=== PATIENT | female | born 1970 ===

== ENCOUNTER 2017-01-25 20:19 | Inpatient (IN) | payer MEDICAID ==
[2017-01-25] MEDS ORDERED: DiphenhydrAMINE 50 mg/ml Inj IVP STA (21:12)
--- NOTE | 2017-01-25 22:02 | ED PDOC ---
HPI: Chest Pain Time Seen by Provider: 01/25/17 20:43 Chief Complaint (Nursing): Chest Pain Chief Complaint (Provider): Chest Pain History Per: Patient History/Exam Limitations: no limitations Onset/Duration Of Symptoms: Hrs (x2) Current Symptoms Are (Timing): Still Present Severity: Severe Associated Symptoms: Dyspnea, Other (vomiting (nonbilious/nonbloody), lightheadedness) Additional Complaint(s): Bree Avina is a 46 year old female, with a past medical history inclusive of multiple previous pulmonary emboli (diagnosed 7x in past, 1st in 2013 at [facility], several at [place], most recent at [facility] in July 2016), who presents to the ED on 01/25/17 for the evaluation of severe chest pain that she has experienced x2 hours. Pain was reportedly sudden onset and has since been accompanied by feelings of lightheadedness, shortness of breath and initially 2 episodes of non-bilious/non-bloody vomiting; similar to the symptom presentation experienced with previous PE's. Though she reports being compliant with her self-injected Lovenox, she admits to not having followed up regularly with a doctor secondary to issues with her insurance. Denies fever, cough, leg swelling or use of hormone therapies. Of note patient has brought a copy of the July 2016 CT report by which she had been diagnosed with her most recent PE, though she states as she is allergic to iodine she had been given 1 day's worth of steroid preparation treatments prior to undergoing the study. She also reports that she usually receives dilaudid for the treatment of her chest pain. (+) IVC filter in place. Pertinent familial history includes DVT though not PE. Past Medical History Reviewed: Historical Data, Nursing Documentation, Vital Signs Vital Signs: Last Vital Signs Temp 97.5 F L 01/26/17 12:00 Pulse 71 01/26/17 12:00 Resp 20 01/26/17 12:00 BP 146/93 H 01/26/17 12:00 Pulse Ox 93 L 01/26/17 12:00 - Medical History PMH: Asthma, Gall Bladder Disease (CHOLECYSTECTOMY), Kidney Stones, Pulmonary Embolism (x7, most recent July 2016 at [facility]) Denies: Alzheimer's Disease, Anemia, Anxiety, Arthritis, Atrial Fibrillation , Bipolar Disorder, Bronchitis, CAD, Cardia Arrhythmia, CHF, COPD, Crohn's Disease, Dementia, Depression, Diverticulitis, Emphysema, Fractures, Gastritis, HIV, HTN, Hypercholesterolemia, Hyperthyroidism, Hypothyroidism, Migraine, Mitral Valve Prolapse, Multiple Sclerosis, Osteoporosis, Pancreatitis, Paranoia , Parkinson's Disease, Peripheral Edema, Pneumonia, Post Traumatic Stress Disorder, Chronic Kidney Disease, Rheumatoid Arthritis, Schizophrenia, Seizures , Sickle Cell Disease, Sexually Transmitted Disease, Sleep Apnea, TIA - Surgical History Surgical History: Appendectomy, Cholecystectomy Denies: CABG, Carotid Endarterectomy, Coronary Stent, Pacemaker, Tonsillectomy Other surgeries: IVC filter placement, splenectomy, tubal ligation - Family History Family History: States: Hypertension, Other (DVT; not PE) - Immunization History Hx Tetanus Toxoid Vaccination: Yes Hx Influenza Vaccination: No Hx Pneumococcal Vaccination: Yes - Home Medications Home Medications: Ambulatory Orders Medication Instructions Recorded Enoxaparin [Lovenox] 140 mg SUBCUT BID 01/26/17 - Allergies Allergies/Adverse Reactions: Allergies Allergy/AdvReac Type Severity Reaction Status Date / Time iodixanol Allergy Severe SHORTNESS Verified 01/25/17 20:58 OF BREATH Iodine and Iodide Containing Allergy SHORTNESS Verified 01/25/17 20:58 Produc OF BREATH ketorolac Allergy ITCHING Verified 01/25/17 20:58 ondansetron Allergy ITCHING Verified 01/25/17 20:58 Wells Criteria for PE - Wells Criteria for Pulmonary Embolism Clinical Signs and Symptoms of DVT: Yes P.E is #1 Diagnosis, or Equally Likely: Yes Heart Rate >100: Yes Immobilization at least 3 days;Surgery previous 4 weeks: No Previous, objectively diagnosed PE or DVT: Yes Hemoptysis: No Malignancy w/treatment within 6 months, or palliative: No Total Score: 7.0 Review of Systems ROS Statement: Except As Marked, All Systems Reviewed And Found Negative Constitutional: Negative for: Fever Cardiovascular: Positive for: Chest Pain, Light Headedness. Negative for: Edema (no leg swelling) Respiratory: Positive for: Shortness of Breath. Negative for: Cough Gastrointestinal: Positive for: Vomiting (nonbilious/nonbloody, x2) Physical Exam - Reviewed Nursing Documentation Reviewed: Yes Vital Signs Reviewed: Yes - Physical Exam Appears: Positive for: Non-toxic, In Acute Distress (mild respiratory distress) Head Exam: Positive for: ATRAUMATIC, NORMOCEPHALIC Skin: Positive for: Normal Color, Warm, Dry Eye Exam: Positive for: Normal appearance, EOMI, PERRL ENT: Positive for: Normal ENT Inspection Neck: Positive for: Normal, Painless ROM, Supple Cardiovascular/Chest: Positive for: Edema (trace b/l LE), Tachycardia (regular rhythm). Negative for: Murmur Respiratory: Positive for: Normal Breath Sounds. Negative for: Respiratory Distress Gastrointestinal/Abdominal: Positive for: Normal Exam (obese), Soft. Negative for: Tenderness Back: Positive for: Normal Inspection Extremity: Positive for: Normal ROM. Negative for: Calf Tenderness Neurologic/Psych: Positive for: Alert, Oriented - Laboratory Results Result Diagrams: 01/25/17 23:18 01/25/17 23:18 - ECG O2 Sat by Pulse Oximetry: 96 (RA) Pulse Ox Interpretation: Normal Medical Decision Making Medical Decision Makin:43 Initial Impression: shortness of breath and chest pain in setting of known previous history of PE Differential diagnoses include but are not limited to recurrent PE (most likely) , pneumothorax, ACS, CHF, pneumonia. Previous documentation reviewed, there appears to be a history of pain medication dependence/seeking behavior as well as factitious disorder as per previous psychiatric evaluations. Most recent hospitalization for PE at [facility] was July 2015. ----[facility] CT Report (08/15/16) IMPRESSION: 1. Distal segmental and subsegmental pulmonary emboli in the medial basilar right lower lobe. No evidence for elevated right heart pressures. 2. Enlarged heterogenous thyroid gland with multiple subcentimeter nodules, likely multinodular goiter. 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 Multiple attempts by different RNs unable to place peripheral line. Attempted RIGHT EJ with straight angio cath without success. LEFT TLC IJ placed. See procedure note Pt's labs demonstrate elevated WBC count, elevated PTT. Unable to have CT at this time due to contrast allergy. Bilater venous duplex ordered. For admission for further evaluation and management and inpatient consultations for ideal treatment for PE in setting of , pending callback Dr Brower. Pt reporting that Morphine not sufficient for pain and that she should be given dilaudid. Reviewed opiate dependence concerns with patient and that at this time she will be given milder medications until evaluation by pain management. Endorsed to Dr Negron pending US and hospitalization. Scribe Attestation: Documented by Gissell Parks, acting as a scribe for Karli Huynh MD. Provider Scribe Attestation: All medical record entries made by the Scribe were at my direction and personally dictated by me. I have reviewed the chart and agree that the record accurately reflects my personal performance of the history, physical exam, medical decision making, and the department course for this patient. I have also personally directed, reviewed, and agree with the discharge instructions and disposition. Procedures - Central Line Central Line Lumen: Ultrasound guidance Central Line Procedure: betadine prep (chloraprep), sterile drapes applied, sterile dressing applied Central Line Postion: internal jugular (L) Anesthesia: Lidocaine cc's of anesthesia: 5 Complications: 3 attempts Central Line Post Position: sutured, good blood return, position confirmed w/ CXR Disposition - Clinical Impression Clinical Impression: Dyspnea, Chest pain, Tachycardia - Disposition Disposition Time: 00:00 Condition: STABLE - Pt Status Changed To: Hospital Disposition Of: Inpatient - Admit Certification Admit to Inpatient:: After my assessment, the patient will require hospitalization for at least two midnights. This is because of the severity of symptoms shown, intensity of services needed, and/or the medical risk in this patient being treated as an outpatient. - POA Present On Arrival: Deep Vein Thrombosis / PE
[2017-01-25] MEDS ORDERED: DiphenhydrAMINE 50 mg/ml Inj ONE (23:18)
[2017-01-25 23:25] LABS: BASO # 0.1 K/uL (0.0-0.2); BASO % 0.8 % (0.0-2.0); HEMATOCRIT 36.6 % (34.0-47.0); LYMPH % 7.6 % (20.0-40.0); MEAN CELL VOLUME 81.8 fl (81.0-99.0); MEAN CORPUSCULAR HEMOGLOBIN 25.9 pg (27.0-31.0); MEAN CORPUSCULAR HGB CONC 31.6 g/dL (33.0-37.0); MEAN PLATELET VOLUME 8.4 fl (7.2-11.7); MONO # 0.9 K/uL (0.0-0.8); MONO % 6.3 % (0.0-10.0); NEUT # 11.5 K/uL (1.8-7.0); NEUT % 85.3 % (50.0-75.0); NRBC % 0.1 % (0.0-0.0); PLATELET COUNT 327 K/uL (130-400); RED CELL DISTRIBUTION WIDTH 17.6 % (11.5-14.5); WHITE BLOOD COUNT 13.5 K/uL (4.8-10.8)
[2017-01-25 23:37] LABS: ALB/GLOB RATIO 1.2 (1.0-2.1); ALKALINE PHOSPHATASE 60 U/L (38-126); ALT/SGPT 20 U/L (9-52); AST/SGOT 23 U/L (14-36); BILIRUBIN,TOTAL 0.4 mg/dl (0.2-1.3); BLOOD UREA NITROGEN 13 mg/dl (7-17); CALCIUM 9.8 mg/dL (8.4-10.2); CARBON DIOXIDE 25 mmol/L (22-30); CHLORIDE 109 mmol/L (98-107); GFR AFRICAN-AMERICAN > 60; GLUCOSE,RANDOM 168 mg/dL (65-105); MAGNESIUM 1.9 MG/DL (1.6-2.3); PHOSPHOROUS 1.3 mg/dl (2.5-4.5); POTASSIUM 4.2 MMOL/L (3.6-5.0); SODIUM 144 mmol/l (132-148); TOTAL PROTEIN 6.5 G/DL (6.3-8.2)
[2017-01-26 00:53] LABS: THYROID STIMULATING HORMONE 0.08 mIU/ML (0.46-4.68)
[2017-01-26 01:02] LABS: GIANT PLATELETS PRESENT; NEUTROPHIL 84 % (42-75); REACTIVE LYMPHOCYTES 1 % (0-0); TOTAL CELLS COUNTED 100
[2017-01-26 01:19] LABS: URINE COLOR YELLOW (YELLOW)
[2017-01-26 01:20] LABS: URINE BILIRUBIN NEGATIVE (NEGATIVE); URINE GLUCOSE (UA) NEGATIVE (Normal); URINE KETONE NEGATIVE (NEGATIVE)
[2017-01-26 01:21] LABS: RBC URINE 59 /hpf (0-3); URINE BLOOD SMALL (NEGATIVE); URINE LEUKOCYTE ESTERASE LARGE Leu/uL (Negative); URINE PROTEIN 30 mg/dL (NEGATIVE); URINE UROBILINOGEN 0.2 mg/dL (0.2-1.0); WBC URINE 65 /hpf (0-5)
--- NOTE | 2017-01-26 01:23 | US ---
EXAM: US Duplex Bilateral Lower Extremity Veins CLINICAL HISTORY: 46 years old, female; Condition or disease; Other: SOB, h/o multiple pe's; Additional info: H/o pe SOB iodine allergy TECHNIQUE: Real-time ultrasound scan of the veins of the bilateral lower extremities with color Doppler flow, spectral waveform analysis and compression. COMPARISON: No relevant prior studies available. FINDINGS: Right deep veins: Unremarkable. No DVT in the right common femoral, femoral or popliteal veins. The veins are compressible with normal color flow and augmentation. Right superficial veins: Unremarkable. No thrombus in the visualized right greater saphenous vein. Left deep veins: Unremarkable. No DVT in the left common femoral, femoral or popliteal veins. The veins are compressible with normal color flow and augmentation. Left superficial veins: Unremarkable. No thrombus in the visualized left greater saphenous vein. Soft tissues: No acute findings. No popliteal cyst. IMPRESSION: Normal bilateral lower extremity duplex venous ultrasound.
[2017-01-26 01:25] LABS: URINE BACTERIA RARE (<OCC)
[2017-01-26 01:43] LABS: PARTIAL THROMBOPLASTIN TIME 40.6 SECONDS (23.3-32.5)
--- NOTE | 2017-01-26 02:09 | ED PDOC ---
- Laboratory Results Result Diagrams: 01/25/17 23:18 01/25/17 23:18 - ECG O2 Sat by Pulse Oximetry: 99 Medical Decision Making Medical Decision Making: Transfer of care from Dr Huynh. Pending final disposition. Disposition Discussed With DrBautista: Kelly Brower Doctor Will See Patient In The: Hospital Counseled Patient/Family Regarding: Studies Performed, Diagnosis - Clinical Impression Clinical Impression: Dyspnea, Chest pain, Tachycardia - POA Present On Arrival: None - Disposition Disposition: Hospitalized as Observation Patient Disposition Time: 00:55 Condition: STABLE
[2017-01-26] MEDS ORDERED: Sodium Chloride 0.9% 1,000 ML IV SCH (03:45)
[2017-01-26 04:09] VITALS: BMI 54.2
[2017-01-26] MEDS: Enoxaparin 150 mg Syringe SC SCH ×2 (08:57→21:49)
--- NOTE | 2017-01-26 10:01 | RAD ---
HISTORY: SOB CP COMPARISON: 01/25/2017 FINDINGS: LUNGS: No active pulmonary disease. PLEURA: No significant pleural effusion identified, no pneumothorax apparent. CARDIOVASCULAR: New left IJ central venous catheter. OSSEOUS STRUCTURES: No significant abnormalities. VISUALIZED UPPER ABDOMEN: Normal. OTHER FINDINGS: None. IMPRESSION: New left IJ central venous catheter. No pneumothorax. No infiltrate/ effusion.
--- NOTE | 2017-01-26 10:38 | CP.PCM.CON ---
History of Present Illness - History of Present Illness History of Present Illness: Full Note Dictated Chest Pain H/O Multiple Pulm Emboli (Last one in Jul 2016) Pt hemodynamically stable Pulse Ox 97-98% on RA Rec Echo to evaluate RV size and function Past Patient History - Infectious Disease Hx of Infectious Diseases: None - Tetanus Immunizations Tetanus Immunization: Up to Date - Past Medical History & Family History Past Medical History?: Yes - Past Social History Smoking Status: Never Smoked - CARDIAC Hx Atrial Fibrillation: No Hx Cardia Arrhythmia: No Hx Congestive Heart Failure: No Hx Hypercholesterolemia: No Hx Hypertension: No Hx Mitral Valve Prolapse: No Hx Pacemaker: No Hx Peripheral Edema: No - PULMONARY Hx Asthma: Yes Hx Bronchitis: No Hx Chronic Obstructive Pulmonary Disease (COPD): No Hx Emphysema: No Hx Pneumonia: No Hx Pulmonary Embolism: Yes (x7, most recent July 2016 at [facility]) Hx Sleep Apnea: No - NEUROLOGICAL Hx Alzheimer's Disease: No Hx Dementia: No Hx Migraine: No Hx Multiple Sclerosis: No Hx Parkinson's Disease: No Hx Seizures: No Hx Transient Ischemic Attacks (TIA): No - HEENT Hx HEENT Problems: No Hx Blind: No Hx Cataracts: No Hx Deafness: No Hx Difficulty Chewing: No Hx Epistaxis: No Hx Glaucoma: No Hx Macular Degeneration: No - RENAL Hx Kidney Stones: Yes - ENDOCRINE/METABOLIC Hx Hyperthyroidism: No Hx Hypothyroidism: No - HEMATOLOGICAL/ONCOLOGICAL Hx Anemia: No Hx Human Immunodeficiency Virus (HIV): No Hx Sickle Cell Disease: No - INTEGUMENTARY Hx Dermatological Problems: No Hx Basil Cell: No Hx Bennett: No Hx Cellulitis: No Hx Eczema: No Hx Melanoma: No Hx Psoriasis: No Hx Squamous Cell: No - MUSCULOSKELETAL/RHEUMATOLOGICAL Hx Falls: No - GASTROINTESTINAL Hx Gall Bladder Disease: Yes (CHOLECYSTECTOMY) - GENITOURINARY/GYNECOLOGICAL Hx Sexually Transmitted Disorders: No - PSYCHIATRIC Hx Substance Use: No - SURGICAL HISTORY Hx Appendectomy: Yes Hx Carotid Endarterectomy: No Hx Cholecystectomy: Yes Hx Splenectomy: Yes Hx Tubal Ligation: Yes - ANESTHESIA Hx Anesthesia: Yes Hx Anesthesia Reactions: No Hx Malignant Hyperthermia: No Meds Allergies/Adverse Reactions: Allergies Allergy/AdvReac Type Severity Reaction Status Date / Time iodixanol Allergy Severe SHORTNESS Verified 01/25/17 20:58 OF BREATH Iodine and Iodide Containing Allergy SHORTNESS Verified 01/25/17 20:58 Produc OF BREATH ketorolac Allergy ITCHING Verified 01/25/17 20:58 ondansetron Allergy ITCHING Verified 01/25/17 20:58 - Medications Medications: Current Medications Acetaminophen (Tylenol 325mg Tab) 650 mg PO Q4 PRN PRN Reason: Pain, severe (8-10) Enoxaparin Sodium (Lovenox) 130 mg SC Q12 RAYSHAWN PRN Reason: Protocol Last Admin: 01/26/17 08:57 Dose: 130 mg Results - Vital Signs Recent Vital Signs: Last Vital Signs Temp 97.5 F L 01/26/17 09:00 Pulse 68 01/26/17 09:00 Resp 18 01/26/17 09:00 BP 132/85 01/26/17 09:00 Pulse Ox 96 01/26/17 09:00 - Labs Result Diagrams: 01/25/17 23:18 01/25/17 23:18 Labs: Laboratory Results - last 24 hr 01/26/17 01/26/17 00:58 07:45 PT 15.6 H INR 1.50 H APTT 40.6 H Troponin I < 0.0120
--- NOTE | 2017-01-26 11:25 | CON ---
DATE: 01/26/2017 She is hospitalized under Dr. Samson care, in room 406, bed 2. HISTORY OF PRESENT ILLNESS: This 46-year-old female came into the hospital reporting chest discomfort which started yesterday evening. It has persisted virtually unabated since yesterday evening. It is not excruciating, obviously because the patient tends to fall asleep in the middle of sentences and does not seem to be in any distress. Easily arousable and then relates her story. The last hospitalization for pulmonary embolism was in 07/2016, when she was hospitalized at [facility]. She has been started on Lovenox ever since and has gone back for a refill in October. She had a Lovenox prescription which was renewed and, by her account, continues to take Lovenox regularly. She is not a smoker. Denies any history of hypertension or diabetes. Has been chronically overweight and gives a history of having had an IVC filter put in some time back. Denies orthopnea. Denies palpitations. Denies any perspiration, nausea. PHYSICAL EXAMINATION: GENERAL: Shows a middle-aged, overweight female who is slightly drowsy, has received Benadryl in the Emergency Room. VITAL SIGNS: Otherwise, has a heart rate of 74 beats per minute, regular and blood pressure of 130/80 mmHg. NECK: Her jugular venous pressure was difficult to evaluate because of a short thick neck, but jugular veins did not appear to be distended. EXTREMITIES: There was no pedal edema. Pedal pulses were well felt. Extremities are warm, nailbeds are pink. There was no central or peripheral cyanosis. SKIN: Dry. HEART: The apex was not palpable. The first and second heart sounds were normal and distant, but no gallop rhythm. LUNGS: No rales were audible. DATA: Her electrocardiogram showed sinus tachycardia, at the time of admission , with a heart rate of 122 beats per minute There were Q-waves in lead V1 and V2, suggestive of a possible old septal infarct. The R-wave was slightly slurred in leads V3 and V4, bringing up the possibility of whether there was a concealed conduction pathway between atrium and ventricle. The PA interval was normal and the QRS duration was 78 milliseconds. LABORATORY DATA: Showed a hemoglobin and hematocrit of 11.6 g and 36.6% respectively. The WBC count was 13,500, of which 85% were neutrophils. Platelet count was 327,000. Her BUN and creatinine were 13 and 0.6 mg%. Her troponins were negative x 2 and her proBNP was 385 pg/mL. Her TSH was mildly reduced. IMPRESSION: At this time, was chest pain with a prior history of pulmonary emboli. At this point, the patient does not show any hemodynamic instability, or oxygen desaturation, or evidence of right ventricular failure, or EKG evidence of right ventricular strain. She is being anticoagulated adequately. She has obviously undergone workup at [facility] and, at the beginning of the week, her physician there, who has been writing prescriptions for Lovenox, would need to be contacted to get additional information regarding the workup that has been carried out. In the meantime, at this juncture, she is hemodynamically stable and adequately anticoagulated with Lovenox. Review of echo images does not show RV enlargement or elevated PA pressures. Abdias Griffin MD cc: 23 TT: 01/26/2017 11:24:45 Confirmation # [id number] Dictation # [id number] ln MTDD
--- NOTE | 2017-01-26 12:04 | CARD ---
APPROVED REPORT EXAM: Two-dimensional and M-mode echocardiogram with Doppler and color Doppler. Other Information Quality : FairRhythm : NSR Technically limited study due to body habitus. INDICATION Pulmonary Embolism 2D DIMENSIONS IVSd1.49 (0.7-1.1cm)LVDd4.63 (3.9-5.9cm) LVOT Diameter2.06 (1.8-2.4cm)PWd1.22 (0.7-1.1cm) IVSs1.31 (0.8-1.2cm)LVDs2.92 (2.5-4.0cm) FS (%) 37.0 %PWs1.42 (0.8-1.2cm) M-Mode DIMENSIONS Left Atrium (MM)3.79 (2.5-4.0cm)IVSd1.09 (0.7-1.1cm) Aortic Root2.97 (2.2-3.7cm)LVDd4.91 (4.0-5.6cm) Aortic Cusp Exc.1.59 (1.5-2.0cm)PWd1.24 (0.7-1.1cm) IVSs1.47 cmFS (%) 28 % LVDs3.53 (2.0-3.8cm)PWs1.65 cm Mitral Valve MV E Elgakpuu50.2cm/sMV DECEL [id number] A Wwgkuhyt25.7cm/s MV [id number]/A ratio1.2MVA (PHT)3.55cm2 TDI E/Lateral E'0.0E/Medial E'0.0 Pulmonary Valve PV Peak Nuljfxao23.0cm/s Tricuspid Valve TR Peak [id number]/sRAP [id number] Peak Gr.21mmHg [id number] LEFT VENTRICLE The left ventricle is normal size. There is normal left ventricular wall thickness. The left ventricular function is normal. The left ventricular ejection fraction is - 70%. There is normal LV segmental wall motion. The left ventricular diastolic function is normal. No left ventricle thrombus noted on this study. There is no ventricular septal defect visualized. There is no left ventricular aneurysm. There is no mass noted in the left ventricle. RIGHT VENTRICLE The right ventricle is normal size. There is normal right ventricular wall thickness. The right ventricular systolic function is normal. ATRIA The left atrium size is normal. There is no thrombus suspected in the left atrium. The right atrium size is normal. The interatrial septum is intact with no evidence for an atrial septal defect. AORTIC VALVE The aortic valve is normal in structure and function. No aortic regurgitation is present. There is no aortic valvular stenosis. MITRAL VALVE The mitral valve is normal in structure and function. There is no evidence of mitral valve prolapse. There is no mitral valve stenosis. Mitral regurgitation is trace. TRICUSPID VALVE The tricuspid valve is normal in structure and function. There is mild tricuspid regurgitation. Right ventricular systolic pressure is estimated at 32 mmHg. There is no tricuspid valve prolapse or vegetation. There is no tricuspid valve stenosis. PULMONIC VALVE The pulmonic valve is not well visualized. There is no pulmonic valvular regurgitation. GREAT VESSELS The aortic root is normal in size. The IVC is normal in size and collapses >50% with inspiration. PERICARDIAL EFFUSION The pericardium appears normal. There is no pleural effusion. <Conclusion> The left ventricle is normal in size and wall thickness. The left ventricular function is normal with a LVEf of - 70%. The left atrium, right ventricle and right atrium are normal in size. The mitral, aortic and tricuspid valves are normal. There is trace mitral regurgitation and mild tricuspid regurgitation.
[2017-01-26] MEDS ORDERED: methylPREDNISolone 60 MG in Sodium Chloride 0.9% 50 ML IVPB ONE (12:58)
--- NOTE | 2017-01-26 13:08 | RAD ---
HISTORY: sob cp COMPARISON: 08/16/2014 FINDINGS: LUNGS: No active pulmonary disease. PLEURA: No significant pleural effusion identified, no pneumothorax apparent. CARDIOVASCULAR: Normal. OSSEOUS STRUCTURES: No significant abnormalities. VISUALIZED UPPER ABDOMEN: Normal. OTHER FINDINGS: None. IMPRESSION: No active disease.
[2017-01-26] MEDS ORDERED: methylPREDNISolone 60 MG in Sodium Chloride 0.9% 50 ML IV ONE ×5 (13:45→23:00)
[2017-01-26] MEDS ORDERED: DiphenhydrAMINE 50 mg/ml Inj IVP ONE (13:50)
--- NOTE | 2017-01-26 14:38 | CP.PCM.CON ---
History of Present Illness - History of Present Illness History of Present Illness: CC: Hx PE. Pulmonary consult for a 46 y/o F, with Hx of PE x 7, treated previously with Pradaxa, Xarelto, Coumadin with failure of Tx and is admitted now with CP. Pt is in compliance with Lovenox injection. Last admission for PE July 2016. Denied: Cough, Orthopnea. Patient previously treated with Pradaxa, Xarelto DC 2nd to bleeding , and Coumadin DC 2nd to doses up to 20 mg unable to achieve therapeutic INR, thereafter Patient was started in Lovenox,Patient is allergic to Iodine and had previous respiratory arrest wit intubation with CT abdomen/ Pelvis, She had CT CTA with contrast positive por PE on 08-15-16 , with previous preparation with steroid with no reaction to Iodine, Patient was on Lovenox BID while having this PE. Pt came to [facility] for sudden onset of CP Midsternal, 2hrs [employer], taking Tylenol with no relief, pain was continue, stabbing, severe intensity 9:10 associated to Dyspnea, vomiting, non-bilious, non bloody. Worsening symptoms: lightheadedness. Aggravated factor: Increased pain with deep breathing. She mention, having same symptoms with her last PE. She denied: fever, chills, cough, legs swelling, n/d, abdominal pain, sick contact, recent travel. PMHx: PE x 7, Asthma, Gall Bladder disease, Kidney Stone. Denied: HTN, DMII. CXR shows: No active pulmonary disease. Ext.U-S= No DVT. Review of Systems - Constitutional Constitutional: Other (Morbid Obesity BMI 54.2) - EENT Eyes: Other (negative) Ears: Other (negative) Nose/Mouth/Throat: Other (negative) - Cardiovascular Cardiovascular: Chest Pain, Lightheadedness. absent: Leg Edema - Respiratory Respiratory: Dyspnea. absent: Cough - Gastrointestinal Gastrointestinal: Vomiting - Genitourinary Genitourinary: Other (negative) - Musculoskeletal Musculoskeletal: Other (negative) - Integumentary Integumentary: Other (negative) - Neurological Neurological: Other (negative) - Psychiatric Psychiatric: Other (negative) - Endocrine Endocrine: Other (Morbid obesity) - Hematologic/Lymphatic Hematologic: Other (negative) Past Patient History - Infectious Disease Hx of Infectious Diseases: None - Tetanus Immunizations Tetanus Immunization: Up to Date - Past Medical History & Family History Past Medical History?: Yes Pertinent Family History: Unknown - Past Social History Smoking Status: Never Smoked Alcohol: None Drugs: Denies - CARDIAC Hx Cardiac Disorders: No Hx Atrial Fibrillation: No Hx Cardia Arrhythmia: No Hx Congestive Heart Failure: No Hx Hypercholesterolemia: No Hx Hypertension: No Hx Mitral Valve Prolapse: No Hx Pacemaker: No Hx Peripheral Edema: No - PULMONARY Hx Respiratory Disorders: Yes Hx Asthma: Yes Hx Bronchitis: No Hx Chronic Obstructive Pulmonary Disease (COPD): No Hx Emphysema: No Hx Pneumonia: No Hx Pulmonary Embolism: Yes (x7, most recent July 2016 at [facility]) Hx Sleep Apnea: No - NEUROLOGICAL Hx Alzheimer's Disease: No Hx Dementia: No Hx Migraine: No Hx Multiple Sclerosis: No Hx Parkinson's Disease: No Hx Seizures: No Hx Transient Ischemic Attacks (TIA): No - HEENT Hx HEENT Problems: No Hx Blind: No Hx Cataracts: No Hx Deafness: No Hx Difficulty Chewing: No Hx Epistaxis: No Hx Glaucoma: No Hx Macular Degeneration: No - RENAL Hx Chronic Kidney Disease: Yes Hx Kidney Stones: Yes - ENDOCRINE/METABOLIC Hx Endocrine Disorders: No Hx Hyperthyroidism: No Hx Hypothyroidism: No - HEMATOLOGICAL/ONCOLOGICAL Hx Blood Disorders: No Hx Anemia: No Hx Human Immunodeficiency Virus (HIV): No Hx Sickle Cell Disease: No - INTEGUMENTARY Hx Dermatological Problems: No Hx Basil Cell: No Hx Bennett: No Hx Cellulitis: No Hx Eczema: No Hx Melanoma: No Hx Psoriasis: No Hx Squamous Cell: No - MUSCULOSKELETAL/RHEUMATOLOGICAL Hx Musculoskeletal Disorders: No Hx Falls: No - GASTROINTESTINAL Hx Gastrointestinal Disorders: Yes Hx Gall Bladder Disease: Yes (CHOLECYSTECTOMY) - GENITOURINARY/GYNECOLOGICAL Hx Genitourinary Disorders: No Hx Sexually Transmitted Disorders: No - PSYCHIATRIC Hx Psychophysiologic Disorder: No Hx Substance Use: No - SURGICAL HISTORY Hx Surgeries: Yes Hx Appendectomy: Yes Hx Carotid Endarterectomy: No Hx Cholecystectomy: Yes Hx Splenectomy: Yes Hx Tubal Ligation: Yes - ANESTHESIA Hx Anesthesia: Yes Hx Anesthesia Reactions: No Hx Malignant Hyperthermia: No Meds Allergies/Adverse Reactions: Allergies Allergy/AdvReac Type Severity Reaction Status Date / Time iodixanol Allergy Severe SHORTNESS Verified 03/21/17 15:22 OF BREATH Iodine and Iodide Containing Allergy SHORTNESS Verified 03/21/17 15:22 Produc OF BREATH ketorolac Allergy ITCHING Verified 03/21/17 15:22 ondansetron Allergy ITCHING Verified 03/21/17 15:22 - Medications Medications: Current Medications Acetaminophen (Tylenol 325mg Tab) 650 mg PO Q4 PRN PRN Reason: Pain, severe (8-10) Enoxaparin Sodium (Lovenox) 130 mg SC Q12 RAYSHAWN PRN Reason: Protocol Last Admin: 01/26/17 08:57 Dose: 130 mg Morphine Sulfate (Morphine) 2 mg IVP Q6 PRN PRN Reason: Pain, moderate (4-7) Last Admin: 01/26/17 14:17 Dose: 2 mg Physical Exam - Constitutional Appears: No Acute Distress - Head Exam Head Exam: NORMAL INSPECTION - Eye Exam Pupil Exam: PERRL - ENT Exam ENT Exam: Mucous Membranes Moist - Neck Exam Neck exam: Positive for: Normal Inspection - Respiratory Exam Respiratory Exam: NORMAL BREATHING PATTERN - Cardiovascular Exam Cardiovascular Exam: REGULAR RHYTHM - GI/Abdominal Exam GI & Abdominal Exam: Normal Bowel Sounds, Soft - Extremities Exam Extremities exam: Positive for: normal inspection - Back Exam Back exam: NORMAL INSPECTION - Neurological Exam Neurological exam: Alert, Oriented x3 Additional comments: no motor/sensory deficit - Psychiatric Exam Psychiatric exam: Normal Mood - Skin Skin Exam: Warm Results - Vital Signs Recent Vital Signs: Last Vital Signs Temp 97.5 F L 01/26/17 12:00 Pulse 71 01/26/17 12:00 Resp 20 01/26/17 12:00 BP 146/93 H 01/26/17 12:00 Pulse Ox 93 L 01/26/17 12:00 - Labs Result Diagrams: 01/28/17 06:25 01/28/17 06:25 Labs: Laboratory Results - last 24 hr 01/26/17 01/26/17 00:58 07:45 PT 15.6 H INR 1.50 H APTT 40.6 H Troponin I < 0.0120 Assessment & Plan - Assessment and Plan (Free Text) Assessment: Hx of recurrent PE Chronic high Chest Pain Acute high Hx bronchial Asthma Chronic Obesity Chronic Plan: Pt cleared by Cardiology. Initially c/o of CP but is feeling better now, no SOB, O2 Sat 97% on room air. Patient appears quiet in no distress , but is requesting Morphine, will ordered CT Chest w/o contrast and VQ Lung Scan on Saturday. Continue Lovenox 130 q 12. F/U Blood C-S. - Date & Time Date: 01/26/17 Time: 14:00
[2017-01-26] MEDS: DiphenhydrAMINE 50 mg/ml Inj IVP PRN ×2 (16:22→22:33)
--- NOTE | 2017-01-26 16:53 | CT ---
PROCEDURE: CT Chest without contrast HISTORY: chest pain, PE COMPARISON: 08/13/2012 TECHNIQUE: Contiguous axial images were obtained through the chest without intravenous contrast enhancement. Sagittal and coronal reconstructions were performed. Radiation dose (DLP): 664.17 mGy-cm. This CT exam was performed using one or more of the following dose reduction techniques: Automated exposure control, adjustment of the mA and/or kV according to patient size, and/or use of iterative reconstruction technique. FINDINGS: LUNGS: Minimal linear scar/ atelectasis in posterior right lower lobe. No infiltrate. No pulmonary mass. MEDIASTINUM: Unremarkable thoracic aorta. No aneurysm. Normal sized heart. Mild dilatation of the main pulmonary artery to a diameter of 3.4 cm. This may correlate with pulmonary arterial hypertension. No lymphadenopathy. Left central venous infusion port. Mild thyromegaly with multiple punctate calcifications and heterogeneous attenuation. Likely multinodular goiter as was evident on CT examination of 08/13/2012. . PLEURA: No pleural fluid. No pneumothorax. BONES: No fracture. No destructive lesion. UPPER ABDOMEN: Status post splenectomy. Splenic vascular stent, likely splenic arterial. OTHER FINDINGS: None. IMPRESSION: No consolidation/pleural effusion. No mediastinal mass or lymphadenopathy. Probable multinodular goiter. Status post splenectomy. Splenic vascular stent.
[2017-01-27] MEDS: DiphenhydrAMINE 50 mg/ml Inj IVP PRN ×4 (03:44→21:31)
[2017-01-27] MEDS: Enoxaparin 150 mg Syringe SC SCH ×2 (09:38→21:39)
--- NOTE | 2017-01-27 19:53 | CP.PCM.PN ---
Subjective - Date & Time of Evaluation Date of Evaluation: 01/27/17 Time of Evaluation: 12:30 - Subjective Subjective: F/U Hx of recurrent PE. Awake, c/o of chest pain now, requesting Morphine, as per nurse sleeping most all the day, Objective - Vital Signs/Intake and Output Vital Signs (last 24 hours): Temp Pulse Resp BP Pulse Ox 98.2 F 108 H 20 124/87 98 01/27/17 15:42 01/27/17 15:42 01/27/17 15:42 01/27/17 15:42 01/27/17 15:42 - Medications Medications: Current Medications Acetaminophen (Tylenol 325mg Tab) 650 mg PO Q4 PRN PRN Reason: Pain, severe (8-10) Diphenhydramine HCl (Benadryl) 25 mg IVP Q6 PRN PRN Reason: Itching / Pruritus Last Admin: 01/27/17 15:18 Dose: 25 mg Enoxaparin Sodium (Lovenox) 130 mg SC Q12 RAYSHAWN PRN Reason: Protocol Last Admin: 01/27/17 09:38 Dose: 130 mg Morphine Sulfate (Morphine) 1 mg IVP Q6 PRN PRN Reason: Pain, moderate (4-7) Last Admin: 01/27/17 15:16 Dose: 1 mg - Labs Labs: PT 15.6 SECONDS (9.6-11.2) H 01/26/17 00:58 INR 1.50 (0.92-1.08) H 01/26/17 00:58 APTT 40.6 SECONDS (23.3-32.5) H 01/26/17 00:58 - Constitutional Appears: No Acute Distress - Head Exam Head Exam: NORMAL INSPECTION - Eye Exam Eye Exam: PERRL - ENT Exam ENT Exam: Mucous Membranes Moist - Neck Exam Neck Exam: Normal Inspection - Respiratory Exam Respiratory Exam: NORMAL BREATHING PATTERN - Cardiovascular Exam Cardiovascular Exam: REGULAR RHYTHM - GI/Abdominal Exam GI & Abdominal Exam: Soft, Normal Bowel Sounds - Extremities Exam Extremities Exam: Normal Inspection - Back Exam Back Exam: NORMAL INSPECTION - Neurological Exam Neurological Exam: Alert, Oriented x3. absent: Motor Sensory Deficit - Psychiatric Exam Psychiatric exam: Normal Mood - Skin Skin Exam: Warm Assessment and Plan - Assessment and Plan (Free Text) Assessment: Hx of current PE Chronic high CP Acute Hx of Bronchial Asthma Chronic Morbid obesity Chronic Plan: Continue Lovenox, Cardiology CP non cardiac, O2 Sat above 95 roon air, feels Pt has drug seeking behavior, f/u VQ Lung Scan report.
[2017-01-28] MEDS: DiphenhydrAMINE 50 mg/ml Inj IVP PRN ×4 (05:36→23:23)
--- NOTE | 2017-01-28 06:26 | CARD ---
APPROVED REPORT EKG Measurement Heart [id number] <Conclusion> Sinus tachycardia Left ventricular hypertrophy with repolarization abnormality Cannot rule out Septal infarct, age undetermined Abnormal ECG
[2017-01-28 06:41] LABS: BASO # 0.1 K/uL (0.0-0.2); BASO % 0.8 % (0.0-2.0); EOS # 0.3 K/uL (0.0-0.7); HEMATOCRIT 36.2 % (34.0-47.0); LYMPH # 2.9 K/uL (1.0-4.3); LYMPH % 41.2 % (20.0-40.0); MEAN CELL VOLUME 81.9 fl (81.0-99.0); MEAN CORPUSCULAR HEMOGLOBIN 25.8 pg (27.0-31.0); MEAN CORPUSCULAR HGB CONC 31.6 g/dL (33.0-37.0); MEAN PLATELET VOLUME 8.6 fl (7.2-11.7); MONO # 0.7 K/uL (0.0-0.8); MONO % 9.7 % (0.0-10.0); NEUT # 3.2 K/uL (1.8-7.0); NEUT % 44.3 % (50.0-75.0); NRBC % 0.3 % (0.0-0.0); RED CELL DISTRIBUTION WIDTH 17.5 % (11.5-14.5); WHITE BLOOD COUNT 7.1 K/uL (4.8-10.8)
[2017-01-28 06:57] LABS: ALB/GLOB RATIO 1.1 (1.0-2.1); ALKALINE PHOSPHATASE 51 U/L (38-126); ALT/SGPT 15 U/L (9-52); AST/SGOT 14 U/L (14-36); BILIRUBIN,TOTAL 0.4 mg/dl (0.2-1.3); BLOOD UREA NITROGEN 9 mg/dl (7-17); CALCIUM 8.7 mg/dL (8.4-10.2); CARBON DIOXIDE 30 mmol/L (22-30); CHLORIDE 105 mmol/L (98-107); GFR AFRICAN-AMERICAN > 60; GLUCOSE,RANDOM 94 mg/dL (65-105); POTASSIUM 3.9 MMOL/L (3.6-5.0); SODIUM 144 mmol/l (132-148); TOTAL PROTEIN 5.5 G/DL (6.3-8.2)
[2017-01-28 07:01] LABS: PARTIAL THROMBOPLASTIN TIME 27.2 SECONDS (23.3-32.5)
--- NOTE | 2017-01-28 07:59 | HP ---
HISTORY OF PRESENT ILLNESS: This is a 46-year-old morbidly obese female with a history of repeated pulmonary embolism and is currently on Lovenox 140 mg subcutaneously every 12 hours since 07/2016. The patient last was in [facility] where she was diagnosed with a repeated pulmonary embolism and due to the difficulty in fluctuation of her INR level when she was on warfarin, the patient was placed on Lovenox since then to which the patient is compliant. The patient presented to the Emergency Room with symptoms of retrosternal chest pain, which was related to her breathing and shortness of breath or any other symptoms triggering factors for that pain. The patient also had an IVC filter placed in 2014. REVIEW OF SYSTEMS: negative. ALLERGIES: IODINE, TORADOL AND ZOFRAN. SOCIAL HISTORY: Denies smoking, ETOH, or substance abuse. FAMILY HISTORY: Noncontributory. MEDICATIONS: Lovenox 140 mg subQ q.12 hours. . PHYSICAL EXAMINATION: GENERAL: The patient is in bed, not in any cardiopulmonary distress at the time of this admission. VITAL SIGNS: Blood pressure 130/70, temperature 97.5, respiratory rate 20, and pulse is 71. HEENT: Pupils equal, reactive to light. Normal-appearing mucosa of the conjunctivae, oropharyngeal and nasal membrane mucosa. NECK: Supple, no JVD, no carotid bruit, no lymph node, no thyromegaly. CHEST AND LUNGS: Bilateral symmetrical expansion, good air exchange, no rales, no rhonchi. CARDIOVASCULAR: PMI not localized. S1, S2. No additional sounds. ABDOMEN: Normoactive bowel sounds, no tenderness, no organomegaly. EXTREMITIES: No cyanosis, no clubbing, no edema. CENTRAL NERVOUS SYSTEM: Alert, awake, oriented x 3. No neurological deficits could be appreciated. ASSESSMENT: Chest pain in a patient with repeated pulmonary embolism and she is compliant to Lovenox 140 mg and her PTT on admission was 132. PLAN: Pulmonary consult and cardiology consult and follow recommendations. We will continue the Lovenox 1 mg/kg q.12 hours. We will do a VQ scan as the patient ALLERGIC TO IODINE and team management and analgesics for the pain. Kelly Brower MD cc: 167 TT: 01/26/2017 19:15:31 dn 01/28/2017 06:57:47 MTDD
[2017-01-28] MEDS: Enoxaparin 150 mg Syringe SC SCH ×2 (11:08→20:47)
--- NOTE | 2017-01-28 14:36 | CP.PCM.PN ---
Subjective - Date & Time of Evaluation Date of Evaluation: 01/28/17 Time of Evaluation: 09:20 - Subjective Subjective: F/u Hx of recurrent PE. Pt with no A/D, no SOB, c/o of chest pain, requesting Morphine. Objective - Vital Signs/Intake and Output Vital Signs (last 24 hours): Temp Pulse Resp BP Pulse Ox 98.3 F 88 20 137/95 H 98 01/28/17 12:00 01/28/17 12:00 01/28/17 12:00 01/28/17 12:00 01/28/17 12:00 - Medications Medications: Current Medications Acetaminophen (Tylenol 325mg Tab) 650 mg PO Q4 PRN PRN Reason: Pain, severe (8-10) Diphenhydramine HCl (Benadryl) 25 mg IVP Q6 PRN PRN Reason: Itching / Pruritus Last Admin: 01/28/17 11:08 Dose: 25 mg Enoxaparin Sodium (Lovenox) 130 mg SC Q12 RAYSHAWN PRN Reason: Protocol Last Admin: 01/28/17 11:08 Dose: 130 mg Morphine Sulfate (Morphine) 1 mg IVP Q6 PRN PRN Reason: Pain, moderate (4-7) Last Admin: 01/28/17 11:07 Dose: 1 mg - Labs Labs: 01/28/17 06:25 01/28/17 06:25 PT 11.1 SECONDS (9.6-11.2) 01/28/17 06:25 INR 1.07 (0.92-1.08) 01/28/17 06:25 APTT 27.2 SECONDS (23.3-32.5) D 01/28/17 06:25 - Constitutional Appears: No Acute Distress - Head Exam Head Exam: NORMAL INSPECTION - Eye Exam Eye Exam: PERRL - ENT Exam ENT Exam: Mucous Membranes Moist - Neck Exam Neck Exam: Normal Inspection - Respiratory Exam Respiratory Exam: NORMAL BREATHING PATTERN - Cardiovascular Exam Cardiovascular Exam: REGULAR RHYTHM - GI/Abdominal Exam GI & Abdominal Exam: Soft, Normal Bowel Sounds - Extremities Exam Extremities Exam: Normal Inspection - Back Exam Back Exam: NORMAL INSPECTION - Neurological Exam Neurological Exam: Alert, Oriented x3. absent: Motor Sensory Deficit - Psychiatric Exam Psychiatric exam: Normal Mood - Skin Skin Exam: Warm Assessment and Plan - Assessment and Plan (Free Text) Assessment: Hx current PE Chronic CP Acute Hx of Bronchial Asthma Chronic Morbid Obesity Chronic Plan: VQ Lung Scan=Negative, cleared by Cardiology, I feel Pt has drug seeking behavior.
--- NOTE | 2017-01-28 16:34 | NM ---
COMPARISON: January 26, 2017. CT thorax TECHNIQUE: 35.9 mCi technetium 99-m DTPA aerosol. 5.8 mCI technetium 99-m MAA administered intravenously. FINDINGS: VENTILATION COMPONENT: Mildly heterogeneous ventilation. Retention of radionuclide centrally within the tracheobronchial tree consistent with lower airway disease. Artifact related to ingestion of DTPA aerosol. PERFUSION COMPONENT: Heterogeneous distribution of radionuclide. No geographic, segmental, lobar abnormalities apparent on the present examination. IMPRESSION: Low probability ventilation perfusion scan for pulmonary embolism.
--- NOTE | 2017-01-28 21:10 | PN ---
DATE: 01/28/2017 The patient was seen today 01/28/2017. She was admitted for VQ scan. PHYSICAL EXAMINATION: VITAL SIGNS: Blood pressure 130/87, temperature 97.3, respiratory rate 18 and pulse 64. HEENT: Pupils equal and reactive to light. Normal-appearing mucosa of the conjunctivae, oropharyngeal and nasal membrane mucosa. NECK: Supple, no JVD, no carotid bruit, no lymph node and no thyromegaly. CHEST AND LUNGS: Bilateral symmetrical expansion, good air exchange, no rales and no rhonchi. CARDIOVASCULAR: PMI not localized. S1, S2. No additional sounds. ABDOMEN: Normoactive bowel sounds, no tenderness, no organomegaly and no masses. EXTREMITIES: No cyanosis, no clubbing and no edema. CENTRAL NERVOUS SYSTEM: Alert, awake and oriented x 3. No neurological deficits could be appreciated. ASSESSMENT: History of current pulmonary embolism on Lovenox . The patient was scheduled for VQ scan. We will follow the recommendations of pulmonology and cardiology. Kelly Brower MD cc: 167 TT: 01/28/2017 21:09:58 Confirmation # [id number] Dictation # [id number] [place]
[2017-01-29] MEDS: DiphenhydrAMINE 50 mg/ml Inj IVP PRN (08:45)
[2017-01-29] MEDS: Enoxaparin 150 mg Syringe SC SCH (08:53)
[2017-01-29] MEDS ORDERED: Enoxaparin 150 mg Syringe SC SCH ×2 (09:00→21:00)
[2017-01-29 12:29] VITALS: RESP 18
--- NOTE | 2017-01-29 13:25 | CP.PCM.PCO ---
Assessment/Plan - Assessment/Plan Plan (Free Text): Patient seen and examined in NAD Vital sign stable VQ scan results discussed with Pulmonary, low probability for PE, patient to continue lovenox Cleared by Dr Griffin for discharge, no cardiac etiology for her chest pain . Echo with no normal EF, no abnormalities. Discussed with Dr Brower, will dc home with follow up with her PCP TLC removed prior to dc. - Problems Patient Problems: Problem List (Active/Current) Problem Status Priority Diagnosed Code Asthma Acute J45.909 Chest pain Acute 05/11/14 R07.9 Chest pain Acute R07.9 Dyspnea Acute R06.00 GI bleed Acute K92.2 Subtherapeutic international normalized ratio (INR) Acute R79.1 Tachycardia Acute R00.0 Pleuritic pain Chronic Medium R07.81
[2017-01-29] MEDS ORDERED: DiphenhydrAMINE 50 mg/ml Inj IVP ONE (13:38)
--- NOTE | 2017-01-29 14:59 | CP.PCM.PN ---
Subjective - Date & Time of Evaluation Date of Evaluation: 01/29/17 Time of Evaluation: 12:00 - Subjective Subjective: F/U Hx Current PE. Pt c/o of chest pain, very vague about description of CP, requesting Morphine for relief of chest pain Objective - Vital Signs/Intake and Output Vital Signs (last 24 hours): Temp Pulse Resp BP Pulse Ox 98.1 F 84 18 117/78 99 01/29/17 12:29 01/29/17 12:29 01/29/17 12:29 01/29/17 12:29 01/29/17 12:29 - Medications Medications: Current Medications Acetaminophen (Tylenol 325mg Tab) 650 mg PO Q4 PRN PRN Reason: Pain, severe (8-10) Diphenhydramine HCl (Benadryl) 25 mg IVP Q6 PRN PRN Reason: Itching / Pruritus Last Admin: 01/29/17 08:45 Dose: 25 mg Enoxaparin Sodium (Lovenox) 130 mg SC Q12 RAYSHAWN PRN Reason: Protocol Morphine Sulfate (Morphine) 1 mg IVP Q6 PRN PRN Reason: Pain, moderate (4-7) Last Admin: 01/29/17 08:47 Dose: 1 mg - Labs Labs: 01/28/17 06:25 01/28/17 06:25 PT 11.1 SECONDS (9.6-11.2) 01/28/17 06:25 INR 1.07 (0.92-1.08) 01/28/17 06:25 APTT 27.2 SECONDS (23.3-32.5) D 01/28/17 06:25 - Constitutional Appears: No Acute Distress - Head Exam Head Exam: NORMAL INSPECTION - Eye Exam Eye Exam: PERRL - ENT Exam ENT Exam: Normal Exam - Neck Exam Neck Exam: Normal Inspection - Respiratory Exam Respiratory Exam: NORMAL BREATHING PATTERN - Cardiovascular Exam Cardiovascular Exam: REGULAR RHYTHM - GI/Abdominal Exam GI & Abdominal Exam: Soft, Normal Bowel Sounds - Extremities Exam Extremities Exam: Normal Inspection - Back Exam Back Exam: NORMAL INSPECTION - Neurological Exam Neurological Exam: Alert, Oriented x3. absent: Motor Sensory Deficit - Psychiatric Exam Psychiatric exam: Normal Mood - Skin Skin Exam: Warm Assessment and Plan - Assessment and Plan (Free Text) Assessment: Hx of current PE Chronic CP Acute Hx of Bronchial Asthma Chronic Morbid Obesity Chronic Plan: Continue Lovenox, discussed with attendant Pulmonary clear for discharge.
[2017-01-29 16:06] VITALS: BP 105/74; PULSE 94; TEMP 97.9; O2SAT 96
--- NOTE | 2017-01-29 22:35 | DS ---
REASON FOR ADMISSION: This is a 46-year-old female who was admitted with chest pain and a history of recurrent pulmonary embolism. This patient was on Lovenox 1 mg/kg every 12 hours. COURSE OF HOSPITALIZATION: The patient was continued on the same dose of Lovenox 1 mg/kg as per her story and history. The patient was complaining of chest pain, which was not relieved except by morphine and Benadryl. The patient had pulmonary consultation done by Dr. Bruno Paiz. The patient was discharged to continue the same dose of Lovenox 1 mg/kg every 12 hours. FINAL DIAGNOSES: 1. Chest pain. 2. History of pulmonary embolism, on Lovenox 1 mg/kg every 12 hours as patient developed pulmonary embolism while she was on warfarin. Kelly Brower MD cc: 167 TT: 01/29/2017 22:34:46 socrates [place]
[2017-01-30 14:18] LABS: B2 GLYCOPROTEIN I AB(IGA) <9 SAU (<=20); B2 GLYCOPROTEIN I AB(IGG) <9 SGU (<=20); B2 GLYCOPROTEIN I AB(IGM) <9 SMU (<=20)
[2017-01-30 19:45] LABS: CARDIOLIPIN AB (IGA) <11 APL (<=11)
[2017-01-31 14:13] LABS: PHOSPHATIDYLSERINE AB IGA <20 U/mL (<20); PHOSPHATIDYLSERINE AB IGM <25 U/mL (<25)
== END 2017-01-29 19:27 | disposition home or self-care (01) | DRG 78 ==
LOC: H.ER 20:19 → H.EROB 01-26 00:55 → H.ERHOLD 01-26 01:24 → H.TEL 01-26 02:01 → OBSVTOIN 01-26 23:22
PROVIDERS: ADMIT Internal Medicine; ATTEND Internal Medicine
DX: I27.82 Chronic pulmonary embolism (principal); Z68.43 Body mass index [BMI] 50.0-59.9, adult; N18.9 Chronic kidney disease, unspecified; E66.01 Morbid (severe) obesity due to excess calories; J45.909 Unspecified asthma, uncomplicated; Z87.442 Personal history of urinary calculi; Z90.49 Acquired absence of other specified parts of digestive tract; Z76.5 Malingerer [conscious simulation]; Z79.01 Long term (current) use of anticoagulants

== ENCOUNTER 2017-02-11 20:11 | Inpatient (IN) | payer MEDICAID ==
--- NOTE | 2017-02-11 21:42 | ED PDOC ---
HPI: General Adult Time Seen by Provider: 02/11/17 21:37 Chief Complaint (Nursing): Chest Pain History Per: Patient History/Exam Limitations: no limitations Additional Complaint(s): 46yo female taking Lovenox 140mg BID for 7x clots, asthma, is now complaining of chest pain & shortness of breath for 5 hours ago. 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 Denies use of oxygen at home. No fever, chills, recent illness, increased stress. Reports compliance with lovenox but is non-complaint with following up with her healthcare providers. Patient tells me she is allergic to CT dye and needs to be pre-medicated for 24 hours prior to administration of dye. No PMD Past Medical History Reviewed: Historical Data, Nursing Documentation, Vital Signs Vital Signs: Last Vital Signs Temp 98.1 F 02/11/17 20:16 Pulse 81 02/11/17 20:16 Resp 20 02/11/17 20:16 BP 135/88 02/11/17 20:16 Pulse Ox 95 02/12/17 01:12 - Medical History PMH: Asthma, Gall Bladder Disease (CHOLECYSTECTOMY), Kidney Stones, Pulmonary Embolism (x7, most recent July 2016 at [facility]), Chronic Kidney Disease Denies: Alzheimer's Disease, Anemia, Anxiety, Arthritis, Atrial Fibrillation , Bipolar Disorder, Bronchitis, CAD, Cardia Arrhythmia, CHF, COPD, Crohn's Disease, Dementia, Depression, Diverticulitis, Emphysema, Fractures, Gastritis, HIV, HTN, Hypercholesterolemia, Hyperthyroidism, Hypothyroidism, Migraine, Mitral Valve Prolapse, Multiple Sclerosis, Osteoporosis, Pancreatitis, Paranoia , Parkinson's Disease, Peripheral Edema, Pneumonia, Post Traumatic Stress Disorder, Rheumatoid Arthritis, Schizophrenia, Seizures, Sickle Cell Disease, Sexually Transmitted Disease, Sleep Apnea, TIA - Surgical History Surgical History: Appendectomy, Cholecystectomy Denies: CABG, Carotid Endarterectomy, Coronary Stent, Pacemaker, Tonsillectomy - Family History Family History: States: Hypertension - Immunization History Hx Tetanus Toxoid Vaccination: Yes Hx Influenza Vaccination: No Hx Pneumococcal Vaccination: Yes - Home Medications Home Medications: Ambulatory Orders Medication Instructions Recorded Enoxaparin [Lovenox] 140 mg SUBCUT BID 01/26/17 - Allergies Allergies/Adverse Reactions: Allergies Allergy/AdvReac Type Severity Reaction Status Date / Time iodixanol Allergy Severe SHORTNESS Verified 01/25/17 20:58 OF BREATH Iodine and Iodide Containing Allergy SHORTNESS Verified 01/25/17 20:58 Produc OF BREATH ketorolac Allergy ITCHING Verified 01/25/17 20:58 ondansetron Allergy ITCHING Verified 01/25/17 20:58 Review of Systems ROS Statement: Except As Marked, All Systems Reviewed And Found Negative Constitutional: Negative for: Fever, Chills Cardiovascular: Positive for: Chest Pain Respiratory: Positive for: Shortness of Breath Physical Exam - Reviewed Nursing Documentation Reviewed: Yes Vital Signs Reviewed: Yes - Physical Exam Appears: Positive for: Well, Non-toxic, No Acute Distress Head Exam: Positive for: ATRAUMATIC, NORMAL INSPECTION, NORMOCEPHALIC Skin: Positive for: Warm, Dry Eye Exam: Positive for: EOMI, PERRL Cardiovascular/Chest: Positive for: Regular Rate, Rhythm Respiratory: Positive for: Normal Breath Sounds. Negative for: Rales, Rhonchi, Wheezing Gastrointestinal/Abdominal: Positive for: Soft, Other (morbidly obese). Negative for: Tenderness Extremity: Positive for: Normal ROM - Laboratory Results Result Diagrams: 02/11/17 22:30 02/11/17 22:30 - ECG O2 Sat by Pulse Oximetry: 95 (RA) Pulse Ox Interpretation: Normal Medical Decision Making Medical Decision Makin ABG shock panel, Labs, Morphine 4mg, reassess. 01:07 PROCEDURE: CENTRAL LINE PLACEMENT Performed by the emergency provider, Consent: Discussion of the risks, benefits, and alternatives to the procedure, along with informed consent was precluded by the urgency of the procedure and the patient condition. Skin Preparation: Hand hygiene performed prior to central venous catheter insertion. Sterile field, sterile drape, sterile technique, and cap and gown were used. The area was cleansed with 2% Betadine. Location: Left internal jugular vein- reasons was for poor IV access and needed IV hydration Ultrasound guidance: Yes Technique: The landmarks for the line placement were identified. The vessel was cannulated and a non-tunneled 7.0 Fr triple lumen was placed using the Seldinger technique. Successful placement: YES- successful after first event. Line sutured with silk and appropriate dressing applied. Assessment: Good patency and blood return through all three lumens. The ports were appropriately flushed. See post procedure X-Ray interpretation. Post-procedure: Patient tolerated the procedure well with no immediate complications. 01:11 Code sepsis was not called because likely source of lactic acid does not show sign of sepsis, given pt had no complaints of fever along with normal vitals. Source may be likely from dehydration Case was consulted with Dr. Simmons, who is aware of the plan and will accept the pt for admission. Disposition - Clinical Impression Clinical Impression: Chest pain, Lactic acidosis, Leukocytosis, Shortness of breath - Patient ED Disposition Is Patient to be Admitted: No - Disposition Disposition Time: 01:14 Condition: STABLE Additional Comments - Additional Comments Additional Comments: Scribe Attestation: Documented by Nikolay Zurita acting as a scribe for Sherri Post MD. Scribe Attestation: All medical record entries made by the Scribe were at my direction and personally dictated by me. I have reviewed the chart and agree that the record accurately reflects my personal performance of the history, physical exam, medical decision making, and the department course for this patient. I have also personally directed, reviewed, and agree with the discharge instructions and disposition.
[2017-02-11 22:19] LABS: ABG ALLEN TEST YES; ARTERIAL BLOOD GAS HCO3 31.6 mmol/L (21-28); ARTERIAL BLOOD GAS PH 7.49 (7.35-7.45); ARTERIAL BLOOD GAS PO2 87 mm/Hg (80-100)
[2017-02-11 22:44] LABS: BASO # 0.1 K/uL (0.0-0.2); BASO % 0.5 % (0.0-2.0); EOS # 0.1 K/uL (0.0-0.7); EOS % 0.7 % (0.0-4.0); HEMATOCRIT 35.2 % (34.0-47.0); LYMPH # 0.9 K/uL (1.0-4.3); LYMPH % 5.2 % (20.0-40.0); MEAN CELL VOLUME 81.7 fl (81.0-99.0); MEAN CORPUSCULAR HEMOGLOBIN 26.1 pg (27.0-31.0); MEAN PLATELET VOLUME 8.6 fl (7.2-11.7); MONO # 1.7 K/uL (0.0-0.8); MONO % 9.6 % (0.0-10.0); NEUT # 15.2 K/uL (1.8-7.0); NRBC % 1.7 % (0.0-0.0); PLATELET COUNT 309 K/uL (130-400); WHITE BLOOD COUNT 18.1 K/uL (4.8-10.8)
[2017-02-11 22:51] LABS: BLOOD UREA NITROGEN 19 mg/dl (7-17); CARBON DIOXIDE 27 mmol/L (22-30); CHLORIDE 98 mmol/L (98-107); GFR AFRICAN-AMERICAN > 60; GLUCOSE,RANDOM 297 mg/dL (65-105); POTASSIUM 4.4 MMOL/L (3.6-5.0); SODIUM 135 mmol/l (132-148)
[2017-02-11] MEDS ORDERED: Sodium Chloride 0.9% 1,000 ML IV SCH (23:15)
[2017-02-12] MEDS ORDERED: Lidocaine 2% w Epi 1:100,000 Inj IJ ONE (00:27)
[2017-02-12 01:35] LABS: NEUTROPHIL 83 % (42-75); NUCLEATED RED BLOOD CELL 2 % (0-0); TOTAL CELLS COUNTED 100
[2017-02-12] MEDS: Sodium Chloride 0.9% 1,000 ML IV SCH ×2 (01:35→02:38)
[2017-02-12 01:36] LABS: PARTIAL THROMBOPLASTIN TIME 17.2 SECONDS (23.3-32.5)
[2017-02-12 01:36] LABS: LARGE PLATELETS PRESENT
[2017-02-12 01:37] LABS: ACANTHOCYTES SLIGHT
[2017-02-12 03:54] VITALS: BMI 50.8
[2017-02-12 07:25] LABS: HEMATOCRIT 33.1 % (34.0-47.0); MEAN CORPUSCULAR HEMOGLOBIN 26.2 pg (27.0-31.0); MEAN CORPUSCULAR HGB CONC 32.4 g/dL (33.0-37.0); RED CELL DISTRIBUTION WIDTH 18.5 % (11.5-14.5); WHITE BLOOD COUNT 18.8 K/uL (4.8-10.8)
[2017-02-12 07:49] LABS: BLOOD UREA NITROGEN 18 mg/dl (7-17); CALCIUM 8.4 mg/dL (8.4-10.2); CARBON DIOXIDE 31 mmol/L (22-30); CHLORIDE 99 mmol/L (98-107); GFR AFRICAN-AMERICAN > 60; GLUCOSE,RANDOM 265 mg/dL (65-105); POTASSIUM 4.4 MMOL/L (3.6-5.0); SODIUM 137 mmol/l (132-148)
[2017-02-12] MEDS ORDERED: Enoxaparin 150 mg Syringe SC SCH (09:00)
--- NOTE | 2017-02-12 09:10 | RAD ---
PROCEDURE: CHEST RADIOGRAPH, 1 VIEW HISTORY: sob, cp COMPARISON: Comparison is made to 01/26/2017 FINDINGS: LUNGS: No significant interval change in the lungs noted since the previous exam. Slightly prominent lung markings in the mid and lower lungs. PLEURA: No pneumothorax or pleural fluid seen. CARDIOVASCULAR: Normal. OSSEOUS STRUCTURES: No significant abnormalities. VISUALIZED UPPER ABDOMEN: Normal. OTHER FINDINGS: None. IMPRESSION: Prominent lung markings. Otherwise no significant interval change in the lungs.
[2017-02-12] MEDS ORDERED: Albuterol-Ipratrop 3 mg / 0.5 (3 ml) UD INH PRN (09:53)
--- NOTE | 2017-02-12 09:57 | CARD ---
APPROVED REPORT EKG Measurement Heart [id number] <Conclusion> Normal sinus rhythm Voltage criteria for left ventricular hypertrophy Cannot rule out Septal infarct, age undetermined Abnormal ECG
[2017-02-12] MEDS: Enoxaparin 150 mg Syringe SC SCH ×2 (10:02→21:13)
--- NOTE | 2017-02-12 10:51 | HP ---
HISTORY OF PRESENT ILLNESS: The patient is a 46-year-old female who is morbidly obese, who was admit brandon via the Emergency Room because of chest pain and shortness of breath 5 hours prior to presentatio n. She was recently discharged from [facility] after therapy for the same exa ct symptoms and she was found to have pulmonary emboli, for which she was prescribed Lovenox subQ. S he indicates that she has been using her Lovenox, but has been having shortness of breath and chest p ains over the past 24 hours. She has been on Lovenox 140 twice a day and indicates that she uses it religiously, but has never followed up with her primary care physician. PAST MEDICAL HISTORY: Remarkable for asthma; gallbladder disease, status post cholecystectomy; kidne y stones; pulmonary emboli recently; morbid obesity. FAMILY HISTORY: Nonrevealing. SOCIAL HISTORY: She lives alone. Does not smoke or drink. REVIEW OF SYSTEMS: Remarkable for chest pain and shortness of breath. PHYSICAL EXAMINATION: GENERAL: The patient is morbidly obese. VITAL SIGNS: Remarkable for blood pressure of 152/91, pulse of 75, respiratory rate 18-20 per minute . She is afebrile. O2 sat 98% on room air. SKIN: Shows fair turgor. HEENT: Pupils equal, react to light and accommodation. NECK: JVP flat. Mouth shows fair hygiene. LUNGS: Fair aeration. Some basal dullness. HEART: S1, S2. There is mild anterior chest wall tenderness that is reproducible. BREASTS: Normal. ABDOMEN: Soft, nontender. No organomegaly. EXTREMITIES: Shows no edema or cyanosis. CENTRAL NERVOUS SYSTEM: Grossly intact. LABORATORY DATA: Chest x-ray shows no change compared to prior x-rays of 01/26/2017. There is sligh t prominence of lung markings lower lobe areas. WBC 18.8; hemoglobin 10.7; platelet count 297,000. Sodium 137, potassium 4.4, BUN of 18, creatinine 0.5. ProBNP 2320. Serum glucose 265. Lactate 3.7. EKG is pending. IMPRESSION: Chest pains with leukocytosis, probably secondary to pulmonary infection in a patient wi th asthma and pulmonary emboli. One strongly doubts coronary artery disease. PLAN: To obtain EKG, cardiac enzymes. We will place patient on IV antibiotic to resolve leukocytosi s. Analgesics will be given for pain. Aerosolized bronchodilators will be given. Further therapy w ill depend on findings. Rory Simmons MD cc: 62 TT: 02/12/2017 10:50:27 dn
[2017-02-12] MEDS: Insulin Lispro (humaLOG) 100 Units/ml Inj SC SCH ×2 (16:59→21:55)
[2017-02-12] MEDS: Dextrose 5%/0.45% NS 1,000 ML IV SCH (21:11)
[2017-02-13] MEDS: Dextrose 5%/0.45% NS 1,000 ML IV SCH (05:33)
[2017-02-13 07:19] LABS: BASO % 0.3 % (0.0-2.0); EOS # 0.1 K/uL (0.0-0.7); EOS % 0.6 % (0.0-4.0); HEMATOCRIT 37.4 % (34.0-47.0); LYMPH # 3.8 K/uL (1.0-4.3); LYMPH % 21.9 % (20.0-40.0); MEAN CELL VOLUME 81.8 fl (81.0-99.0); MEAN CORPUSCULAR HGB CONC 31.7 g/dL (33.0-37.0); MONO # 1.4 K/uL (0.0-0.8); MONO % 8.4 % (0.0-10.0); NEUT # 11.9 K/uL (1.8-7.0); NEUT % 68.8 % (50.0-75.0); NRBC % 1.4 % (0.0-0.0); RED CELL DISTRIBUTION WIDTH 18.7 % (11.5-14.5); WHITE BLOOD COUNT 17.2 K/uL (4.8-10.8)
[2017-02-13] MEDS: Enoxaparin 150 mg Syringe SC SCH ×2 (09:36→21:22)
--- NOTE | 2017-02-13 10:44 | CP.PCM.PN ---
Subjective - Date & Time of Evaluation Date of Evaluation: 02/13/17 Time of Evaluation: 10:45 - Subjective Subjective: CHEST PAIN LESS SOB IMPROVING REQUESTS FOLLOWUP AT [facility] ON D/C HOME Objective - Vital Signs/Intake and Output Vital Signs (last 24 hours): Temp Pulse Resp BP Pulse Ox 98.1 F 93 H 20 122/87 96 02/13/17 08:16 02/13/17 08:16 02/13/17 08:16 02/13/17 08:16 02/13/17 08:16 Intake and Output: 02/13/17 02/13/17 06:59 18:59 Intake Total 1000 Balance 1000 - Medications Medications: Current Medications Acetaminophen (Tylenol 325mg Tab) 650 mg PO Q4 PRN PRN Reason: TEMPERATURE >100 Albuterol/Ipratropium (Duoneb 3 Mg/0.5 Mg (3 Ml) Ud) 3 ml INH RQ6 PRN PRN Reason: Shortness of Breath Enoxaparin Sodium (Lovenox) 140 mg SC Q12 RAYSHAWN PRN Reason: Protocol Last Admin: 02/13/17 09:36 Dose: 140 mg Hydromorphone HCl (Dilaudid) 1 mg IVP Q4 PRN PRN Reason: Pain, moderate (4-7) Last Admin: 02/13/17 09:35 Dose: 1 mg Sodium Chloride (Sodium Chloride 0.9%) 1,000 mls @ 1,000 mls/hr IV .Q1H [facility] Last Admin: 02/12/17 01:35 Dose: 1,000 mls/hr Vancomycin HCl 1 gm/ Sodium (Chloride) 250 mls @ 166.667 mls/hr IVPB DAILY@ 0100 [facility] Last Admin: 02/13/17 01:18 Dose: 166.667 mls/hr Insulin Human Lispro (Humalog) 0 units SC ACHS RAYSHAWN PRN Reason: Protocol Last Admin: 02/12/17 21:55 Dose: Not Given - Labs Labs: 02/13/17 05:00 PT 10.7 SECONDS (9.6-11.2) 02/12/17 01:19 INR 1.03 (0.92-1.08) 02/12/17 01:19 APTT 17.2 SECONDS (23.3-32.5) L 02/12/17 01:19 - Constitutional Appears: Chronically Ill - Head Exam Head Exam: ATRAUMATIC, NORMAL INSPECTION, NORMOCEPHALIC - Eye Exam Eye Exam: EOMI, Normal appearance, PERRL Pupil Exam: NORMAL ACCOMODATION, PERRL - ENT Exam ENT Exam: Mucous Membranes Moist, Normal Exam - Neck Exam Neck Exam: Full ROM, Normal Inspection. absent: Lymphadenopathy - Respiratory Exam Respiratory Exam: Decreased Breath Sounds, NORMAL BREATHING PATTERN - Cardiovascular Exam Cardiovascular Exam: REGULAR RHYTHM, +S1, +S2. absent: Murmur - GI/Abdominal Exam GI & Abdominal Exam: Soft, Normal Bowel Sounds. absent: Tenderness - Rectal Exam Rectal Exam: NORMAL INSPECTION - Extremities Exam Extremities Exam: Full ROM, Normal Capillary Refill, Normal Inspection. absent : Joint Swelling, Pedal Edema - Back Exam Back Exam: NORMAL INSPECTION - Neurological Exam Neurological Exam: Alert, Awake, CN II-XII Intact, Normal Gait, Oriented x3 - Psychiatric Exam Psychiatric exam: Normal Affect, Normal Mood - Skin Skin Exam: Dry, Intact, Normal Color, Warm - Additional Findings Additional findings: BLOOD CULTURES --GM+COCCI Assessment and Plan - Assessment and Plan (Free Text) Assessment: SEPSIS PE OBESITY CHEST PAIN Plan: CONTINUE SAME RX
[2017-02-13] MEDS: Insulin Lispro (humaLOG) 100 Units/ml Inj SC SCH ×4 (12:12→21:39)
--- NOTE | 2017-02-13 13:43 | PQF GENQUE ---
Dr. Simmons, 1. Please clarify type of asthma: if known Childhood Cough variant Exercise induced Late onset Mild intermittent Mild persistent Moderate persistent Severe persistent With bronchitis(please clarify acuity of bronchitis) With chronic lung disease (please document specific chronic lung disease) Other (please specify) Unable to determine Unknown 2. Please clarify acuity of asthma: Uncomplicated With exacerbation(acute) With status asthmaticus Other (please specify) Unable to determine Unknown Duoneb q6 hrs. PRN This form is a permanent part of the medical record Clarification of your documentation is requested to better reflect the severity of illness and intensity of treatment of your patient. Indicators present [] Specify: [x UNKNOWN] [] Specify: [] [] Specify: [] [] Specify: [] Location in the medical record that reflects the above clinical findings: [] Treatment Provided: [] PHYSICIAN'S RESPONSE Based on your medical judgment of the clinical indicators outlined above please clarify the following: [] Practitioner response [] If unable to determine, please check the box, sign and date. Present On Admission (POA) Indicator: [] Present at the time of admission [] Not present at the time of admission [] Clinically Undetermined In responding to this query, please exercise your independent professional judgment. The fact that a question is asked does not imply that any particular answer is desired or expected. Thank you for your clarification on this documentation. If you have any questions please call. * Thank you, Azra Diane RN BSN ext. #[phone] MTDD
--- NOTE | 2017-02-13 13:45 | PQF GENQUE ---
Dr. Simmons, In agreement with BMI:50.9 ;listed in the EMR? if yes please document in your progress note OR: Disagree OR: Other explanation of clinical finding EMR: BMI: 50.9 5 ft 5in 305lb; Heart Healthy Diet ordered This form is a permanent part of the medical record Clarification of your documentation is requested to better reflect the severity of illness and intensity of treatment of your patient. Indicators present [] Specify: [] [] Specify: [] [] Specify: [] [] Specify: [] Location in the medical record that reflects the above clinical findings: [] Treatment Provided: [] PHYSICIAN'S RESPONSE Based on your medical judgment of the clinical indicators outlined above please clarify the following: [] Practitioner response [] If unable to determine, please check the box, sign and date. Present On Admission (POA) Indicator: [] Present at the time of admission [] Not present at the time of admission [] Clinically Undetermined In responding to this query, please exercise your independent professional judgment. The fact that a question is asked does not imply that any particular answer is desired or expected. Thank you for your clarification on this documentation. If you have any questions please call. * Thank you, Azra Diane RN BSN ext. #[phone] MTDD
[2017-02-14] MEDS: Insulin Lispro (humaLOG) 100 Units/ml Inj SC SCH ×4 (06:31→21:43)
[2017-02-14 07:20] LABS: BASO # 0.1 K/uL (0.0-0.2); BASO % 0.9 % (0.0-2.0); EOS # 0.2 K/uL (0.0-0.7); EOS % 1.1 % (0.0-4.0); HEMATOCRIT 39.4 % (34.0-47.0); LYMPH # 4.1 K/uL (1.0-4.3); LYMPH % 24.7 % (20.0-40.0); MEAN CELL VOLUME 81.2 fl (81.0-99.0); MEAN CORPUSCULAR HEMOGLOBIN 26.2 pg (27.0-31.0); MEAN CORPUSCULAR HGB CONC 32.2 g/dL (33.0-37.0); MEAN PLATELET VOLUME 8.9 fl (7.2-11.7); MONO # 1.3 K/uL (0.0-0.8); NEUT # 10.8 K/uL (1.8-7.0); NEUT % 65.3 % (50.0-75.0); RED CELL DISTRIBUTION WIDTH 18.9 % (11.5-14.5); WHITE BLOOD COUNT 16.5 K/uL (4.8-10.8)
--- NOTE | 2017-02-14 07:29 | PQF GENQUE ---
Dr. Simmons, (1)Etiology of Sepsis ?if known after work up completed; i.e:.Gm+Cocci:Sepsis probably secondary to pulmonary infection etc. (2) Or please document Etiology of Sepsis unknown OR: Other explanation of clinical finding ER MD: Clinical Impression:Chest pain, Lactic acidosis, Leukocytosis, Shortness of breath H and P:Morbidly obese---- Impression:Chest pains with leukocytosis, probably secondary to pulmonary infection in a patient with asthma and pulmonary emboli. One strongly doubts coronary artery disease. 02/13 attending progress note:Blood cultures: Gm+Cocci Assessment: Sepsis: PE: Chest Pain CXR:Impresion:Prominent lung markings. Otherwise no significant interval change in the lungs. urine culture: negative This form is a permanent part of the medical record Clarification of your documentation is requested to better reflect the severity of illness and intensity of treatment of your patient. Indicators present [] Specify: X UNKNOWN [] Specify: [] [] Specify: [] [] Specify: [] Location in the medical record that reflects the above clinical findings: [] Treatment Provided: [] PHYSICIAN'S RESPONSE Based on your medical judgment of the clinical indicators outlined above please clarify the following: [] Practitioner response [] If unable to determine, please check the box, sign and date. Present On Admission (POA) Indicator: [] Present at the time of admission [] Not present at the time of admission [] Clinically Undetermined In responding to this query, please exercise your independent professional judgment. The fact that a question is asked does not imply that any particular answer is desired or expected. Thank you for your clarification on this documentation. If you have any questions please call. * Thank you, Azra Diane RN BSN ext. #[phone] MTDD
[2017-02-14] MEDS: Enoxaparin 150 mg Syringe SC SCH ×2 (09:25→21:34)
--- NOTE | 2017-02-14 10:01 | CP.PCM.PN ---
Subjective - Date & Time of Evaluation Date of Evaluation: 02/14/17 Time of Evaluation: 10:01 - Subjective Subjective: CLINICALLY UNCHANGED CHEST PAIN IMPROVED Objective - Vital Signs/Intake and Output Vital Signs (last 24 hours): Temp Pulse Resp BP Pulse Ox 97.8 F 102 H 20 138/88 97 02/14/17 08:33 02/14/17 08:33 02/14/17 08:33 02/14/17 08:33 02/14/17 08:33 - Medications Medications: Current Medications Acetaminophen (Tylenol 325mg Tab) 650 mg PO Q4 PRN PRN Reason: TEMPERATURE >100 Albuterol/Ipratropium (Duoneb 3 Mg/0.5 Mg (3 Ml) Ud) 3 ml INH RQ6 PRN PRN Reason: Shortness of Breath Enoxaparin Sodium (Lovenox) 140 mg SC Q12 RAYSHAWN PRN Reason: Protocol Last Admin: 02/14/17 09:25 Dose: 140 mg Hydromorphone HCl (Dilaudid) 1 mg IVP Q4 PRN PRN Reason: Pain, moderate (4-7) Last Admin: 02/14/17 01:25 Dose: 1 mg Sodium Chloride (Sodium Chloride 0.9%) 1,000 mls @ 1,000 mls/hr IV .Q1H [facility] Last Admin: 02/12/17 01:35 Dose: 1,000 mls/hr Vancomycin HCl 1 gm/ Sodium (Chloride) 250 mls @ 166.667 mls/hr IVPB DAILY@ 0100 [facility] Last Admin: 02/14/17 00:22 Dose: 166.667 mls/hr Insulin Human Lispro (Humalog) 0 units SC ACHS RAYSHAWN PRN Reason: Protocol Last Admin: 02/14/17 06:31 Dose: 2 units - Labs Labs: 02/14/17 06:30 PT 10.7 SECONDS (9.6-11.2) 02/12/17 01:19 INR 1.03 (0.92-1.08) 02/12/17 01:19 APTT 17.2 SECONDS (23.3-32.5) L 02/12/17 01:19 - Constitutional Appears: No Acute Distress - Head Exam Head Exam: ATRAUMATIC, NORMAL INSPECTION, NORMOCEPHALIC - Eye Exam Eye Exam: EOMI, Normal appearance, PERRL Pupil Exam: NORMAL ACCOMODATION, PERRL - ENT Exam ENT Exam: Mucous Membranes Moist, Normal Exam - Neck Exam Neck Exam: Full ROM, Normal Inspection. absent: Lymphadenopathy - Respiratory Exam Respiratory Exam: Prolonged Expiratory Phase, Wheezes, NORMAL BREATHING PATTERN - Cardiovascular Exam Cardiovascular Exam: REGULAR RHYTHM, +S1, +S2. absent: Murmur - GI/Abdominal Exam GI & Abdominal Exam: Soft, Normal Bowel Sounds. absent: Tenderness - Rectal Exam Rectal Exam: NORMAL INSPECTION - Extremities Exam Extremities Exam: Full ROM, Normal Capillary Refill, Normal Inspection. absent : Joint Swelling, Pedal Edema - Back Exam Back Exam: NORMAL INSPECTION - Neurological Exam Neurological Exam: Alert, Awake, CN II-XII Intact, Normal Gait, Oriented x3 - Psychiatric Exam Psychiatric exam: Normal Affect, Normal Mood - Skin Skin Exam: Dry, Intact, Normal Color, Warm Assessment and Plan - Assessment and Plan (Free Text) Assessment: CHEST PAIN-IMPROVED SEPSIS ASTHMA Plan: CONTINUE ANTIBIOTIC RX
[2017-02-15 07:23] LABS: BASO # 0.1 K/uL (0.0-0.2); BASO % 0.9 % (0.0-2.0); EOS # 0.3 K/uL (0.0-0.7); EOS % 1.8 % (0.0-4.0); LYMPH # 2.2 K/uL (1.0-4.3); LYMPH % 13.4 % (20.0-40.0); MEAN CELL VOLUME 82.4 fl (81.0-99.0); MEAN CORPUSCULAR HEMOGLOBIN 26.1 pg (27.0-31.0); MEAN CORPUSCULAR HGB CONC 31.7 g/dL (33.0-37.0); MEAN PLATELET VOLUME 8.9 fl (7.2-11.7); MONO # 1.5 K/uL (0.0-0.8); MONO % 9.2 % (0.0-10.0); NEUT # 12.4 K/uL (1.8-7.0); NEUT % 74.7 % (50.0-75.0); NRBC % 0.8 % (0.0-0.0); PLATELET COUNT 238 K/uL (130-400); RED CELL DISTRIBUTION WIDTH 18.6 % (11.5-14.5); WHITE BLOOD COUNT 16.7 K/uL (4.8-10.8)
[2017-02-15 07:34] LABS: BLOOD UREA NITROGEN 15 mg/dl (7-17); CALCIUM 9.2 mg/dL (8.4-10.2); CARBON DIOXIDE 32 mmol/L (22-30); CHLORIDE 95 mmol/L (98-107); GFR AFRICAN-AMERICAN > 60; GLUCOSE,RANDOM 157 mg/dL (65-105); POTASSIUM 4.8 MMOL/L (3.6-5.0); SODIUM 132 mmol/l (132-148)
[2017-02-15] MEDS: HYDROmorphone 0.5 mg/0.5 ml ISec IVP PRN ×4 (09:30→21:21)
[2017-02-15] MEDS: Insulin Lispro (humaLOG) 100 Units/ml Inj SC SCH ×4 (09:31→22:30)
[2017-02-15] MEDS: Enoxaparin 150 mg Syringe SC SCH ×2 (09:32→21:25)
[2017-02-15] MEDS: Sodium Chloride 0.9% 1,000 ML IV SCH ×2 (09:34→09:35)
[2017-02-15 12:37] LABS: EOSINOPHIL 1 % (0-7); METAMYELOCYTE 1 % (0-0); MYELOCYTE 3 % (0-0); NEUTROPHIL 82 % (42-75); TOTAL CELLS COUNTED 100
[2017-02-15 12:41] LABS: GIANT PLATELETS PRESENT; LARGE PLATELETS PRESENT
--- NOTE | 2017-02-15 12:59 | CP.PCM.PN ---
Subjective - Date & Time of Evaluation Date of Evaluation: 02/15/17 Time of Evaluation: 13:01 - Subjective Subjective: SOB AND CHEST PAIN IMPROVING STILL HAS PERSISTENT LEUKOCYTOSIS Objective - Vital Signs/Intake and Output Vital Signs (last 24 hours): Temp Pulse Resp BP Pulse Ox 98.4 F 109 H 18 110/83 95 02/15/17 12:19 02/15/17 12:19 02/15/17 12:19 02/15/17 12:19 02/15/17 12:19 - Medications Medications: Current Medications Acetaminophen (Tylenol 325mg Tab) 650 mg PO Q4 PRN PRN Reason: TEMPERATURE >100 Albuterol/Ipratropium (Duoneb 3 Mg/0.5 Mg (3 Ml) Ud) 3 ml INH RQ6 PRN PRN Reason: Shortness of Breath Enoxaparin Sodium (Lovenox) 140 mg SC Q12 RAYSHAWN PRN Reason: Protocol Last Admin: 02/15/17 09:32 Dose: 140 mg Hydromorphone HCl (Dilaudid) 1 mg IVP Q4 PRN PRN Reason: Pain, severe (8-10) Last Admin: 02/15/17 09:30 Dose: 1 mg Sodium Chloride (Sodium Chloride 0.9%) 1,000 mls @ 1,000 mls/hr IV .Q1H [facility] Last Admin: 02/15/17 09:35 Dose: 100 mls/hr Vancomycin HCl 1 gm/ Sodium (Chloride) 250 mls @ 166.667 mls/hr IVPB DAILY@ 0100 [facility] Last Admin: 02/15/17 00:38 Dose: 166.667 mls/hr Insulin Human Lispro (Humalog) 0 units SC ACHS RAYSHAWN PRN Reason: Protocol Last Admin: 02/15/17 12:40 Dose: 3 units - Labs Labs: 02/15/17 05:05 02/15/17 05:05 PT 10.7 SECONDS (9.6-11.2) 02/12/17 01:19 INR 1.03 (0.92-1.08) 02/12/17 01:19 APTT 17.2 SECONDS (23.3-32.5) L 02/12/17 01:19 - Constitutional Appears: Well - Head Exam Head Exam: ATRAUMATIC, NORMAL INSPECTION, NORMOCEPHALIC - Eye Exam Eye Exam: EOMI, Normal appearance, PERRL Pupil Exam: NORMAL ACCOMODATION, PERRL - ENT Exam ENT Exam: Mucous Membranes Moist, Normal Exam - Neck Exam Neck Exam: Full ROM, Normal Inspection. absent: Lymphadenopathy - Respiratory Exam Respiratory Exam: Clear to Ausculation Bilateral, NORMAL BREATHING PATTERN - Cardiovascular Exam Cardiovascular Exam: REGULAR RHYTHM, +S1, +S2. absent: Murmur - GI/Abdominal Exam GI & Abdominal Exam: Soft, Normal Bowel Sounds. absent: Tenderness - Rectal Exam Rectal Exam: NORMAL INSPECTION - Extremities Exam Extremities Exam: Full ROM, Normal Capillary Refill, Normal Inspection. absent : Joint Swelling, Pedal Edema - Back Exam Back Exam: NORMAL INSPECTION - Neurological Exam Neurological Exam: Alert, Awake, CN II-XII Intact, Normal Gait, Oriented x3 - Psychiatric Exam Psychiatric exam: Normal Affect, Normal Mood - Skin Skin Exam: Dry, Intact, Normal Color, Warm Assessment and Plan - Assessment and Plan (Free Text) Assessment: CHEST PAINS RESOLVED SEPSIS LEUKOCYTOSIS Plan: CONTINUE PRESENT RX REPEAT CBC IN AM
[2017-02-15] MEDS ORDERED: Dextrose 5%/0.45% NS 1,000 ML IV SCH (18:15)
[2017-02-16] MEDS: Insulin Lispro (humaLOG) 100 Units/ml Inj SC SCH ×4 (06:49→21:39)
[2017-02-16 07:11] LABS: BASO # 0.1 K/uL (0.0-0.2); BASO % 0.6 % (0.0-2.0); EOS # 0.4 K/uL (0.0-0.7); EOS % 2.2 % (0.0-4.0); LYMPH # 1.9 K/uL (1.0-4.3); LYMPH % 11.5 % (20.0-40.0); MEAN CELL VOLUME 81.7 fl (81.0-99.0); MEAN CORPUSCULAR HEMOGLOBIN 26.5 pg (27.0-31.0); MEAN CORPUSCULAR HGB CONC 32.4 g/dL (33.0-37.0); NEUT # 12.3 K/uL (1.8-7.0); NEUT % 73.7 % (50.0-75.0); NRBC % 0.2 % (0.0-0.0); RED CELL DISTRIBUTION WIDTH 19.2 % (11.5-14.5); WHITE BLOOD COUNT 16.7 K/uL (4.8-10.8)
[2017-02-16] MEDS: Enoxaparin 150 mg Syringe SC SCH ×2 (10:27→21:31)
--- NOTE | 2017-02-16 11:56 | CP.PCM.PN ---
Subjective - Date & Time of Evaluation Date of Evaluation: 02/16/17 Time of Evaluation: 11:56 - Subjective Subjective: CHEST PAIN RESOLVED NO SOB STILL FEELS WEAK Objective - Vital Signs/Intake and Output Vital Signs (last 24 hours): Temp Pulse Resp BP Pulse Ox 98.0 F 92 H 18 126/88 98 02/16/17 07:59 02/16/17 07:59 02/16/17 07:59 02/16/17 07:59 02/16/17 07:59 - Medications Medications: Current Medications Acetaminophen (Tylenol 325mg Tab) 650 mg PO Q4 PRN PRN Reason: TEMPERATURE >100 Albuterol/Ipratropium (Duoneb 3 Mg/0.5 Mg (3 Ml) Ud) 3 ml INH RQ6 PRN PRN Reason: Shortness of Breath Enoxaparin Sodium (Lovenox) 140 mg SC Q12 R[facility] PRN Reason: Protocol Last Admin: 02/16/17 10:27 Dose: 140 mg Hydromorphone HCl (Dilaudid) 1 mg IVP Q4 PRN PRN Reason: Pain, severe (8-10) Last Admin: 02/16/17 10:25 Dose: 1 mg Vancomycin HCl 1 gm/ Sodium (Chloride) 250 mls @ 166.667 mls/hr IVPB DAILY@ 0100 [facility] Last Admin: 02/16/17 01:30 Dose: 166.667 mls/hr Dextrose/Sodium Chloride (Dextrose 5%/0.45% Ns 1000 Ml) 1,000 mls @ 40 mls/hr IV .Q24H [facility] Stop: 02/16/17 18:09 Last Admin: 02/15/17 18:28 Dose: 40 mls/hr Insulin Human Lispro (Humalog) 0 units SC ACHS R[facility]SHAWN PRN Reason: Protocol Last Admin: 02/16/17 06:49 Dose: Not Given - Labs Labs: 02/16/17 05:00 02/15/17 05:05 PT 10.7 SECONDS (9.6-11.2) 02/12/17 01:19 INR 1.03 (0.92-1.08) 02/12/17 01:19 APTT 17.2 SECONDS (23.3-32.5) L 02/12/17 01:19 - Constitutional Appears: No Acute Distress - Head Exam Head Exam: ATRAUMATIC, NORMAL INSPECTION, NORMOCEPHALIC - Eye Exam Eye Exam: EOMI, Normal appearance, PERRL Pupil Exam: NORMAL ACCOMODATION, PERRL - ENT Exam ENT Exam: Mucous Membranes Moist, Normal Exam - Neck Exam Neck Exam: Full ROM, Normal Inspection. absent: Lymphadenopathy - Respiratory Exam Respiratory Exam: Clear to Ausculation Bilateral, NORMAL BREATHING PATTERN - Cardiovascular Exam Cardiovascular Exam: REGULAR RHYTHM, +S1, +S2. absent: Murmur - GI/Abdominal Exam GI & Abdominal Exam: Soft, Normal Bowel Sounds. absent: Tenderness - Rectal Exam Rectal Exam: NORMAL INSPECTION - Extremities Exam Extremities Exam: Full ROM, Normal Capillary Refill, Normal Inspection. absent : Joint Swelling, Pedal Edema - Back Exam Back Exam: NORMAL INSPECTION - Neurological Exam Neurological Exam: Alert, Awake, CN II-XII Intact, Normal Gait, Oriented x3 - Psychiatric Exam Psychiatric exam: Normal Affect, Normal Mood - Skin Skin Exam: Dry, Intact, Normal Color, Warm Assessment and Plan - Assessment and Plan (Free Text) Assessment: CHEST PAIN RESOLVED ASTHMA STABLE SEPSIS Plan: CONTINUE IV ANTIBIOTICS MONITOR WBC
[2017-02-17 05:49] LABS: BASO # 0.1 K/uL (0.0-0.2); BASO % 0.8 % (0.0-2.0); EOS # 0.4 K/uL (0.0-0.7); EOS % 2.4 % (0.0-4.0); HEMATOCRIT 36.8 % (34.0-47.0); LYMPH # 2.5 K/uL (1.0-4.3); LYMPH % 15.3 % (20.0-40.0); MEAN CORPUSCULAR HEMOGLOBIN 26.2 pg (27.0-31.0); MEAN CORPUSCULAR HGB CONC 31.9 g/dL (33.0-37.0); MEAN PLATELET VOLUME 9.2 fl (7.2-11.7); MONO # 1.9 K/uL (0.0-0.8); MONO % 11.8 % (0.0-10.0); NEUT # 11.2 K/uL (1.8-7.0); NEUT % 69.7 % (50.0-75.0); NRBC % 0.1 % (0.0-0.0); RED CELL DISTRIBUTION WIDTH 19.1 % (11.5-14.5); WHITE BLOOD COUNT 16.1 K/uL (4.8-10.8)
[2017-02-17 05:55] LABS: CHLORIDE 99 mmol/L (98-107)
[2017-02-17 05:56] LABS: POTASSIUM 3.8 MMOL/L (3.6-5.0); SODIUM 132 mmol/l (132-148)
[2017-02-17 05:58] LABS: GFR AFRICAN-AMERICAN > 60
[2017-02-17 05:59] LABS: BLOOD UREA NITROGEN 13 mg/dl (7-17); CALCIUM 8.7 mg/dL (8.4-10.2); CARBON DIOXIDE 28 mmol/L (22-30); GLUCOSE,RANDOM 134 mg/dL (65-105)
[2017-02-17] MEDS: Insulin Lispro (humaLOG) 100 Units/ml Inj SC SCH ×4 (09:21→21:28)
[2017-02-17] MEDS: Enoxaparin 150 mg Syringe SC SCH ×2 (09:22→21:29)
--- NOTE | 2017-02-17 11:50 | CP.PCM.PN ---
Subjective - Date & Time of Evaluation Date of Evaluation: 02/17/17 Time of Evaluation: 11:50 - Subjective Subjective: no chest pains/sob facial rash present since admission Objective - Vital Signs/Intake and Output Vital Signs (last 24 hours): Temp Pulse Resp BP Pulse Ox 98.4 F 100 H 18 124/88 98 02/17/17 07:58 02/17/17 07:58 02/17/17 07:58 02/17/17 07:58 02/17/17 07:58 - Medications Medications: Current Medications Acetaminophen (Tylenol 325mg Tab) 650 mg PO Q4 PRN PRN Reason: TEMPERATURE >100 Albuterol/Ipratropium (Duoneb 3 Mg/0.5 Mg (3 Ml) Ud) 3 ml INH RQ6 PRN PRN Reason: Shortness of Breath Enoxaparin Sodium (Lovenox) 140 mg SC Q12 RAYSHAWN PRN Reason: Protocol Last Admin: 02/17/17 09:22 Dose: 140 mg Hydromorphone HCl (Dilaudid) 1 mg IVP Q4 PRN PRN Reason: Pain, severe (8-10) Last Admin: 02/17/17 02:21 Dose: 1 mg Vancomycin HCl 1 gm/ Sodium (Chloride) 250 mls @ 166.667 mls/hr IVPB DAILY@ 0100 [facility] Last Admin: 02/17/17 00:37 Dose: 166.667 mls/hr Insulin Human Lispro (Humalog) 0 units SC ACHS RAYSHAWN PRN Reason: Protocol Last Admin: 02/17/17 09:21 Dose: Not Given - Labs Labs: 02/17/17 05:15 02/17/17 05:15 PT 10.7 SECONDS (9.6-11.2) 02/12/17 01:19 INR 1.03 (0.92-1.08) 02/12/17 01:19 APTT 17.2 SECONDS (23.3-32.5) L 02/12/17 01:19 - Constitutional Appears: No Acute Distress - Head Exam Head Exam: ATRAUMATIC, NORMAL INSPECTION, NORMOCEPHALIC - Eye Exam Eye Exam: EOMI, Normal appearance, PERRL Pupil Exam: NORMAL ACCOMODATION, PERRL - ENT Exam ENT Exam: Mucous Membranes Moist, Normal Exam - Neck Exam Neck Exam: Full ROM, Normal Inspection. absent: Lymphadenopathy - Respiratory Exam Respiratory Exam: Clear to Ausculation Bilateral, NORMAL BREATHING PATTERN - Cardiovascular Exam Cardiovascular Exam: REGULAR RHYTHM, +S1, +S2. absent: Murmur - GI/Abdominal Exam GI & Abdominal Exam: Soft, Normal Bowel Sounds. absent: Tenderness - Rectal Exam Rectal Exam: NORMAL INSPECTION - Extremities Exam Extremities Exam: Full ROM, Normal Capillary Refill, Normal Inspection. absent : Joint Swelling, Pedal Edema - Back Exam Back Exam: NORMAL INSPECTION - Neurological Exam Neurological Exam: Alert, Awake, CN II-XII Intact, Normal Gait, Oriented x3 - Psychiatric Exam Psychiatric exam: Normal Affect, Normal Mood - Skin Skin Exam: Dry, Intact, Normal Color, Warm Assessment and Plan - Assessment and Plan (Free Text) Assessment: chest pain resolved staph sepsis leukocytosis persists pulmonary emboli Plan: continue present rx probable discharge in am monitor wbc as outpt
[2017-02-18 00:11] VITALS: RESP 18
[2017-02-18 06:20] LABS: BASO # 0.1 K/uL (0.0-0.2); BASO % 0.6 % (0.0-2.0); EOS # 0.3 K/uL (0.0-0.7); EOS % 2.2 % (0.0-4.0); HEMATOCRIT 35.7 % (34.0-47.0); LYMPH # 2.1 K/uL (1.0-4.3); MEAN CELL VOLUME 82.7 fl (81.0-99.0); MEAN CORPUSCULAR HEMOGLOBIN 25.8 pg (27.0-31.0); MEAN CORPUSCULAR HGB CONC 31.2 g/dL (33.0-37.0); MEAN PLATELET VOLUME 8.9 fl (7.2-11.7); MONO # 1.8 K/uL (0.0-0.8); MONO % 13.4 % (0.0-10.0); NEUT # 9.1 K/uL (1.8-7.0); NEUT % 67.8 % (50.0-75.0); NRBC % 0.1 % (0.0-0.0); WHITE BLOOD COUNT 13.4 K/uL (4.8-10.8)
[2017-02-18] MEDS: Insulin Lispro (humaLOG) 100 Units/ml Inj SC SCH ×3 (06:59→16:30)
--- NOTE | 2017-02-18 08:43 | CP.PCM.DIS ---
Provider - Provider Date of Admission: 02/12/17 11:28 Attending physician: Rory Simmons MD Time Spent in preparation of Discharge (in minutes): 30 Diagnosis - Discharge Diagnosis (1) Bleeding hemorrhoid Status: Acute (2) Chest pain Status: Acute Onset Date: 05/11/14 (3) Leukocytosis Status: Acute (4) Asthma Status: Acute (5) Pulmonary embolism Status: Acute (6) Sepsis Status: Acute Hospital Course - Lab Results Lab Results: Micro Results 02/16/17 15:00 Blood-Venous Blood Culture - Preliminary NO GROWTH AFTER 24 HOURS 02/16/17 15:00 Blood-Venous Blood Culture - Preliminary NO GROWTH AFTER 24 HOURS Most Recent Lab Values WBC 13.4 K/uL (4.8-10.8) H 02/18/17 05:45 RBC 4.31 Mil/uL (3.80-5.20) 02/18/17 05:45 Hgb 11.1 g/dL (12.0-16.0) L 02/18/17 05:45 Hct 35.7 % (34.0-47.0) 02/18/17 05:45 MCV 82.7 fl (81.0-99.0) 02/18/17 05:45 MCH 25.8 pg (27.0-31.0) L 02/18/17 05:45 MCHC 31.2 g/dL (33.0-37.0) L 02/18/17 05:45 RDW 19.0 % (11.5-14.5) H 02/18/17 05:45 Plt Count 178 K/uL (130-400) 02/18/17 05:45 MPV 8.9 fl (7.2-11.7) 02/18/17 05:45 Neut % (Auto) 67.8 % (50.0-75.0) 02/18/17 05:45 Lymph % (Auto) 16.0 % (20.0-40.0) L 02/18/17 05:45 [place] % (Auto) 13.4 % (0.0-10.0) H 02/18/17 05:45 Eos % (Auto) 2.2 % (0.0-4.0) 02/18/17 05:45 Baso % (Auto) 0.6 % (0.0-2.0) 02/18/17 05:45 Neut # 9.1 K/uL (1.8-7.0) H 02/18/17 05:45 Lymph # 2.1 K/uL (1.0-4.3) 02/18/17 05:45 [place] # 1.8 K/uL (0.0-0.8) H 02/18/17 05:45 Eos # 0.3 K/uL (0.0-0.7) 02/18/17 05:45 Baso # 0.1 K/uL (0.0-0.2) 02/18/17 05:45 Neutrophils % (Manual) 82 % (42-75) H 02/15/17 05:05 Band Neutrophils % 1 % (0-2) 02/15/17 05:05 Lymphocytes % (Manual) 7 % (20-50) L 02/15/17 05:05 Monocytes % (Manual) 5 % (0-10) 02/15/17 05:05 Eosinophils % (Manual) 1 % (0-7) 02/15/17 05:05 Metamyelocytes % 1 % (0-0) H 02/15/17 05:05 Myelocytes % 3 % (0-0) H 02/15/17 05:05 Nucleated RBC % 2 % (0-0) H 02/11/17 22:30 Platelet Estimate Normal (NORMAL) 02/15/17 05:05 Large Platelets Present 02/15/17 05:05 Giant Platelets Present 02/15/17 05:05 Poikilocytosis (manual Slight 02/15/17 05:05 Anisocytosis (manual) Slight 02/15/17 05:05 Target Cells Slight 02/15/17 05:05 Tear Drop Cells Slight 02/15/17 05:05 Ovalocytes Slight 02/15/17 05:05 Brandt Cells Slight 02/15/17 05:05 Acanthocytes (Spur) Slight 02/11/17 22:30 Schistocytes Slight 02/15/17 05:05 PT 10.7 SECONDS (9.6-11.2) 02/12/17 01:19 INR 1.03 (0.92-1.08) 02/12/17 01:19 APTT 17.2 SECONDS (23.3-32.5) L 02/12/17 01:19 pCO2 43 mm/Hg (35-45) 02/11/17 22:04 pO2 87 mm/Hg (80-100) 02/11/17 22:04 HCO3 31.6 mmol/L (21-28) H 02/11/17 22:04 ABG pH 7.49 (7.35-7.45) H 02/11/17 22:04 ABG Total CO2 34.1 mmol/L (22-28) H 02/11/17 22:04 ABG O2 Saturation 99.5 % (95-98) H 02/11/17 22:04 ABG Base Excess 8.5 mmol/L (-2.0-3.0) H 02/11/17 22:04 Tong Test Yes 02/11/17 22:04 ABG Potassium 4.1 mmol/L (3.6-5.2) 02/11/17 22:04 A-a O2 Difference 9.0 mm/Hg 02/11/17 22:04 Sodium 136.0 mmol/L (132-148) 02/11/17 22:04 Chloride 101.0 mmol/L (98-107) 02/11/17 22:04 Glucose 313 mg/dL (65-105) H 02/11/17 22:04 Lactate 3.7 mmol/L (0.7-2.1) H 02/11/17 22:04 FiO2 21.0 % 02/11/17 22:04 Sodium 132 mmol/l (132-148) 02/17/17 05:15 Potassium 3.8 MMOL/L (3.6-5.0) 02/17/17 05:15 Chloride 99 mmol/L (98-107) 02/17/17 05:15 Carbon Dioxide 28 mmol/L (22-30) 02/17/17 05:15 Anion Gap 9 (10-20) L 02/17/17 05:15 BUN 13 mg/dl (7-17) 02/17/17 05:15 Creatinine 0.5 mg/dL (0.7-1.2) L 02/17/17 05:15 Est GFR ( Amer) > 60 02/17/17 05:15 Est GFR (Non-Af Amer) > 60 02/17/17 05:15 POC Glucose (mg/dL) 129 mg/dL (65-110) H 02/18/17 05:16 Random Glucose 134 mg/dL (65-105) H 02/17/17 05:15 Calcium 8.7 mg/dL (8.4-10.2) 02/17/17 05:15 Troponin I < 0.0120 ng/mL (0.00-0.120) 02/12/17 18:19 NT-Pro-B Natriuret Pep 2320 pg/ml (0-450) H 02/12/17 01:19 Arterial Blood Potassium 4.1 mmol/L (3.6-5.2) 02/11/17 22:04 Random Vancomycin 9.5 ug/mL 02/17/17 05:15 - Hospital Course Hospital Course: NO CHEST PAINS/SOB C/O BLOOD TINGED STOOLS--DUE TO HEMORRHOIDS Discharge Exam - Head Exam Head Exam: ATRAUMATIC, NORMAL INSPECTION, NORMOCEPHALIC - Eye Exam Eye Exam: EOMI, Normal appearance, PERRL Pupil Exam: NORMAL ACCOMODATION, PERRL - GI/Abdominal Exam GI & Abdominal Exam: Normal Bowel Sounds - Rectal Exam Rectal Exam: Hemorrhoids, NORMAL INSPECTION - Neurological Exam Neurological exam: Alert, CN II-XII Intact, Normal Gait, Oriented x3, Reflexes Normal - Psychiatric Exam Psychiatric exam: Normal Affect, Normal Mood - Skin Skin Exam: Dry, Intact, Normal Color, Warm Discharge Plan - Follow Up Plan Condition: STABLE Disposition: HOME/ ROUTINE Patient education suggested?: Yes Additional Instructions: DISCHARGE TODAY FOLLOWUP WITH PMD BEGIN AUGMENTIN 875 MG BID--14
[2017-02-18] MEDS: Enoxaparin 150 mg Syringe SC SCH (08:48)
--- NOTE | 2017-02-18 11:45 | CP.PCM.PCO ---
Physician Communication Note - Physician Communication Note Physician Communication Note: left jugular central line removed with no complications. Pt tolerated well.
[2017-02-18 12:46] VITALS: BP 142/84; PULSE 105; TEMP 98.4; O2SAT 97
== END 2017-02-18 16:30 | disposition home or self-care (01) | DRG 584 ==
LOC: H.ER 20:11 → H.ERHOLD 02-12 01:11 → H.TEL 02-12 02:45 → OBSVTOIN 02-12 11:28
PROVIDERS: ADMIT Internal Medicine Pulmonary Disease; ATTEND Internal Medicine Pulmonary Disease
PROC: 05HN33Z Insertion of Infusion Device into Left Internal Jugular Vein, Percutaneous Approach (ICD-10-PCS; principal; 2017-02-11)
DX: A41.01 Sepsis due to Methicillin susceptible Staphylococcus aureus (principal); I26.99 Other pulmonary embolism without acute cor pulmonale; E87.2 Acidosis; N18.9 Chronic kidney disease, unspecified; E66.01 Morbid (severe) obesity due to excess calories; Z68.43 Body mass index [BMI] 50.0-59.9, adult; J45.909 Unspecified asthma, uncomplicated; Z91.19 Patient's noncompliance with other medical treatment and regimen; Z86.711 Personal history of pulmonary embolism; Z91.041 Radiographic dye allergy status; R21 Rash and other nonspecific skin eruption; K64.9 Unspecified hemorrhoids

== ENCOUNTER 2017-03-21 15:12 | Inpatient (IN) | payer MEDICAID ==
--- NOTE | 2017-03-21 15:58 | ED PDOC ---
HPI: SOB/CHF/COPD Time Seen by Provider: 03/21/17 15:27 Chief Complaint (Nursing): Shortness Of Breath Chief Complaint (Provider): Shortness Of Breath History Per: Patient History/Exam Limitations: no limitations Onset/Duration Of Symptoms: Days (x2 days) Current Symptoms Are (Timing): Still Present Additional Complaint(s): Bree Avina is a 46 year old female, with a past medical history inclusive of multiple previous pulmonary emboli (diagnosed 7x in past, 1st in 2013 at [facility]), several at [facility] in July, and most recently at [facility] a little less than 2 weeks ago), who presents to the ED today for the evaluation of severe chest pain that she has experienced x2 days. Pain was reportedly sudden onset and has since been accompanied by feelings of lightheadedness, shortness of breath. Went to work today but symptoms worsened and associated with episodes of non-bilious/non-bloody vomiting; similar to the symptom presentation experienced with previous PE's. Though she reports being compliant with her self-injected Lovenox high dose of 140mg BID, she admits to not having followed up regularly with a doctor secondary to issues with her insurance. Denies fever, cough, leg swelling or use of hormone therapies. In [facility], she reports that she had bilateral PEs seen on both VQ and CT scan. Though she states as she is allergic to iodine she reports that if given 1 day' s worth of steroid preparation treatments prior to undergoing the study, she can have a CT scan. She also reports that she usually receives dilaudid for the treatment of her chest pain. (+) IVC filter in place. Pertinent familial history includes DVT though not PE. Pt presented similarly 2x in January to this hospital, and workup was negative for PE Past Medical History Reviewed: Historical Data, Nursing Documentation, Vital Signs Vital Signs: Last Vital Signs Temp 98.6 F 03/21/17 15:25 Pulse 111 H 03/21/17 15:25 Resp 15 03/21/17 17:00 BP 112/79 03/21/17 15:25 Pulse Ox 98 03/21/17 17:03 - Medical History PMH: Asthma, Gall Bladder Disease, Kidney Stones, Pulmonary Embolism (x7, most recent July 2016 at [facility]), Chronic Kidney Disease Denies: Alzheimer's Disease, Anemia, Anxiety, Arthritis, Atrial Fibrillation , Bipolar Disorder, Bronchitis, CAD, Cardia Arrhythmia, CHF, COPD, Crohn's Disease, Dementia, Depression, Diverticulitis, Emphysema, Fractures, Gastritis, HIV, HTN, Hypercholesterolemia, Hyperthyroidism, Hypothyroidism, Migraine, Mitral Valve Prolapse, Multiple Sclerosis, Osteoporosis, Pancreatitis, Paranoia , Parkinson's Disease, Peripheral Edema, Pneumonia, Post Traumatic Stress Disorder, Rheumatoid Arthritis, Schizophrenia, Seizures, Sickle Cell Disease, Sexually Transmitted Disease, Sleep Apnea, TIA Other PMH: ABOVE NEGATIVE HISTORY WAS PULLED FROM PREVIOUS CHARTS - Surgical History Surgical History: Appendectomy, Cholecystectomy Denies: CABG, Carotid Endarterectomy, Coronary Stent, Pacemaker, Tonsillectomy Other surgeries: IVC filter placement, splenectomy, tubal ligation - Family History Family History: States: Hypertension - Social History Current smoker - smoking cessation education provided: No - Immunization History Hx Tetanus Toxoid Vaccination: Yes Hx Influenza Vaccination: No Hx Pneumococcal Vaccination: Yes - Home Medications Home Medications: Ambulatory Orders Medication Instructions Recorded Enoxaparin [Lovenox] 140 mg SUBCUT BID 01/26/17 - Allergies Allergies/Adverse Reactions: Allergies Allergy/AdvReac Type Severity Reaction Status Date / Time iodixanol Allergy Severe SHORTNESS Verified 03/21/17 15:22 OF BREATH Iodine and Iodide Containing Allergy SHORTNESS Verified 03/21/17 15:22 Produc OF BREATH ketorolac Allergy ITCHING Verified 03/21/17 15:22 ondansetron Allergy ITCHING Verified 03/21/17 15:22 Review of Systems ROS Statement: Except As Marked, All Systems Reviewed And Found Negative Cardiovascular: Positive for: Chest Pain, Light Headedness Respiratory: Positive for: Shortness of Breath, SOB with Exertion. Negative for : Cough Physical Exam - Reviewed Nursing Documentation Reviewed: Yes Vital Signs Reviewed: Yes - Physical Exam Appears: Positive for: Non-toxic, In Acute Distress (mild respiratory distress) Head Exam: Positive for: ATRAUMATIC, NORMOCEPHALIC Skin: Positive for: Normal Color, Warm, Dry Eye Exam: Positive for: Normal appearance, EOMI, PERRL ENT: Positive for: Normal ENT Inspection. Negative for: Pharyngeal Erythema Neck: Positive for: Normal, Painless ROM, Supple Cardiovascular/Chest: Positive for: Tachycardia (With regular rate and rhythm), Other (Edema (trace b/l LE)). Negative for: Murmur Respiratory: Positive for: Normal Breath Sounds. Negative for: Accessory Muscle Use, Respiratory Distress Gastrointestinal/Abdominal: Positive for: Normal Exam (obese), Soft. Negative for: Tenderness Back: Positive for: Normal Inspection. Negative for: L CVA Tenderness, R CVA Tenderness Extremity: Positive for: Normal ROM. Negative for: Pedal Edema, Calf Tenderness Lymphatic: Negative for: Adenopathy Neurologic/Psych: Positive for: Alert, Oriented. Negative for: Motor/Sensory Deficits - Laboratory Results Result Diagrams: 03/21/17 18:07 03/21/17 18:07 - ECG ECG Rhythm: Positive for: Normal ST Segment, Sinus Rhythm, Sinus Tachycardia O2 Sat by Pulse Oximetry: 98 (RA) Pulse Ox Interpretation: Normal - Radiology X-Ray: Read By Radiologist Medical Decision Making Medical Decision Making: Time: 15:27 Initial impression: Shortness of breath Pt will need hospitalization for possible PE, for unable to get sufficient testing to rule this out at this time. Initial plan: --ABD Shock Panel --Electrocardiogram Stat --COMP Metabolic Panel --Magnesium Stat --Phosphorous Stat --Troponin I Stat --ED urine Dipstick (POC) Stat --ED Urine (POC) --EKG-ED (EDNURTX) Stat --CBC w/ differential --Partial Thromboplastin Time (COAG) --Prothrombin time (COAG) --Chest Two Views (PA/LAT) (RAD) --Blood Culture Stat --3D Animator CONT --IV Insertion --Revaluation From known previous history, pt has poor peripheral access, even EJ. DW residential monitor who performed LEFT IJ TLC placement. Repeat CXR confirms placement. Accession No. : [id number] Patient Name / ID : GABRIELA HOLLAND / [id number] Exam Date : 03/21/2017 16:10:37 ( Approved ) Study Comment : Sex / Age : F / 46Y Creator : Hussain Coronel MD Dictator : Hussain Coronel MD Farm Consultant : Charging Crane Operator : Hussain Coronel MD Approver2 : Report Date : 03/21/2017 16:34:19 My Comment : HISTORY: chest pain COMPARISON: Comparison made with chest radiograph 02/11/2017. Comparison also made with CT scan chest 01/26/2017 TECHNIQUE: Chest PA and lateral FINDINGS: LUNGS: Mild linear atelectasis and or scarring left mid to lower lung field -lingular region. Remaining lung madera are clear. PLEURA: No significant pleural effusion identified. No pneumothorax apparent. CARDIOVASCULAR: Normal. OSSEOUS STRUCTURES: Mild multilevel degenerative spondylosis of the thoracic spine. Mild degenerative changes both acromioclavicular joints. VISUALIZED UPPER ABDOMEN: Normal. OTHER FINDINGS: None. IMPRESSION: No active disease. Pt given morphine x 2 with improvement of tachycardia. Solumedrol 125mg IV given for anticipated CT chest tomorrow if possible DW [facility] service for hospitalization. Scribe Attestation: Documented by Coby Lindquist, acting as a scribe for Karli Huynh MD. Provider Scribe Attestation: All medical record entries made by the Scribe were at my direction and personally dictated by me. I have reviewed the chart and agree that the record accurately reflects my personal performance of the history, physical exam, medical decision making, and the department course for this patient. I have also personally directed, reviewed, and agree with the discharge instructions and disposition. Disposition - Clinical Impression Clinical Impression: Dyspnea, Tachycardia - Disposition Disposition Time: 16:00 Condition: GUARDED - Pt Status Changed To: Hospital Disposition Of: Observation - POA Present On Arrival: Deep Vein Thrombosis / PE (possible)
--- NOTE | 2017-03-21 16:36 | RAD ---
HISTORY: chest pain COMPARISON: Comparison made with chest radiograph 02/11/2017. Comparison also made with CT scan chest 01/26/2017 TECHNIQUE: Chest PA and lateral FINDINGS: LUNGS: Mild linear atelectasis and or scarring left mid to lower lung field -lingular region. Remaining lung madera are clear. PLEURA: No significant pleural effusion identified. No pneumothorax apparent. CARDIOVASCULAR: Normal. OSSEOUS STRUCTURES: Mild multilevel degenerative spondylosis of the thoracic spine. Mild degenerative changes both acromioclavicular joints. VISUALIZED UPPER ABDOMEN: Normal. OTHER FINDINGS: None. IMPRESSION: No active disease.
[2017-03-21] MEDS ORDERED: Sodium Chloride 0.9% 1,000 ML IV STA (17:37)
--- NOTE | 2017-03-21 17:55 | RAD ---
HISTORY: TLC placement COMPARISON: Chest x-ray performed 03/21/17 TECHNIQUE: Chest, one view. FINDINGS: Left-sided central venous catheter extends to the distal SVC. Examination limited by habitus. LUNGS: No focal consolidation. Please note that chest x-ray has limited sensitivity for the detection of pulmonary masses. PLEURA: No significant pleural effusion identified. No definite pneumothorax . CARDIOVASCULAR: The cardiomediastinal silhouette appears within normal limits of size. OSSEOUS STRUCTURES: No acute osseous abnormality identified. VISUALIZED UPPER ABDOMEN: Unremarkable. OTHER FINDINGS: None. IMPRESSION: Left-sided central venous catheter extends to the distal SVC.
[2017-03-21 18:13] LABS: ABG ALLEN TEST YES; ARTERIAL BLOOD GAS HCO3 26.9 mmol/L (21-28); ARTERIAL BLOOD GAS PH 7.41 (7.35-7.45); ARTERIAL BLOOD GAS PO2 32 mm/Hg (80-100)
[2017-03-21 18:16] LABS: BASO # 0.2 K/uL (0.0-0.2); BASO % 1.4 % (0.0-2.0); EOS # 0.3 K/uL (0.0-0.7); EOS % 2.2 % (0.0-4.0); HEMATOCRIT 34.4 % (34.0-47.0); LYMPH # 2.3 K/uL (1.0-4.3); LYMPH % 17.7 % (20.0-40.0); MEAN CELL VOLUME 80.3 fl (81.0-99.0); MEAN CORPUSCULAR HEMOGLOBIN 25.2 pg (27.0-31.0); MEAN CORPUSCULAR HGB CONC 31.3 g/dL (33.0-37.0); MONO # 1.2 K/uL (0.0-0.8); MONO % 9.2 % (0.0-10.0); NEUT # 8.9 K/uL (1.8-7.0); NEUT % 69.5 % (50.0-75.0); NRBC % 0.1 % (0.0-0.0); WHITE BLOOD COUNT 12.9 K/uL (4.8-10.8)
[2017-03-21 18:27] LABS: ALB/GLOB RATIO 1.4 (1.0-2.1); ALKALINE PHOSPHATASE 47 U/L (38-126); ALT/SGPT 27 U/L (9-52); AST/SGOT 18 U/L (14-36); BILIRUBIN,TOTAL 0.2 mg/dl (0.2-1.3); BLOOD UREA NITROGEN 13 mg/dl (7-17); CALCIUM 9.1 mg/dL (8.4-10.2); CARBON DIOXIDE 24 mmol/L (22-30); CHLORIDE 109 mmol/L (98-107); GFR AFRICAN-AMERICAN > 60; GLUCOSE,RANDOM 87 mg/dL (65-105); MAGNESIUM 1.9 MG/DL (1.6-2.3); PHOSPHOROUS 2.8 mg/dl (2.5-4.5); SODIUM 141 mmol/l (132-148); TOTAL PROTEIN 6.4 G/DL (6.3-8.2)
[2017-03-21 20:09] LABS: PARTIAL THROMBOPLASTIN TIME 32.8 Seconds (25.6-37.1)
[2017-03-21] MEDS ORDERED: Enoxaparin 150 mg Syringe SC STA (20:12)
[2017-03-22] MEDS: Enoxaparin 150 mg Syringe SC SCH ×2 (08:35→16:56)
--- NOTE | 2017-03-22 08:58 | CARD ---
APPROVED REPORT EKG Measurement Heart [id number] IN [id number] [id number] <Conclusion> Sinus tachycardia Voltage criteria for left ventricular hypertrophy Abnormal ECG
--- NOTE | 2017-03-22 10:26 | CP.PCM.CON ---
History of Present Illness - History of Present Illness History of Present Illness: This is a 46 yrs old female with a h/o frequent pulmonary embolism. Since the past 2.5 yrs she has been in different hospitals with shortness of breath and tachycardia,along with severe chest pain. According to her she has been worked uo for cancer, lupus and other coagulation factors but was told that she was normal. She is not sedentary, does not take control pills, does not have any other major illness ex diabetes mellitus, HTN, and no h/o surgery or trauma. . This time she was also found to have a pneumonia . She has been through all anticoagulants ex coumadin, xarelto, eliqiis , and was finally on lovenox bid which she was taking at home, She also had an IVC filter placed even though she never had a DVT. She claims that every time she had the PE in different places.She is allergic to the ct iv contrast, and needs solumedrol started 24 hrs ahead Past Patient History - Infectious Disease Hx of Infectious Diseases: None - Tetanus Immunizations Tetanus Immunization: Up to Date - Past Medical History & Family History Past Medical History?: Yes - Past Social History Smoking Status: Never Smoked - CARDIAC Hx Cardiac Disorders: Yes - PULMONARY Hx Respiratory Disorders: Yes - NEUROLOGICAL Hx Neurological Disorder: No - HEENT Hx HEENT Problems: No - RENAL Hx Chronic Kidney Disease: Yes - ENDOCRINE/METABOLIC Hx Endocrine Disorders: No - HEMATOLOGICAL/ONCOLOGICAL Hx Blood Disorders: No - INTEGUMENTARY Hx Dermatological Problems: No - MUSCULOSKELETAL/RHEUMATOLOGICAL Hx Musculoskeletal Disorders: No - GASTROINTESTINAL Hx Gastrointestinal Disorders: No Hx Diverticulitis: No Hx Gastritis: No Hx Pancreatitis: No - GENITOURINARY/GYNECOLOGICAL Hx Genitourinary Disorders: No - PSYCHIATRIC Hx Psychophysiologic Disorder: No - SURGICAL HISTORY Hx Surgeries: Yes Hx Appendectomy: Yes Hx Carotid Endarterectomy: No Hx Cholecystectomy: Yes Hx Coronary Artery Bypass Graft: No Hx Coronary Stent: No Hx Splenectomy: Yes Hx Tonsillectomy: No Hx Tubal Ligation: Yes - ANESTHESIA Hx Anesthesia: Yes Hx Anesthesia Reactions: No Hx Malignant Hyperthermia: No Meds Allergies/Adverse Reactions: Allergies Allergy/AdvReac Type Severity Reaction Status Date / Time iodixanol Allergy Severe SHORTNESS Verified 03/21/17 15:22 OF BREATH Iodine and Iodide Containing Allergy SHORTNESS Verified 03/21/17 15:22 Produc OF BREATH ketorolac Allergy ITCHING Verified 03/21/17 15:22 ondansetron Allergy ITCHING Verified 03/21/17 15:22 - Medications Medications: Current Medications Enoxaparin Sodium (Lovenox) 140 mg SC BID RAYSHAWN PRN Reason: Protocol Last Admin: 03/22/17 08:35 Dose: 140 mg Hydromorphone HCl (Dilaudid) 1 mg IVP Q4 PRN PRN Reason: Pain, severe (8-10) Last Admin: 03/22/17 08:31 Dose: 1 mg Physical Exam - Additional Findings Additional findings: Physical exam; Pt is obese, seems to know her disease well. neck; supple, no adenopathy. She has a central line for better venous access. Chest; Clear, general agent rales or rhonchi Heart;tachycardia, no murmur abd; soft, obese ,no mass no h/s megaly Extremities; No evidence of DVT Results - Vital Signs Recent Vital Signs: Last Vital Signs Temp 97.8 F 03/22/17 08:20 Pulse 81 03/22/17 08:20 Resp 18 03/22/17 08:20 BP 129/84 03/22/17 08:20 Pulse Ox 98 03/22/17 08:20 - Labs Result Diagrams: 03/21/17 18:07 03/21/17 18:07 Assessment & Plan - Assessment and Plan (Free Text) Assessment: Impression; Recurrent pulmonary emboli, etiology to be determined Plan: Plan; Have ordered tests to look for hypercoagulable state. Will do a echocardiogram to r/o Right ventrical thrombus.
--- NOTE | 2017-03-22 14:26 | NM ---
COMPARISON: March 21, 2017. Single-view chest TECHNIQUE: Thirty-six mCi technetium 99-m DTPA aerosol. 5.8 mCI technetium 99-m MAA administered intravenously. FINDINGS: VENTILATION COMPONENT: Normal. PERFUSION COMPONENT: Heterogeneous distribution of radionuclide. No geographic, segmental, lobar abnormalities apparent on the present examination. IMPRESSION: Low probability ventilation perfusion scan for pulmonary embolism.
--- NOTE | 2017-03-22 17:34 | CP.PCM.HP ---
<DexInocenciaVirgil - Last Filed: 03/22/17 17:29> History of Present Illness - History of Present Illness History of Present Illness: 46 yrs old female with a medical history of frequent pulmonary embolisms ( diagnosed 7x in past, 1st in 2013 at [facility], several at [facility] in July, and most recently at [facility] a little less than 2 weeks ago) admitted for possible PE with associate symptoms of severe chest pain and tachycardia. Patient was unable to get CT chest in ED due to poor IV access. Due to patient previous histories, patient has been on Lovenox BID, no PO meds due to side effects. Patient states she also has a IVC filter place. Patient denies fever, chills, abdominal pain, headache, back pain, nausea, vomiting, diarrhea, headache. Patient states pain is not well controlled with current pain management of Dilaudid. PMD: None Present on Admission - Present on Admission Any Indicators Present on Admission: Yes History of DVT/PE: Yes Review of Systems - Review of Systems All systems: reviewed and no additional remarkable complaints except (mentioned in HPI) Past Patient History - Infectious Disease Hx of Infectious Diseases: None - Tetanus Immunizations Tetanus Immunization: Up to Date - Past Medical History & Family History Past Medical History?: Yes - Past Social History Smoking Status: Never Smoked - CARDIAC Hx Cardiac Disorders: Yes - PULMONARY Hx Respiratory Disorders: Yes - NEUROLOGICAL Hx Neurological Disorder: No - HEENT Hx HEENT Problems: No - RENAL Hx Chronic Kidney Disease: Yes - ENDOCRINE/METABOLIC Hx Endocrine Disorders: No - HEMATOLOGICAL/ONCOLOGICAL Hx Blood Disorders: No - INTEGUMENTARY Hx Dermatological Problems: No - MUSCULOSKELETAL/RHEUMATOLOGICAL Hx Musculoskeletal Disorders: No - GASTROINTESTINAL Hx Gastrointestinal Disorders: No Hx Diverticulitis: No Hx Gastritis: No Hx Pancreatitis: No - GENITOURINARY/GYNECOLOGICAL Hx Genitourinary Disorders: No - PSYCHIATRIC Hx Psychophysiologic Disorder: No - SURGICAL HISTORY Hx Surgeries: Yes Hx Appendectomy: Yes Hx Carotid Endarterectomy: No Hx Cholecystectomy: Yes Hx Coronary Artery Bypass Graft: No Hx Coronary Stent: No Hx Splenectomy: Yes Hx Tonsillectomy: No Hx Tubal Ligation: Yes - ANESTHESIA Hx Anesthesia: Yes Hx Anesthesia Reactions: No Hx Malignant Hyperthermia: No Meds Allergies/Adverse Reactions: Allergies Allergy/AdvReac Type Severity Reaction Status Date / Time iodixanol Allergy Severe SHORTNESS Verified 03/21/17 15:22 OF BREATH Iodine and Iodide Containing Allergy SHORTNESS Verified 03/21/17 15:22 Produc OF BREATH ketorolac Allergy ITCHING Verified 03/21/17 15:22 ondansetron Allergy ITCHING Verified 03/21/17 15:22 Physical Exam - Constitutional Appears: Well, Non-toxic, In Acute Distress (due to pain) - Head Exam Head Exam: ATRAUMATIC, NORMAL INSPECTION, NORMOCEPHALIC - Eye Exam Eye Exam: EOMI, Normal appearance - Neck Exam Neck exam: Positive for: Normal Inspection - Respiratory Exam Respiratory Exam: Clear to Auscultation Bilateral, NORMAL BREATHING PATTERN - Cardiovascular Exam Cardiovascular Exam: REGULAR RHYTHM, RRR, +S1, +S2 - GI/Abdominal Exam GI & Abdominal Exam: Normal Bowel Sounds, Soft. absent: Tenderness Additional comments: obese - Extremities Exam Extremities exam: Positive for: normal inspection Additional comments: trace edema bilaterally - Back Exam Back exam: NORMAL INSPECTION - Neurological Exam Neurological exam: Alert, Oriented x3 - Psychiatric Exam Psychiatric exam: Normal Affect, Normal Mood - Skin Skin Exam: Dry, Intact, Normal Color, Warm Results - Vital Signs Recent Vital Signs: Last Vital Signs Temp 97.8 F 03/22/17 16:00 Pulse 106 H 03/22/17 16:00 Resp 18 03/22/17 16:00 BP 137/88 03/22/17 16:00 Pulse Ox 98 03/22/17 16:00 - Labs Result Diagrams: 03/21/17 18:07 03/21/17 18:07 Labs: Laboratory Results - last 24 hr 03/22/17 11:50 Hemoglobin A1c 6.6 H D Assessment & Plan (1) Pulmonary embolism Assessment and Plan: asymptomatic at this time except for chest pain VQ Scan ordered, pending C/w Lovenox 140mg BID Increased Dilaudid to 1mg Heme/Onc consulted, appreciate recommendations Monitor on telemetry Suspicions that patient may be drug seeking due to multiple hospital visits at different hospitals without a PMD Status: Acute <Maurice Lanza - Last Filed: 03/24/17 21:14> Results - Vital Signs Recent Vital Signs: Last Vital Signs Temp 98.7 F 03/24/17 19:57 Pulse 106 H 03/24/17 19:57 Resp 18 03/24/17 19:57 BP 127/84 03/24/17 19:57 Pulse Ox 97 03/24/17 19:57 - Labs Result Diagrams: 03/21/17 18:07 03/21/17 18:07 Assessment & Plan (1) Pulmonary embolism Status: Acute (2) Shortness of breath Status: Acute (3) Pleuritic pain Status: Chronic Priority: Medium - Assessment and Plan (Free Text) Plan: I was present during evaluation and discussed with Dr Matthew garcia plans of care and tx.
[2017-03-23] MEDS: Enoxaparin 150 mg Syringe SC SCH ×2 (09:36→16:25)
--- NOTE | 2017-03-23 12:53 | CARD ---
APPROVED REPORT EKG Measurement Heart [id number] <Conclusion> Normal sinus rhythm Voltage criteria for left ventricular hypertrophy Abnormal ECG
[2017-03-24] MEDS: Enoxaparin 150 mg Syringe SC SCH ×3 (08:12→21:08)
--- NOTE | 2017-03-24 11:12 | CP.PCM.PN ---
Subjective - Date & Time of Evaluation Date of Evaluation: 03/23/17 Time of Evaluation: 09:30 - Subjective Subjective: Continues to have some pain Has no fever. VQ scan is negative Objective - Vital Signs/Intake and Output Vital Signs (last 24 hours): Temp Pulse Resp BP Pulse Ox 98.7 F 106 H 18 144/89 95 03/24/17 07:58 03/24/17 09:00 03/24/17 07:58 03/24/17 07:58 03/24/17 07:58 - Medications Medications: Current Medications Enoxaparin Sodium (Lovenox) 140 mg SC Q12 RAYSHAWN PRN Reason: Protocol Last Admin: 03/24/17 08:36 Dose: Not Given Hydromorphone HCl (Dilaudid) 2 mg IVP Q4 PRN PRN Reason: Pain, severe (8-10) Last Admin: 03/24/17 10:05 Dose: 2 mg - Labs Labs: PT 13.2 Seconds (9.8-13.1) H 03/21/17 18:07 INR 1.2 (0.9-1.2) 03/21/17 18:07 APTT 32.8 Seconds (25.6-37.1) 03/21/17 18:07 - Head Exam Head Exam: NORMAL INSPECTION - Eye Exam Eye Exam: Normal appearance - Respiratory Exam Respiratory Exam: Clear to Ausculation Bilateral - Cardiovascular Exam Cardiovascular Exam: REGULAR RHYTHM - GI/Abdominal Exam GI & Abdominal Exam: Normal Bowel Sounds - Neurological Exam Neurological Exam: Awake, Oriented x3 - Psychiatric Exam Psychiatric exam: Anxious Assessment and Plan (1) Pulmonary embolism Status: Acute (2) Shortness of breath Status: Acute (3) Hypertension Status: Chronic (4) Pleuritic pain Status: Chronic - Assessment and Plan (Free Text) Plan: cont meds cont pain meds cont Lovenox
--- NOTE | 2017-03-24 11:15 | CP.PCM.PN ---
Subjective - Date & Time of Evaluation Date of Evaluation: 03/24/17 Time of Evaluation: 11:12 - Subjective Subjective: Discussed with patient re results. She initially wanted to have CT scan done to confirm PE but I told her that regardless of the results she will still be going home on the same meds. Doing a CT scan would just put her on a higher risk of having side effects( she was previously premedicated with solumedrol when she had her last CT) Otherwise she is stable and has mild chest pain. Objective - Vital Signs/Intake and Output Vital Signs (last 24 hours): Temp Pulse Resp BP Pulse Ox 98.7 F 106 H 18 144/89 95 03/24/17 07:58 03/24/17 09:00 03/24/17 07:58 03/24/17 07:58 03/24/17 07:58 - Medications Medications: Current Medications Enoxaparin Sodium (Lovenox) 140 mg SC Q12 RAYSHAWN PRN Reason: Protocol Last Admin: 03/24/17 08:36 Dose: Not Given Hydromorphone HCl (Dilaudid) 2 mg IVP Q4 PRN PRN Reason: Pain, severe (8-10) Last Admin: 03/24/17 10:05 Dose: 2 mg - Labs Labs: PT 13.2 Seconds (9.8-13.1) H 03/21/17 18:07 INR 1.2 (0.9-1.2) 03/21/17 18:07 APTT 32.8 Seconds (25.6-37.1) 03/21/17 18:07 - Head Exam Head Exam: NORMAL INSPECTION - Eye Exam Eye Exam: Normal appearance - ENT Exam ENT Exam: Mucous Membranes Moist - Respiratory Exam Respiratory Exam: Clear to Ausculation Bilateral - Cardiovascular Exam Cardiovascular Exam: REGULAR RHYTHM - GI/Abdominal Exam GI & Abdominal Exam: Normal Bowel Sounds - Neurological Exam Neurological Exam: Awake, Oriented x3 Assessment and Plan (1) Pulmonary embolism Status: Acute (2) Shortness of breath Status: Acute (3) Pleuritic pain Status: Chronic - Assessment and Plan (Free Text) Plan: patient made aware of risk s of doing unnecessary tests. will do dc plan for am.
--- NOTE | 2017-03-24 14:00 | CP.PCM.CON ---
History of Present Illness - History of Present Illness History of Present Illness: referred for ID eval of + MRSA blood c/s r/o endocarditis 46 year old female, with a past medical history inclusive of multiple previous pulmonary emboli (diagnosed 7x in past, 1st in [address] [facility], several at [facility] in July, and most recently at [facility] a little less than 2 weeks ago), who presents to the ED today for the evaluation of severe chest pain that she has experienced x2 days. Pain was reportedly sudden onset and has since been accompanied by feelings of lightheadedness, shortness of breath. Went to work today but symptoms worsened and associated with episodes of non- bilious/non-bloody vomiting; similar to the symptom presentation experienced with previous PE's. Though she reports being compliant with her self-injected Lovenox high dose of 140mg BID, she admits to not having followed up regularly with a doctor secondary to issues with her insurance. Denies fever, cough, leg swelling or use of hormone therapies. In [facility], she reports that she had bilateral PEs seen on both VQ and CT scan. Though she states as she is allergic to iodine she reports that if given 1 day' s worth of steroid preparation treatments prior to undergoing the study, she can have a CT scan. She also reports that she usually receives dilaudid for the treatment of her chest pain. (+) IVC filter in place. Pertinent familial history includes DVT though not PE. Pt presented similarly 2x in January to this hospital, and workup was negative for PE Review of Systems - Constitutional Constitutional: As Per HPI - EENT Ears: absent: As Per HPI, Decreased Hearing, Ear Discharge, Ear Pain, Tinnitus, Abnormal Hearing, Disequilibrium, Dizziness, Other Nose/Mouth/Throat: absent: As Per HPI, Epistaxis, Nasal Congestion, Nasal Discharge, Nasal Obstruction, Nasal Trauma, Nose Pain, Post Nasal Drip, Sinus Pain, Sinus Pressure, Bleeding Gums, Change in Voice, Dental Pain, Dry Mouth, Dysphagia, Halitosis, Hoarsness, Lip Swelling, Mouth Lesions, Mouth Pain, Odynophagia, Sore Throat, Throat Swelling, Tongue Swelling, Facial Pain, Neck Pain, Neck Mass, Other - Breasts Breasts: absent: As Per HPI, Change in Shape, Mass, Pain, Nipple Discharge, Nipple Inversion, Skin Changes, Swelling, Other - Cardiovascular Cardiovascular: As Per HPI - Respiratory Respiratory: As Per HPI, Cough, Dyspnea - Gastrointestinal Gastrointestinal: absent: As Per HPI, Abdominal Pain, Belching, Bloating, Change in Bowel Habits, Change in Stool Character, Coffee Ground Emesis, Constipation, Cramping, Diarrhea, Dyspepsia, Dysphagia, Early Satiety, Excessive Flatus, Fecal Incontinence, Heartburn, Hematemesis, Hematochezia, Loose Stools, Melena, Nausea, Odynophagia, Temesmus, Vomiting, Other - Genitourinary Genitourinary: absent: As Per HPI, Change in Urinary Stream, Difficulty Urinating, Dysuria, Flank Pain, Hematuria, Pyuria, Nocturia, Urinary Incontinence, Urinary Frequency, Urinary Hesitance, Urinary Urgency, Voiding Freq/Small Amts, Freq UTI, Hx Renal/Bladder Calculi, Hx /Renal Surgery, Bladder Distension, Other - Reproductive: Female Reproductive:Female: absent: As Per HPI, Amenorrhea, Amenorrhea/ Control, Currently Menstual, Cycle <21 Days, Cycle >35 Days, Cycle Variable, Menses 1-7 Days, Menses >/= 8 Days, Menses Variable, Cycle > 4 Weeks Between, No Menses for 6 Months, Heavy Menses, Light Menses, Normal Menses, Spotting Between Cycles , S/P Hysterectomy, Menopausal, Post Menopausal, Premenarche, Abnormal Vaginal Bleeding, Dysmenorrhea, Dyspareunia, Genital Lesions, Genital Pruritis, Pelvic Pain, Prolapse Symptoms, Sexual Dysfunction, Vaginal Discharge, Vaginal Dryness , Vaginal Odor, Vaginal Pruritis, Other - Menstruation Menstruation: absent: As Per HPI, Amenorrhea, Amenorrhea/ Control, Currently Menstual, Cycle <21 Days, Cycle >35 Days, Cycle Variable, Menses 1-7 Days, Menses >/= 8 Days, Menses Variable, Cycle > 4 Weeks Between, No Menses for 6 Months, Heavy Menses, Light Menses, Normal Menses, Spotting Between Cycles , S/P Hysterectomy, Menopausal, Post Menopausal, Premenarche, Abnormal Vaginal Bleeding, Dysmenorrhea, Other - Musculoskeletal Musculoskeletal: absent: As Per HPI, Abnormal Gait, Arthralgias, Atrophy, Back Pain, Deformity, Joint Swelling, Limited Range of Motion, Loss of Height, Muscle Cramps, Muscle Weakness, Myalgias, Neck Pain, Numbness, Radiating Pain into Limb, Stiffness, Tingling, Other - Integumentary Integumentary: absent: As Per HPI, Acne, Alopecia, Bleeding Lesions, Change in Hair, Change in Nails, Change in Pigmentation, Changing Lesions, Dry Skin, Erythema, Furuncle, Hirsutism, Lesions, New Lesions, Non-Healing Lesions, Photosensitivity, Pruritus, Rash, Skin Pain, Skin Ulcer, Sores, Striae, Swelling , Unusual Bruising, Wounds, Jaundice, Other - Neurological Neurological: absent: As Per HPI, Abnormal Gait, Abnormal Hearing, Abnormal Movements, Abnormal Speech, Behavioral Changes, Burning Sensations, Confusion, Convulsions, Disequilibrium, Dizziness, Numbness, Focal Weakness, Frequent Falls , Headaches, Lack of Coordination, Loss of Vision, Memory Loss, Paresthesias, Radicular Pain, Restless Legs, Sensory Deficit, Syncope, Tingling, Tremor, Vertigo, Weakness, Other Visual Disturbances, Other - Psychiatric Psychiatric: absent: As Per HPI, Abnormal Sleep Pattern, Anhedonia, Anxiety, Auditory Hallucinations, Behavioral Changes, Change in Appetite, Change in Libido, Confusion, Depression, Difficulty Concentrating, Hallucinations, Homicidal Ideation, Hopelessness, Irritability, Memory Loss, Mood Swings, Panic Attacks, Paranoia, Suicidal Ideation, Visual Hallucinations, Tactile Hallucinations, Other - Endocrine Endocrine: absent: As Per HPI, Change in Body Appearance, Change in Libido, Cold Intolorance, Deepening of Voice, Excessive Sweating, Fatigue, Flushing, Heat Intolorance, Increase in Ring/Shoe/Hat Size, Palpitations, Polydipsia, Polyphagia, Polyuria, Other - Hematologic/Lymphatic Hematologic: absent: As Per HPI, Easy Bleeding, Easy Bruising, Lymphadenopathy, Other Past Patient History - Infectious Disease Hx of Infectious Diseases: None - Tetanus Immunizations Tetanus Immunization: Up to Date - Past Medical History & Family History Past Medical History?: Yes - Past Social History Smoking Status: Never Smoked - CARDIAC Hx Cardiac Disorders: Yes - PULMONARY Hx Respiratory Disorders: Yes - NEUROLOGICAL Hx Neurological Disorder: No - HEENT Hx HEENT Problems: No - RENAL Hx Chronic Kidney Disease: Yes - ENDOCRINE/METABOLIC Hx Endocrine Disorders: No - HEMATOLOGICAL/ONCOLOGICAL Hx Blood Disorders: No - INTEGUMENTARY Hx Dermatological Problems: No - MUSCULOSKELETAL/RHEUMATOLOGICAL Hx Musculoskeletal Disorders: No - GASTROINTESTINAL Hx Gastrointestinal Disorders: No Hx Diverticulitis: No Hx Gastritis: No Hx Pancreatitis: No - GENITOURINARY/GYNECOLOGICAL Hx Genitourinary Disorders: No - PSYCHIATRIC Hx Psychophysiologic Disorder: No - SURGICAL HISTORY Hx Surgeries: Yes Hx Appendectomy: Yes Hx Carotid Endarterectomy: No Hx Cholecystectomy: Yes Hx Coronary Artery Bypass Graft: No Hx Coronary Stent: No Hx Splenectomy: Yes Hx Tonsillectomy: No Hx Tubal Ligation: Yes - ANESTHESIA Hx Anesthesia: Yes Hx Anesthesia Reactions: No Hx Malignant Hyperthermia: No Meds Allergies/Adverse Reactions: Allergies Allergy/AdvReac Type Severity Reaction Status Date / Time iodixanol Allergy Severe SHORTNESS Verified 03/21/17 15:22 OF BREATH Iodine and Iodide Containing Allergy SHORTNESS Verified 03/21/17 15:22 Produc OF BREATH ketorolac Allergy ITCHING Verified 03/21/17 15:22 ondansetron Allergy ITCHING Verified 03/21/17 15:22 - Medications Medications: Current Medications Enoxaparin Sodium (Lovenox) 140 mg SC Q12 RAYSHAWN PRN Reason: Protocol Last Admin: 03/24/17 08:36 Dose: Not Given Hydromorphone HCl (Dilaudid) 2 mg IVP Q4 PRN PRN Reason: Pain, severe (8-10) Last Admin: 03/24/17 10:05 Dose: 2 mg Physical Exam - Constitutional Appears: Non-toxic, Chronically Ill - Head Exam Head Exam: NORMOCEPHALIC - Eye Exam Eye Exam: PERRL. absent: Scleral icterus - ENT Exam ENT Exam: Mucous Membranes Dry, Normal External Ear Exam, Normal Oropharynx - Neck Exam Neck exam: Negative for: Lymphadenopathy, Thyromegaly - Respiratory Exam Respiratory Exam: Decreased Breath Sounds, Clear to Auscultation Bilateral - Cardiovascular Exam Cardiovascular Exam: REGULAR RHYTHM, +S1, +S2 - GI/Abdominal Exam GI & Abdominal Exam: Diminished Bowel Sounds, Distended, Soft. absent: Rebound , Rigid, Tenderness - Rectal Exam Rectal Exam: Deferred - Exam Exam: NORMAL INSPECTION - Extremities Exam Extremities exam: Negative for: calf tenderness, pedal edema - Back Exam Back exam: absent: CVA tenderness (L), CVA tenderness (R) - Neurological Exam Neurological exam: Alert, CN II-XII Intact, Oriented x3, Reflexes Normal - Psychiatric Exam Psychiatric exam: Normal Mood - Skin Skin Exam: Dry, Intact Results - Vital Signs Recent Vital Signs: Last Vital Signs Temp 98.1 F 03/24/17 12:20 Pulse 107 H 03/24/17 12:20 Resp 18 03/24/17 12:20 BP 151/86 H 03/24/17 12:20 Pulse Ox 97 03/24/17 12:20 - Labs Result Diagrams: 03/21/17 18:07 03/21/17 18:07 Assessment & Plan (1) Dyspnea Status: Acute (2) Tachycardia Status: Acute (3) Abdominal pain Status: Acute (4) Asthma Status: Acute - Assessment and Plan (Free Text) Assessment: mrsa IN BLOOD CENTRAL LINE TO BE CHANGED CONSIDE RECHO NATALIA
--- NOTE | 2017-03-24 15:05 | CP.PCM.PN ---
Subjective - Date & Time of Evaluation Date of Evaluation: 03/24/17 Time of Evaluation: 15:02 - Subjective Subjective: Pt still c/o pain in the chest and of being short of breath even if she walks to the bathroom. Her VQ scan idoes not show an PE. Her o2 sat is 95-99%. She is on lovenox q 12hrs, However the blood c/s showed MRSA, and she is now being treated for the same. Objective - Vital Signs/Intake and Output Vital Signs (last 24 hours): Temp Pulse Resp BP Pulse Ox 98.1 F 107 H 18 151/86 H 97 03/24/17 12:20 03/24/17 12:20 03/24/17 12:20 03/24/17 12:20 03/24/17 12:20 - Medications Medications: Current Medications Enoxaparin Sodium (Lovenox) 140 mg SC Q12 RAYSHAWN PRN Reason: Protocol Last Admin: 03/24/17 08:36 Dose: Not Given Hydromorphone HCl (Dilaudid) 2 mg IVP Q4 PRN PRN Reason: Pain, severe (8-10) Last Admin: 03/24/17 14:05 Dose: 2 mg - Labs Labs: PT 13.2 Seconds (9.8-13.1) H 03/21/17 18:07 INR 1.2 (0.9-1.2) 03/21/17 18:07 APTT 32.8 Seconds (25.6-37.1) 03/21/17 18:07
[2017-03-25 06:45] LABS: MEAN CELL VOLUME 80.5 fl (81.0-99.0); MEAN CORPUSCULAR HEMOGLOBIN 25.2 pg (27.0-31.0); MEAN CORPUSCULAR HGB CONC 31.3 g/dL (33.0-37.0); RED CELL DISTRIBUTION WIDTH 18.3 % (11.5-14.5); WHITE BLOOD COUNT 11.2 K/uL (4.8-10.8)
[2017-03-25 06:55] LABS: ALB/GLOB RATIO 1.4 (1.0-2.1); ALKALINE PHOSPHATASE 59 U/L (38-126); ALT/SGPT 31 U/L (9-52); AST/SGOT 25 U/L (14-36); BILIRUBIN,TOTAL 0.4 mg/dl (0.2-1.3); BLOOD UREA NITROGEN 8 mg/dl (7-17); CALCIUM 8.9 mg/dL (8.4-10.2); CARBON DIOXIDE 29 mmol/L (22-30); CHLORIDE 102 mmol/L (98-107); GFR AFRICAN-AMERICAN > 60; GLUCOSE,RANDOM 88 mg/dL (65-105); POTASSIUM 3.9 MMOL/L (3.6-5.0); SODIUM 135 mmol/l (132-148); TOTAL PROTEIN 5.8 G/DL (6.3-8.2)
[2017-03-25] MEDS: Enoxaparin 150 mg Syringe SC SCH ×2 (09:20→21:05)
--- NOTE | 2017-03-25 11:17 | CP.PCM.PN ---
Subjective - Date & Time of Evaluation Date of Evaluation: 03/25/17 Time of Evaluation: 09:00 - Subjective Subjective: mrsa in blood needs arnulfo cont iv vanco Objective - Vital Signs/Intake and Output Vital Signs (last 24 hours): Temp Pulse Resp BP Pulse Ox 98.1 F 103 H 18 114/71 96 03/25/17 09:00 03/25/17 09:00 03/25/17 09:00 03/25/17 09:00 03/25/17 09:00 Intake and Output: 03/25/17 03/25/17 06:59 18:59 Intake Total 1010 Balance 1010 - Medications Medications: Current Medications Enoxaparin Sodium (Lovenox) 140 mg SC Q12 RAYSHAWN PRN Reason: Protocol Last Admin: 03/25/17 09:20 Dose: 140 mg Hydromorphone HCl (Dilaudid) 2 mg IVP Q4 PRN PRN Reason: Pain, severe (8-10) Last Admin: 03/25/17 10:20 Dose: 2 mg Vancomycin HCl 1 gm/ Sodium (Chloride) 250 mls @ 166.667 mls/hr IVPB Q12 RAYSHAWN - Labs Labs: 03/25/17 06:15 03/25/17 06:15 PT 13.2 Seconds (9.8-13.1) H 03/21/17 18:07 INR 1.2 (0.9-1.2) 03/21/17 18:07 APTT 32.8 Seconds (25.6-37.1) 03/21/17 18:07 - Constitutional Appears: Non-toxic, Chronically Ill - Head Exam Head Exam: NORMOCEPHALIC - Eye Exam Eye Exam: PERRL. absent: Scleral icterus - ENT Exam ENT Exam: Mucous Membranes Dry - Neck Exam Neck Exam: absent: Lymphadenopathy - Respiratory Exam Respiratory Exam: Decreased Breath Sounds, Rhonchi - Cardiovascular Exam Cardiovascular Exam: REGULAR RHYTHM, +S1, +S2 - GI/Abdominal Exam GI & Abdominal Exam: Distended, Soft - Rectal Exam Rectal Exam: Deferred - Exam Exam: NORMAL INSPECTION Assessment and Plan (1) Dyspnea Status: Acute (2) Tachycardia Status: Acute (3) Abdominal pain Status: Acute (4) Asthma Status: Acute
--- NOTE | 2017-03-25 12:36 | CP.PCM.PN ---
Subjective - Date & Time of Evaluation Date of Evaluation: 03/25/17 Time of Evaluation: 12:34 - Subjective Subjective: Noted to have positive MRSA in the blood but patient has no fever or cough or urinary sx still with pleuritic pain Had a discussion with her yesterday re lack of need for CT scan of the chest Objective - Vital Signs/Intake and Output Vital Signs (last 24 hours): Temp Pulse Resp BP Pulse Ox 97.7 F 106 H 18 136/88 95 03/25/17 12:20 03/25/17 12:20 03/25/17 12:20 03/25/17 12:20 03/25/17 12:20 Intake and Output: 03/25/17 03/25/17 06:59 18:59 Intake Total 1010 Balance 1010 - Medications Medications: Current Medications Enoxaparin Sodium (Lovenox) 140 mg SC Q12 RAYSHAWN PRN Reason: Protocol Last Admin: 03/25/17 09:20 Dose: 140 mg Hydromorphone HCl (Dilaudid) 2 mg IVP Q4 PRN PRN Reason: Pain, severe (8-10) Last Admin: 03/25/17 10:20 Dose: 2 mg Vancomycin HCl 1 gm/ Sodium (Chloride) 250 mls @ 166.667 mls/hr IVPB Q12 RAYSHAWN - Labs Labs: 03/25/17 06:15 03/25/17 06:15 PT 13.2 Seconds (9.8-13.1) H 03/21/17 18:07 INR 1.2 (0.9-1.2) 03/21/17 18:07 APTT 32.8 Seconds (25.6-37.1) 03/21/17 18:07 - Head Exam Head Exam: NORMAL INSPECTION - Eye Exam Eye Exam: Normal appearance - Respiratory Exam Respiratory Exam: Clear to Ausculation Bilateral - Cardiovascular Exam Cardiovascular Exam: REGULAR RHYTHM - GI/Abdominal Exam GI & Abdominal Exam: Normal Bowel Sounds - Neurological Exam Neurological Exam: Awake, Oriented x3 Assessment and Plan (1) Pulmonary embolism Status: Acute (2) Shortness of breath Status: Acute (3) Hypertension Status: Chronic (4) Pleuritic pain Status: Chronic (5) Bacteremia Status: Acute - Assessment and Plan (Free Text) Plan: Iv antibiotics consult with Dr hannah FISHER repeat cbc blood C and S.
--- NOTE | 2017-03-25 19:36 | CP.PCM.CON ---
History of Present Illness - History of Present Illness History of Present Illness: I was asked to see patient by Dr Lanza. Patient is a 46 year old female with PMH HTN, hypercholesterolemia, PE s/p IVC filter who presents with chest pain. The patient has been to multiple hospitals over the years for mgmt of PE. She apparently had bilateral PE at [facility] last month. She was discharged on lovenox therapy. The patient was admitted for further evalaution. Blood culture was positive for MRSA. cardiology request for NATALIA. The patient denies chest pain at this time. Review of Systems - Constitutional Constitutional: absent: As Per HPI, Anorexia, Chills, Daytime Sleepiness, Excessive Sweating, Fatigue, Fever, Frequent Falls, Headache, Increased Appetite , Lethargy, Malaise, Night Sweats, Snoring, Sleep Apnea, Weight Gain, Weight Loss, Weakness, Other - EENT Eyes: absent: As Per HPI, Blind Spots, Blurred Vision, Change in Vision, Decreased Night Vision, Diplopia, Discharge, Dry Eye, Exophthalmos, Floaters, Irritation, Itchy Eyes, Loss of Peripheral Vision, Pain, Photophobia, Requires Corrective Lenses, Sees Flashes, Spots in Vision, Tunnel Vision, Other Visual Disturbances, Loss of Vision, Other Ears: absent: As Per HPI, Decreased Hearing, Ear Discharge, Ear Pain, Tinnitus, Abnormal Hearing, Disequilibrium, Dizziness, Other Nose/Mouth/Throat: absent: As Per HPI, Epistaxis, Nasal Congestion, Nasal Discharge, Nasal Obstruction, Nasal Trauma, Nose Pain, Post Nasal Drip, Sinus Pain, Sinus Pressure, Bleeding Gums, Change in Voice, Dental Pain, Dry Mouth, Dysphagia, Halitosis, Hoarsness, Lip Swelling, Mouth Lesions, Mouth Pain, Odynophagia, Sore Throat, Throat Swelling, Tongue Swelling, Facial Pain, Neck Pain, Neck Mass, Other - Cardiovascular Cardiovascular: absent: As Per HPI, Acrocyanosis, Chest Pain, Chest Pain at Rest , Chest Pain with Activity, Claudication, Diaphoresis, Dyspnea, Dyspnea on Exertion, Edema, Irregular Heart Rhythm, Pain Radiating to Arm/Neck/Jaw, Leg Edema, Leg Ulcers, Lightheadedness, Orthopnea, Palpitations, Paroxysmal Nocturnal Dyspnea, Pedal Edema, Radiating Pain, Rapid Heart Rate, Slow Heart Rate, Syncope, Other - Respiratory Respiratory: absent: As Per HPI, Cough, Dyspnea, Hemoptysis, Dyspnea on Exertion , Wheezing, Snoring, Stridor, Pain on Inspiration, Chest Congestion, Excessive Mucous Production, Change in Mucous Color, Pain with Coughing, Other - Gastrointestinal Gastrointestinal: absent: As Per HPI, Abdominal Pain, Belching, Bloating, Change in Bowel Habits, Change in Stool Character, Coffee Ground Emesis, Constipation, Cramping, Diarrhea, Dyspepsia, Dysphagia, Early Satiety, Excessive Flatus, Fecal Incontinence, Heartburn, Hematemesis, Hematochezia, Loose Stools, Melena, Nausea, Odynophagia, Temesmus, Vomiting, Other - Genitourinary Genitourinary: absent: As Per HPI, Change in Urinary Stream, Difficulty Urinating, Dysuria, Flank Pain, Hematuria, Pyuria, Nocturia, Urinary Incontinence, Urinary Frequency, Urinary Hesitance, Urinary Urgency, Voiding Freq/Small Amts, Freq UTI, Hx Renal/Bladder Calculi, Hx /Renal Surgery, Bladder Distension, Other - Musculoskeletal Musculoskeletal: absent: As Per HPI, Abnormal Gait, Arthralgias, Atrophy, Back Pain, Deformity, Joint Swelling, Limited Range of Motion, Loss of Height, Muscle Cramps, Muscle Weakness, Myalgias, Neck Pain, Numbness, Radiating Pain into Limb, Stiffness, Tingling, Other - Integumentary Integumentary: absent: As Per HPI, Acne, Alopecia, Bleeding Lesions, Change in Hair, Change in Nails, Change in Pigmentation, Changing Lesions, Dry Skin, Erythema, Furuncle, Hirsutism, Lesions, New Lesions, Non-Healing Lesions, Photosensitivity, Pruritus, Rash, Skin Pain, Skin Ulcer, Sores, Striae, Swelling , Unusual Bruising, Wounds, Jaundice, Other - Neurological Neurological: absent: As Per HPI, Abnormal Gait, Abnormal Hearing, Abnormal Movements, Abnormal Speech, Behavioral Changes, Burning Sensations, Confusion, Convulsions, Disequilibrium, Dizziness, Numbness, Focal Weakness, Frequent Falls , Headaches, Lack of Coordination, Loss of Vision, Memory Loss, Paresthesias, Radicular Pain, Restless Legs, Sensory Deficit, Syncope, Tingling, Tremor, Vertigo, Weakness, Other Visual Disturbances, Other - Psychiatric Psychiatric: absent: As Per HPI, Abnormal Sleep Pattern, Anhedonia, Anxiety, Auditory Hallucinations, Behavioral Changes, Change in Appetite, Change in Libido, Confusion, Depression, Difficulty Concentrating, Hallucinations, Homicidal Ideation, Hopelessness, Irritability, Memory Loss, Mood Swings, Panic Attacks, Paranoia, Suicidal Ideation, Visual Hallucinations, Tactile Hallucinations, Other - Endocrine Endocrine: absent: As Per HPI, Change in Body Appearance, Change in Libido, Cold Intolorance, Deepening of Voice, Excessive Sweating, Fatigue, Flushing, Heat Intolorance, Increase in Ring/Shoe/Hat Size, Palpitations, Polydipsia, Polyphagia, Polyuria, Other Past Patient History - Infectious Disease Hx of Infectious Diseases: None - Tetanus Immunizations Tetanus Immunization: Up to Date - Past Medical History & Family History Past Medical History?: Yes - Past Social History Smoking Status: Never Smoked - CARDIAC Hx Cardiac Disorders: Yes - PULMONARY Hx Respiratory Disorders: Yes - NEUROLOGICAL Hx Neurological Disorder: No - HEENT Hx HEENT Problems: No - RENAL Hx Chronic Kidney Disease: Yes - ENDOCRINE/METABOLIC Hx Endocrine Disorders: No - HEMATOLOGICAL/ONCOLOGICAL Hx Blood Disorders: No - INTEGUMENTARY Hx Dermatological Problems: No - MUSCULOSKELETAL/RHEUMATOLOGICAL Hx Musculoskeletal Disorders: No - GASTROINTESTINAL Hx Gastrointestinal Disorders: No Hx Diverticulitis: No Hx Gastritis: No Hx Pancreatitis: No - GENITOURINARY/GYNECOLOGICAL Hx Genitourinary Disorders: No - PSYCHIATRIC Hx Psychophysiologic Disorder: No - SURGICAL HISTORY Hx Surgeries: Yes Hx Appendectomy: Yes Hx Carotid Endarterectomy: No Hx Cholecystectomy: Yes Hx Coronary Artery Bypass Graft: No Hx Coronary Stent: No Hx Splenectomy: Yes Hx Tonsillectomy: No Hx Tubal Ligation: Yes - ANESTHESIA Hx Anesthesia: Yes Hx Anesthesia Reactions: No Hx Malignant Hyperthermia: No Meds Allergies/Adverse Reactions: Allergies Allergy/AdvReac Type Severity Reaction Status Date / Time iodixanol Allergy Severe SHORTNESS Verified 03/21/17 15:22 OF BREATH Iodine and Iodide Containing Allergy SHORTNESS Verified 03/21/17 15:22 Produc OF BREATH ketorolac Allergy ITCHING Verified 03/21/17 15:22 ondansetron Allergy ITCHING Verified 03/21/17 15:22 - Medications Medications: Current Medications Enoxaparin Sodium (Lovenox) 140 mg SC Q12 RAYSHAWN PRN Reason: Protocol Last Admin: 03/25/17 09:20 Dose: 140 mg Hydromorphone HCl (Dilaudid) 2 mg IVP Q4 PRN PRN Reason: Pain, severe (8-10) Last Admin: 03/25/17 18:47 Dose: 2 mg Vancomycin HCl 1 gm/ Sodium (Chloride) 250 mls @ 166.667 mls/hr IVPB Q12 RAYSHAWN Last Admin: 03/25/17 13:28 Dose: 166.667 mls/hr Physical Exam - Constitutional Appears: Non-toxic - Head Exam Head Exam: NORMAL INSPECTION - Eye Exam Eye Exam: Normal appearance - ENT Exam ENT Exam: Mucous Membranes Moist - Neck Exam Neck exam: Positive for: Full Rom - Respiratory Exam Respiratory Exam: Decreased Breath Sounds - Cardiovascular Exam Cardiovascular Exam: REGULAR RHYTHM - GI/Abdominal Exam GI & Abdominal Exam: Normal Bowel Sounds - Rectal Exam Rectal Exam: Deferred - Extremities Exam Extremities exam: Positive for: pedal edema - Back Exam Back exam: NORMAL INSPECTION - Neurological Exam Neurological exam: Alert, Oriented x3 - Psychiatric Exam Psychiatric exam: Normal Affect - Skin Skin Exam: Normal Color Results - Vital Signs Recent Vital Signs: Last Vital Signs Temp 97.7 F 03/25/17 17:00 Pulse 106 H 03/25/17 17:00 Resp 18 03/25/17 17:00 BP 136/88 03/25/17 17:00 Pulse Ox 95 03/25/17 17:00 - Labs Result Diagrams: 03/25/17 06:15 03/25/17 06:15 Labs: Laboratory Results - last 24 hr 03/25/17 03/25/17 06:15 06:15 WBC 11.2 H RBC 3.73 L Hgb 9.4 L Hct 30.0 L MCV 80.5 L MCH 25.2 L MCHC 31.3 L RDW 18.3 H Plt Count 263 Sodium 135 Potassium 3.9 Chloride 102 Carbon Dioxide 29 Anion Gap 8 L BUN 8 Creatinine 0.4 L Est GFR ( Amer) > 60 Est GFR (Non-Af Amer) > 60 Random Glucose 88 Calcium 8.9 Total Bilirubin 0.4 AST 25 ALT 31 Alkaline Phosphatase 59 Total Protein 5.8 L Albumin 3.4 L Globulin 2.4 Albumin/Globulin Ratio 1.4 - EKG Data EKG Interpreted by: Myself EKG shows normal: Sinus rhythm Assessment & Plan (1) Tachycardia Assessment and Plan: may be due to underlying bacteremia. will follow up echocardiogram Status: Acute (2) Hypertension Assessment and Plan: blood pressure will be managed Status: Chronic (3) Bacteremia Assessment and Plan: MRSA in blood. I discussed the possibility of endocarditis with the patient. Currently no physical exam finidings of endocarditis. I will review echocardiogram. I discussed the possibility of need for NATALIA. Status: Acute
[2017-03-26 06:54] LABS: CARDIOLIPIN AB (IGA) <11 APL (<=11)
[2017-03-26] MEDS: Enoxaparin 150 mg Syringe SC SCH ×2 (09:59→22:37)
--- NOTE | 2017-03-26 12:24 | US ---
PROCEDURE: Limited ultrasound abdomen HISTORY: r/o IVC filter vegetations COMPARISON: Not available TECHNIQUE: Ultrasound examination of the abdomen was performed in a limited fashion specifically for evaluation of the inferior vena cava. FINDINGS: There is flow demonstrated in the inferior vena cava. The inferior vena caval filter is identified. There is no occlusive thrombus identified. Small vegetations of the vena caval filter are not likely amenable to evaluation by means of color Doppler ultrasound. There is no additional abnormality identified. IMPRESSION: No occlusive thrombus.
--- NOTE | 2017-03-26 14:48 | CP.PCM.PN ---
<Virgil Kowalski - Last Filed: 03/26/17 14:45> Subjective - Date & Time of Evaluation Date of Evaluation: 03/26/17 Time of Evaluation: 11:45 - Subjective Subjective: Patient seen and examined at bedside with attending. Afebrile. No acute events overnight. MRSA noted in blood x 2. ID/Cardiology/Heme on Board. No other complaints at this time. Denies chest pain/sob. Patient to go for NATALIA today or tomorrow. Objective - Vital Signs/Intake and Output Vital Signs (last 24 hours): Temp Pulse Resp BP Pulse Ox 98.3 F 95 H 18 129/84 98 03/26/17 12:53 03/26/17 12:53 03/26/17 12:53 03/26/17 12:53 03/26/17 12:53 Intake and Output: 03/26/17 03/26/17 06:59 18:59 Intake Total 650 Balance 650 - Medications Medications: Current Medications Enoxaparin Sodium (Lovenox) 140 mg SC Q12 RAYSHAWN PRN Reason: Protocol Last Admin: 03/26/17 09:59 Dose: 140 mg Hydromorphone HCl (Dilaudid) 2 mg IVP Q4 PRN PRN Reason: Pain, severe (8-10) Last Admin: 03/26/17 11:10 Dose: 2 mg Vancomycin HCl 1 gm/ Sodium (Chloride) 250 mls @ 166.667 mls/hr IVPB Q12 RAYSHWAN Last Admin: 03/26/17 10:00 Dose: 166.667 mls/hr - Labs Labs: 03/25/17 06:15 03/25/17 06:15 PT 13.2 Seconds (9.8-13.1) H 03/21/17 18:07 INR 1.2 (0.9-1.2) 03/21/17 18:07 APTT 32.8 Seconds (25.6-37.1) 03/21/17 18:07 - Constitutional Appears: Well, Non-toxic, No Acute Distress - Head Exam Head Exam: ATRAUMATIC, NORMAL INSPECTION, NORMOCEPHALIC - Eye Exam Eye Exam: Normal appearance - Neck Exam Neck Exam: Normal Inspection Additional comments: left IJ TLC in place - Respiratory Exam Respiratory Exam: Clear to Ausculation Bilateral, NORMAL BREATHING PATTERN - Cardiovascular Exam Cardiovascular Exam: REGULAR RHYTHM, +S1, +S2. absent: Murmur - GI/Abdominal Exam GI & Abdominal Exam: Soft, Normal Bowel Sounds. absent: Tenderness - Extremities Exam Extremities Exam: Normal Inspection - Neurological Exam Neurological Exam: Alert, Awake, Oriented x3 - Psychiatric Exam Psychiatric exam: Normal Affect, Normal Mood - Skin Skin Exam: Dry, Intact, Normal Color, Warm Assessment and Plan (1) Pulmonary embolism Assessment & Plan: occasional chest pain/tachycardia though not present at this time Heme/Onc on board, appreciate input Cardiology on board, appreciate input c/w Lovenox treatment dose at this time, as patient cannot tolerate other oral anticoagulants Patient has IVC filter as well. Status: Acute (2) MRSA bacteremia Assessment & Plan: Unknown source at this time. 2 blood culture positive for MRSA ID on board, appreciate input Afebrile NATALIA Will obtain u/s of IVC for possible vegetations continue to monitor Status: Acute <Maurice Lanza - Last Filed: 03/27/17 07:31> Objective - Vital Signs/Intake and Output Vital Signs (last 24 hours): Temp Pulse Resp BP Pulse Ox 98.5 F 103 H 20 135/82 95 03/27/17 05:18 03/27/17 05:18 03/27/17 05:18 03/27/17 05:18 03/27/17 05:18 - Medications Medications: Current Medications Docusate Sodium (Colace) 100 mg PO BID [facility] Enoxaparin Sodium (Lovenox) 140 mg SC Q12 RAYSHAWN PRN Reason: Protocol Last Admin: 03/26/17 22:37 Dose: 140 mg Hydromorphone HCl (Dilaudid) 2 mg IVP Q4 PRN PRN Reason: Pain, severe (8-10) Last Admin: 03/27/17 03:48 Dose: 2 mg Vancomycin HCl 1 gm/ Sodium (Chloride) 250 mls @ 166.667 mls/hr IVPB Q12 RAYSHAWN Last Admin: 03/26/17 21:36 Dose: 166.667 mls/hr - Labs Labs: 03/27/17 04:10 03/27/17 04:10 PT 13.2 Seconds (9.8-13.1) H 03/21/17 18:07 INR 1.2 (0.9-1.2) 03/21/17 18:07 APTT 32.8 Seconds (25.6-37.1) 03/21/17 18:07 Assessment and Plan (1) Pulmonary embolism Status: Acute (2) Shortness of breath Status: Acute (3) Hypertension Status: Chronic (4) Pleuritic pain Status: Chronic (5) Bacteremia Status: Acute - Assessment and Plan (Free Text) Plan: I was present during evalaution and discussed with Dr John Schroeder re plans of care and mgt repeat blood C and S done cont iv antibiotics.
--- NOTE | 2017-03-26 16:35 | CARD ---
APPROVED REPORT EXAM: Two-dimensional and M-mode echocardiogram with Doppler and color Doppler. Other Information Quality : FairRhythm : INDICATION Chest Pain 2D DIMENSIONS IVSd1.23 (0.7-1.1cm)LVDd4.19 (3.9-5.9cm) LVOT Diameter2.48 (1.8-2.4cm)PWd0.97 (0.7-1.1cm) IVSs1.61 (0.8-1.2cm)LVDs3.21 (2.5-4.0cm) FS (%) 23.3 %PWs1.48 (0.8-1.2cm) M-Mode DIMENSIONS Left Atrium (MM)3.84 (2.5-4.0cm)Aortic Root2.95 (2.2-3.7cm) Aortic Cusp Exc.1.85 (1.5-2.0cm) Aortic Valve AoV Peak [place]370.6cm/sAoV VTI29.8cmAO Peak GR.12mmHg LVOT Peak Uxjgxetv241.7cm/sLVOT VTI20.13cmAO Mean GR.8mmHg [place] (VMAX)1.35us6CNY (VTI)1.58cm2 Mitral Valve MV E Xtrkeyiy43.7cm/sMV DECEL [id number] A Nshytllt82.6cm/s MV EUK74hiJ/A ratio1.0MVA (PHT)3.81cm2 TDI Lateral E' Peak V10.35cm/sMedial E' Peak V9.61cm/sE/Lateral E'7.9 E/Medial E'8.5 Pulmonary Valve PV Peak Cgwdtziz898.2cm/s Tricuspid Valve TR Peak Udriqpqg620us/sRAP XWUJQPPX51kcCfEE Peak Gr.5mmHg [id number] LEFT VENTRICLE The left ventricle is normal size. There is normal left ventricular wall thickness. The left ventricular function is normal. The left ventricular ejection fraction is within the normal range. The Ejection Fraction is 60-65%. There is normal LV segmental wall motion. The left ventricular diastolic function is normal. No left ventricle thrombus noted on this study. There is no mass noted in the left ventricle. RIGHT VENTRICLE The right ventricle is normal size. There is normal right ventricular wall thickness. The right ventricular systolic function is normal. ATRIA The left atrium size is normal. The right atrium size is normal. The interatrial septum is intact with no evidence for an atrial septal defect. AORTIC VALVE The aortic valve is normal in structure and function. No aortic regurgitation is present. There is no aortic valvular stenosis. There is no aortic valvular vegetation. MITRAL VALVE The mitral valve is normal in structure and function. There is no evidence of mitral valve prolapse. There is no mitral valve stenosis. There is no mitral valve regurgitation noted. TRICUSPID VALVE The tricuspid valve is normal in structure and function. There is no tricuspid valve regurgitation noted. There is no tricuspid valve prolapse or vegetation. There is no tricuspid valve stenosis. PULMONIC VALVE The pulmonary valve is normal in structure and function. There is no pulmonic valvular regurgitation. There is no pulmonic valvular stenosis. GREAT VESSELS The aortic root is normal in size. The IVC is normal in size and collapses >50% with inspiration. PERICARDIAL EFFUSION The pericardium appears normal. There is no pleural effusion. <Conclusion> The left ventricle is normal size. The left ventricular function is normal. The left ventricular ejection fraction is within the normal range. The Ejection Fraction is 60-65%.
[2017-03-27 05:19] LABS: HEMATOCRIT 33.1 % (34.0-47.0); MEAN CELL VOLUME 80.2 fl (81.0-99.0); MEAN CORPUSCULAR HEMOGLOBIN 25.4 pg (27.0-31.0); MEAN CORPUSCULAR HGB CONC 31.6 g/dL (33.0-37.0); RED CELL DISTRIBUTION WIDTH 18.8 % (11.5-14.5)
[2017-03-27 05:30] LABS: BLOOD UREA NITROGEN 8 mg/dl (7-17); CALCIUM 9.3 mg/dL (8.4-10.2); CARBON DIOXIDE 27 mmol/L (22-30); CHLORIDE 103 mmol/L (98-107); GFR AFRICAN-AMERICAN > 60; GLUCOSE,RANDOM 98 mg/dL (65-105); POTASSIUM 4.4 MMOL/L (3.6-5.0); SODIUM 139 mmol/l (132-148)
[2017-03-27] MEDS: Enoxaparin 150 mg Syringe SC SCH ×2 (08:55→20:17)
--- NOTE | 2017-03-27 10:48 | CP.PCM.PN ---
<Virgil Kowalski - Last Filed: 03/27/17 10:45> Subjective - Date & Time of Evaluation Date of Evaluation: 03/27/17 Time of Evaluation: 08:46 - Subjective Subjective: Patient seen and evaluated at bedside with attending. Afebrile. No acute events overnight. ID/Cardiology/Heme on Board. No other complaints at this time. Denies chest pain/sob, fever or chills. No GI/urinary symptoms. Patient to go for NATALIA today. Maintained NPO. Objective - Vital Signs/Intake and Output Vital Signs (last 24 hours): Temp Pulse Resp BP Pulse Ox 98.2 F 85 20 113/79 97 03/27/17 08:00 03/27/17 09:00 03/27/17 08:00 03/27/17 08:00 03/27/17 08:00 - Medications Medications: Current Medications Docusate Sodium (Colace) 100 mg PO BID [facility] Last Admin: 03/27/17 08:58 Dose: Not Given Enoxaparin Sodium (Lovenox) 140 mg SC Q12 RAYSHAWN PRN Reason: Protocol Last Admin: 03/27/17 08:55 Dose: 140 mg Hydromorphone HCl (Dilaudid) 2 mg IVP Q4 PRN PRN Reason: Pain, severe (8-10) Last Admin: 03/27/17 07:46 Dose: 2 mg Vancomycin HCl 1 gm/ Sodium (Chloride) 250 mls @ 166.667 mls/hr IVPB Q12 [facility] Last Admin: 03/27/17 08:49 Dose: 166.667 mls/hr Dextrose/Sodium Chloride (Dextrose 5%-0.9% Ns 500 Ml) 1,000 mls @ 50 mls/hr IV .Q20H [facility] Stop: 03/28/17 08:28 Last Admin: 03/27/17 08:49 Dose: 50 mls/hr - Labs Labs: 03/27/17 04:10 03/27/17 04:10 PT 13.2 Seconds (9.8-13.1) H 03/21/17 18:07 INR 1.2 (0.9-1.2) 03/21/17 18:07 APTT 32.8 Seconds (25.6-37.1) 03/21/17 18:07 - Constitutional Appears: Well, Non-toxic, No Acute Distress, Other (obese) - Head Exam Head Exam: ATRAUMATIC, NORMAL INSPECTION, NORMOCEPHALIC - Eye Exam Eye Exam: Normal appearance - Neck Exam Neck Exam: Normal Inspection (IJ line present) - Respiratory Exam Respiratory Exam: Clear to Ausculation Bilateral, NORMAL BREATHING PATTERN. absent: Decreased Breath Sounds, Rhonchi - Cardiovascular Exam Cardiovascular Exam: REGULAR RHYTHM, RRR, +S1, +S2. absent: Murmur - GI/Abdominal Exam GI & Abdominal Exam: Soft, Normal Bowel Sounds. absent: Tenderness - Extremities Exam Extremities Exam: Normal Inspection - Neurological Exam Neurological Exam: Alert, Awake, Oriented x3 - Psychiatric Exam Psychiatric exam: Normal Affect, Normal Mood - Skin Skin Exam: Dry, Intact, Normal Color, Warm Assessment and Plan (1) MRSA bacteremia Assessment & Plan: Unknown source at this time. 2 blood culture positive for MRSA Repeat blood culture NGTD ID on board, appreciate input Afebrile NATALIA today US of IVC filter unable to note if vegetations present continue to monitor Status: Acute (2) Pulmonary embolism Assessment & Plan: occasional chest pain/tachycardia though not present at this time Heme/Onc on board, appreciate input Cardiology on board, appreciate input c/w Lovenox treatment dose at this time, as patient cannot tolerate other oral anticoagulants Patient has IVC filter as well, no thrombus noted on US Status: Acute <Maurice Lanza - Last Filed: 03/31/17 13:28> Objective - Vital Signs/Intake and Output Vital Signs (last 24 hours): Temp Pulse Resp BP Pulse Ox 98.2 F 93 H 18 110/72 95 03/31/17 12:12 03/31/17 12:12 03/31/17 12:12 03/31/17 12:12 03/31/17 12:12 - Medications Medications: Current Medications Docusate Sodium (Colace) 100 mg PO BID RAYSHAWN Last Admin: 03/31/17 08:52 Dose: 100 mg Enoxaparin Sodium (Lovenox) 140 mg SC Q12 RAYSHAWN PRN Reason: Protocol Last Admin: 03/31/17 08:53 Dose: 140 mg Vancomycin HCl 1 gm/ Sodium (Chloride) 250 mls @ 166.667 mls/hr IVPB Q12 RAYSHAWN Last Admin: 03/31/17 08:51 Dose: 166.667 mls/hr Tramadol HCl (Ultram) 50 mg PO TID PRN PRN Reason: Pain, moderate (4-7) - Labs Labs: 03/29/17 05:00 03/29/17 05:00 PT 13.2 Seconds (9.8-13.1) H 03/21/17 18:07 INR 1.2 (0.9-1.2) 03/21/17 18:07 APTT 32.8 Seconds (25.6-37.1) 03/21/17 18:07 Assessment and Plan (1) Pulmonary embolism Status: Acute (2) Shortness of breath Status: Acute (3) Hypertension Status: Chronic (4) Pleuritic pain Status: Chronic (5) Bacteremia Status: Acute - Assessment and Plan (Free Text) Plan: I was present during evaluation and discussed with Dr Kowalski re plans of care. Maurice Lanza M.D.
--- NOTE | 2017-03-27 18:49 | CP.PCM.PN ---
Subjective - Date & Time of Evaluation Date of Evaluation: 03/27/17 Time of Evaluation: 08:00 - Subjective Subjective: afebrile alert c/o weakness and sob no hemoptysis repeat culturres neg on Vanco for NATALIA in am Objective - Vital Signs/Intake and Output Vital Signs (last 24 hours): Temp Pulse Resp BP Pulse Ox 98.1 F 78 20 121/77 97 03/27/17 15:49 03/27/17 15:49 03/27/17 15:49 03/27/17 15:49 03/27/17 15:49 - Medications Medications: Current Medications Docusate Sodium (Colace) 100 mg PO BID [facility] Last Admin: 03/27/17 16:02 Dose: 100 mg Enoxaparin Sodium (Lovenox) 140 mg SC Q12 RAYSHAWN PRN Reason: Protocol Last Admin: 03/27/17 08:55 Dose: 140 mg Hydromorphone HCl (Dilaudid) 2 mg IVP Q4 PRN PRN Reason: Pain, severe (8-10) Last Admin: 03/27/17 16:02 Dose: 2 mg Vancomycin HCl 1 gm/ Sodium (Chloride) 250 mls @ 166.667 mls/hr IVPB Q12 RAYSHAWN Last Admin: 03/27/17 08:49 Dose: 166.667 mls/hr Dextrose/Sodium Chloride (Dextrose 5%-0.9% Ns 500 Ml) 1,000 mls @ 50 mls/hr IV .Q20H RAYSHAWN Stop: 03/28/17 08:28 Last Admin: 03/27/17 08:49 Dose: 50 mls/hr - Labs Labs: 03/27/17 04:10 03/27/17 04:10 PT 13.2 Seconds (9.8-13.1) H 03/21/17 18:07 INR 1.2 (0.9-1.2) 03/21/17 18:07 APTT 32.8 Seconds (25.6-37.1) 03/21/17 18:07 Assessment and Plan (1) Dyspnea Status: Acute (2) Tachycardia Status: Acute (3) Abdominal pain Status: Acute (4) Asthma Status: Acute
[2017-03-28 06:11] LABS: HEMATOCRIT 29.4 % (34.0-47.0); MEAN CELL VOLUME 80.4 fl (81.0-99.0); MEAN CORPUSCULAR HEMOGLOBIN 25.2 pg (27.0-31.0); MEAN CORPUSCULAR HGB CONC 31.3 g/dL (33.0-37.0); RED CELL DISTRIBUTION WIDTH 17.9 % (11.5-14.5); WHITE BLOOD COUNT 8.7 K/uL (4.8-10.8)
[2017-03-28 07:04] LABS: BLOOD UREA NITROGEN 7 mg/dl (7-17); CALCIUM 8.9 mg/dL (8.4-10.2); CARBON DIOXIDE 29 mmol/L (22-30); CHLORIDE 104 mmol/L (98-107); GFR AFRICAN-AMERICAN > 60; GLUCOSE,RANDOM 105 mg/dL (65-105); POTASSIUM 4.1 MMOL/L (3.6-5.0); SODIUM 139 mmol/l (132-148)
[2017-03-28] MEDS: Enoxaparin 150 mg Syringe SC SCH ×2 (08:18→22:02)
--- NOTE | 2017-03-28 11:45 | CP.PCM.PN ---
<Virgil Kowalski - Last Filed: 03/28/17 11:37> Subjective - Date & Time of Evaluation Date of Evaluation: 03/28/17 Time of Evaluation: 10:00 - Subjective Subjective: Patient had already be transferred to [facility] for NATALIA by time of evaluation. Spoke with nursing staff and labs/chart reviewed. No acute events overnight noted. Objective - Vital Signs/Intake and Output Vital Signs (last 24 hours): Temp Pulse Resp BP Pulse Ox 98.7 F 88 20 131/93 H 99 03/28/17 08:00 03/28/17 09:00 03/28/17 08:00 03/28/17 08:00 03/28/17 08:00 - Medications Medications: Current Medications Docusate Sodium (Colace) 100 mg PO BID RAYSHAWN Last Admin: 03/28/17 08:11 Dose: Not Given Enoxaparin Sodium (Lovenox) 140 mg SC Q12 RAYSHAWN PRN Reason: Protocol Last Admin: 03/28/17 08:18 Dose: 140 mg Hydromorphone HCl (Dilaudid) 2 mg IVP Q4 PRN PRN Reason: Pain, severe (8-10) Last Admin: 03/28/17 08:17 Dose: 2 mg Vancomycin HCl 1 gm/ Sodium (Chloride) 250 mls @ 166.667 mls/hr IVPB Q12 RAYSHAWN Last Admin: 03/28/17 08:17 Dose: 166.667 mls/hr - Labs Labs: 03/28/17 05:45 03/28/17 05:49 PT 13.2 Seconds (9.8-13.1) H 03/21/17 18:07 INR 1.2 (0.9-1.2) 03/21/17 18:07 APTT 32.8 Seconds (25.6-37.1) 03/21/17 18:07 Assessment and Plan (1) MRSA bacteremia Assessment & Plan: Unknown source at this time. 2 blood culture positive for MRSA Repeat blood culture NGTD ID on board, appreciate input (barry) Afebrile, no leukocytosis NATALIA today, follow up results US of IVC filter unable to note if vegetations present continue to monitor Status: Acute (2) Pulmonary embolism Assessment & Plan: occasional chest pain, patient is using dilaudid on almost a regular basis, timed. Heme/Onc on board, appreciate input Cardiology on board, appreciate input c/w Lovenox treatment dose at this time, as patient cannot tolerate other oral anticoagulants Patient has IVC filter as well, no thrombus noted on US Status: Acute <Maurice Lanza - Last Filed: 03/31/17 13:29> Objective - Vital Signs/Intake and Output Vital Signs (last 24 hours): Temp Pulse Resp BP Pulse Ox 98.2 F 93 H 18 110/72 95 03/31/17 12:12 03/31/17 12:12 03/31/17 12:12 03/31/17 12:12 03/31/17 12:12 - Medications Medications: Current Medications Docusate Sodium (Colace) 100 mg PO BID RAYSHAWN Last Admin: 03/31/17 08:52 Dose: 100 mg Enoxaparin Sodium (Lovenox) 140 mg SC Q12 RAYSHAWN PRN Reason: Protocol Last Admin: 03/31/17 08:53 Dose: 140 mg Vancomycin HCl 1 gm/ Sodium (Chloride) 250 mls @ 166.667 mls/hr IVPB Q12 RAYSHAWN Last Admin: 03/31/17 08:51 Dose: 166.667 mls/hr Tramadol HCl (Ultram) 50 mg PO TID PRN PRN Reason: Pain, moderate (4-7) - Labs Labs: 03/29/17 05:00 03/29/17 05:00 PT 13.2 Seconds (9.8-13.1) H 03/21/17 18:07 INR 1.2 (0.9-1.2) 03/21/17 18:07 APTT 32.8 Seconds (25.6-37.1) 03/21/17 18:07 Assessment and Plan (1) Pulmonary embolism Status: Acute (2) Shortness of breath Status: Acute (3) Hypertension Status: Chronic (4) Pleuritic pain Status: Chronic (5) Bacteremia Status: Acute - Assessment and Plan (Free Text) Plan: Discussed candelario garcia plans of care Maurice Lanza M.D.
--- NOTE | 2017-03-28 14:08 | CP.PCM.PN ---
Subjective - Date & Time of Evaluation Date of Evaluation: 03/28/17 Time of Evaluation: 14:00 - Subjective Subjective: NATALIA performed. no evidence of endocarditis Normal left ventricular function Objective - Vital Signs/Intake and Output Vital Signs (last 24 hours): Temp Pulse Resp BP Pulse Ox 98.7 F 88 20 131/93 H 99 03/28/17 08:00 03/28/17 09:00 03/28/17 08:00 03/28/17 08:00 03/28/17 08:00 - Medications Medications: Current Medications Docusate Sodium (Colace) 100 mg PO BID REPLACED BY [facility] Last Admin: 03/28/17 08:11 Dose: Not Given Enoxaparin Sodium (Lovenox) 140 mg SC Q12 RAYSHAWN PRN Reason: Protocol Last Admin: 03/28/17 08:18 Dose: 140 mg Hydromorphone HCl (Dilaudid) 2 mg IVP Q4 PRN PRN Reason: Pain, severe (8-10) Last Admin: 03/28/17 08:17 Dose: 2 mg Vancomycin HCl 1 gm/ Sodium (Chloride) 250 mls @ 166.667 mls/hr IVPB Q12 RAYSHAWN Last Admin: 03/28/17 08:17 Dose: 166.667 mls/hr - Labs Labs: 03/28/17 05:45 03/28/17 05:49 PT 13.2 Seconds (9.8-13.1) H 03/21/17 18:07 INR 1.2 (0.9-1.2) 03/21/17 18:07 APTT 32.8 Seconds (25.6-37.1) 03/21/17 18:07 Assessment and Plan (1) Tachycardia Status: Acute (2) Hypertension Status: Chronic (3) Bacteremia Status: Acute
--- NOTE | 2017-03-28 18:06 | CP.PCM.PN ---
Subjective - Date & Time of Evaluation Date of Evaluation: 03/28/17 Time of Evaluation: 09:00 - Subjective Subjective: repeat c/s neg NATALIA neg source of MRSA unclear will complete 14 days IV rx then reculture Objective - Vital Signs/Intake and Output Vital Signs (last 24 hours): Temp Pulse Resp BP Pulse Ox 98.8 F 101 H 20 117/76 98 03/28/17 15:55 03/28/17 15:55 03/28/17 15:55 03/28/17 15:55 03/28/17 15:55 - Medications Medications: Current Medications Docusate Sodium (Colace) 100 mg PO BID RAYSHAWN Last Admin: 03/28/17 18:00 Dose: 100 mg Enoxaparin Sodium (Lovenox) 140 mg SC Q12 RAYSHAWN PRN Reason: Protocol Last Admin: 03/28/17 08:18 Dose: 140 mg Hydromorphone HCl (Dilaudid) 2 mg IVP Q4 PRN PRN Reason: Pain, severe (8-10) Last Admin: 03/28/17 17:59 Dose: 2 mg Vancomycin HCl 1 gm/ Sodium (Chloride) 250 mls @ 166.667 mls/hr IVPB Q12 RAYSHAWN Last Admin: 03/28/17 08:17 Dose: 166.667 mls/hr - Labs Labs: 03/28/17 05:45 03/28/17 05:49 PT 13.2 Seconds (9.8-13.1) H 03/21/17 18:07 INR 1.2 (0.9-1.2) 03/21/17 18:07 APTT 32.8 Seconds (25.6-37.1) 03/21/17 18:07 - Constitutional Appears: Non-toxic, Chronically Ill - Head Exam Head Exam: NORMOCEPHALIC - Eye Exam Eye Exam: absent: Scleral icterus - ENT Exam ENT Exam: Mucous Membranes Dry - Neck Exam Neck Exam: absent: Lymphadenopathy - Respiratory Exam Respiratory Exam: Decreased Breath Sounds, Rhonchi - Cardiovascular Exam Cardiovascular Exam: REGULAR RHYTHM, +S1, +S2 - GI/Abdominal Exam GI & Abdominal Exam: Distended, Soft. absent: Tenderness - Rectal Exam Rectal Exam: Deferred Assessment and Plan (1) Dyspnea Status: Acute (2) Tachycardia Status: Acute (3) Abdominal pain Status: Acute (4) Asthma Status: Acute
[2017-03-29 05:28] LABS: HEMATOCRIT 28.9 % (34.0-47.0); MEAN CORPUSCULAR HEMOGLOBIN 25.4 pg (27.0-31.0); MEAN CORPUSCULAR HGB CONC 31.7 g/dL (33.0-37.0); RED CELL DISTRIBUTION WIDTH 17.9 % (11.5-14.5); WHITE BLOOD COUNT 7.6 K/uL (4.8-10.8)
[2017-03-29 05:37] LABS: BLOOD UREA NITROGEN 7 mg/dl (7-17); CALCIUM 8.7 mg/dL (8.4-10.2); CARBON DIOXIDE 29 mmol/L (22-30); CHLORIDE 103 mmol/L (98-107); GFR AFRICAN-AMERICAN > 60; GLUCOSE,RANDOM 98 mg/dL (65-105); SODIUM 139 mmol/l (132-148)
[2017-03-29] MEDS: Enoxaparin 150 mg Syringe SC SCH ×2 (08:44→21:22)
[2017-03-29 11:11] VITALS: BMI 47.4
--- NOTE | 2017-03-29 12:00 | CP.PCM.PN ---
<Virgil Kowalski - Last Filed: 03/29/17 11:58> Subjective - Date & Time of Evaluation Date of Evaluation: 03/29/17 Time of Evaluation: 10:58 - Subjective Subjective: Patient seen and examined at bedside with attending. No acute events overnight. No fever, chills. NATALIA completed yesterday, no evidence of endocarditis. Patient continues to have chest wall pain. No other complaints at this time. Objective - Vital Signs/Intake and Output Vital Signs (last 24 hours): Temp Pulse Resp BP Pulse Ox 98.2 F 87 20 109/74 95 03/29/17 08:02 03/29/17 09:00 03/29/17 08:02 03/29/17 08:02 03/29/17 08:02 - Medications Medications: Current Medications Docusate Sodium (Colace) 100 mg PO BID [facility] Last Admin: 03/29/17 08:44 Dose: 100 mg Enoxaparin Sodium (Lovenox) 140 mg SC Q12 RAYSHAWN PRN Reason: Protocol Last Admin: 03/29/17 08:44 Dose: 140 mg Hydromorphone HCl (Dilaudid) 2 mg IVP Q4 PRN PRN Reason: Pain, severe (8-10) Last Admin: 03/29/17 10:14 Dose: 2 mg Vancomycin HCl 1 gm/ Sodium (Chloride) 250 mls @ 166.667 mls/hr IVPB Q12 [facility] Last Admin: 03/29/17 08:46 Dose: 166.667 mls/hr - Labs Labs: 03/29/17 05:00 03/29/17 05:00 PT 13.2 Seconds (9.8-13.1) H 03/21/17 18:07 INR 1.2 (0.9-1.2) 03/21/17 18:07 APTT 32.8 Seconds (25.6-37.1) 03/21/17 18:07 - Constitutional Appears: Well, Non-toxic, No Acute Distress, Other (morbid obese) - Head Exam Head Exam: ATRAUMATIC, NORMAL INSPECTION, NORMOCEPHALIC - Eye Exam Eye Exam: Normal appearance - Neck Exam Additional comments: TLC in left IJ, dresing cdi - Respiratory Exam Respiratory Exam: Clear to Ausculation Bilateral, NORMAL BREATHING PATTERN - Cardiovascular Exam Cardiovascular Exam: REGULAR RHYTHM, +S1, +S2. absent: Murmur - GI/Abdominal Exam GI & Abdominal Exam: Soft, Normal Bowel Sounds. absent: Tenderness Additional comments: obese - Neurological Exam Neurological Exam: Alert, Awake, Oriented x3 - Psychiatric Exam Psychiatric exam: Normal Affect, Normal Mood - Skin Skin Exam: Dry, Intact, Normal Color, Warm Assessment and Plan (1) MRSA bacteremia Assessment & Plan: Unknown source at this time. 2 blood culture positive for MRSA Repeat blood culture NGTD NATALIA negative ID on board, appreciate input (vanco) Patient unable to afford 14 day treatment, dispo planning needed Afebrile, no leukocytosis continue to monitor Status: Acute (2) Pulmonary embolism Assessment & Plan: occasional chest pain, patient is using dilaudid on almost a regular basis, timed. Heme/Onc on board, appreciate input Cardiology on board, appreciate input c/w Lovenox treatment dose at this time, as patient cannot tolerate other oral anticoagulants Patient has IVC filter as well, no thrombus noted on US Status: Acute <Maurice Lanza - Last Filed: 03/31/17 13:28> Objective - Vital Signs/Intake and Output Vital Signs (last 24 hours): Temp Pulse Resp BP Pulse Ox 98.2 F 93 H 18 110/72 95 03/31/17 12:12 03/31/17 12:12 03/31/17 12:12 03/31/17 12:12 03/31/17 12:12 - Medications Medications: Current Medications Docusate Sodium (Colace) 100 mg PO BID [facility] Last Admin: 03/31/17 08:52 Dose: 100 mg Enoxaparin Sodium (Lovenox) 140 mg SC Q12 RAYSHAWN PRN Reason: Protocol Last Admin: 03/31/17 08:53 Dose: 140 mg Vancomycin HCl 1 gm/ Sodium (Chloride) 250 mls @ 166.667 mls/hr IVPB Q12 RAYSHAWN Last Admin: 03/31/17 08:51 Dose: 166.667 mls/hr Tramadol HCl (Ultram) 50 mg PO TID PRN PRN Reason: Pain, moderate (4-7) - Labs Labs: 03/29/17 05:00 03/29/17 05:00 PT 13.2 Seconds (9.8-13.1) H 03/21/17 18:07 INR 1.2 (0.9-1.2) 03/21/17 18:07 APTT 32.8 Seconds (25.6-37.1) 03/21/17 18:07 Assessment and Plan (1) Pulmonary embolism Status: Acute (2) Shortness of breath Status: Acute (3) Hypertension Status: Chronic (4) Pleuritic pain Status: Chronic (5) Bacteremia Status: Acute - Assessment and Plan (Free Text) Plan: Discussed with Dr Dex garcia plans of care Maurice Lanza M.D.
[2017-03-29 18:48] LABS: PLASMINOGEN ACTIV INHIB-1 26 ng/mL (4-43)
--- NOTE | 2017-03-30 08:38 | CP.PCM.PN ---
Subjective - Date & Time of Evaluation Date of Evaluation: 03/30/17 Time of Evaluation: 08:37 - Subjective Subjective: Pt is stable from a hematological point of view. Will msign off case, Please recall if needed, Objective - Vital Signs/Intake and Output Vital Signs (last 24 hours): Temp Pulse Resp BP Pulse Ox 97.8 F 89 20 113/77 95 03/30/17 08:07 03/30/17 08:07 03/30/17 08:07 03/30/17 08:07 03/30/17 08:07 - Medications Medications: Current Medications Docusate Sodium (Colace) 100 mg PO BID RAYSHAWN Last Admin: 03/29/17 16:50 Dose: 100 mg Enoxaparin Sodium (Lovenox) 140 mg SC Q12 RAYSHAWN PRN Reason: Protocol Last Admin: 03/29/17 21:22 Dose: 140 mg Hydromorphone HCl (Dilaudid) 2 mg IVP Q4 PRN PRN Reason: Pain, severe (8-10) Last Admin: 03/30/17 06:35 Dose: 2 mg Vancomycin HCl 1 gm/ Sodium (Chloride) 250 mls @ 166.667 mls/hr IVPB Q12 RAYSHAWN Last Admin: 03/29/17 21:21 Dose: 166.667 mls/hr - Labs Labs: 03/29/17 05:00 03/29/17 05:00 PT 13.2 Seconds (9.8-13.1) H 03/21/17 18:07 INR 1.2 (0.9-1.2) 03/21/17 18:07 APTT 32.8 Seconds (25.6-37.1) 03/21/17 18:07
[2017-03-30] MEDS: Enoxaparin 150 mg Syringe SC SCH ×2 (09:04→21:08)
[2017-03-31] MEDS: Enoxaparin 150 mg Syringe SC SCH ×2 (08:53→21:55)
--- NOTE | 2017-03-31 13:27 | CP.PCM.PN ---
Subjective - Date & Time of Evaluation Date of Evaluation: 03/31/17 Time of Evaluation: 13:26 - Subjective Subjective: patient remains stable Has minimal pain Has nofever. Objective - Vital Signs/Intake and Output Vital Signs (last 24 hours): Temp Pulse Resp BP Pulse Ox 98.2 F 93 H 18 110/72 95 03/31/17 12:12 03/31/17 12:12 03/31/17 12:12 03/31/17 12:12 03/31/17 12:12 - Medications Medications: Current Medications Docusate Sodium (Colace) 100 mg PO BID [facility] Last Admin: 03/31/17 08:52 Dose: 100 mg Enoxaparin Sodium (Lovenox) 140 mg SC Q12 RAYSHAWN PRN Reason: Protocol Last Admin: 03/31/17 08:53 Dose: 140 mg Vancomycin HCl 1 gm/ Sodium (Chloride) 250 mls @ 166.667 mls/hr IVPB Q12 [facility] Last Admin: 03/31/17 08:51 Dose: 166.667 mls/hr Tramadol HCl (Ultram) 50 mg PO TID PRN PRN Reason: Pain, moderate (4-7) - Labs Labs: 03/29/17 05:00 03/29/17 05:00 PT 13.2 Seconds (9.8-13.1) H 03/21/17 18:07 INR 1.2 (0.9-1.2) 03/21/17 18:07 APTT 32.8 Seconds (25.6-37.1) 03/21/17 18:07 - Head Exam Head Exam: NORMAL INSPECTION - Eye Exam Eye Exam: Normal appearance - ENT Exam ENT Exam: Mucous Membranes Moist - Respiratory Exam Respiratory Exam: Clear to Ausculation Bilateral - Cardiovascular Exam Cardiovascular Exam: REGULAR RHYTHM - GI/Abdominal Exam GI & Abdominal Exam: Normal Bowel Sounds Assessment and Plan (1) Pulmonary embolism Status: Acute (2) Shortness of breath Status: Acute (3) Hypertension Status: Chronic (4) Pleuritic pain Status: Chronic (5) Bacteremia Status: Acute - Assessment and Plan (Free Text) Plan: cont meds cont tx DC iv dilaudid Tramadol for picc line in am discharge plan
[2017-03-31 17:50] VITALS: RESP 18
[2017-04-01] MEDS: Enoxaparin 150 mg Syringe SC SCH (09:22)
[2017-04-01] MEDS ORDERED: Lidocaine 1% Inj (20ml) ONE (11:53)
--- NOTE | 2017-04-01 12:12 | CP.PCM.DIS ---
Provider - Provider Date of Admission: 03/22/17 11:20 Attending physician: Maurice Lanza MD Time Spent in preparation of Discharge (in minutes): 15 Diagnosis - Discharge Diagnosis (1) Pulmonary embolism Status: Acute (2) Shortness of breath Status: Acute (3) Hypertension Status: Chronic (4) Pleuritic pain Status: Chronic Priority: Medium (5) Bacteremia Status: Acute Hospital Course - Lab Results Lab Results: Micro Results 03/25/17 16:45 Blood-Venous Blood Culture - Final NO GROWTH AFTER 5 DAYS 03/25/17 16:45 Blood-Venous Gram Stain - Final TEST NOT PERFORMED 03/25/17 12:00 Blood-Thru Central Line Blood Culture - Final NO GROWTH AFTER 5 DAYS 03/25/17 12:00 Blood-Thru Central Line Gram Stain - Final TEST NOT PERFORMED Most Recent Lab Values WBC 7.6 K/uL (4.8-10.8) 03/29/17 05:00 RBC 3.61 Mil/uL (3.80-5.20) L 03/29/17 05:00 Hgb 9.2 g/dL (12.0-16.0) L 03/29/17 05:00 Hct 28.9 % (34.0-47.0) L 03/29/17 05:00 MCV 80.0 fl (81.0-99.0) L 03/29/17 05:00 MCH 25.4 pg (27.0-31.0) L 03/29/17 05:00 MCHC 31.7 g/dL (33.0-37.0) L 03/29/17 05:00 RDW 17.9 % (11.5-14.5) H 03/29/17 05:00 Plt Count 310 K/uL (130-400) 03/29/17 05:00 MPV 8.0 fl (7.2-11.7) 03/21/17 18:07 Neut % (Auto) 69.5 % (50.0-75.0) 03/21/17 18:07 Lymph % (Auto) 17.7 % (20.0-40.0) L 03/21/17 18:07 [place] % (Auto) 9.2 % (0.0-10.0) 03/21/17 18:07 Eos % (Auto) 2.2 % (0.0-4.0) 03/21/17 18:07 Baso % (Auto) 1.4 % (0.0-2.0) 03/21/17 18:07 Neut # 8.9 K/uL (1.8-7.0) H 03/21/17 18:07 Lymph # 2.3 K/uL (1.0-4.3) 03/21/17 18:07 [place] # 1.2 K/uL (0.0-0.8) H 03/21/17 18:07 Eos # 0.3 K/uL (0.0-0.7) 03/21/17 18:07 Baso # 0.2 K/uL (0.0-0.2) 03/21/17 18:07 PT 13.2 Seconds (9.8-13.1) H 03/21/17 18:07 INR 1.2 (0.9-1.2) 03/21/17 18:07 APTT 32.8 Seconds (25.6-37.1) 03/21/17 18:07 Plasminogen Inhib-1 Act 26 ng/mL (4-43) 03/22/17 11:38 Lupus Anticoagulant see note 03/22/17 11:38 LA PTT Screen 42 sec (<=40) H 03/22/17 11:38 dRVVT Mixing Study 34 sec (<=45) 03/22/17 11:38 dRVVT Mix Interpret Not indicated 03/22/17 11:38 Hexagonal Phase Confirm Negative (Negative) 03/22/17 11:38 Antithrombin III Activ 127 % activity (80-120) H 03/22/17 11:38 Factor V see note 03/22/17 11:38 pCO2 46 mm/Hg (35-45) H 03/21/17 18:10 pO2 32 mm/Hg (80-100) L* 03/21/17 18:10 HCO3 26.9 mmol/L (21-28) 03/21/17 18:10 ABG pH 7.41 (7.35-7.45) 03/21/17 18:10 ABG Total CO2 30.6 mmol/L (22-28) H 03/21/17 18:10 ABG O2 Saturation 70.6 % (95-98) L 03/21/17 18:10 ABG Base Excess 3.8 mmol/L (-2.0-3.0) H 03/21/17 18:10 Tong Test Yes 03/21/17 18:10 ABG Potassium 3.8 mmol/L (3.6-5.2) 03/21/17 18:10 A-a O2 Difference 60.0 mm/Hg 03/21/17 18:10 Sodium 141.0 mmol/L (132-148) 03/21/17 18:10 Chloride 111.0 mmol/L (98-107) H 03/21/17 18:10 Glucose 84 mg/dL (65-105) 03/21/17 18:10 Lactate 0.8 mmol/L (0.7-2.1) 03/21/17 18:10 FiO2 21.0 % 03/21/17 18:10 Crit Value Called To Dr dandy page 03/21/17 18:10 Crit Value Called By 15 03/21/17 18:10 Crit Value Read Back Y 03/21/17 18:10 Blood Gas Notified Time 18103/21/17 18:10 Sodium 139 mmol/l (132-148) 03/29/17 05:00 Potassium 4.0 MMOL/L (3.6-5.0) 03/29/17 05:00 Chloride 103 mmol/L (98-107) 03/29/17 05:00 Carbon Dioxide 29 mmol/L (22-30) 03/29/17 05:00 Anion Gap 10 (10-20) 03/29/17 05:00 BUN 7 mg/dl (7-17) 03/29/17 05:00 Creatinine 0.4 mg/dL (0.7-1.2) L 03/29/17 05:00 Est GFR ( Amer) > 60 03/29/17 05:00 Est GFR (Non-Af Amer) > 60 03/29/17 05:00 Random Glucose 98 mg/dL (65-105) 03/29/17 05:00 Hemoglobin A1c 6.6 % (4.2-6.5) H D 03/22/17 11:50 Calcium 8.7 mg/dL (8.4-10.2) 03/29/17 05:00 Phosphorus 2.8 mg/dl (2.5-4.5) 03/21/17 18:07 Magnesium 1.9 MG/DL (1.6-2.3) 03/21/17 18:07 Total Bilirubin 0.4 mg/dl (0.2-1.3) 03/25/17 06:15 AST 25 U/L (14-36) 03/25/17 06:15 ALT 31 U/L (9-52) 03/25/17 06:15 Alkaline Phosphatase 59 U/L (38-126) 03/25/17 06:15 Troponin I < 0.0120 ng/mL (0.00-0.120) 03/21/17 18:07 Total Protein 5.8 G/DL (6.3-8.2) L 03/25/17 06:15 Albumin 3.4 g/dL (3.5-5.0) L 03/25/17 06:15 Globulin 2.4 gm/dL (2.2-3.9) 03/25/17 06:15 Albumin/Globulin Ratio 1.4 (1.0-2.1) 03/25/17 06:15 Arterial Blood Potassium 3.8 mmol/L (3.6-5.2) 03/21/17 18:10 Vancomycin Trough 6.7 ug/mL (5.0-10.0) 03/28/17 05:45 Anti-Cardiolipin IgG Ab <14 GPL (<=14) 03/22/17 11:38 Anti-Cardiolipin IgA Ab <11 APL (<=11) 03/22/17 11:38 Anti-Cardiolipin IgM Ab <12 MPL (<=12) 03/22/17 11:38 MTHFR DNA Mutation Anal see note H 03/22/17 11:38 MTHFR Interpretation see note 03/22/17 11:38 MTHFR Reviewed By see note 03/22/17 11:38 Prothrombin Mut Interp see note 03/22/17 11:38 Prothrombin Gene Mutate see note 03/22/17 11:38 Prothromb Gene Review see note 03/22/17 11:38 - Hospital Course Hospital Course: Thisis a 46 y/o female with hx of recurrent Piulm embolism was admitted for SOB. VQ scan was negative. CT scan as not performed since the patient had hx of allergies. She also had a lot of problems with po anticoagulant. She was maintained on high dose of Lovenox. She was noted to have positive MRSA x 2 in the blood ID was called and started IV antibiotics. She was placed a picc line and will have outpatient IV antibiotic vanco . She was discharged in stable condition. Discharge Exam - Head Exam Head Exam: NORMAL INSPECTION - Eye Exam Eye Exam: Normal appearance - Respiratory Exam Respiratory Exam: NORMAL BREATHING PATTERN - Cardiovascular Exam Cardiovascular Exam: REGULAR RHYTHM - GI/Abdominal Exam GI & Abdominal Exam: Normal Bowel Sounds - Neurological Exam Neurological exam: CN II-XII Intact, Oriented x3 - Psychiatric Exam Psychiatric exam: Normal Mood Discharge Plan - Follow Up Plan Condition: GUARDED Disposition: HOME/ ROUTINE Additional Instructions: Rx given will follow up with PMD.
--- NOTE | 2017-04-01 12:22 | CP.PCM.PCO ---
Assessment/Plan - Assessment/Plan Assessment (Free Text): Patient seen and examined with Dr. Lanza Pt for PICC line today, outpatient set up by [facility] for iv infusion. Plan for total of 14 days IV vanco, recultures to be done after [address] Arguello and patient. - Problems Patient Problems: Problem List (Active/Current) Problem Status Onset Code Bacteremia Acute R78.81 Dyspnea Acute R06.00 MRSA bacteremia Acute R78.81 Tachycardia Acute R00.0
--- NOTE | 2017-04-01 12:41 | PCM.SURG1 ---
Surgeon's Initial Post Op Note - Surgeon's Notes Surgeon: Chet Grijalva MD Fish Grader: NONE Type of Anesthesia: Local Pre-Operative Diagnosis: Poor venous access Operative Findings: Patent left basilic vein. Post-Operative Diagnosis: Poor venous access Operation Performed: Singlel lumen picc placement left basilic vein, 50 cm. Tip in SVC. Specimen/Specimens Removed: NONE Estimated Blood Loss: EBL {In ML}: 2 Blood Products Given: N/A Drains Used: No Drains Post-Op Condition: Fair Date of Surgery/Procedure: 04/01/17 Time of Surgery/Procedure: 12:30
[2017-04-01 16:14] VITALS: BP 117/81; PULSE 103; TEMP 98.8; O2SAT 96
--- NOTE | 2017-04-02 12:08 | VASCULAR ---
PROCEDURE: Date of procedure: 04/01/2017 Procedure: 1. Placement of a left arm PICC with ultrasound and fluoroscopic guidance, CPT 35173 2. PICC tip confirmation with spot radiograph and is in the superior vena cava Medications: 1 percent lidocaine Total Fluoro time: 26.2 seconds Radiation: 4.17 MGy EBL: 3 cc HISTORY: Bacteremia requiring long-term IV antibiotics TECHNIQUE: Following informed consent and procedure time-out, the patient placed supine on the interventional table and the left arm prepped and draped in the usual sterile fashion. Ultrasound showed a patent and compressible left basilic vein. After the skin was anesthetized with lidocaine, the basilic vein was accessed with micro micropuncture technique using ultrasound guidance. A guidewire was then advanced under fluoroscopic guidance into the superior vena cava. An image documenting ultrasound guidance for vascular access was permanently saved. The length of a single-lumen 5 [place]azi PICC was trimmed to 50 cm and advanced through a peel-away sheath. The PICC was position with tip of PICC confirm a spot radiograph the superior vena cava. The PICC was secured to the patient's skin. The PICC was flushed. A biopatch and sterile dressing was applied. IMPRESSION: Placement of a single-lumen 5 [place] PICC left basilic vein trimmed to 50 cm. The tip of the PICC is confirmed with spot radiograph and is in the superior vena cava.
== END 2017-04-01 18:40 | disposition home or self-care (01) | DRG 176 ==
LOC: H.ER 15:12 → H.ERHOLD 20:13 → H.TEL 21:43 → OBSVTOIN 03-22 11:20
PROVIDERS: ADMIT Family Medicine; ATTEND Family Medicine
PROC: 02HV33Z Insertion of Infusion Device into Superior Vena Cava, Percutaneous Approach (ICD-10-PCS; principal; 2017-04-01)
PROC: B518ZZA Fluoroscopy of Superior Vena Cava, Guidance (ICD-10-PCS; 2017-04-01)
PROC: 3E04329 Introduction of Other Anti-infective into Central Vein, Percutaneous Approach (ICD-10-PCS; 2017-04-01)
DX: I26.99 Other pulmonary embolism without acute cor pulmonale (principal); I12.9 Hypertensive chronic kidney disease with stage 1 through stage 4 chronic kidney disease, or unspecified chronic kidney disease; B95.62 Methicillin resistant Staphylococcus aureus infection as the cause of diseases classified elsewhere; I27.82 Chronic pulmonary embolism; N18.9 Chronic kidney disease, unspecified; R00.0 Tachycardia, unspecified; E78.00 Pure hypercholesterolemia, unspecified; J45.909 Unspecified asthma, uncomplicated; Z91.041 Radiographic dye allergy status; Z79.02 Long term (current) use of antithrombotics/antiplatelets; Z90.81 Acquired absence of spleen; Z87.442 Personal history of urinary calculi

== ENCOUNTER 2017-04-15 18:52 | Observation (INO) | payer SELFPAY ==
[2017-04-15 18:52] VITALS: BMI 50.8
[2017-04-15] MEDS ORDERED: Sodium Chloride 0.9% 1,000 ML IV STA (20:26)
--- NOTE | 2017-04-15 20:35 | ED PDOC ---
HPI: Chest Pain Time Seen by Provider: 04/15/17 19:30 Chief Complaint (Nursing): Chest Pain Chief Complaint (Provider): Chest Pain History Per: Patient History/Exam Limitations: no limitations Onset/Duration Of Symptoms: Days (3) Current Symptoms Are (Timing): Still Present Severity: Moderate Additional Complaint(s): Bree Avina is a 46 y/o female, with a past medical history of asthma and multiple episodes of Pulmonary Embolism, presenting to the ER on 04/15/2017 for chest pain. Patient's last Pulmonary Embolism was on 03/07/2017. She has been on Lovenox since the last episode when she was told she had an "infection in the heart". Patient had a PICC line inserted and was told to return for IV antibiotics, but she did not because she states she had a in the family. Today, the patient is complaining of a fever for three days associated with two episodes of vomiting and chest pain. Patient notes chest pain only occurs when she coughs and worsens while breathing. She denies any episodes of diarrhea. per records pt had positive blood cultures and needed iv abx for bacteremia but she never followed up. Past Medical History Reviewed: Historical Data, Nursing Documentation, Vital Signs Vital Signs: Last Vital Signs Temp 97.8 F 04/16/17 05:27 Pulse 111 H 04/16/17 05:27 Resp 18 04/16/17 05:27 BP 108/74 04/16/17 05:27 Pulse Ox 96 04/16/17 05:27 - Medical History PMH: Gall Bladder Disease, Kidney Stones, Pulmonary Embolism (last was at [facility]), Chronic Kidney Disease Denies: Alzheimer's Disease, Anemia, Anxiety, Arthritis, Asthma, Atrial Fibrillation, Bipolar Disorder, Bronchitis, CAD, Cardia Arrhythmia, CHF, COPD, Crohn's Disease, Dementia, Depression, Diverticulitis, Emphysema, Fractures, Gastritis, HIV, HTN, Hypercholesterolemia, Hyperthyroidism, Hypothyroidism, Migraine, Mitral Valve Prolapse, Multiple Sclerosis, Osteoporosis, Pancreatitis , Paranoia, Parkinson's Disease, Peripheral Edema, Pneumonia, Post Traumatic Stress Disorder, Rheumatoid Arthritis, Schizophrenia, Seizures, Sickle Cell Disease, Sexually Transmitted Disease, Sleep Apnea, TIA - Surgical History Surgical History: Appendectomy, Cholecystectomy Denies: CABG, Carotid Endarterectomy, Coronary Stent, Pacemaker, Tonsillectomy Other surgeries: tubal ligation, splenectomy - Family History Family History: States: Hypertension - Living Arrangements Living Arrangements: With Family - Social History Current smoker - smoking cessation education provided: No Alcohol: None Drugs: Denies - Immunization History Hx Tetanus Toxoid Vaccination: Yes Hx Influenza Vaccination: No Hx Pneumococcal Vaccination: Yes - Home Medications Home Medications: Ambulatory Orders Medication Instructions Recorded Enoxaparin [Lovenox] 140 mg SUBCUT BID 01/26/17 Vancomycin 1 GM [Vancomycin 1GM in 1 gm IVPB DAILY #7 bag 04/01/17 Normal Saline Addvantage] - Allergies Allergies/Adverse Reactions: Allergies Allergy/AdvReac Type Severity Reaction Status Date / Time iodixanol Allergy Severe SHORTNESS Verified 04/15/17 19:03 OF BREATH Iodine and Iodide Containing Allergy SHORTNESS Verified 04/15/17 19:03 Produc OF BREATH ketorolac Allergy ITCHING Verified 04/15/17 19:03 morphine Allergy RASH Verified 04/15/17 19:04 NSAIDS (Non-Steroidal Allergy ITCHING Verified 04/15/17 19:04 Anti-Inflamma ondansetron Allergy ITCHING Verified 04/15/17 19:03 Review of Systems ROS Statement: Except As Marked, All Systems Reviewed And Found Negative Constitutional: Positive for: Fever Cardiovascular: Positive for: Chest Pain Respiratory: Positive for: Cough Gastrointestinal: Positive for: Vomiting. Negative for: Diarrhea Physical Exam - Reviewed Nursing Documentation Reviewed: Yes Vital Signs Reviewed: Yes - Physical Exam Appears: Positive for: Non-toxic, No Acute Distress (pt is obese and anxious appearing ) Head Exam: Positive for: ATRAUMATIC, NORMOCEPHALIC Skin: Positive for: Normal Color. Negative for: Rash Eye Exam: Positive for: Normal appearance, EOMI, PERRL ENT: Positive for: Normal ENT Inspection. Negative for: Pharyngeal Erythema, Tonsillar Exudate, Tonsillar Swelling Neck: Positive for: Normal, Painless ROM, Supple Cardiovascular/Chest: Positive for: Tachycardia. Negative for: Murmur Respiratory: Positive for: Normal Breath Sounds, Other (pt reports pain while breathing ) Gastrointestinal/Abdominal: Positive for: Normal Exam, Soft. Negative for: Tenderness Extremity: Positive for: Normal ROM, Other (PICC line placed in the LUE). Negative for: Pedal Edema, Deformity, Swelling Neurologic/Psych: Positive for: Alert, Oriented. Negative for: Motor/Sensory Deficits - Laboratory Results Result Diagrams: 04/15/17 21:53 04/15/17 21:53 - ECG ECG Rhythm: Positive for: Sinus Tachycardia (w/ LVH at 128 ) O2 Sat by Pulse Oximetry: 98 (RA) Pulse Ox Interpretation: Normal Medical Decision Making Medical Decision Makin:37 Initial Impression- 46 y/o female with chest pain rule out pneumonia Initial Plan- * BNP * CMP * Troponin * CBC w/ differential * D-Dimer * Dilaudid 1 mg IP * Reglan 10 mg IVP * Blood Cx Documented by Katelynn Dior, acting as a scribe for Maya Canales MD. All medical record entries made by the Scribe were at my direction and personally dictated by me. I have reviewed the chart and agree that the record accurately reflects my personal performance of the history, physical exam, medical decision making, and the department course for this patient. I have also personally directed, reviewed, and agree with the discharge instructions and disposition. Time: 22 Initial impression: Bacteremia and Chest Pain Chest X-ray: Ordered, reviewed and independently interpreted the Chest x-ray. No Pneumonia noted, Troponin and D-Dimer negative. Admit Patient: PT to be admitted to Dr. Gonzalez, given Vancomycin Scribe Attestation: Documented by Jennifer Alfaro, acting as a scribe for Maya Canales MD. Scribe Attestation: All medical record entries made by the Scribe were at my direction and personally dictated by me. I have reviewed the chart and agree that the record accurately reflects my personal performance of the history, physical exam, medical decision making, and the department course for this patient. I have also personally directed, reviewed, and agree with the discharge instructions and disposition. Disposition - Clinical Impression Clinical Impression: Bacteremia, Chest pain - Patient ED Disposition Is Patient to be Admitted: Yes (Dr. Gonzalez) Doctor Will See Patient In The: Hospital - Disposition Disposition: Transfer of Care Disposition Time: 00:00 Condition: STABLE - Pt Status Changed To: Hospital Disposition Of: Inpatient - Admit Certification Admit to Inpatient:: After my assessment, the patient will require hospitalization for at least two midnights. This is because of the severity of symptoms shown, intensity of services needed, and/or the medical risk in this patient being treated as an outpatient.
[2017-04-15 22:02] LABS: BASO # 0.2 K/uL (0.0-0.2); BASO % 2.3 % (0.0-2.0); EOS # 0.1 K/uL (0.0-0.7); EOS % 1.3 % (0.0-4.0); HEMATOCRIT 36.6 % (34.0-47.0); LYMPH # 2.2 K/uL (1.0-4.3); LYMPH % 20.8 % (20.0-40.0); MEAN CELL VOLUME 77.3 fl (81.0-99.0); MEAN CORPUSCULAR HEMOGLOBIN 23.9 pg (27.0-31.0); MEAN CORPUSCULAR HGB CONC 30.9 g/dL (33.0-37.0); MEAN PLATELET VOLUME 8.6 fl (7.2-11.7); MONO # 0.8 K/uL (0.0-0.8); MONO % 8.1 % (0.0-10.0); NEUT % 67.5 % (50.0-75.0); NRBC % 0.1 % (0.0-0.0); RED CELL DISTRIBUTION WIDTH 17.7 % (11.5-14.5); WHITE BLOOD COUNT 10.4 K/uL (4.8-10.8)
[2017-04-15 22:12] LABS: ALB/GLOB RATIO 1.4 (1.0-2.1); ALKALINE PHOSPHATASE 60 U/L (38-126); ALT/SGPT 41 U/L (9-52); AST/SGOT 22 U/L (14-36); BILIRUBIN,TOTAL 0.4 mg/dl (0.2-1.3); BLOOD UREA NITROGEN 10 mg/dl (7-17); CALCIUM 9.8 mg/dL (8.4-10.2); CARBON DIOXIDE 24 mmol/L (22-30); CHLORIDE 108 mmol/L (98-107); GFR AFRICAN-AMERICAN > 60; GLUCOSE,RANDOM 101 mg/dL (65-105); SODIUM 142 mmol/l (132-148); TOTAL PROTEIN 7.5 G/DL (6.3-8.2)
[2017-04-16 01:28] VITALS: RESP 18
--- NOTE | 2017-04-16 01:28 | CP.PCM.HP ---
History of Present Illness - History of Present Illness History of Present Illness: Chief complaint: left chest pain HPI: 46 years old female with hx of Non compliance with medication, Asthma, Nephrolithiasis, PE last diagnosed on 03/07/17, on Home Lovenox SubQ. Her last admitted to the [facility] on 03/22/17 and diagnosed with MRSA bacteremia. A PICC line was inserted and the patient was discharged on 04/01/17 to follow up daily at the Hospital for IV Vancomycin. She did not follow up. She now comes referring 3 days of fever, vomiting and pleuritic left chest pain with SOB. No coughing, diarrhea, dysuria nor urinary frequencies. No headaches nor dizziness. PMH: Gall Bladder Disease, Kidney Stones, PE, (last was at 03/07/17 [facility]), CKD, Asthma PSH: Appendectomy, Cholecystectomy, tubal ligation, splenectomy, IVC filter SH: No illegal drug use; No Alcohol; No cigarette smoking; livve with family FH: HTN Allergies: Iodine; Iodixanol, Morphine, Zofran, Ketorolac, NSAID; Present on Admission - Present on Admission Any Indicators Present on Admission: No History of DVT/PE: No History of Uncontrolled Diabetes: No Urinary Catheter: No Decubitus Ulcer Present: No Review of Systems - Constitutional Constitutional: Fever. absent: Anorexia, Chills, Fatigue, Headache - EENT Eyes: Requires Corrective Lenses. absent: Diplopia, Discharge, Floaters, Photophobia Ears: absent: As Per HPI, Decreased Hearing, Ear Discharge, Ear Pain, Tinnitus Nose/Mouth/Throat: absent: Epistaxis, Nasal Congestion, Nasal Discharge - Cardiovascular Cardiovascular: Chest Pain Additional comments: Pain to the left chest wall - Respiratory Respiratory: Dyspnea, Excessive Mucous Production. absent: Cough, Snoring Additional comments: Chest pain on inspiration - Gastrointestinal Gastrointestinal: Nausea, Vomiting. absent: Constipation, Diarrhea - Genitourinary Genitourinary: absent: Dysuria, Flank Pain, Hematuria, Urinary Hesitance - Musculoskeletal Musculoskeletal: absent: Muscle Cramps, Muscle Weakness, Myalgias, Numbness - Integumentary Integumentary: absent: Pruritus, Rash, Skin Ulcer, Sores, Striae, Swelling - Neurological Neurological: absent: Confusion, Headaches, Lack of Coordination, Weakness - Psychiatric Psychiatric: absent: Anxiety, Depression, Panic Attacks - Endocrine Endocrine: absent: Palpitations, Polydipsia, Polyphagia, Polyuria - Hematologic/Lymphatic Hematologic: absent: Easy Bleeding, Easy Bruising Past Patient History - Infectious Disease Hx of Infectious Diseases: None - Tetanus Immunizations Tetanus Immunization: Up to Date - Past Medical History & Family History Past Medical History?: Yes - Past Social History Smoking Status: Never Smoked Chewing Tobacco Use: No Cigar Use: No Alcohol: None Drugs: Denies Home Situation {Lives}: With Family - CARDIAC Hx Atrial Fibrillation: No Hx Cardia Arrhythmia: No Hx Congestive Heart Failure: No Hx Hypercholesterolemia: No Hx Hypertension: No Hx Mitral Valve Prolapse: No Hx Pacemaker: No Hx Peripheral Edema: No - PULMONARY Hx Asthma: No Hx Bronchitis: No Hx Chronic Obstructive Pulmonary Disease (COPD): No Hx Emphysema: No Hx Pneumonia: No Hx Pulmonary Embolism: Yes (last was at 03/07/17 [facility]) Hx Sleep Apnea: No - NEUROLOGICAL Hx Alzheimer's Disease: No Hx Dementia: No Hx Migraine: No Hx Multiple Sclerosis: No Hx Parkinson's Disease: No Hx Seizures: No Hx Transient Ischemic Attacks (TIA): No - HEENT Hx HEENT Problems: No Hx Blind: No Hx Cataracts: No Hx Deafness: No Hx Difficulty Chewing: No Hx Epistaxis: No Hx Glaucoma: No Hx Macular Degeneration: No - RENAL Hx Chronic Kidney Disease: Yes Hx Kidney Stones: Yes - ENDOCRINE/METABOLIC Hx Hyperthyroidism: No Hx Hypothyroidism: No - HEMATOLOGICAL/ONCOLOGICAL Hx Anemia: No Hx Human Immunodeficiency Virus (HIV): No Hx Sickle Cell Disease: No - INTEGUMENTARY Hx Dermatological Problems: No Hx Basil Cell: No Hx Bennett: No Hx Cellulitis: No Hx Eczema: No Hx Melanoma: No Hx Psoriasis: No Hx Squamous Cell: No - MUSCULOSKELETAL/RHEUMATOLOGICAL Hx Arthritis: No Hx Fractures: No Hx Osteoporosis: No Hx Rheumatoid Arthritis: No - GASTROINTESTINAL Hx Crohn's Disease: No Hx Diverticulitis: No Hx Gall Bladder Disease: Yes Hx Gastritis: No Hx Pancreatitis: No - GENITOURINARY/GYNECOLOGICAL Hx Sexually Transmitted Disorders: No - PSYCHIATRIC Hx Anxiety: No Hx Bipolar Disorder: No Hx Depression: No Hx Paranoia: No Hx Post Traumatic Stress Disorder: No Hx Schizophrenia: No - SURGICAL HISTORY Hx Appendectomy: Yes Hx Carotid Endarterectomy: No Hx Cholecystectomy: Yes Hx Coronary Artery Bypass Graft: No Hx Coronary Stent: No Hx Tonsillectomy: No - ANESTHESIA Hx Anesthesia: Yes Hx Anesthesia Reactions: No Hx Malignant Hyperthermia: No Meds Allergies/Adverse Reactions: Allergies Allergy/AdvReac Type Severity Reaction Status Date / Time iodixanol Allergy Severe SHORTNESS Verified 04/15/17 19:03 OF BREATH Iodine and Iodide Containing Allergy SHORTNESS Verified 04/15/17 19:03 Produc OF BREATH ketorolac Allergy ITCHING Verified 04/15/17 19:03 morphine Allergy RASH Verified 04/15/17 19:04 NSAIDS (Non-Steroidal Allergy ITCHING Verified 04/15/17 19:04 Anti-Inflamma ondansetron Allergy ITCHING Verified 04/15/17 19:03 Physical Exam - Head Exam Head Exam: ATRAUMATIC, NORMAL INSPECTION, NORMOCEPHALIC - Eye Exam Eye Exam: EOMI, Normal appearance Pupil Exam: NORMAL ACCOMODATION, PERRL - ENT Exam ENT Exam: Mucous Membranes Moist, Normal Exam, Normal External Ear Exam - Neck Exam Neck exam: Positive for: Normal Inspection. Negative for: Lymphadenopathy, Tenderness - Respiratory Exam Respiratory Exam: Clear to Auscultation Bilateral. absent: Rales, Rhonchi, Wheezes - Cardiovascular Exam Cardiovascular Exam: REGULAR RHYTHM, RRR, +S1, +S2. absent: Gallop, JVD - GI/Abdominal Exam GI & Abdominal Exam: Normal Bowel Sounds, Soft. absent: Mass, Organomegaly, Tenderness - Rectal Exam Rectal Exam: Deferred - Extremities Exam Extremities exam: Positive for: full ROM, normal inspection. Negative for: calf tenderness - Back Exam Back exam: NORMAL INSPECTION. absent: CVA tenderness (L), CVA tenderness (R) - Neurological Exam Neurological exam: Alert, CN II-XII Intact, Oriented x3, Reflexes Normal - Psychiatric Exam Psychiatric exam: Normal Affect, Normal Mood - Skin Skin Exam: Dry, Intact, Normal Color, Warm Results - Vital Signs Recent Vital Signs: Last Vital Signs Temp 98.8 F 04/15/17 19:05 Pulse 128 H 04/15/17 19:05 Resp 16 04/15/17 19:05 BP 117/77 04/15/17 19:05 Pulse Ox 98 04/16/17 00:38 - Labs Result Diagrams: 04/15/17 21:53 04/15/17 21:53 - Imaging and Cardiology Chest x-ray Status: Image reviewed by me Additional comment: No infiltrate. Assessment & Plan - Assessment and Plan (Free Text) Assessment: #. Chest Pain #. Fever #; Bacteremia #. Hx of PE #. Hx of Asthma Plan: 46 years old female with hx of Non compliance with medication, Asthma, Nephrolithiasis, PE last diagnosed on 03/07/17, on Home Lovenox SubQ. Her last admitted to the [facility] on 03/22/17 and diagnosed with MRSA bacteremia. discharged on 04/01/17, failed to follow up for IV Vancomycin. She now comes referring 3 days of fever, vomiting and pleuritic left chest pain with SOB. #. Chest Pain r/o ACS; r/o new PE on patient being treated with Therapeutic Lovenox and normal D Dimer is less likely, no evidence for endocarditis on last admission - Pain management with Dilaudid - Serial Troponin -Serial EKG - VQ scan -Follow Blood cultures #. Fever in incomplete treated MRSA bacteremia - Consult Dr Arguello Infectious Disease - Follow Blood cultures - Vancomycin IVPB Q12 H #. Hx of PE - Continue Lovenox at 1mg/Kg/dose SubQ Q12H #. Hx of Asthma stable #.DVT Prophylaxis with Lovenox #. Code Status: Full - Date & Time Date: 04/16/17 Time: :
[2017-04-16] MEDS ORDERED: Enoxaparin 150 mg Syringe SC SCH (09:00)
[2017-04-16 10:40] VITALS: TEMP 97.7
--- NOTE | 2017-04-16 10:52 | RAD ---
HISTORY: chest pain COMPARISON: Chest x-ray performed 03/21/17 TECHNIQUE: Chest PA and lateral FINDINGS: Examination limited by habitus. Left-sided PICC terminates at the expected location of the SVC. LUNGS: No focal consolidation. Please note that chest x-ray has limited sensitivity for the detection of pulmonary masses. PLEURA: No significant pleural effusion identified. No definite pneumothorax . CARDIOVASCULAR: Heart size appears within normal limits. OSSEOUS STRUCTURES: Degenerative changes of the spine. VISUALIZED UPPER ABDOMEN: Unremarkable. OTHER FINDINGS: Vascular stent within the left upper quadrant. IMPRESSION: Left-sided PICC.
--- NOTE | 2017-04-16 11:09 | CP.PCM.CON ---
History of Present Illness - History of Present Illness History of Present Illness: 46 y/o female, with a past medical history of asthma and multiple episodes of Pulmonary Embolism, presenting to the ER on 04/15/2017 for chest pain. Patient's last Pulmonary Embolism was on 03/07/2017. She has been on Lovenox since the last episode when she was told she had an "infection in the heart". Patient had a PICC line inserted and was told to return for IV antibiotics, but she did not because she states she had a in the family. Today, the patient is complaining of a fever for three days associated with two episodes of vomiting and chest pain. Patient notes chest pain only occurs when she coughs and worsens while breathing. She denies any episodes of diarrhea. per records pt had positive blood cultures and needed iv abx for bacteremia but she never followed up. endocarditis ruled out on last admission- received 7 days iv rx in hose and was advised to complete 14 days for bacteremia but had to leave town for a - Medical History PMH: Gall Bladder Disease, Kidney Stones, Pulmonary Embolism (last was at [facility]), Chronic Kidney Disease Denies: Alzheimer's Disease, Anemia, Anxiety, Arthritis, Asthma, Atrial Fibrillation, Bipolar Disorder, Bronchitis, CAD, Cardia Arrhythmia, CHF, COPD, Crohn's Disease, Dementia, Depression, Diverticulitis, Emphysema, Fractures, Gastritis, HIV, HTN, Hypercholesterolemia, Hyperthyroidism, Hypothyroidism, Migraine, Mitral Valve Prolapse, Multiple Sclerosis, Osteoporosis, Pancreatitis , Paranoia, Parkinson's Disease, Peripheral Edema, Pneumonia, Post Traumatic Stress Disorder, Rheumatoid Arthritis, Schizophrenia, Seizures, Sickle Cell Disease, Sexually Transmitted Disease, Sleep Apnea, TIA - Surgical History Surgical History: Appendectomy, Cholecystectomy Denies: CABG, Carotid Endarterectomy, Coronary Stent, Pacemaker, Tonsillectomy Other surgeries: tubal ligation, splenectomy Review of Systems - Review of Systems Systems not reviewed;Unavailable: Language Barrier - Constitutional Constitutional: absent: As Per HPI, Anorexia, Chills, Daytime Sleepiness, Excessive Sweating, Fatigue, Fever, Frequent Falls, Headache, Increased Appetite , Lethargy, Malaise, Night Sweats, Snoring, Sleep Apnea, Weight Gain, Weight Loss, Weakness, Other - EENT Eyes: absent: As Per HPI, Blind Spots, Blurred Vision, Change in Vision, Decreased Night Vision, Diplopia, Discharge, Dry Eye, Exophthalmos, Floaters, Irritation, Itchy Eyes, Loss of Peripheral Vision, Pain, Photophobia, Requires Corrective Lenses, Sees Flashes, Spots in Vision, Tunnel Vision, Other Visual Disturbances, Loss of Vision, Other Ears: absent: As Per HPI, Decreased Hearing, Ear Discharge, Ear Pain, Tinnitus, Abnormal Hearing, Disequilibrium, Dizziness, Other Nose/Mouth/Throat: absent: As Per HPI, Epistaxis, Nasal Congestion, Nasal Discharge, Nasal Obstruction, Nasal Trauma, Nose Pain, Post Nasal Drip, Sinus Pain, Sinus Pressure, Bleeding Gums, Change in Voice, Dental Pain, Dry Mouth, Dysphagia, Halitosis, Hoarsness, Lip Swelling, Mouth Lesions, Mouth Pain, Odynophagia, Sore Throat, Throat Swelling, Tongue Swelling, Facial Pain, Neck Pain, Neck Mass, Other - Breasts Breasts: absent: As Per HPI, Change in Shape, Mass, Pain, Nipple Discharge, Nipple Inversion, Skin Changes, Swelling, Other - Cardiovascular Cardiovascular: As Per HPI - Respiratory Respiratory: As Per HPI - Gastrointestinal Gastrointestinal: absent: As Per HPI, Abdominal Pain, Belching, Bloating, Change in Bowel Habits, Change in Stool Character, Coffee Ground Emesis, Constipation, Cramping, Diarrhea, Dyspepsia, Dysphagia, Early Satiety, Excessive Flatus, Fecal Incontinence, Heartburn, Hematemesis, Hematochezia, Loose Stools, Melena, Nausea, Odynophagia, Temesmus, Vomiting, Other - Genitourinary Genitourinary: absent: As Per HPI, Change in Urinary Stream, Difficulty Urinating, Dysuria, Flank Pain, Hematuria, Pyuria, Nocturia, Urinary Incontinence, Urinary Frequency, Urinary Hesitance, Urinary Urgency, Voiding Freq/Small Amts, Freq UTI, Hx Renal/Bladder Calculi, Hx /Renal Surgery, Bladder Distension, Other - Reproductive: Female Reproductive:Female: absent: As Per HPI, Amenorrhea, Amenorrhea/ Control, Currently Menstual, Cycle <21 Days, Cycle >35 Days, Cycle Variable, Menses 1-7 Days, Menses >/= 8 Days, Menses Variable, Cycle > 4 Weeks Between, No Menses for 6 Months, Heavy Menses, Light Menses, Normal Menses, Spotting Between Cycles , S/P Hysterectomy, Menopausal, Post Menopausal, Premenarche, Abnormal Vaginal Bleeding, Dysmenorrhea, Dyspareunia, Genital Lesions, Genital Pruritis, Pelvic Pain, Prolapse Symptoms, Sexual Dysfunction, Vaginal Discharge, Vaginal Dryness , Vaginal Odor, Vaginal Pruritis, Other - Menstruation Menstruation: absent: As Per HPI, Amenorrhea, Amenorrhea/ Control, Currently Menstual, Cycle <21 Days, Cycle >35 Days, Cycle Variable, Menses 1-7 Days, Menses >/= 8 Days, Menses Variable, Cycle > 4 Weeks Between, No Menses for 6 Months, Heavy Menses, Light Menses, Normal Menses, Spotting Between Cycles , S/P Hysterectomy, Menopausal, Post Menopausal, Premenarche, Abnormal Vaginal Bleeding, Dysmenorrhea, Other - Musculoskeletal Musculoskeletal: absent: As Per HPI, Abnormal Gait, Arthralgias, Atrophy, Back Pain, Deformity, Joint Swelling, Limited Range of Motion, Loss of Height, Muscle Cramps, Muscle Weakness, Myalgias, Neck Pain, Numbness, Radiating Pain into Limb, Stiffness, Tingling, Other - Integumentary Integumentary: absent: As Per HPI, Acne, Alopecia, Bleeding Lesions, Change in Hair, Change in Nails, Change in Pigmentation, Changing Lesions, Dry Skin, Erythema, Furuncle, Hirsutism, Lesions, New Lesions, Non-Healing Lesions, Photosensitivity, Pruritus, Rash, Skin Pain, Skin Ulcer, Sores, Striae, Swelling , Unusual Bruising, Wounds, Jaundice, Other - Neurological Neurological: absent: As Per HPI, Abnormal Gait, Abnormal Hearing, Abnormal Movements, Abnormal Speech, Behavioral Changes, Burning Sensations, Confusion, Convulsions, Disequilibrium, Dizziness, Numbness, Focal Weakness, Frequent Falls , Headaches, Lack of Coordination, Loss of Vision, Memory Loss, Paresthesias, Radicular Pain, Restless Legs, Sensory Deficit, Syncope, Tingling, Tremor, Vertigo, Weakness, Other Visual Disturbances, Other - Psychiatric Psychiatric: absent: As Per HPI, Abnormal Sleep Pattern, Anhedonia, Anxiety, Auditory Hallucinations, Behavioral Changes, Change in Appetite, Change in Libido, Confusion, Depression, Difficulty Concentrating, Hallucinations, Homicidal Ideation, Hopelessness, Irritability, Memory Loss, Mood Swings, Panic Attacks, Paranoia, Suicidal Ideation, Visual Hallucinations, Tactile Hallucinations, Other - Endocrine Endocrine: absent: As Per HPI, Change in Body Appearance, Change in Libido, Cold Intolorance, Deepening of Voice, Excessive Sweating, Fatigue, Flushing, Heat Intolorance, Increase in Ring/Shoe/Hat Size, Palpitations, Polydipsia, Polyphagia, Polyuria, Other - Hematologic/Lymphatic Hematologic: absent: As Per HPI, Easy Bleeding, Easy Bruising, Lymphadenopathy, Other Past Patient History - Infectious Disease Hx of Infectious Diseases: None - Tetanus Immunizations Tetanus Immunization: Up to Date - Past Medical History & Family History Past Medical History?: Yes - Past Social History Alcohol: None Drugs: Denies - CARDIAC Hx Atrial Fibrillation: No Hx Cardia Arrhythmia: No Hx Congestive Heart Failure: No Hx Hypercholesterolemia: No Hx Hypertension: No Hx Mitral Valve Prolapse: No Hx Pacemaker: No Hx Peripheral Edema: No - PULMONARY Hx Asthma: No Hx Bronchitis: No Hx Chronic Obstructive Pulmonary Disease (COPD): No Hx Emphysema: No Hx Pneumonia: No Hx Pulmonary Embolism: Yes (last was at 03/07/17 [facility]) Hx Sleep Apnea: No - NEUROLOGICAL Hx Alzheimer's Disease: No Hx Dementia: No Hx Migraine: No Hx Multiple Sclerosis: No Hx Parkinson's Disease: No Hx Seizures: No Hx Transient Ischemic Attacks (TIA): No - HEENT Hx HEENT Problems: No Hx Blind: No Hx Cataracts: No Hx Deafness: No Hx Difficulty Chewing: No Hx Epistaxis: No Hx Glaucoma: No Hx Macular Degeneration: No - RENAL Hx Chronic Kidney Disease: Yes Hx Kidney Stones: Yes - ENDOCRINE/METABOLIC Hx Hyperthyroidism: No Hx Hypothyroidism: No - HEMATOLOGICAL/ONCOLOGICAL Hx Anemia: No Hx Human Immunodeficiency Virus (HIV): No Hx Sickle Cell Disease: No - INTEGUMENTARY Hx Dermatological Problems: No Hx Basil Cell: No Hx Bennett: No Hx Cellulitis: No Hx Eczema: No Hx Melanoma: No Hx Psoriasis: No Hx Squamous Cell: No - MUSCULOSKELETAL/RHEUMATOLOGICAL Hx Arthritis: No Hx Fractures: No Hx Osteoporosis: No Hx Rheumatoid Arthritis: No - GASTROINTESTINAL Hx Crohn's Disease: No Hx Diverticulitis: No Hx Gall Bladder Disease: Yes Hx Gastritis: No Hx Pancreatitis: No - GENITOURINARY/GYNECOLOGICAL Hx Sexually Transmitted Disorders: No - PSYCHIATRIC Hx Anxiety: No Hx Bipolar Disorder: No Hx Depression: No Hx Paranoia: No Hx Post Traumatic Stress Disorder: No Hx Schizophrenia: No - SURGICAL HISTORY Hx Appendectomy: Yes Hx Carotid Endarterectomy: No Hx Cholecystectomy: Yes Hx Coronary Artery Bypass Graft: No Hx Coronary Stent: No Hx Tonsillectomy: No - ANESTHESIA Hx Anesthesia: Yes Hx Anesthesia Reactions: No Hx Malignant Hyperthermia: No Meds Allergies/Adverse Reactions: Allergies Allergy/AdvReac Type Severity Reaction Status Date / Time iodixanol Allergy Severe SHORTNESS Verified 04/15/17 19:03 OF BREATH Iodine and Iodide Containing Allergy SHORTNESS Verified 04/15/17 19:03 Produc OF BREATH ketorolac Allergy ITCHING Verified 04/15/17 19:03 morphine Allergy RASH Verified 04/15/17 19:04 NSAIDS (Non-Steroidal Allergy ITCHING Verified 04/15/17 19:04 Anti-Inflamma ondansetron Allergy ITCHING Verified 04/15/17 19:03 - Medications Medications: Current Medications Enoxaparin Sodium (Lovenox) 130 mg SC BID RAYSHAWN PRN Reason: Protocol Last Admin: 04/16/17 09:14 Dose: 130 mg Hydromorphone HCl (Dilaudid) 1 mg IVP Q4 PRN PRN Reason: Pain, severe (8-10) Last Admin: 04/16/17 06:54 Dose: 1 mg Hydromorphone HCl (Dilaudid) 0.5 mg IVP Q4H PRN PRN Reason: Pain, moderate (4-7) Stop: 04/18/17 02:17 Vancomycin HCl 1 gm/ Sodium (Chloride) 250 mls @ 166.667 mls/hr IVPB Q12 RAYSHAWN Last Admin: 04/16/17 10:17 Dose: 166.667 mls/hr Metoclopramide HCl (Reglan) 10 mg IVP Q6 PRN PRN Reason: Nausea/Vomiting Physical Exam - Constitutional Appears: Non-toxic - Head Exam Head Exam: ATRAUMATIC, NORMAL INSPECTION, NORMOCEPHALIC - Eye Exam Eye Exam: PERRL. absent: Scleral icterus - ENT Exam ENT Exam: Mucous Membranes Dry, Normal External Ear Exam - Neck Exam Neck exam: Negative for: Lymphadenopathy - Respiratory Exam Respiratory Exam: Decreased Breath Sounds - Cardiovascular Exam Cardiovascular Exam: REGULAR RHYTHM, +S1, +S2 - GI/Abdominal Exam GI & Abdominal Exam: Diminished Bowel Sounds, Soft. absent: Tenderness - Rectal Exam Rectal Exam: Deferred - Exam Exam: NORMAL INSPECTION - Extremities Exam Extremities exam: Negative for: pedal edema - Back Exam Back exam: absent: CVA tenderness (L), CVA tenderness (R) - Neurological Exam Neurological exam: Alert, CN II-XII Intact, Oriented x3, Reflexes Normal - Psychiatric Exam Psychiatric exam: Normal Mood - Skin Skin Exam: Dry, Intact Results - Vital Signs Recent Vital Signs: Last Vital Signs Temp 97.7 F 04/16/17 08:30 Pulse 112 H 04/16/17 08:33 Resp 18 04/16/17 08:30 BP 117/78 04/16/17 08:30 Pulse Ox 99 04/16/17 08:30 - Labs Result Diagrams: 04/15/17 21:53 04/15/17 21:53 Assessment & Plan - Assessment and Plan (Free Text) Plan: endocarditis ruled out on last admission- received 7 days iv rx in hose and was advised to complete 14 days for bacteremia but had to leave town for a recommend blood cultures /IV vanco
[2017-04-16] MEDS: HYDROmorphone 0.5 mg/0.5 ml ISec IVP PRN ×2 (11:17→14:11)
--- NOTE | 2017-04-16 11:33 | CP.PCM.DIS ---
Provider - Provider Date of Admission: 04/16/17 00:24 Attending physician: Gaurav Gonzalez Primary care physician: None Consults: Id consult Time Spent in preparation of Discharge (in minutes): 15 Hospital Course - Lab Results Lab Results: Most Recent Lab Values WBC 10.4 K/uL (4.8-10.8) 04/15/17 21:53 RBC 4.74 Mil/uL (3.80-5.20) 04/15/17 21:53 Hgb 11.3 g/dL (12.0-16.0) L D 04/15/17 21:53 Hct 36.6 % (34.0-47.0) 04/15/17 21:53 MCV 77.3 fl (81.0-99.0) L D 04/15/17 21:53 MCH 23.9 pg (27.0-31.0) L 04/15/17 21:53 MCHC 30.9 g/dL (33.0-37.0) L 04/15/17 21:53 RDW 17.7 % (11.5-14.5) H 04/15/17 21:53 Plt Count 549 K/uL (130-400) H D 04/15/17 21:53 MPV 8.6 fl (7.2-11.7) 04/15/17 21:53 Neut % (Auto) 67.5 % (50.0-75.0) 04/15/17 21:53 Lymph % (Auto) 20.8 % (20.0-40.0) 04/15/17 21:53 [place] % (Auto) 8.1 % (0.0-10.0) 04/15/17 21:53 Eos % (Auto) 1.3 % (0.0-4.0) 04/15/17 21:53 Baso % (Auto) 2.3 % (0.0-2.0) H 04/15/17 21:53 Neut # 7.0 K/uL (1.8-7.0) 04/15/17 21:53 Lymph # 2.2 K/uL (1.0-4.3) 04/15/17 21:53 [place] # 0.8 K/uL (0.0-0.8) 04/15/17 21:53 Eos # 0.1 K/uL (0.0-0.7) 04/15/17 21:53 Baso # 0.2 K/uL (0.0-0.2) 04/15/17 21:53 D-Dimer, Quantitative 216 ng/mlDDU (0-230) 04/15/17 21:53 Sodium 142 mmol/l (132-148) 04/15/17 21:53 Potassium 4.0 MMOL/L (3.6-5.0) 04/15/17 21:53 Chloride 108 mmol/L (98-107) H 04/15/17 21:53 Carbon Dioxide 24 mmol/L (22-30) 04/15/17 21:53 Anion Gap 14 (10-20) 04/15/17 21:53 BUN 10 mg/dl (7-17) 04/15/17 21:53 Creatinine 0.6 mg/dL (0.7-1.2) L 04/15/17 21:53 Est GFR ( Amer) > 60 04/15/17 21:53 Est GFR (Non-Af Amer) > 60 04/15/17 21:53 Random Glucose 101 mg/dL (65-105) 04/15/17 21:53 Calcium 9.8 mg/dL (8.4-10.2) 04/15/17 21:53 Total Bilirubin 0.4 mg/dl (0.2-1.3) 04/15/17 21:53 AST 22 U/L (14-36) 04/15/17 21:53 ALT 41 U/L (9-52) 04/15/17 21:53 Alkaline Phosphatase 60 U/L (38-126) 04/15/17 21:53 Troponin I < 0.0120 ng/mL (0.00-0.120) 04/15/17 21:53 NT-Pro-B Natriuret Pep 82.9 pg/ml (0-450) 04/15/17 21:53 Total Protein 7.5 G/DL (6.3-8.2) 04/15/17 21:53 Albumin 4.4 g/dL (3.5-5.0) 04/15/17 21:53 Globulin 3.1 gm/dL (2.2-3.9) 04/15/17 21:53 Albumin/Globulin Ratio 1.4 (1.0-2.1) 04/15/17 21:53 - Hospital Course Hospital Course: 46 years old female with hx of Non compliance with medication, Asthma, Nephrolithiasis, PE last diagnosed on 03/07/17, on Home Lovenox SubQ. Her last admitted to the [facility] on 2 weeks ago and diagnosed with MRSA bacteremia. A PICC line was inserted and the patient was discharged on 04/01/17 to follow up daily at the Hospital for IV Vancomycin. She did not follow up. She now comes referring 3 days of fever, vomiting and pleuritic left chest pain with SOB. No coughing, diarrhea, dysuria nor urinary frequencies. No headaches nor dizziness. Patient noted to have no fever recorded while in hospital and her WBC count is normal 10. CXR showed no infiltrates D-dimmer came back as normal ruling out new PE last admission she had NATALIA and endocarditis was ruled out. Her troponin is negative and pleuritic in nature , not cardia related ID consulted and recommended continuation of vancomycin and repeat blood cultures Will discharge patient home. Case management to make arrangement for IV Vancomycin treatment in the infusion center for 7 more days 9 she did finish 7 days) She is hemodynamically stable, afebrile, saturating 100 % in RA Patient has history of multiple admissions in the hospital for same problem and has been exhibiting some narcotic dependency behaviour. 1. Pleuritic Chest Pain-- not cardiac Trop - negative CXR no infiltrates Cq scan showed no PE 3.MRSA bacteremia-- unfinished treatemnt endocarditis was ruled out lasrt admission Finished 7 days of IV vanco last admission Consult with Dr Arguello Infectious Disease appreciated.Recomm,ended to repaet blood cultures and continue with Vanco IV for 7 more days Case management to make arrangementswith infusion center 3. Hx of PE Continue Lovenox at 1mg/Kg/dose SubQ Q12H d- dimmer negative ruling out new PE VQ scan showed no PE 4. Hx of Asthma stable #.DVT Prophylaxis with Lovenox Discharge Exam - Head Exam Head Exam: ATRAUMATIC, NORMAL INSPECTION, NORMOCEPHALIC Additional comments: obese - Eye Exam Eye Exam: EOMI, Normal appearance, PERRL Pupil Exam: NORMAL ACCOMODATION - ENT Exam ENT Exam: Mucous Membranes Moist, Normal Exam - Neck Exam Neck exam: Full Rom, Normal Inspection - Respiratory Exam Respiratory Exam: NORMAL BREATHING PATTERN. absent: Accessory Muscle Use, Prolonged Expiratory Phase, Respiratory Distress - Cardiovascular Exam Cardiovascular Exam: REGULAR RHYTHM, +S1, +S2. absent: JVD - GI/Abdominal Exam GI & Abdominal Exam: Normal Bowel Sounds, Soft. absent: Guarding, Rebound, Tenderness - Rectal Exam Rectal Exam: Deferred - Extremities Exam Extremities exam: normal capillary refill, normal inspection, pedal pulses present Additional comments: PICC line to LUE - Back Exam Back exam: NORMAL INSPECTION - Neurological Exam Neurological exam: Alert, CN II-XII Intact, Reflexes Normal - Psychiatric Exam Psychiatric exam: Normal Affect, Normal Mood - Skin Skin Exam: Dry, Intact, Normal Color, Warm Discharge Plan - Follow Up Plan Condition: STABLE Disposition: HOME/ ROUTINE Patient education suggested?: Yes Instructions: Pleurisy (DC), Bacteremia (DC) Referrals: [facility] [Outside]
[2017-04-16 12:00] VITALS: BP 127/85; PULSE 91; O2SAT 97
--- NOTE | 2017-04-16 13:50 | NM ---
COMPARISON: Comparison made V/Q scan dated 03/22/2017. TECHNIQUE: 53.4 mCi technetium 99-m Xe-133 Gas. 6.2 mCI technetium 99-m MAA administered intravenously. FINDINGS: VENTILATION COMPONENT: Central clumping of radiotracer seen within the hilar regions bilaterally. Patchy uptake present throughout both lung madera. PERFUSION COMPONENT: Normal. IMPRESSION: Lowprobability ventilation perfusion scan for pulmonary embolism.
--- NOTE | 2017-04-18 12:01 | CARD ---
APPROVED REPORT EKG Measurement Heart [id number] <Conclusion> Sinus tachycardia Left ventricular hypertrophy with repolarization abnormality Abnormal ECG
== END 2017-04-16 18:15 | disposition home or self-care (01) ==
LOC: H.ER 18:52 → INTOOBSV 04-16 00:24 → H.ERHOLD 04-16 00:24 → H.TEL 04-16 01:53
PROVIDERS: ADMIT Internal Medicine; ATTEND Internal Medicine
DX: R07.81 Pleurodynia (principal); B95.62 Methicillin resistant Staphylococcus aureus infection as the cause of diseases classified elsewhere; J45.909 Unspecified asthma, uncomplicated; N18.9 Chronic kidney disease, unspecified; R78.81 Bacteremia; Z86.711 Personal history of pulmonary embolism; Z87.442 Personal history of urinary calculi; Z90.81 Acquired absence of spleen; Z91.14 Patient's other noncompliance with medication regimen; K82.9 Disease of gallbladder, unspecified; R06.02 Shortness of breath
CPT/HCPCS: 71020; 78582; 80053; 81025; 83880; 84484; 85025; 85378; 87040; 96374; 96375; 99281; A9524; A9567; G0378; J1170; J1650; J2765; J7040

== ENCOUNTER 2017-11-09 00:04 | Inpatient (IN) | payer MEDICAID, OTHER ==
[2017-11-09 00:04] VITALS: BMI 50.8
[2017-11-09] MEDS ORDERED: HYDROmorphone 0.5 mg/0.5 ml ISec IM STA (00:52)
[2017-11-09] MEDS ORDERED: Lidocaine 1% Inj (20ml) ONE (01:47)
[2017-11-09] MEDS ORDERED: HYDROmorphone 0.5 mg/0.5 ml ISec IVP STA (02:17)
[2017-11-09] MEDS ORDERED: DiphenhydrAMINE 50 mg/ml Inj IVP STA (02:26)
--- NOTE | 2017-11-09 02:48 | ED PDOC ---
HPI: Chest Pain Time Seen by Provider: 11/09/17 00:40 Chief Complaint (Nursing): Chest Pain Chief Complaint (Provider): Chest Pain History Per: Patient History/Exam Limitations: no limitations Onset/Duration Of Symptoms: Days (x1) Current Symptoms Are (Timing): Still Present Additional Complaint(s): 47 year old obese female with previous medical history of pulmonary embolism and kidney disease, who presents to the emergency department with a complaint of "stabbing" mid-chest pain associated with shortness of breath, pleurtic pain on inspiration and 2 episodes of vomiting with blood-tinge ongoing since this afternoon at work. Denied any fever, chills, cough or nausea. PMD: none provided Past Medical History Reviewed: Historical Data, Nursing Documentation, Vital Signs Vital Signs: Last Vital Signs Temp 98.5 F 11/09/17 00:19 Pulse 124 H 11/09/17 03:15 Resp 17 11/09/17 03:15 BP 120/106 H 11/09/17 03:15 Pulse Ox 99 11/09/17 03:15 - Medical History PMH: Gall Bladder Disease, Kidney Stones, Pulmonary Embolism (last was at [facility]), Chronic Kidney Disease Denies: Alzheimer's Disease, Anemia, Anxiety, Arthritis, Asthma, Atrial Fibrillation, Bipolar Disorder, Bronchitis, CAD, Cardia Arrhythmia, CHF, COPD, Crohn's Disease, Dementia, Depression, Diverticulitis, Emphysema, Fractures, Gastritis, HIV, HTN, Hypercholesterolemia, Hyperthyroidism, Hypothyroidism, Migraine, Mitral Valve Prolapse, Multiple Sclerosis, Osteoporosis, Pancreatitis , Paranoia, Parkinson's Disease, Peripheral Edema, Pneumonia, Post Traumatic Stress Disorder, Rheumatoid Arthritis, Schizophrenia, Seizures, Sickle Cell Disease, Sexually Transmitted Disease, Sleep Apnea, TIA - Surgical History Surgical History: Appendectomy, Cholecystectomy Denies: CABG, Carotid Endarterectomy, Coronary Stent, Pacemaker, Tonsillectomy - Family History Family History: States: Hypertension Denies: No Known Family Hx - Immunization History Hx Tetanus Toxoid Vaccination: Yes Hx Influenza Vaccination: No Hx Pneumococcal Vaccination: Yes - Home Medications Home Medications: Ambulatory Orders Medication Instructions Recorded Enoxaparin [Lovenox] 120 mg SUBCUT BID 01/26/17 - Allergies Allergies/Adverse Reactions: Allergies Allergy/AdvReac Type Severity Reaction Status Date / Time iodixanol Allergy Severe SHORTNESS Verified 11/09/17 00:24 OF BREATH Iodine and Iodide Containing Allergy SHORTNESS Verified 11/09/17 00:24 Produc OF BREATH ketorolac Allergy ITCHING Verified 11/09/17 00:24 morphine Allergy RASH Verified 11/09/17 00:24 NSAIDS (Non-Steroidal Allergy ITCHING Verified 11/09/17 00:24 Anti-Inflamma ondansetron Allergy ITCHING Verified 11/09/17 00:24 Review of Systems ROS Statement: Except As Marked, All Systems Reviewed And Found Negative Constitutional: Negative for: Fever, Chills Cardiovascular: Positive for: Chest Pain (stabbing) Respiratory: Positive for: Shortness of Breath, Pleuritic Pain. Negative for: Cough Gastrointestinal: Positive for: Vomiting (x2). Negative for: Nausea Physical Exam - Reviewed Nursing Documentation Reviewed: Yes Vital Signs Reviewed: Yes - Physical Exam Appears: Positive for: Well, Non-toxic, No Acute Distress Head Exam: Positive for: ATRAUMATIC, NORMAL INSPECTION, NORMOCEPHALIC Skin: Positive for: Normal Color Eye Exam: Positive for: Normal appearance ENT: Positive for: Normal ENT Inspection Neck: Positive for: Normal, Painless ROM. Negative for: Decreased ROM Cardiovascular/Chest: Positive for: Regular Rate, Rhythm, Chest Non Tender Respiratory: Positive for: Normal Breath Sounds. Negative for: Decreased Breath Sounds, Wheezing, Respiratory Distress Gastrointestinal/Abdominal: Positive for: Normal Exam, Soft. Negative for: Tenderness Extremity: Positive for: Normal ROM (upper/lower). Negative for: Calf Tenderness (bilateral), Deformity (upper/lower) Neurologic/Psych: Positive for: Alert, Oriented, Mood/Affect (obese) - Laboratory Results Result Diagrams: 11/09/17 02:53 - ECG O2 Sat by Pulse Oximetry: 97 (RA) Pulse Ox Interpretation: Normal Medical Decision Making Medical Decision Making: Initial Impression: ACS vs. PE Initial Plan: * EKG * BMP * Troponin I * CBC * D Dimer * PTT * PT * CXR * Benadryl 50mg IVP * Dilaudid 1mg IM * Solu-Medrol 125mg IVP Time: 52 -- Patient has significant risk factors for PE, states she took her lovenox today. Cannot do CT at this time, requires 24 hour pretreatment for CTA. Will admit for CT or possible V/Q scan given risk factors and tachycardia. --Discussed case with Dr. Simmons who will accept patient under admittance to hospital. --Patient veins are difficult to access. Central line performed for IV access ( see procedure note). --Patient stated she has Iodine allergy and requires pre-treatment 24 hours prior to CTA scan. Scribe Attestation: Documented by Oma San, acting as a scribe for Shamar Post MD. Provider Scribe Attestation: All medical record entries made by the Scribe were at my direction and personally dictated by me. I have reviewed the chart and agree that the record accurately reflects my personal performance of the history, physical exam, medical decision making, and the department course for this patient. I have also personally directed, reviewed, and agree with the discharge instructions and disposition. Procedures - Central Line Central Line Lumen: triple Central Line Procedure: betadine prep, sterile drapes applied, sterile dressing applied Central Line Postion: internal jugular (L) Anesthesia: Lidocaine cc's of anesthesia: 5 Complications: none Central Line Post Position: sutured, good blood return, position confirmed w/ CXR Progress: Consent obtained. Patient tolerated procedure very well. Disposition - Clinical Impression Clinical Impression: Chest pain, Tachycardia - Disposition Disposition Time: 01:00 Condition: GUARDED
[2017-11-09] MEDS ORDERED: HYDROmorphone 0.5 mg/0.5 ml ISec ONE (02:59)
[2017-11-09 03:15] LABS: BLOOD UREA NITROGEN 16 mg/dl (7-17); CALCIUM 9.8 mg/dL (8.4-10.2); GFR AFRICAN-AMERICAN > 60; GFR NON-AFRICAN AMERICAN > 60
[2017-11-09 03:25] LABS: BASO # 0.3 K/uL (0.0-0.2); EOS # 0.3 K/uL (0.0-0.7); EOS % 2.3 % (0.0-4.0); HEMOGLOBIN 11.1 g/dL (12.0-16.0); LYMPH # 2.6 K/uL (1.0-4.3); LYMPH % 19.5 % (20.0-40.0); MEAN CELL VOLUME 74.2 fl (81.0-99.0); MEAN CORPUSCULAR HEMOGLOBIN 23.6 pg (27.0-31.0); MEAN CORPUSCULAR HGB CONC 31.9 g/dL (33.0-37.0); MEAN PLATELET VOLUME 8.6 fl (7.2-11.7); MONO % 7.9 % (0.0-10.0); NEUT % 68.3 % (50.0-75.0); NRBC % 0.2 % (0.0-0.0); RBC 4.7 Mil/uL (3.80-5.20); RED CELL DISTRIBUTION WIDTH 18.3 % (11.5-14.5); WHITE BLOOD COUNT 13.2 K/uL (4.8-10.8)
[2017-11-09] MEDS ORDERED: Enoxaparin 120 mg Syringe SC STA (03:30)
[2017-11-09 03:46] LABS: INR 1.1 (0.9-1.2)
[2017-11-09] MEDS ORDERED: Sodium Chloride 0.9% 1,000 ML IV STA (03:52)
[2017-11-09] MEDS ORDERED: DiphenhydrAMINE 50 mg/ml Inj ONE (03:59)
[2017-11-09] MEDS: Metoprolol 1 mg/ml Inj IVP STA ×2 (04:35→04:45)
[2017-11-09] MEDS ORDERED: Metoprolol 1 mg/ml Inj IVP ONE (04:43)
[2017-11-09] MEDS ORDERED: Lidocaine 1% Inj (20ml) IJ ONE (05:21)
[2017-11-09] MEDS ORDERED: Alum-Mag Hydrox-Simethicone Susp (30 mL) PO ONE (06:06)
--- NOTE | 2017-11-09 08:46 | RAD ---
PROCEDURE: CHEST RADIOGRAPH, 1 VIEW HISTORY: cp, sob COMPARISON: Chest radiographs 04/16/2017. FINDINGS: Lengthy ovoid structures generate artifacts the lateral left chest. An interval left central venous line is in placed with prior left PICC removed with tip terminating at the junction of the brachycephalic with superior vena cava. LUNGS: No acute pulmonary disease appreciable. PLEURA: No pneumothorax or pleural fluid seen. CARDIOVASCULAR: Normal. OSSEOUS STRUCTURES: No significant abnormalities. VISUALIZED UPPER ABDOMEN: Normal. OTHER FINDINGS: None. IMPRESSION: Interval left central venous line placement as discussed above. No pneumothorax bilaterally. No infiltrate or pleural effusion identified bilaterally. Artifacts at left chest as discussed above.
[2017-11-09] MEDS: Enoxaparin 150 mg Syringe SC SCH ×2 (10:19→21:44)
[2017-11-09] MEDS: DiphenhydrAMINE 50 mg/ml Inj IVP SCH ×2 (15:19→21:38)
[2017-11-09] MEDS ORDERED: methylPREDNISolone 80 MG in Sodium Chloride 0.9% 50 ML IVPB SCH (16:00)
--- NOTE | 2017-11-09 19:28 | CARD ---
APPROVED REPORT EKG Measurement Heart [id number] MT [id number] <Conclusion> Normal sinus rhythm Voltage criteria for left ventricular hypertrophy Abnormal ECG
--- NOTE | 2017-11-09 19:29 | CARD ---
APPROVED REPORT EKG Measurement Heart [id number] SD [id number] <Conclusion> Sinus tachycardia Voltage criteria for left ventricular hypertrophy Abnormal ECG
--- NOTE | 2017-11-09 21:25 | HP ---
HISTORY OF PRESENT ILLNESS: Ms. Avina is a 47-year-old female who was admitted via the emergency room because of stabbing chest pains in the mediastinum. On the day of admission, she also indicated that she had shortness of breath and was brought to the emergency room. She had been walking at [employer], which was her regular job when this happened and she came to the emergency room where she was evaluated and admitted to rule out acute pulmonary embolism. She has had past medical history of multiple admissions to [facility] and several other hospitals for similar conditions. She indicated that she has had so many episodes of pulmonary embolism in the past and the last episode was on 03/07/2017 at [facility]. PAST MEDICAL HISTORY: Remarkable for rectal hemorrhoidal bleed, kidney disease, gallbladder disease, and kidney stones. FAMILY HISTORY: Unremarkable. SOCIAL HISTORY: She denies smoking, alcohol use and lives alone. REVIEW OF SYSTEMS: Remarkable for recurrent chest pains requiring doses of narcotics in the past. PHYSICAL EXAMINATION: GENERAL: The patient is alert, oriented, and is morbidly obese. VITAL SIGNS: Blood pressure 120/106, pulse of 124, respiratory rate is 18. She is febrile. O2 sat 99% on room air. SKIN: Shows fair turgor. HEENT: Pupils equal, reactive to light and accommodation. Mouth shows fair hygiene. JVP flat. LUNGS: Clear. HEART: Regular. No murmurs or gallop. No chest wall tenderness. BREASTS: Normal. ABDOMEN: Soft, nontender. No organomegaly. EXTREMITIES: Show no edema or cyanosis. CENTRAL NERVOUS SYSTEM: Exam is grossly intact. DATA Chest x-ray shows no acute cardiopulmonary pathology, shows central line in place. EKG is remarkable for sinus tachycardia, otherwise unremarkable. There is mild LVH. WBC 13.2, hemoglobin 11.1, platelet count 459,000. Sodium 140, potassium 4.0, BUN 16, creatinine 0.7, serum glucose 120. Troponin less than 0.012. PT 12.0, INR 1.1. D-dimer 85, which is normal. IMPRESSION: Chest pain, one has to rule out pulmonary embolism; history of pulmonary embolism in the past; morbid obesity; chronic obstructive pulmonary disease, mild elevated blood pressure of probably secondary to stress and anxiety. PLAN: To continue the Lovenox therapy. The patient refuses to go for a CT scan of the chest because she indicated that SHE HAS ALLERGY TO DYE and last time she had dye, she had to be intubated and placed in the ICU, so premedications with steroids and Benadryl prior to a CT scan being done. The CT scan will be done in the morning after premedication with Benadryl and further therapy will depend on findings. We will continue Lovenox therapy and follow up as an outpatient if CT scan is unremarkable. Rory Simmons MD
[2017-11-10] MEDS: DiphenhydrAMINE 50 mg/ml Inj IVP SCH ×3 (03:39→16:27)
[2017-11-10 07:08] LABS: HEMOGLOBIN 10.6 g/dL (12.0-16.0); MEAN CELL VOLUME 76.2 fl (81.0-99.0); MEAN CORPUSCULAR HEMOGLOBIN 22.7 pg (27.0-31.0); MEAN CORPUSCULAR HGB CONC 29.8 g/dL (33.0-37.0); RBC 4.67 Mil/uL (3.80-5.20); RED CELL DISTRIBUTION WIDTH 17.8 % (11.5-14.5); WHITE BLOOD COUNT 11.3 K/uL (4.8-10.8)
[2017-11-10] MEDS: Enoxaparin 150 mg Syringe SC SCH (09:21)
--- NOTE | 2017-11-10 10:42 | CP.PCM.PN ---
Subjective - Date & Time of Evaluation Date of Evaluation: 11/10/17 Time of Evaluation: 10:44 - Subjective Subjective: appears dependent on iv dilaudid continues to ask for pain meds states that she vomited blood today and feels nauseous states that she is allergic to zofran and can only take reglan Objective - Vital Signs/Intake and Output Vital Signs (last 24 hours): Temp Pulse Resp BP Pulse Ox 98.2 F 79 18 116/75 96 11/10/17 08:00 11/10/17 08:00 11/10/17 08:00 11/10/17 08:00 11/10/17 08:00 - Medications Medications: Current Medications Diphenhydramine HCl (Benadryl) 25 mg IVP Q6 RAYSHAWN Last Admin: 11/10/17 09:21 Dose: 25 mg Enoxaparin Sodium (Lovenox) 130 mg SC Q12 RAYSHAWN PRN Reason: Protocol Last Admin: 11/10/17 09:21 Dose: 130 mg Hydromorphone HCl (Dilaudid) 2 mg IVP Q4 PRN PRN Reason: Pain, severe (8-10) Last Admin: 11/10/17 06:59 Dose: 2 mg Methylprednisolone (Solu-Medrol) 80 mg IV Q6 RAYSHWAN Last Admin: 11/10/17 09:22 Dose: 80 mg - Labs Labs: 11/10/17 06:33 11/09/17 02:53 PT 12.0 Seconds (9.8-13.1) 11/09/17 02:53 INR 1.1 (0.9-1.2) 11/09/17 02:53 APTT 32.0 Seconds (25.6-37.1) 11/09/17 02:53 - Constitutional Appears: No Acute Distress - Head Exam Head Exam: ATRAUMATIC, NORMAL INSPECTION, NORMOCEPHALIC - Eye Exam Eye Exam: EOMI, Normal appearance, PERRL Pupil Exam: NORMAL ACCOMODATION, PERRL - ENT Exam ENT Exam: Mucous Membranes Moist, Normal Exam - Neck Exam Neck Exam: Full ROM, Normal Inspection. absent: Lymphadenopathy - Respiratory Exam Respiratory Exam: Clear to Ausculation Bilateral, NORMAL BREATHING PATTERN - Cardiovascular Exam Cardiovascular Exam: REGULAR RHYTHM, +S1, +S2. absent: Murmur - GI/Abdominal Exam GI & Abdominal Exam: Soft, Normal Bowel Sounds. absent: Tenderness - Rectal Exam Rectal Exam: NORMAL INSPECTION - Extremities Exam Extremities Exam: Full ROM, Normal Capillary Refill, Normal Inspection. absent : Joint Swelling, Pedal Edema - Back Exam Back Exam: NORMAL INSPECTION - Neurological Exam Neurological Exam: Alert, Awake, CN II-XII Intact, Normal Gait, Oriented x3 - Psychiatric Exam Psychiatric exam: Normal Affect, Normal Mood - Skin Skin Exam: Dry, Intact, Normal Color, Warm Assessment and Plan - Assessment and Plan (Free Text) Assessment: chest pain hx of pulmonary embolism ?dependence on pain meds obesity ?hematemeses Plan: for ct angiogram of lung today decrease dose of dilaudid monitor for gi bleed consider d/c home if no evidence of bleeding or pulmonary embolism
[2017-11-10 18:05] LABS: BASO % 0.2 % (0.0-2.0); HEMOGLOBIN 10.5 g/dL (12.0-16.0); LYMPH # 1.3 K/uL (1.0-4.3); LYMPH % 8.5 % (20.0-40.0); MEAN CELL VOLUME 74.3 fl (81.0-99.0); MEAN CORPUSCULAR HEMOGLOBIN 23.6 pg (27.0-31.0); MEAN CORPUSCULAR HGB CONC 31.7 g/dL (33.0-37.0); MEAN PLATELET VOLUME 8.2 fl (7.2-11.7); MONO # 0.9 K/uL (0.0-0.8); MONO % 5.8 % (0.0-10.0); NEUT # 12.7 K/uL (1.8-7.0); NEUT % 85.5 % (50.0-75.0); NRBC % 0.1 % (0.0-0.0); PLATELET COUNT 503 K/uL (130-400); RBC 4.46 Mil/uL (3.80-5.20); RED CELL DISTRIBUTION WIDTH 17.9 % (11.5-14.5); WHITE BLOOD COUNT 14.9 K/uL (4.8-10.8)
[2017-11-10] MEDS ORDERED: DiphenhydrAMINE 50 mg/ml Inj IVP STA (18:27)
[2017-11-10 18:44] LABS: BANDS 1 % (0-2); LYMPHOCYTE 12 % (20-50); MONOCYTE 4 % (0-10); NEUTROPHIL 83 % (42-75); TOTAL CELLS COUNTED 100
[2017-11-10 18:45] LABS: ANISOCYTOSIS SLIGHT; PLATELET ESTIMATE SLIGHTLY INCREASED (NORMAL)
[2017-11-10 18:47] LABS: POIKILOCYTOSIS MODERATE
[2017-11-10 18:48] LABS: HYPOCHROMIC SLIGHT; MICROCYTOSIS SLIGHT; SPHEROCYTES SLIGHT; TARGET CELLS SLIGHT
[2017-11-10 18:49] LABS: ACANTHOCYTES SLIGHT; BURR CELLS SLIGHT; GIANT PLATELETS PRESENT; LARGE PLATELETS PRESENT; SCHISTOCYTES SLIGHT; TEARDROP CELLS SLIGHT
[2017-11-10 18:51] LABS: OVALOCYTES SLIGHT
--- NOTE | 2017-11-10 19:33 | CT ---
EXAM: CT Angiography Chest With Intravenous Contrast CLINICAL HISTORY: 47 years old, female; Signs and symptoms; Other: Cp SOB obese HX pe; Additional info: Pulmonary emboli. Lt central line 98 cc visipaque. Pt has been premedicated. Pt's nurse during procedure TECHNIQUE: Axial computed tomographic angiography images of the chest with intravenous contrast using pulmonary embolism protocol. All CT scans at this facility use one or more dose reduction techniques, viz.: automated exposure control; ma/kV adjustment per patient size (including targeted exams where dose is matched to indication; i.e. head); or iterative reconstruction technique. MIP reconstructed images were created and reviewed. Coronal and sagittal reformatted images were created and reviewed. CONTRAST: 98 mL of VISIPAQUE administered intravenously. COMPARISON: CTA CHEST WO/W CONT 2012-08-13 18:32 FINDINGS: Limitations: Suboptimal timing of bolus. Pulmonary arteries: No definite pulmonary embolism. Aorta: No aneurysm. No dissection. Lungs: Minimal atelectasis/scarring. No consolidation. Pleural space: No significant effusion. No pneumothorax. Heart: No cardiomegaly. No significant pericardial effusion. Thyroid: Mild enlargement and mild heterogeneity. Bones/joints: Mild degenerative changes of spine. No acute fracture. Soft tissues: Unremarkable. Lymph nodes: No pathologically enlarged lymph nodes. Upper abdomen: Surgical clips about left upper quadrant. IMPRESSION: 1. No definite CT evidence of pulmonary embolism. 2. Incidental/non-acute findings are described above.
--- NOTE | 2017-11-10 22:44 | CP.PCM.CON ---
History of Present Illness - History of Present Illness History of Present Illness: 47 yo female admitted with chest pain and shortness of breath. She states she has had multiple similar episodes before and tends to have pulmonary emboli despite multiple different anticoagulants. Was given Lovenox this admission and reported that she vomited blood. She states she had upper endoscopy at [facility] and was found to have a tear and small ulcer. Review of Systems - Constitutional Constitutional: absent: Chills - EENT Eyes: absent: Blurred Vision Ears: absent: Decreased Hearing Nose/Mouth/Throat: absent: Epistaxis - Breasts Breasts: absent: Pain - Cardiovascular Cardiovascular: As Per HPI - Respiratory Respiratory: absent: Dyspnea - Gastrointestinal Gastrointestinal: absent: Abdominal Pain Past Patient History - Infectious Disease Hx of Infectious Diseases: None - Tetanus Immunizations Tetanus Immunization: Up to Date - Past Medical History & Family History Past Medical History?: Yes - Past Social History Smoking Status: Never Smoked - CARDIAC Hx Atrial Fibrillation: No Hx Cardia Arrhythmia: No Hx Congestive Heart Failure: No Hx Hypercholesterolemia: No Hx Hypertension: No Hx Mitral Valve Prolapse: No Hx Pacemaker: No Hx Peripheral Edema: No - PULMONARY Hx Respiratory Disorders: Yes Hx Asthma: Yes Hx Pulmonary Embolism: Yes - NEUROLOGICAL Hx Neurological Disorder: No Hx Alzheimer's Disease: No Hx Dementia: No Hx Migraine: No Hx Multiple Sclerosis: No Hx Parkinson's Disease: No Hx Seizures: No Hx Transient Ischemic Attacks (TIA): No - HEENT Hx HEENT Problems: No Hx Blind: No Hx Cataracts: No Hx Deafness: No Hx Difficulty Chewing: No Hx Epistaxis: No Hx Glaucoma: No Hx Macular Degeneration: No - RENAL Hx Chronic Kidney Disease: Yes Hx Kidney Stones: Yes - ENDOCRINE/METABOLIC Hx Endocrine Disorders: No Hx Hyperthyroidism: No Hx Hypothyroidism: No - HEMATOLOGICAL/ONCOLOGICAL Hx Blood Disorders: Yes Hx AIDS: No Hx Blood Transfusions: Yes Hx Human Immunodeficiency Virus (HIV): No - INTEGUMENTARY Hx Dermatological Problems: No Hx Basil Cell: No Hx Bennett: No Hx Cellulitis: No Hx Eczema: No Hx Melanoma: No Hx Psoriasis: No Hx Squamous Cell: No - MUSCULOSKELETAL/RHEUMATOLOGICAL Hx Musculoskeletal Disorders: No Hx Arthritis: No Hx Falls: No Hx Fractures: No Hx Osteoporosis: No Hx Rheumatoid Arthritis: No - GASTROINTESTINAL Hx Gastrointestinal Disorders: Yes Hx Crohn's Disease: No Hx Diverticulitis: No Hx Gall Bladder Disease: Yes Hx Gastritis: No Hx Pancreatitis: No - GENITOURINARY/GYNECOLOGICAL Hx Genitourinary Disorders: No Hx Sexually Transmitted Disorders: No - PSYCHIATRIC Hx Psychophysiologic Disorder: No Hx Anxiety: No Hx Bipolar Disorder: No Hx Depression: No Hx Paranoia: No Hx Post Traumatic Stress Disorder: No Hx Schizophrenia: No - SURGICAL HISTORY Hx Surgeries: Yes Hx Appendectomy: Yes Hx Carotid Endarterectomy: No Hx Cholecystectomy: Yes Hx Coronary Artery Bypass Graft: No Hx Coronary Stent: No Hx Splenectomy: Yes Hx Tonsillectomy: No - ANESTHESIA Hx Anesthesia: Yes Hx Anesthesia Reactions: No Hx Malignant Hyperthermia: No Meds Allergies/Adverse Reactions: Allergies Allergy/AdvReac Type Severity Reaction Status Date / Time iodixanol Allergy Severe SHORTNESS Verified 11/09/17 00:24 OF BREATH Iodine and Iodide Containing Allergy SHORTNESS Verified 11/09/17 00:24 Produc OF BREATH ketorolac Allergy ITCHING Verified 11/09/17 00:24 morphine Allergy RASH Verified 11/09/17 00:24 NSAIDS (Non-Steroidal Allergy ITCHING Verified 11/09/17 00:24 Anti-Inflamma ondansetron Allergy ITCHING Verified 11/09/17 00:24 - Medications Medications: Current Medications Enoxaparin Sodium (Lovenox) 130 mg SC Q12 RAYSHAWN PRN Reason: Protocol Last Admin: 11/10/17 09:21 Dose: 130 mg Famotidine (Pepcid) 20 mg PO BID [facility] Last Admin: 11/10/17 16:29 Dose: 20 mg Hydromorphone HCl (Dilaudid) 1 mg IVP Q6 PRN PRN Reason: Pain, moderate (4-7) Last Admin: 11/10/17 17:21 Dose: 1 mg Methylprednisolone (Solu-Medrol) 80 mg IV Q6 [facility] Last Admin: 11/10/17 22:20 Dose: 80 mg Metoclopramide HCl (Reglan) 10 mg IVP Q6 PRN PRN Reason: Nausea/Vomiting Physical Exam - Constitutional Appears: No Acute Distress - Head Exam Head Exam: ATRAUMATIC - Eye Exam Eye Exam: Normal appearance - ENT Exam ENT Exam: Mucous Membranes Moist - Respiratory Exam Respiratory Exam: Clear to Auscultation Bilateral - Cardiovascular Exam Cardiovascular Exam: REGULAR RHYTHM, +S1, +S2 - GI/Abdominal Exam GI & Abdominal Exam: Normal Bowel Sounds, Organomegaly, Soft. absent: Tenderness Results - Vital Signs Recent Vital Signs: Last Vital Signs Temp 98.2 F 11/10/17 18:54 Pulse 104 H 11/10/17 18:54 Resp 20 11/10/17 18:54 BP 108/67 11/10/17 18:54 Pulse Ox 98 11/10/17 18:54 - Labs Result Diagrams: 11/10/17 18:00 11/09/17 02:53 Labs: Laboratory Results - last 24 hr 11/10/17 11/10/17 06:33 18:00 WBC 11.3 H 14.9 H RBC 4.67 4.46 Hgb 10.6 L 10.5 L Hct 35.6 33.1 L MCV 76.2 L D 74.3 L MCH 22.7 L 23.6 L MCHC 29.8 L 31.7 L RDW 17.8 H 17.9 H Plt Count 488 H 503 H MPV 8.2 Neut % (Auto) 85.5 H Lymph % (Auto) 8.5 L [place] % (Auto) 5.8 Eos % (Auto) 0.0 Baso % (Auto) 0.2 Neut # 12.7 H Lymph # 1.3 [place] # 0.9 H Eos # 0.0 Baso # 0.0 Neutrophils % (Manual) 83 H Band Neutrophils % 1 Lymphocytes % (Manual) 12 L Monocytes % (Manual) 4 Platelet Estimate Slightly increased H Large Platelets Present Giant Platelets Present Hypochromasia (manual) Slight Poikilocytosis (manual Moderate Anisocytosis (manual) Slight Microcytosis (manual) Slight Spherocytes Slight Target Cells Slight Tear Drop Cells Slight Ovalocytes Slight Bruce Cells Slight Acanthocytes (Spur) Slight Schistocytes Slight Assessment & Plan (1) Hematemesis/vomiting blood Assessment and Plan: R/o ulcer,, gastritis, and Christal Jolly. Upper endoscopy Saturday. Status: Acute
--- NOTE | 2017-11-11 09:03 | CP.PCM.PN ---
Subjective - Date & Time of Evaluation Date of Evaluation: 11/11/17 Time of Evaluation: 09:04 - Subjective Subjective: VOMITED LARGE QUANTITIES OF BLOOD YESTERDAY STILL HAS CHEST/ABDOMINAL PAINS AND NAUSEA Objective - Vital Signs/Intake and Output Vital Signs (last 24 hours): Temp Pulse Resp BP Pulse Ox 97.5 F L 77 18 123/80 97 11/11/17 08:10 11/11/17 08:10 11/11/17 08:10 11/11/17 08:10 11/11/17 08:10 - Medications Medications: Current Medications Enoxaparin Sodium (Lovenox) 130 mg SC Q12 ON [facility] OF [facility] PRN Reason: Protocol Last Admin: 11/10/17 09:21 Dose: 130 mg Famotidine (Pepcid) 20 mg PO BID ON [facility] OF [facility] Last Admin: 11/10/17 16:29 Dose: 20 mg Hydromorphone HCl (Dilaudid) 1 mg IVP Q6 PRN PRN Reason: Pain, moderate (4-7) Last Admin: 11/11/17 03:56 Dose: 1 mg Methylprednisolone (Solu-Medrol) 80 mg IV Q6 ON LICENSE OF [facility] Last Admin: 11/11/17 03:56 Dose: 80 mg Metoclopramide HCl (Reglan) 10 mg IVP Q6 PRN PRN Reason: Nausea/Vomiting - Labs Labs: 11/10/17 18:00 11/09/17 02:53 PT 12.0 Seconds (9.8-13.1) 11/09/17 02:53 INR 1.1 (0.9-1.2) 11/09/17 02:53 APTT 32.0 Seconds (25.6-37.1) 11/09/17 02:53 - Constitutional Appears: In Acute Distress - Head Exam Head Exam: ATRAUMATIC, NORMAL INSPECTION, NORMOCEPHALIC - Eye Exam Eye Exam: EOMI, Normal appearance, PERRL Pupil Exam: NORMAL ACCOMODATION, PERRL - ENT Exam ENT Exam: Mucous Membranes Moist, Normal Exam - Neck Exam Neck Exam: Full ROM, Normal Inspection. absent: Lymphadenopathy - Respiratory Exam Respiratory Exam: Clear to Ausculation Bilateral, NORMAL BREATHING PATTERN - Cardiovascular Exam Cardiovascular Exam: REGULAR RHYTHM, +S1, +S2. absent: Murmur - GI/Abdominal Exam GI & Abdominal Exam: Soft, Tenderness, Normal Bowel Sounds - Rectal Exam Rectal Exam: NORMAL INSPECTION - Extremities Exam Extremities Exam: Full ROM, Normal Capillary Refill, Normal Inspection. absent : Joint Swelling, Pedal Edema - Back Exam Back Exam: NORMAL INSPECTION - Neurological Exam Neurological Exam: Alert, Awake, CN II-XII Intact, Normal Gait, Oriented x3 - Psychiatric Exam Psychiatric exam: Normal Affect, Normal Mood - Skin Skin Exam: Dry, Intact, Normal Color, Warm Assessment and Plan - Assessment and Plan (Free Text) Assessment: CHEST/ABDOMINAL PAINS--CT SCAN OF CHEST--NO EVIDENCE OF PULMONARY EMBOLI ANEMIA--STABLE GASTROINTESTINAL BLEEDING--R/O PEPTIC ULCER DZ HX OF PULMONARY EMBOLI--DOCUMENTED ON MULTIPLE SCANS--UP TO 07/2017 PT INDICATES THAT VENOUS DOPPLER OF LEGS HAVE ALL BEEN NEGATIVE FOR DVT Plan: CONTINUE CURRENT RX FOR EGD TODAY CONSIDER D/C IN AM IF HB IS STABLE AND EGD NON-REVEALING
--- NOTE | 2017-11-11 09:32 | PQF GENQUE ---
This form is a permanent part of the medical record 11/11/17 Dr. Simmons, Documentation of Morbid Obesity. The EMR has the patient listed as 5' 5", weighing 280 pounds with a BMI of 46.6. If you concur with the BMI would you please document in your progress note or other explanation( Please specify) ___ ___. Clarification of your documentation is requested to better reflect the severity of illness and intensity of treatment of your patient. Indicators present [] Specify: [] [] Specify: [] [] Specify: [] [] Specify: [] Location in the medical record that reflects the above clinical findings: [] Treatment Provided: [] PHYSICIAN'S RESPONSE Based on your medical judgment of the clinical indicators outlined above please clarify the following: x[] Practitioner response --morbid obesity[BMI]--46.6 [] If unable to determine, please check the box, sign and date. Present On Admission (POA) Indicator: [] Present at the time of admission [] Not present at the time of admission [] Clinically Undetermined In responding to this query, please exercise your independent professional judgment. The fact that a question is asked does not imply that any particular answer is desired or expected. Thank you for your clarification on this documentation. If you have any questions please call:ext [phone] * Thank you, Kath Singleton RN [facility]
[2017-11-11] MEDS ORDERED: Lactated Ringer's 1,000 ML IV ONE (09:36)
[2017-11-11] MEDS ORDERED: Lidocaine 2% MPF (5 ml) Inj ONE (09:40)
[2017-11-11] MEDS ORDERED: Propofol 10 mg/ml Inj (20 ML) ONE (09:40)
[2017-11-12 06:11] LABS: HEMOGLOBIN 9.4 g/dL (12.0-16.0); MEAN CELL VOLUME 75.5 fl (81.0-99.0); MEAN CORPUSCULAR HEMOGLOBIN 23.1 pg (27.0-31.0); MEAN CORPUSCULAR HGB CONC 30.6 g/dL (33.0-37.0); RBC 4.07 Mil/uL (3.80-5.20); RED CELL DISTRIBUTION WIDTH 17.6 % (11.5-14.5); WHITE BLOOD COUNT 11.8 K/uL (4.8-10.8)
--- NOTE | 2017-11-12 09:04 | CP.PCM.PN ---
Subjective - Date & Time of Evaluation Date of Evaluation: 11/12/17 Time of Evaluation: 09:04 - Subjective Subjective: CONTINUES TO ASK FOR PAIN MEDS VOMITED BRIGHT RED BLOOD TOSAY S/P EGD--GASTRITIS WITHOUT ACTIVE BLEEDING HB-9.4 VSS Objective - Vital Signs/Intake and Output Vital Signs (last 24 hours): Temp Pulse Resp BP Pulse Ox 98 F 67 18 156/77 H 95 11/12/17 08:00 11/12/17 08:00 11/12/17 08:00 11/12/17 08:00 11/12/17 08:00 - Medications Medications: Current Medications Acetaminophen (Tylenol 325mg Tab) 650 mg PO Q4 PRN PRN Reason: Pain, moderate (4-7) Enoxaparin Sodium (Lovenox) 130 mg SC Q12 RAYSHAWN PRN Reason: Protocol Last Admin: 11/10/17 09:21 Dose: 130 mg Famotidine (Pepcid) 20 mg PO BID [facility] Last Admin: 11/11/17 17:37 Dose: 20 mg Metoclopramide HCl (Reglan) 10 mg IVP Q6 PRN PRN Reason: Nausea/Vomiting Pantoprazole Sodium (Protonix Inj) 40 mg IVP DAILY [facility] - Labs Labs: 11/12/17 04:25 11/09/17 02:53 PT 12.0 Seconds (9.8-13.1) 11/09/17 02:53 INR 1.1 (0.9-1.2) 11/09/17 02:53 APTT 32.0 Seconds (25.6-37.1) 11/09/17 02:53 - Constitutional Appears: No Acute Distress - Head Exam Head Exam: ATRAUMATIC, NORMAL INSPECTION, NORMOCEPHALIC - Eye Exam Eye Exam: EOMI, Normal appearance, PERRL Pupil Exam: NORMAL ACCOMODATION, PERRL - ENT Exam ENT Exam: Mucous Membranes Moist, Normal Exam - Neck Exam Neck Exam: Full ROM, Normal Inspection. absent: Lymphadenopathy - Respiratory Exam Respiratory Exam: Clear to Ausculation Bilateral, NORMAL BREATHING PATTERN - Cardiovascular Exam Cardiovascular Exam: REGULAR RHYTHM, +S1, +S2. absent: Murmur - GI/Abdominal Exam GI & Abdominal Exam: Soft, Normal Bowel Sounds. absent: Tenderness - Rectal Exam Rectal Exam: NORMAL INSPECTION - Extremities Exam Extremities Exam: Full ROM, Normal Capillary Refill, Normal Inspection. absent : Joint Swelling, Pedal Edema - Back Exam Back Exam: NORMAL INSPECTION - Neurological Exam Neurological Exam: Alert, Awake, CN II-XII Intact, Normal Gait, Oriented x3 - Psychiatric Exam Psychiatric exam: Normal Affect, Normal Mood - Skin Skin Exam: Dry, Intact, Normal Color, Warm Assessment and Plan - Assessment and Plan (Free Text) Assessment: CHEST/ABDOMINAL PAIN GI BLEEDING--GASTRITIS ANEMIA MORBID OBESITY Plan: IV PROTONIX D/C DILAUDIS TYLENOL AND REGLAN,PRN D/C SOLUMEDROL AND BENADRYL
--- NOTE | 2017-11-12 20:08 | CP.PCM.PN ---
Subjective - Date & Time of Evaluation Date of Evaluation: 11/12/17 Time of Evaluation: 20:06 - Subjective Subjective: Had episode of vomiting blood this morning. None since Objective - Vital Signs/Intake and Output Vital Signs (last 24 hours): Temp Pulse Resp BP Pulse Ox 98.2 F 99 H 20 93/63 L 98 11/12/17 16:17 11/12/17 16:17 11/12/17 16:17 11/12/17 16:17 11/12/17 16:17 - Medications Medications: Current Medications Acetaminophen (Tylenol 325mg Tab) 650 mg PO Q4 PRN PRN Reason: Pain, moderate (4-7) Metoclopramide HCl (Reglan) 10 mg IVP Q6 PRN PRN Reason: Nausea/Vomiting Last Admin: 11/12/17 10:09 Dose: 10 mg Pantoprazole Sodium (Protonix Inj) 40 mg IVP DAILY RAYSHAWN Last Admin: 11/12/17 10:04 Dose: 40 mg - Labs Labs: 11/12/17 04:25 11/09/17 02:53 PT 12.0 Seconds (9.8-13.1) 11/09/17 02:53 INR 1.1 (0.9-1.2) 11/09/17 02:53 APTT 32.0 Seconds (25.6-37.1) 11/09/17 02:53 - Head Exam Head Exam: ATRAUMATIC - Eye Exam Eye Exam: Normal appearance - ENT Exam ENT Exam: Mucous Membranes Moist - Respiratory Exam Respiratory Exam: Clear to Ausculation Bilateral - Cardiovascular Exam Cardiovascular Exam: REGULAR RHYTHM - GI/Abdominal Exam GI & Abdominal Exam: Soft, Normal Bowel Sounds. absent: Tenderness Assessment and Plan (1) Hematemesis/vomiting blood Assessment & Plan: Upper endoscopy showed gastritis, biopsies pending. Twice daily PPI therapy for now. Status: Acute
[2017-11-13 06:42] LABS: HEMOGLOBIN 10.2 g/dL (12.0-16.0); MEAN CELL VOLUME 75.5 fl (81.0-99.0); MEAN CORPUSCULAR HEMOGLOBIN 23.3 pg (27.0-31.0); MEAN CORPUSCULAR HGB CONC 30.9 g/dL (33.0-37.0); RBC 4.38 Mil/uL (3.80-5.20); RED CELL DISTRIBUTION WIDTH 17.8 % (11.5-14.5); WHITE BLOOD COUNT 9.2 K/uL (4.8-10.8)
--- NOTE | 2017-11-13 09:54 | PQF GENQUE ---
This form is a permanent part of the medical record 11/13/17 Dr. Simmons, 1) After workup would you please clarify the possible etiology of the chest pain if known. 2) After workup would you please clarify the type of Anemia if known Patient with a history of multiple pulmonary embolisms presents with chest pain ,SOB and blood tinged vomitus. Pulmonary embolism ruled out. EGD performed: A few specks of old blood seen in stomach c/w small recent UGI bleed, DX: Gastritis. H&H 11.1/34.9--> 9.4/30.7. MCV and MCH low. CBC being monitored. Clarification of your documentation is requested to better reflect the severity of illness and intensity of treatment of your patient. Indicators present [] Specify: [] [] Specify: [] [] Specify: [] [] Specify: [] Location in the medical record that reflects the above clinical findings: [] Treatment Provided: [] PHYSICIAN'S RESPONSE Based on your medical judgment of the clinical indicators outlined above please clarify the following: [X] Practitioner response --CHEST PAIN--UNKNOWN ETIOLOGY [X] If unable to determine, please check the box, sign and date. ANEMIA DUE TO GI BLOOD LOSS Present On Admission (POA) Indicator: [] Present at the time of admission [] Not present at the time of admission [] Clinically Undetermined In responding to this query, please exercise your independent professional judgment. The fact that a question is asked does not imply that any particular answer is desired or expected. Thank you for your clarification on this documentation. If you have any questions please call:ext [phone] * Thank you, Kath Singleton RN [facility]
--- NOTE | 2017-11-13 10:00 | CP.PCM.DIS ---
Provider - Provider Date of Admission: 11/09/17 00:53 Attending physician: Rory Simmons MD Time Spent in preparation of Discharge (in minutes): 30 Diagnosis - Discharge Diagnosis (1) Chest pain Status: Acute (2) Anemia Status: Active (3) Abdominal pain Status: Acute (4) Hematemesis/vomiting blood Status: Acute Hospital Course - Lab Results Lab Results: Most Recent Lab Values WBC 9.2 K/uL (4.8-10.8) 11/13/17 06:16 RBC 4.38 Mil/uL (3.80-5.20) 11/13/17 06:16 Hgb 10.2 g/dL (12.0-16.0) L 11/13/17 06:16 Hct 33.0 % (34.0-47.0) L 11/13/17 06:16 MCV 75.5 fl (81.0-99.0) L 11/13/17 06:16 MCH 23.3 pg (27.0-31.0) L 11/13/17 06:16 MCHC 30.9 g/dL (33.0-37.0) L 11/13/17 06:16 RDW 17.8 % (11.5-14.5) H 11/13/17 06:16 Plt Count 454 K/uL (130-400) H 11/13/17 06:16 MPV 8.2 fl (7.2-11.7) 11/10/17 18:00 Neut % (Auto) 85.5 % (50.0-75.0) H 11/10/17 18:00 Lymph % (Auto) 8.5 % (20.0-40.0) L 11/10/17 18:00 [place] % (Auto) 5.8 % (0.0-10.0) 11/10/17 18:00 Eos % (Auto) 0.0 % (0.0-4.0) 11/10/17 18:00 Baso % (Auto) 0.2 % (0.0-2.0) 11/10/17 18:00 Neut # 12.7 K/uL (1.8-7.0) H 11/10/17 18:00 Lymph # 1.3 K/uL (1.0-4.3) 11/10/17 18:00 [place] # 0.9 K/uL (0.0-0.8) H 11/10/17 18:00 Eos # 0.0 K/uL (0.0-0.7) 11/10/17 18:00 Baso # 0.0 K/uL (0.0-0.2) 11/10/17 18:00 Neutrophils % (Manual) 83 % (42-75) H 11/10/17 18:00 Band Neutrophils % 1 % (0-2) 11/10/17 18:00 Lymphocytes % (Manual) 12 % (20-50) L 11/10/17 18:00 Monocytes % (Manual) 4 % (0-10) 11/10/17 18:00 Platelet Estimate Slightly increased (NORMAL) H 11/10/17 18:00 Large Platelets Present 11/10/17 18:00 Giant Platelets Present 11/10/17 18:00 Hypochromasia (manual) Slight 11/10/17 18:00 Poikilocytosis (manual Moderate 11/10/17 18:00 Anisocytosis (manual) Slight 11/10/17 18:00 Microcytosis (manual) Slight 11/10/17 18:00 Spherocytes Slight 11/10/17 18:00 Target Cells Slight 11/10/17 18:00 Tear Drop Cells Slight 11/10/17 18:00 Ovalocytes Slight 11/10/17 18:00 Bruce Cells Slight 11/10/17 18:00 Acanthocytes (Spur) Slight 11/10/17 18:00 Schistocytes Slight 11/10/17 18:00 PT 12.0 Seconds (9.8-13.1) 11/09/17 02:53 INR 1.1 (0.9-1.2) 11/09/17 02:53 APTT 32.0 Seconds (25.6-37.1) 11/09/17 02:53 D-Dimer, Quantitative 85 ng/mlDDU (0-230) 11/09/17 02:53 Sodium 140 mmol/l (132-148) 11/09/17 02:53 Potassium 4.0 MMOL/L (3.6-5.0) 11/09/17 02:53 Chloride 101 mmol/L (98-107) 11/09/17 02:53 Carbon Dioxide 29 mmol/L (22-30) 11/09/17 02:53 Anion Gap 14 (10-20) 11/09/17 02:53 BUN 16 mg/dl (7-17) 11/09/17 02:53 Creatinine 0.7 mg/dl (0.7-1.2) 11/09/17 02:53 Est GFR ( Amer) > 60 11/09/17 02:53 Est GFR (Non-Af Amer) > 60 11/09/17 02:53 Random Glucose 125 mg/dL (65-105) H 11/09/17 02:53 Calcium 9.8 mg/dL (8.4-10.2) 11/09/17 02:53 Troponin I < 0.0120 ng/mL (0.00-0.120) 11/09/17 02:53 - Hospital Course Hospital Course: CONTINUES TO C/O INTERMITTENT VOMITING WITH CHEST/ABDOMINAL PAINS NO FURTHER HEMATEMESES HB STABLE Discharge Exam - Head Exam Head Exam: ATRAUMATIC - Eye Exam Eye Exam: EOMI, Normal appearance, PERRL Pupil Exam: NORMAL ACCOMODATION, PERRL - GI/Abdominal Exam GI & Abdominal Exam: Normal Bowel Sounds - Rectal Exam Rectal Exam: NORMAL INSPECTION - Neurological Exam Neurological exam: Alert, CN II-XII Intact, Normal Gait, Oriented x3, Reflexes Normal - Psychiatric Exam Psychiatric exam: Normal Affect, Normal Mood - Skin Skin Exam: Dry, Intact, Normal Color, Warm Discharge Plan - Follow Up Plan Condition: GUARDED Disposition: HOME/ ROUTINE Patient education suggested?: Yes Additional Instructions: DISCHARGE ON PROTONIX AND REGLAN FOLLOW UP WITH PMD D/C ANALGESICS RETURN TO ER IF SYMPTOMS WORSEN/PERSIST
[2017-11-14 06:30] LABS: HEMOGLOBIN 10.8 g/dL (12.0-16.0); MEAN CELL VOLUME 74.6 fl (81.0-99.0); MEAN CORPUSCULAR HEMOGLOBIN 23.3 pg (27.0-31.0); MEAN CORPUSCULAR HGB CONC 31.3 g/dL (33.0-37.0); RBC 4.64 Mil/uL (3.80-5.20); RED CELL DISTRIBUTION WIDTH 17.9 % (11.5-14.5); WHITE BLOOD COUNT 10.4 K/uL (4.8-10.8)
--- NOTE | 2017-11-14 06:31 | PQF GENQUE ---
This form is a permanent part of the medical record 11/14/17 Dr. Simmons, Documentation of Anemia due to GI Blood Loss. Would you please clarify if this is acute blood loss anemia , chronic blood loss anemia, both, clinically unable to determine, unknown. EGD performed: A few specks of old blood seen in stomach c/w small recent UGI bleed, DX: Gastritis. H&H 11.1/34.9--> 9.4/30.7. MCV and MCH low. CBC being monitored. Clarification of your documentation is requested to better reflect the severity of illness and intensity of treatment of your patient. Indicators present [] Specify: [] [] Specify: [] [] Specify: [] [] Specify: [] Location in the medical record that reflects the above clinical findings: [] Treatment Provided: [] PHYSICIAN'S RESPONSE Based on your medical judgment of the clinical indicators outlined above please clarify the following: [] Practitioner response --gastritis [] If unable to determine, please check the box, sign and date. Present On Admission (POA) Indicator: [] Present at the time of admission [] Not present at the time of admission [] Clinically Undetermined In responding to this query, please exercise your independent professional judgment. The fact that a question is asked does not imply that any particular answer is desired or expected. Thank you for your clarification on this documentation. If you have any questions please call:ext [phone] * Thank you, Kath Singleton RN [facility]
--- NOTE | 2017-11-14 09:10 | CP.PCM.PN ---
Subjective - Date & Time of Evaluation Date of Evaluation: 11/14/17 Time of Evaluation: 09:13 - Subjective Subjective: PT WAS DISCHARGED YESTERDAY BUT WAS UNABLE TO LEAVE BECAUSE OF CLAINS OF NAUSEA AND VOMITING OF BLOOD STILL FEELS WEAK Objective - Vital Signs/Intake and Output Vital Signs (last 24 hours): Temp Pulse Resp BP Pulse Ox 97.7 F 75 20 113/80 96 11/14/17 08:00 11/14/17 08:00 11/14/17 08:00 11/14/17 08:00 11/14/17 08:00 - Medications Medications: Current Medications Acetaminophen (Tylenol 325mg Tab) 650 mg PO Q4 PRN PRN Reason: Pain, moderate (4-7) Metoclopramide HCl (Reglan) 10 mg IVP Q6 [facility] Last Admin: 11/14/17 05:55 Dose: 10 mg Pantoprazole Sodium (Protonix Inj) 40 mg IVP DAILY [facility] Last Admin: 11/13/17 09:31 Dose: 40 mg - Labs Labs: 11/14/17 05:00 11/09/17 02:53 PT 12.0 Seconds (9.8-13.1) 11/09/17 02:53 INR 1.1 (0.9-1.2) 11/09/17 02:53 APTT 32.0 Seconds (25.6-37.1) 11/09/17 02:53 - Constitutional Appears: No Acute Distress - Head Exam Head Exam: ATRAUMATIC, NORMAL INSPECTION, NORMOCEPHALIC - Eye Exam Eye Exam: EOMI, Normal appearance, PERRL Pupil Exam: NORMAL ACCOMODATION, PERRL - ENT Exam ENT Exam: Mucous Membranes Moist, Normal Exam - Neck Exam Neck Exam: Full ROM, Normal Inspection. absent: Lymphadenopathy - Respiratory Exam Respiratory Exam: Clear to Ausculation Bilateral, NORMAL BREATHING PATTERN - Cardiovascular Exam Cardiovascular Exam: REGULAR RHYTHM, +S1, +S2. absent: Murmur - GI/Abdominal Exam GI & Abdominal Exam: Soft, Normal Bowel Sounds. absent: Tenderness - Rectal Exam Rectal Exam: NORMAL INSPECTION - Extremities Exam Extremities Exam: Full ROM, Normal Capillary Refill, Normal Inspection. absent : Joint Swelling, Pedal Edema - Back Exam Back Exam: NORMAL INSPECTION - Neurological Exam Neurological Exam: Alert, Awake, CN II-XII Intact, Normal Gait, Oriented x3 - Psychiatric Exam Psychiatric exam: Normal Affect, Normal Mood - Skin Skin Exam: Dry, Intact, Normal Color, Warm Assessment and Plan (1) Chest pain Status: Acute (2) Anemia Status: Active (3) Abdominal pain Status: Acute (4) Hematemesis/vomiting blood Status: Acute - Assessment and Plan (Free Text) Assessment: HB STABLE Plan: PT ADVISED TO GO HOME AND FOLLOW UP WITH HER PMD SHE IS ASKED TO SEEK A 2ND OPINION OUT PT SINCE ALL WORKUP IS NON-REVEALING D/C LOVENOX CONTINUE PROTONIX AND REGLAN D/C ANALGESICS
--- NOTE | 2017-11-14 10:58 | CP.PCM.PCO ---
Assessment & Plan - Assessment and Plan (Free Text) Assessment: R TLC removed, tip intact, pressuse applied to site, clean dry intact pt, for d/c to home today
[2017-11-14 12:47] VITALS: TEMP 98.5
[2017-11-14 16:26] VITALS: BP 119/85; PULSE 115; RESP 17; O2SAT 99
== END 2017-11-14 16:00 | disposition home or self-care (01) | DRG 143 ==
LOC: H.ER 00:04 → H.ERHOLD 00:53 → H.TEL 05:08
PROVIDERS: ADMIT Internal Medicine Pulmonary Disease; ATTEND Internal Medicine Pulmonary Disease
PROC: 05HN33Z Insertion of Infusion Device into Left Internal Jugular Vein, Percutaneous Approach (ICD-10-PCS; principal; 2017-11-09)
PROC: 0DB68ZX Excision of Stomach, Via Natural or Artificial Opening Endoscopic, Diagnostic (ICD-10-PCS; 2017-11-11)
DX: R07.9 Chest pain, unspecified (principal); K92.0 Hematemesis; E66.01 Morbid (severe) obesity due to excess calories; Z68.42 Body mass index [BMI] 45.0-49.9, adult; D62 Acute posthemorrhagic anemia; J44.9 Chronic obstructive pulmonary disease, unspecified; N18.9 Chronic kidney disease, unspecified; Z91.041 Radiographic dye allergy status; K29.50 Unspecified chronic gastritis without bleeding; Z86.711 Personal history of pulmonary embolism; R03.0 Elevated blood-pressure reading, without diagnosis of hypertension; F41.9 Anxiety disorder, unspecified; Z73.3 Stress, not elsewhere classified

== ENCOUNTER 2018-05-30 12:36 | Inpatient (IN) | payer MEDICAID, OTHER ==
[2018-05-30 12:36] VITALS: BMI 48.4
[2018-05-30] MEDS ORDERED: Sodium Chloride 0.9% 1,000 ML IV STA ×2 (12:53→13:05)
--- NOTE | 2018-05-30 13:03 | ED PDOC ---
HPI: Chest Pain Time Seen by Provider: 05/30/18 12:52 Chief Complaint (Nursing): Chest Pain Chief Complaint (Provider): Chest pain History Per: Patient History/Exam Limitations: no limitations Onset/Duration Of Symptoms: Days (today) Current Symptoms Are (Timing): Still Present Additional Complaint(s): Pt. with chest pain and dyspnea that started suddenly [employer]hrs [employer]. Has hx of pe dx few years ago. They have happened multiple times since. She lost her insurance and not taking lovenox for 3 weeks. Also has coughing up of bloody. No headaches, dizziness, weakness, leg pain. No fever. No back pain, abd pain , nausea, vomit, diarrhea. Not on any other meds. Past Medical History Reviewed: Nursing Documentation, Vital Signs Vital Signs: Last Vital Signs Temp 98.3 F 05/30/18 12:46 Pulse 121 H 05/30/18 15:19 Resp 20 05/30/18 15:19 BP 127/80 05/30/18 12:46 Pulse Ox 95 05/30/18 15:33 - Medical History PMH: Asthma, Gall Bladder Disease, Kidney Stones, Pulmonary Embolism (x11), Chronic Kidney Disease Denies: Alzheimer's Disease, Anemia, Anxiety, Arthritis, Atrial Fibrillation , Bipolar Disorder, Bronchitis, CAD, Cardia Arrhythmia, CHF, COPD, Crohn's Disease, Dementia, Depression, Diverticulitis, Emphysema, Fibromyalgia, Fractures, Gastritis, Gastrointestinal Ulcer, HIV, HTN, Hypercholesterolemia, Hyperthyroidism, Hypothyroidism, Migraine, Mitral Valve Prolapse, Multiple Sclerosis, Osteoporosis, Pancreatitis, Paranoia, Parkinson's Disease, Peripheral Edema, Pneumonia, Post Traumatic Stress Disorder, Rheumatoid Arthritis, Schizophrenia, Seizures, Sickle Cell Disease, Sexually Transmitted Disease, Sleep Apnea, TIA - Surgical History Surgical History: Appendectomy, Cholecystectomy Denies: CABG, Carotid Endarterectomy, Coronary Stent, Pacemaker, Tonsillectomy - Family History Family History: States: Hypertension - Immunization History Hx Tetanus Toxoid Vaccination: Yes Hx Influenza Vaccination: No Hx Pneumococcal Vaccination: Yes - Home Medications Home Medications: Ambulatory Orders Medication Instructions Recorded Enoxaparin [Lovenox] 120 mg SQ BID 03/01/18 Famotidine [Pepcid] 40 mg PO HS #20 tab 03/03/18 Ferrous Sulfate [Feosol] 324 mg PO DAILY 14 Days ect 03/03/18 Sucralfate [Carafate Oral Susp] 1 gm PO QID #20 [facility] [place] 03/03/18 - Allergies Allergies/Adverse Reactions: Allergies Allergy/AdvReac Type Severity Reaction Status Date / Time iodixanol Allergy Severe SHORTNESS Verified 02/04/18 00:04 OF BREATH acetaminophen [From Percocet] Allergy RASH Verified 02/04/18 04:08 ibuprofen [From Motrin] Allergy SHORTNESS Verified 05/30/18 12:44 OF BREATH Iodine and Iodide Containing Allergy SHORTNESS Verified 02/04/18 00:04 Produc OF BREATH ketorolac Allergy ITCHING Verified 02/04/18 00:04 NSAIDS (Non-Steroidal Allergy ITCHING Verified 02/04/18 00:04 Anti-Inflamma ondansetron Allergy ITCHING Verified 02/04/18 00:04 oxycodone [From Percocet] Allergy RASH Verified 02/04/18 04:08 Review of Systems ROS Statement: Except As Marked, All Systems Reviewed And Found Negative Cardiovascular: Positive for: Chest Pain Respiratory: Positive for: Shortness of Breath Physical Exam - Reviewed Nursing Documentation Reviewed: Yes Vital Signs Reviewed: Yes - Physical Exam Appears: Positive for: Non-toxic, No Acute Distress Head Exam: Positive for: ATRAUMATIC, NORMAL INSPECTION, NORMOCEPHALIC Skin: Positive for: Normal Color, Warm, DRY Eye Exam: Positive for: EOMI, Normal appearance, PERRL ENT: Positive for: Normal ENT Inspection Neck: Positive for: Normal, Painless ROM, Supple Cardiovascular/Chest: Positive for: Tachycardia. Negative for: Chest Non Tender , Edema Respiratory: Positive for: Normal Breath Sounds. Negative for: Accessory Muscle Use, Wheezing Gastrointestinal/Abdominal: Positive for: Normal Exam, Soft. Negative for: Tenderness Back: Positive for: Normal Inspection. Negative for: L CVA Tenderness, R CVA Tenderness Extremity: Positive for: Normal ROM. Negative for: Tenderness, Pedal Edema, Calf Tenderness Neurologic/Psych: Positive for: Alert, Oriented - Laboratory Results Result Diagrams: 05/30/18 13:41 05/30/18 13:41 Interpretation Of Abn Labs: 2.9 lacate, 5.2 k, 14.2 wbc - ECG ECG: Positive for: Interpreted By Me, Viewed By Me ECG Rhythm: Positive for: Sinus Tachycardia O2 Sat by Pulse Oximetry: 95 Pulse Ox Interpretation: Normal - Radiology X-Ray: Interpreted by Me, Viewed By Me X-Ray Interpretation: No Acute Disease - Progress ED Course And Treament: 1555: Stable. AAOx3. Pain controlled. Lactate elevation likely from dehydration and possible from the pain. Pt. benefit with lovenox out way risk of bleed as pt. has hx of PE. Will admit to [facility] resident nd they will get her CT tomorrow as pt. states she needs benadryl and solumedrol and wait for 24hrs as she is allergic to iodine, but this is how she can get a ct with contrast. Disposition - Clinical Impression Clinical Impression: Acute chest pain, Pulmonary embolism, Hyperkalemia - Patient ED Disposition Is Patient to be Admitted: Yes Counseled Patient/Family Regarding: Studies Performed, Diagnosis - Disposition Disposition Time: 16:01 Condition: FAIR - Pt Status Changed To: Hospital Disposition Of: Inpatient - Admit Certification Admit to Inpatient:: After my assessment, the patient will require hospitalization for at least two midnights. This is because of the severity of symptoms shown, intensity of services needed, and/or the medical risk in this patient being treated as an outpatient. - POA Present On Arrival: Deep Vein Thrombosis / PE
[2018-05-30] MEDS ORDERED: Albuterol-Ipratrop 3 mg / 0.5 (3 ml) UD IH STA (13:05)
[2018-05-30] MEDS ORDERED: Albuterol-Ipratrop 3 mg / 0.5 (3 ml) UD INH STA (13:05)
[2018-05-30] MEDS ORDERED: Morphine 4 MG/ML VIAL IV ONE (13:06)
[2018-05-30] MEDS ORDERED: DiphenhydrAMINE 50 mg/ml Inj IV STA (13:06)
[2018-05-30] MEDS ORDERED: Morphine 4 MG/ML VIAL ONE ×4 (13:52→23:02)
[2018-05-30] MEDS ORDERED: DiphenhydrAMINE 50 mg/ml Inj ONE (13:52)
[2018-05-30] MEDS ORDERED: Albuterol-Ipratrop 3 mg / 0.5 (3 ml) UD ONE (13:52)
[2018-05-30 13:57] LABS: ALB/GLOB RATIO 1.4 (1.0-2.1); ALBUMIN 4.4 g/dL (3.5-5.0); ALT/SGPT 34 U/L (9-52); AST/SGOT 29 U/L (14-36); BLOOD UREA NITROGEN 17 mg/dl (7-17); CALCIUM 9.4 mg/dL (8.4-10.2); GFR AFRICAN-AMERICAN > 60; GFR NON-AFRICAN AMERICAN > 60
[2018-05-30 14:03] LABS: BASO # 0.2 K/uL (0.0-0.2); BASO % 1.4 % (0.0-2.0); EOS # 0.5 K/uL (0.0-0.7); EOS % 3.2 % (0.0-4.0); HEMOGLOBIN 10.6 g/dL (12.0-16.0); LYMPH # 3.9 K/uL (1.0-4.3); LYMPH % 27.6 % (20.0-40.0); MEAN CELL VOLUME 70.9 fl (81.0-99.0); MEAN CORPUSCULAR HEMOGLOBIN 21.5 pg (27.0-31.0); MEAN CORPUSCULAR HGB CONC 30.3 g/dL (33.0-37.0); MONO # 1.6 K/uL (0.0-0.8); MONO % 11.5 % (0.0-10.0); NEUT % 56.3 % (50.0-75.0); NRBC % 0.1 % (0.0-0.0); RBC 4.95 Mil/uL (3.80-5.20); RED CELL DISTRIBUTION WIDTH 20.5 % (11.5-14.5); WHITE BLOOD COUNT 14.2 K/uL (4.8-10.8)
[2018-05-30 14:08] LABS: B-TYPE NATRIURETIC PEPTIDE 19.3 pg/ml (0-450)
[2018-05-30 14:11] LABS: INR 1.1; PROTHROMBIN TIME 12.6 Seconds (9.8-13.1)
[2018-05-30 14:13] LABS: PARTIAL THROMBOPLASTIN TIME 31.6 Seconds (25.6-37.1)
[2018-05-30 14:18] LABS: VENOUS BLOOD GAS BASE EXCESS 0.9 mmol/L (0.0-2.0); VENOUS BLOOD GAS PCO2 32 mmHg (40-60); VENOUS BLOOD GAS PO2 174 mm/Hg (30-55); VENOUS BLOOD PH 7.48 (7.32-7.43)
[2018-05-30 14:31] LABS: D DIMER < 200 ng/mlDDU (0-230)
[2018-05-30] MEDS ORDERED: Sod Polystyrene Sulf 15 gm/60 ml Susp PO STA (15:12)
[2018-05-30] MEDS ORDERED: Sod Polystyrene Sulf 15 gm/60 ml Susp ONE (15:23)
[2018-05-30] MEDS ORDERED: Enoxaparin 150 mg Syringe SC STA (15:57)
--- NOTE | 2018-05-30 16:04 | RAD ---
Date of service: 05/30/2018 HISTORY: Dyspnea. COMPARISON: 11/09/2017. FINDINGS: LUNGS: No active pulmonary disease. PLEURA: No significant pleural effusion identified, no pneumothorax apparent. CARDIOVASCULAR: Normal. OSSEOUS STRUCTURES: No significant abnormalities. VISUALIZED UPPER ABDOMEN: Normal. OTHER FINDINGS: None. IMPRESSION: No active disease. No significant interval change compared to the prior examination(s). Concordant results with the preliminary interpretation rendered by the emergency department physician procedure.
--- NOTE | 2018-05-30 17:09 | CP.PCM.HP ---
History of Present Illness - History of Present Illness History of Present Illness: CC: "I started having chest pain and shortness of breath while sitting on the train." 47 y/o obese female w/ pmhx of multiple pulmonary embolism and asthma c/o sudden chest pain, SOB, nausea, vomiting X3, and bloody cough, which began this morning 11AM while commuting to work via train. She states that the chest pain is located primarily in the middle and is 8/10 in severity, does not radiate anywhere. She denies alleviating/aggravating factors. She states that she has not had an asthma exacerbation in 7 years and does not carry a rescue inhaler. She states that she usually walks 9-10 blocks without developing SOB. Pmhx: Pulmonary embolisms x11, asthma, kidney stones SurgicalHx: Appendectomy, cholecystectomy, splenectomy, bilateral tubal ligation Famhx: Father w/ hx of DM and HTN at age 45 from [place]. Mother w/ HTN, afib, seizure disorder Socialhx:Lives w/ two kids. 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 Denies cigarette, etoh , recreational drug use. She is not currently sexually active. 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 Home rx: Lovenox 120 mg BID (stopped 3 weeks ago after losing medicaid) Allergies: Iodixanol, acetaminophen, ibuprofen, iodine, ketorolac, oxycodone PMD: goes to [facility] Next of Kin: Radha Avina, sister, Code Status: full code ED Course: VS: T 98.3 HR 132 BP 127/80 RR 20 O2 sat 95 Labs: CBC, BMP, VBG, D-dimer, coag studies, pro-BNP Imaging: CXR showed no active disease Meds: Dyoneb 3mg/0.5mg, benadryl 25 mg IV, Lovenox 130mg SC, Solu-medrol 125 mg IVP, Morphine 4mg IV twice, NaCl 1L bolus, Kayexalate susp 30gm PO, Present on Admission - Present on Admission Any Indicators Present on Admission: Yes History of DVT/PE: Yes History of Uncontrolled Diabetes: No Urinary Catheter: No Decubitus Ulcer Present: No Review of Systems - Review of Systems Systems not reviewed;Unavailable: Unstable Vital Signs - Constitutional Constitutional: absent: Excessive Sweating, Fatigue, Fever - EENT Eyes: absent: Blurred Vision, Change in Vision Ears: absent: Decreased Hearing - Cardiovascular Cardiovascular: Chest Pain, Dyspnea, Dyspnea on Exertion, Palpitations. absent : Diaphoresis, Leg Edema - Respiratory Respiratory: Cough, Dyspnea, Hemoptysis. absent: Wheezing, Snoring, Chest Congestion, Excessive Mucous Production - Gastrointestinal Gastrointestinal: absent: Abdominal Pain, Constipation, Cramping, Diarrhea - Genitourinary Genitourinary: absent: Change in Urinary Stream, Difficulty Urinating, Dysuria - Reproductive: Female Reproductive:Female: Normal Menses - Musculoskeletal Musculoskeletal: absent: Back Pain, Numbness - Integumentary Integumentary: Unusual Bruising - Neurological Neurological: absent: Dizziness, Numbness, Headaches, Syncope - Psychiatric Psychiatric: absent: Anxiety - Endocrine Endocrine: absent: Palpitations, Polydipsia, Polyphagia, Polyuria - Hematologic/Lymphatic Hematologic: Easy Bruising. absent: Easy Bleeding Past Patient History - Infectious Disease Hx of Infectious Diseases: None - Tetanus Immunizations Tetanus Immunization: Up to Date - Past Medical History & Family History Past Medical History?: Yes - Past Social History Smoking Status: Never Smoked - CARDIAC Hx Atrial Fibrillation: No Hx Cardia Arrhythmia: No Hx Congestive Heart Failure: No Hx Hypercholesterolemia: No Hx Hypertension: No Hx Mitral Valve Prolapse: No Hx Pacemaker: No Hx Peripheral Edema: No - PULMONARY Hx Asthma: Yes Hx Bronchitis: No Hx Chronic Obstructive Pulmonary Disease (COPD): No Hx Emphysema: No Hx Pneumonia: No Hx Pulmonary Embolism: Yes (x11) Hx Sleep Apnea: No - NEUROLOGICAL Hx Alzheimer's Disease: No Hx Dementia: No Hx Migraine: No Hx Multiple Sclerosis: No Hx Parkinson's Disease: No Hx Seizures: No Hx Transient Ischemic Attacks (TIA): No - HEENT Hx HEENT Problems: No Hx Blind: No Hx Cataracts: No Hx Deafness: No Hx Difficulty Chewing: No Hx Epistaxis: No Hx Glaucoma: No Hx Macular Degeneration: No - RENAL Hx Chronic Kidney Disease: Yes Hx Kidney Stones: Yes - ENDOCRINE/METABOLIC Hx Hyperthyroidism: No Hx Hypothyroidism: No - HEMATOLOGICAL/ONCOLOGICAL Hx Anemia: No Hx Human Immunodeficiency Virus (HIV): No Hx Sickle Cell Disease: No - INTEGUMENTARY Hx Dermatological Problems: No Hx Basil Cell: No Hx Bennett: No Hx Cellulitis: No Hx Eczema: No Hx Melanoma: No Hx Psoriasis: No Hx Squamous Cell: No - MUSCULOSKELETAL/RHEUMATOLOGICAL Hx Arthritis: No Hx Fractures: No Hx Osteoporosis: No Hx Rheumatoid Arthritis: No - GASTROINTESTINAL Hx Crohn's Disease: No Hx Diverticulitis: No Hx Gall Bladder Disease: Yes Hx Gastritis: No Hx Pancreatitis: No - GENITOURINARY/GYNECOLOGICAL Hx Sexually Transmitted Disorders: No - PSYCHIATRIC Hx Anxiety: No Hx Bipolar Disorder: No Hx Depression: No Hx Paranoia: No Hx Post Traumatic Stress Disorder: No Hx Schizophrenia: No - SURGICAL HISTORY Hx Appendectomy: Yes Hx Carotid Endarterectomy: No Hx Cholecystectomy: Yes Hx Coronary Artery Bypass Graft: No Hx Coronary Stent: No Hx Tonsillectomy: No - ANESTHESIA Hx Anesthesia: Yes Hx Anesthesia Reactions: No Hx Malignant Hyperthermia: No Meds Allergies/Adverse Reactions: Allergies Allergy/AdvReac Type Severity Reaction Status Date / Time iodixanol Allergy Severe SHORTNESS Verified 02/04/18 00:04 OF BREATH acetaminophen [From Percocet] Allergy RASH Verified 02/04/18 04:08 ibuprofen [From Motrin] Allergy SHORTNESS Verified 05/30/18 12:44 OF BREATH Iodine and Iodide Containing Allergy SHORTNESS Verified 02/04/18 00:04 Produc OF BREATH ketorolac Allergy ITCHING Verified 02/04/18 00:04 NSAIDS (Non-Steroidal Allergy ITCHING Verified 02/04/18 00:04 Anti-Inflamma ondansetron Allergy ITCHING Verified 02/04/18 00:04 oxycodone [From Percocet] Allergy RASH Verified 02/04/18 04:08 Physical Exam - Constitutional Appears: No Acute Distress - Head Exam Head Exam: ATRAUMATIC - Eye Exam Eye Exam: Normal appearance - ENT Exam ENT Exam: Mucous Membranes Moist - Neck Exam Neck exam: Positive for: Normal Inspection. Negative for: Tenderness - Respiratory Exam Respiratory Exam: Clear to Auscultation Bilateral, NORMAL BREATHING PATTERN. absent: Rales, Rhonchi, Wheezes - Cardiovascular Exam Cardiovascular Exam: Tachycardia, REGULAR RHYTHM, RRR, +S1, +S2 - GI/Abdominal Exam GI & Abdominal Exam: Normal Bowel Sounds, Soft. absent: Tenderness - Extremities Exam Extremities exam: Positive for: normal inspection, pedal pulses present. Negative for: pedal edema, tenderness - Back Exam Back exam: absent: CVA tenderness (L), CVA tenderness (R) - Neurological Exam Neurological exam: Alert, Oriented x3 - Psychiatric Exam Psychiatric exam: Normal Affect, Normal Mood - Skin Skin Exam: Dry, Intact, Warm Additional comments: small bruise on the right tricep Results - Vital Signs Recent Vital Signs: Last Vital Signs Temp 98.1 F 05/30/18 16:09 Pulse 128 H 05/30/18 16:09 Resp 20 05/30/18 16:09 BP 111/81 05/30/18 16:09 Pulse Ox 95 05/30/18 16:09 - Labs Result Diagrams: 05/30/18 13:41 05/30/18 13:41 Labs: Laboratory Results - last 24 hr 05/30/18 05/30/18 05/30/18 13:41 13:41 13:41 WBC 14.2 H RBC 4.95 Hgb 10.6 L Hct 35.0 MCV 70.9 L D MCH 21.5 L MCHC 30.3 L RDW 20.5 H Plt Count 710 H D MPV 8.0 Neut % (Auto) 56.3 Lymph % (Auto) 27.6 [place] % (Auto) 11.5 H Eos % (Auto) 3.2 Baso % (Auto) 1.4 Neut # (Auto) 8.0 H Lymph # (Auto) 3.9 [place] # (Auto) 1.6 H Eos # (Auto) 0.5 Baso # (Auto) 0.2 PT 12.6 INR 1.1 APTT 31.6 D-Dimer, Quantitative < 200 pO2 VBG pH VBG pCO2 VBG HCO3 VBG Total CO2 VBG O2 Sat (Calc) VBG Base Excess VBG Potassium Glucose Lactate FiO2 Sodium 141 Potassium 5.2 H Chloride 105 Carbon Dioxide 21 L Anion Gap 20 BUN 17 Creatinine 0.5 L Est GFR ( Amer) > 60 Est GFR (Non-Af Amer) > 60 Random Glucose 134 H Calcium 9.4 Total Bilirubin 0.5 AST 29 ALT 34 Alkaline Phosphatase 90 Troponin I < 0.0120 NT-Pro-B Natriuret Pep 19.3 Total Protein 7.4 Albumin 4.4 Globulin 3.1 Albumin/Globulin Ratio 1.4 Venous Blood Potassium 05/30/18 14:15 WBC RBC Hgb Hct MCV MCH MCHC RDW Plt Count MPV Neut % (Auto) Lymph % (Auto) [place] % (Auto) Eos % (Auto) Baso % (Auto) Neut # (Auto) Lymph # (Auto) [place] # (Auto) Eos # (Auto) Baso # (Auto) PT INR APTT D-Dimer, Quantitative pO2 174 H VBG pH 7.48 H VBG pCO2 32 L VBG HCO3 25.7 VBG Total CO2 24.8 VBG O2 Sat (Calc) 100.2 H VBG Base Excess 0.9 VBG Potassium 4.6 Glucose 130 H Lactate 2.9 H FiO2 21.0 Sodium 138.0 Potassium Chloride 104.0 Carbon Dioxide Anion Gap BUN Creatinine Est GFR ( Amer) Est GFR (Non-Af Amer) Random Glucose Calcium Total Bilirubin AST ALT Alkaline Phosphatase Troponin I NT-Pro-B Natriuret Pep Total Protein Albumin Globulin Albumin/Globulin Ratio Venous Blood Potassium 4.6 - EKG Data EKG Interpreted by: ER Physician Rate: Tachycardia Assessment & Plan - Assessment and Plan (Free Text) Assessment: 47 y/o obese female w/ pmhx of multiple pulmonary embolism and asthma c/o sudden chest pain, SOB, nausea, vomiting X3, and bloody cough. Plan: Chest pain -admit to telemetry -possibly 11/22 to PE, patient hasn't had Lovenox in 3 weeks -Ordered Chest CT PE protocol for 3 AM as patient has iodine allergy. Will give Solu Medrol 65 mg IV 13-7-[address] and Benadryl 50 mg IV [address] -EKG showed sinus tachycardia; CXR no acute active disease. Pro-BNP 19.3, troponin <0.0120. d-dimer <200 -pain mgmt morphine 2mg IV Q6 for moderate pain, 4mg for severe pain. Leukocytosis -wbc 14.2 on admission, patient is afebrile -1L NS 100/hr -will monitor Hyperkalemia -K+ 5.2 -s/p Kayexalate 30gm PO stat in the ER -will check BMP tomorrow Hx of multiple pulmonary embolism -patient states she's had 11 PEs in the past and was on Lovenox 120mg BID at home -Will check CT in the AM as patient has iodine allergy. -PT/APTT/INR 12.6/31.6/1.1 -Antithrombin III wnl 03/22/17, Protein C & S wnl (01/28/17), Factor V activity wnl (03/22/2017) Thrombocytosis -platelet count 710 -will monitor Iron deficiency Anemia -Chronic, stable -hgb 10.6, mcv 709, iron 34 () -previous labs show negative thalassemia work up Diet -Advance as tolerated Code: -Full code - Date & Time Date: 05/30/18 Time: 17:23
[2018-05-30] MEDS ORDERED: Morphine 4 MG/ML VIAL IM STA (20:19)
[2018-05-30] MEDS: Sodium Chloride 0.9% 1,000 ML IV SCH (20:35)
--- NOTE | 2018-05-30 21:44 | PCM.PROC ---
Procedures Attestation:: I certify that I have explained the specified Operation(s) or Procedure(s), risks, benefits and reasonable alternatives to the Patient and/or other person responsible. The opportunity was given to ask questions and all questions answered - Central Line Placement Left Internal Jugular Triple Lumen Catheter Aseptic technique was employed throughout the procedure: Hand Hygiene done prior to procedure, Full sterile barriers (mask, hair cover, sterile gown, sterile gloves), Full body sterile drape, Chloraprep Antiseptic: 30 second prep for IJ or SC sites CVP Time Out Performed: Yes Pt. Placed on Pulse Ox Monitor: Yes Central Line Prep: Chlorhexidine-Alcohol Combination Local Anesthesia Used: Lidocaine 1% Amount of Anesthesia Used (mls): 5 Ultrasound Used for Placement: Yes Central Line Lumen Inserted: triple Central Line Length: 16 cm Post Procedure: Sutured in Place, Good Blood Return, All Ports Aspirated, Flushed, Capped, Sterile Dressing Applied Secured by: Suture Post procedure dressing: Chlorhexidine disc (Biopatch) Post Procedure X-Ray: Yes Patient Tolerated Procedure: Well, No Complications
[2018-05-31] MEDS ORDERED: DiphenhydrAMINE 50 mg/ml Inj IVP ONE ×2 (02:00→21:00)
[2018-05-31] MEDS: Sodium Chloride 0.9% 1,000 ML IV SCH (03:36)
[2018-05-31 07:03] LABS: BLOOD UREA NITROGEN 9 mg/dl (7-17); CALCIUM 8.8 mg/dL (8.4-10.2); GFR AFRICAN-AMERICAN > 60; GFR NON-AFRICAN AMERICAN > 60
--- NOTE | 2018-05-31 09:03 | RAD ---
Date of service: 05/30/2018 HISTORY: post line COMPARISON: Chest radiograph performed 4.5 hours prior. FINDINGS: LUNGS: No active pulmonary disease. PLEURA: No significant pleural effusion identified, no pneumothorax apparent. CARDIOVASCULAR: Atherosclerotic aortic calcifications. Cardiomediastinal silhouette within normal limits. OSSEOUS STRUCTURES: Unchanged. VISUALIZED UPPER ABDOMEN: Vascular stents in the left upper quadrant. OTHER FINDINGS: New left internal jugular access central venous catheter with catheter tip in the SVC. IMPRESSION: New left internal jugular access central venous catheter in satisfactory position. No appreciable pneumothorax. No other significant interval change.
--- NOTE | 2018-05-31 10:03 | CP.PCM.PN ---
Subjective - Date & Time of Evaluation Date of Evaluation: 05/31/18 Time of Evaluation: 08:30 - Subjective Subjective: Patient seen and examined this morning. NAD, AAOx3, c/o mild chest pain and SOB but pain controlled with medications. Patient is tolerating PO intake, ambulating to bathroom. No acute event overnight, S/p IJ line placement last night, couldn't get CT done last night due to line issues. Patient is allergic to iodine, will start her on Steroid IV protocol 13 hr, 7hr and 1hr prior to CT and Benadryl [address] C/w pain management Objective - Vital Signs/Intake and Output Vital Signs (last 24 hours): Temp Pulse Resp BP Pulse Ox 98.1 F 91 H 18 147/79 97 05/31/18 08:14 05/31/18 08:14 05/31/18 08:14 05/31/18 08:14 05/31/18 08:14 - Medications Medications: Current Medications Diphenhydramine HCl (Benadryl) 50 mg IVP ONCE ONE Stop: 05/31/18 21:01 Enoxaparin Sodium (Lovenox) 130 mg SC Q12 RAYSHAWN PRN Reason: Protocol Famotidine (Pepcid) 20 mg IVP DAILY [facility] Last Admin: 05/30/18 17:49 Dose: 20 mg Sodium Chloride (Sodium Chloride 0.9%) 1,000 mls @ 100 mls/hr IV .Q10H RAYSHAWN Stop: 05/31/18 12:59 Last Admin: 05/31/18 03:36 Dose: 100 mls/hr Methylprednisolone (Solu-Medrol) 65 mg IVP ONCE ONE Stop: 05/31/18 15:01 Methylprednisolone (Solu-Medrol) 65 mg IVP ONCE ONE Stop: 05/31/18 21:01 Morphine Sulfate (Morphine) 2 mg IVP Q6 PRN PRN Reason: Pain, severe (8-10) Last Admin: 05/31/18 09:19 Dose: 2 mg Morphine Sulfate (Morphine) 1 mg IVP Q4 PRN PRN Reason: Pain, moderate (4-7) - Labs Labs: 05/30/18 13:41 05/31/18 05:25 PT 12.6 Seconds (9.8-13.1) 05/30/18 13:41 INR 1.1 05/30/18 13:41 APTT 31.6 Seconds (25.6-37.1) 05/30/18 13:41 - Constitutional Appears: No Acute Distress - Head Exam Head Exam: NORMAL INSPECTION - Eye Exam Eye Exam: EOMI, Normal appearance, PERRL Pupil Exam: NORMAL ACCOMODATION - ENT Exam ENT Exam: Mucous Membranes Moist - Neck Exam Neck Exam: Normal Inspection - Respiratory Exam Respiratory Exam: Clear to Ausculation Bilateral, NORMAL BREATHING PATTERN - Cardiovascular Exam Cardiovascular Exam: REGULAR RHYTHM, +S1, +S2 - GI/Abdominal Exam GI & Abdominal Exam: Soft, Normal Bowel Sounds - Back Exam Back Exam: NORMAL INSPECTION. absent: CVA tenderness (L), CVA tenderness (R) - Neurological Exam Neurological Exam: Alert, Awake, CN II-XII Intact, Oriented x3 - Psychiatric Exam Psychiatric exam: Normal Affect - Skin Skin Exam: Normal Color Assessment and Plan - Assessment and Plan (Free Text) Assessment: A/P: 47 y/o obese female w/ pmhx of multiple pulmonary embolism and asthma c/o sudden chest pain, SOB, nausea, vomiting X3, and bloody cough. Chest pain and SOB, r/o PE - Ordered Chest CT PE protocol for 10 PM as patient has iodine allergy. Will give Solu Medrol 65 mg IV 13-7-[address] and Benadryl 50 mg IV [address] - Continue with pain management: Morphine Leukocytosis - Possibly due to her chronic conditions vs PE - Patient is afebrile, will continue monitoring Hyperkalemia - Resolved Hx of multiple pulmonary embolism -patient states she's had 11 PEs in the past and was on Lovenox 120mg BID at home -Will check CT in the AM as patient has iodine allergy. -PT/APTT/INR 12.6/31.6/1.1 -Antithrombin III wnl 03/22/17, Protein C & S wnl (01/28/17), Factor V activity wnl (03/22/2017) Thrombocytosis - Platelet count 736 - Will monitor Iron deficiency Anemia - Chronic - Iron 34 (03/07) - Previous labs show negative thalassemia work up Drug seeking behavior - Follow up urine Drug screen Diet -Advance as tolerated Code: -Full code
[2018-05-31] MEDS: Enoxaparin 150 mg Syringe SC SCH ×2 (11:06→21:10)
[2018-05-31] MEDS ORDERED: Albuterol 0.083% Inhal Sol (2.5 mg/3 mL) UD INH PRN (12:46)
[2018-05-31 13:34] LABS: BASO % 0.2 % (0.0-2.0); HEMOGLOBIN 8.5 g/dL (12.0-16.0); LYMPH # 2.3 K/uL (1.0-4.3); LYMPH % 16.3 % (20.0-40.0); MEAN CELL VOLUME 69.5 fl (81.0-99.0); MEAN CORPUSCULAR HEMOGLOBIN 20.7 pg (27.0-31.0); MEAN CORPUSCULAR HGB CONC 29.8 g/dL (33.0-37.0); MONO # 1.1 K/uL (0.0-0.8); MONO % 7.8 % (0.0-10.0); NEUT # 10.5 K/uL (1.8-7.0); NEUT % 75.7 % (50.0-75.0); NRBC % 0.1 % (0.0-0.0); RBC 4.1 Mil/uL (3.80-5.20); RED CELL DISTRIBUTION WIDTH 20.6 % (11.5-14.5); WHITE BLOOD COUNT 13.8 K/uL (4.8-10.8)
[2018-05-31 13:48] LABS: ALB/GLOB RATIO 1.3 (1.0-2.1); ALBUMIN 3.4 g/dL (3.5-5.0); ALT/SGPT 35 U/L (9-52); AST/SGOT 31 U/L (14-36); BLOOD UREA NITROGEN 8 mg/dl (7-17); CALCIUM 8.7 mg/dL (8.4-10.2); GFR AFRICAN-AMERICAN > 60; GFR NON-AFRICAN AMERICAN > 60
--- NOTE | 2018-05-31 20:23 | CP.PCM.PCO ---
Physician Communication Note - Physician Communication Note Physician Communication Note: C/o Pain Assessment/Plan - Assessment and Plan (Free Text) Assessment: S: I was called by RN because patient was c/o pain. patient is alert, awake, orientated, NAD, verbally responsive and asking for pain medications. Patient states "I am having this substernal chest pain b/c I am not getting 4mg of Morphine", pain is non-radiating, 07/30. O: VS reviewed A/P: At - Troponine x1 - EKG - STAT 1mg Morphine IV - UCx and BCx - WIll follow up Case discussed with Dr. Glez
[2018-05-31] MEDS ORDERED: Sodium Chloride 0.9% 50 ML IV ONE (21:31)
[2018-05-31] MEDS ORDERED: Iodixanol 320 MG/ML 100 ML BOTTLE IV ONE (21:31)
[2018-06-01 07:23] LABS: HEMOGLOBIN 8.8 g/dL (12.0-16.0); MEAN CORPUSCULAR HGB CONC 30.7 g/dL (33.0-37.0); MEAN PLATELET VOLUME 8.2 fl (7.2-11.7); NRBC % 0.2 % (0.0-0.0); WHITE BLOOD COUNT 13.2 K/uL (4.8-10.8)
[2018-06-01 07:27] LABS: BASO # 0.1 K/uL (0.0-0.2); BASO % 0.5 % (0.0-2.0); MEAN CORPUSCULAR HEMOGLOBIN 21.1 pg (27.0-31.0); MONO # 0.5 K/uL (0.0-0.8); MONO % 4.1 % (0.0-10.0); NEUT # 9.6 K/uL (1.8-7.0); NEUT % 72.4 % (50.0-75.0); RBC 4.15 Mil/uL (3.80-5.20); RED CELL DISTRIBUTION WIDTH 20.4 % (11.5-14.5)
[2018-06-01 07:44] LABS: IRON < 10 ug/dL (37-170); TOTAL IRON BINDING CAPACITY 456 ug/dL (250-450)
[2018-06-01 07:45] LABS: % IRON SATURATION 2.2 % (20-55)
[2018-06-01] MEDS ORDERED: GELATIN SPONGE,ABSORB/PORCINE 1 EACH SPONGE TP ONE (09:30)
--- NOTE | 2018-06-01 09:56 | CT ---
Date of service: 05/31/2018 PROCEDURE: CT Chest with contrast (Pulmonary Angiogram) HISTORY: hx bilateral PE, now with SOB/tachy/chest pain COMPARISON: CT chest dated 11/10/2017 TECHNIQUE: Axial computed tomography images were obtained of the chest in the pulmonary arterial phase of enhancement. Coronal and sagittal reformatted images were created and reviewed. Intravenous contrast dose: 99 mL Visipaque 320 Radiation dose: Total exam DLP = 393.9 mGy-cm. This CT exam was performed using one or more of the following dose reduction techniques: Automated exposure control, adjustment of the mA and/or kV according to patient size, and/or use of iterative reconstruction technique. FINDINGS: PULMONARY ARTERIES: Unremarkable. No pulmonary embolism. AORTA: No acute findings. Common origin of the brachiocephalic and left common carotid arteries. No thoracic aortic aneurysm. LUNGS: Bilateral lower lobe atelectasis/scarring. No nodule, mass or pulmonary consolidation. PLEURAL SPACES: Unremarkable. No effusion or pneumothorax. HEART: Cardiomegaly. No significant pericardial effusion. LYMPH NODES: No lymphadenopathy. BONES, CHEST WALL: Unremarkable. No fracture or destructive lesion OTHER FINDINGS: Stable enlarged thyroid. Redemonstration of splenic vascular stent. IMPRESSION: Unremarkable CT pulmonary angiogram. No pulmonary embolus.
--- NOTE | 2018-06-01 11:30 | RAD ---
Date of service: 06/01/2018 HISTORY: vp ancillary, confirm position of left triple lumen IJ COMPARISON: Chest radiograph dated 05/30/2018. FINDINGS: LUNGS: Left basilar atelectasis. PLEURA: No significant pleural effusion identified, no pneumothorax apparent. CARDIOVASCULAR: Normal. OSSEOUS STRUCTURES: No significant abnormalities. VISUALIZED UPPER ABDOMEN: Normal. OTHER FINDINGS: Left internal jugular access central venous catheter with catheter tip in the SVC, unchanged. IMPRESSION: Left basilar atelectasis. Left jugular access central venous catheter in place. No significant interval change.
[2018-06-01 15:35] LABS: BARBITURATES, UR NEGATIVE (NEGATIVE); BENZODIAZEPINES, UR NEGATIVE (NEGATIVE); OPIATES, UR POSITIVE (NEGATIVE); PHENCYCLIDINE, UR NEGATIVE (NEGATIVE)
--- NOTE | 2018-06-01 16:29 | PCM.RRT ---
<Stephanie Santacruz - Last Filed: 06/01/18 17:42> LATCHER Nurse Assessment - Situation Location: 4n Room Number: 416-2 LATCHER Called By: RN - IV IV Inserted during LATCHER?: No - Respiratory Oxygen Delivery Method: Nasal Cannula Received Nebulizer Treatments: No Was the Patient Ventilated with Bag/Mask 100% O2?: No Secretions Suctioned?: No Was the Patient Intubated?: No Was the Patient Placed on a Ventilator?: No - Medication Medications Administered During LATCHER: gel foam dressing to bleeding TLC - Diagnostic Test Ordered EKG: No Chest X-Ray: No CT Scan: No CPR started during LATCHER?: No - Vital Signs Vital Signs: Rapid Response Vital Sign Blood Pressure 135/86 Pulse Rate 94 Respiratory Rate 18 Temperature 98 F Oxygen Saturation 98 - Time LATCHER Ended Time LATCHER Ended: 09:26 - Vital Signs at end of LATCHER Vital Signs at end of LATCHER: Rapid Response End Vital Sign Blood Pressure 135/86 Pulse Rate 92 Respiratory Rate 18 Temperature 98 F O2 Sat by Pulse Oximetry 100 - Recommendations LATCHER Level of Care Recommendations: Remain in current setting I.Reason for LATCHER - A) Acute Change in Patient: (Select all that apply): Staff member or family is worried about patient Subjective: LATCHER called by nurse at 9:15 AM for 47 y/o female w/ hx of multiple PEs for bleeding at right IJ triple lumen catheter site. BP 135/86, HR 93, temp 98, o2 sat 99% Patient alert/responsive/follows command, states that she woke up and found line bleeding. Hemostasis achieved w/ consistent pressure (>30 minutes) at bleeding site. Catheter flushed and patent. Site cleaned, dried, covered tightly. BP 135/56 HR 91 O2 sat 100% Temp 98 - Neurological Status (Select all that apply): Alert, Responsive, Oriented, Verbal, Follows Commands - Respiratory Oxygen Delivery Method: Room Air - Constitutional Appears: No Acute Distress - Head Head Exam: ATRAUMATIC Additional Comments: IJ line at right lateral neck, bleeding. - Eyes Eye Exam: Normal appearance - Respiratory Exam Respiratory Exam: Clear to Ausculation Bilateral, NORMAL BREATHING PATTERN - Cardiovascular Exam Cardiovascular Exam: REGULAR RHYTHM, +S1, +S2 - GI/Abdominal Exam GI & Abdominal Exam: Soft, Normal Bowel Sounds. absent: Tenderness - Neurological Exam Neurological Exam: Alert, Awake, Oriented x3 - Extremities Exam Extremities Exam: Normal Inspection. absent: Pedal Edema, Tenderness <Erica Pa - Last Filed: 06/02/18 13:25> LATCHER Nurse Assessment - Vital Signs Vital Signs: Rapid Response Vital Sign Blood Pressure 135/86 Pulse Rate 94 Respiratory Rate 18 Temperature 98 F Oxygen Saturation 98 - Vital Signs at end of LATCHER Vital Signs at end of LATCHER: Rapid Response End Vital Sign Blood Pressure 135/86 Pulse Rate 92 Respiratory Rate 18 Temperature 98 F O2 Sat by Pulse Oximetry 100 Attending/Attestation - Attestation I have personally seen and examined this patient.: Yes I have fully participated in the care of the patient.: Yes I have reviewed all pertinent clinical information, including history, physical exam and plan: Yes
--- NOTE | 2018-06-01 16:31 | CP.PCM.PN ---
Subjective - Date & Time of Evaluation Date of Evaluation: 06/01/18 Time of Evaluation: 12:29 - Subjective Subjective: Patient seen and examined at bedside. She continues to c/o of chest pain that is non-radiating. She denies SOB, weakness, numbness/tingling, n/v. Patient requesting more morphine. Patient's charts, labs, and nurse notes reviewed. Objective - Vital Signs/Intake and Output Vital Signs (last 24 hours): Temp Pulse Resp BP Pulse Ox 97.2 F L 103 H 18 122/71 97 06/01/18 16:26 06/01/18 16:26 06/01/18 16:26 06/01/18 16:26 06/01/18 16:26 - Medications Medications: Current Medications Albuterol Sulfate (Albuterol 0.083% Inhal Jordyn (2.5 Mg/3 Ml) Ud) 2.5 mg INH RQ6 PRN PRN Reason: Shortness of Breath Enoxaparin Sodium (Lovenox) 40 mg SC Q12 RAYSHAWN PRN Reason: Protocol Famotidine (Pepcid) 20 mg IVP DAILY PENDING SALE TO [facility] Last Admin: 06/01/18 13:15 Dose: Not Given Morphine Sulfate (Morphine) 1 mg IVP Q6 PRN PRN Reason: Pain, severe (8-10) Last Admin: 06/01/18 14:19 Dose: 1 mg Tramadol HCl (Ultram) 50 mg PO Q6 PRN PRN Reason: Pain, moderate (4-7) - Labs Labs: 06/01/18 06:19 05/31/18 12:45 PT 12.6 Seconds (9.8-13.1) 05/30/18 13:41 INR 1.1 05/30/18 13:41 APTT 31.6 Seconds (25.6-37.1) 05/30/18 13:41 - Constitutional Appears: No Acute Distress - Head Exam Head Exam: ATRAUMATIC - Eye Exam Eye Exam: Normal appearance - ENT Exam ENT Exam: Mucous Membranes Moist - Neck Exam Additional comments: Left triple lumen IJ catheter present, covered, dry and clean. - Respiratory Exam Respiratory Exam: Clear to Ausculation Bilateral, NORMAL BREATHING PATTERN - Cardiovascular Exam Cardiovascular Exam: Tachycardia, REGULAR RHYTHM, +S1, +S2 - GI/Abdominal Exam GI & Abdominal Exam: Soft, Normal Bowel Sounds. absent: Tenderness - Extremities Exam Extremities Exam: Normal Inspection. absent: Pedal Edema, Tenderness - Back Exam Back Exam: NORMAL INSPECTION. absent: CVA tenderness (L), CVA tenderness (R) - Neurological Exam Neurological Exam: Alert, Awake, Oriented x3 - Psychiatric Exam Psychiatric exam: Agitated - Skin Skin Exam: Dry, Intact, Warm Assessment and Plan - Assessment and Plan (Free Text) Assessment: 47 y/o obese female w/ pmhx of multiple pulmonary embolism and asthma c/o sudden chest pain, SOB, nausea, vomiting X3, and bloody cough. Plan: Chest pain -Chest CT did not show evidence of pulmonary PE -Troponins X2 unremarkable -EKG sinus tachycardia, otherwise normal -CXR did not show active disease -Taper down morphine to 1 mg IVP Q6 PRN for severe pain and started Tramadol 50mg PO Q6 prn for moderate pain -C/w protonix 40 mg IVP BID Leukocytosis - Possibly due to her chronic conditions vs PE - Patient is afebrile, will continue monitoring Hx of multiple pulmonary embolism -patient states she's had 11 PEs in the past and was on Lovenox 120mg BID at home -Chest CT negative for pulmonary PE -PT/APTT/INR 12.6/31.6/1.1 -Antithrombin III wnl 03/22/17, Protein C & S wnl (01/28/17), Factor V activity wnl (03/22/2017) Thrombocytosis -Platelet count 736--->805 -Heme-onc consult placed, Dr. Griffin; appreciate recs Iron deficiency Anemia - Chronic - Iron 34 (03/07) - Previous labs show negative thalassemia work up - FIT ordered Drug seeking behavior -taper down morphine and encourage using non-opiate rx for moder pain management Diet -Advance as tolerated DVT prophylaxis -Lovenox 40mg Q12 SC Code: -Full code
[2018-06-01] MEDS: Enoxaparin 150 mg Syringe SC SCH (16:59)
--- NOTE | 2018-06-01 19:06 | CARD ---
APPROVED REPORT Date of service: 05/30/2018 EKG Measurement Heart [id number] <Conclusion> Sinus tachycardia Left ventricular hypertrophy with repolarization abnormality Abnormal ECG
[2018-06-02 07:44] LABS: BASO % 0.4 % (0.0-2.0); EOS # 0.1 K/uL (0.0-0.7); EOS % 0.9 % (0.0-4.0); HEMOGLOBIN 8.4 g/dL (12.0-16.0); LYMPH # 4.1 K/uL (1.0-4.3); LYMPH % 44.7 % (20.0-40.0); MEAN CELL VOLUME 68.8 fl (81.0-99.0); MEAN CORPUSCULAR HEMOGLOBIN 21.7 pg (27.0-31.0); MEAN CORPUSCULAR HGB CONC 31.5 g/dL (33.0-37.0); MONO % 10.7 % (0.0-10.0); NEUT % 43.3 % (50.0-75.0); NRBC % 0.5 % (0.0-0.0); RBC 3.88 Mil/uL (3.80-5.20); RED CELL DISTRIBUTION WIDTH 20.2 % (11.5-14.5); WHITE BLOOD COUNT 9.2 K/uL (4.8-10.8)
[2018-06-02 08:03] LABS: PROTHROMBIN TIME 11.5 Seconds (9.8-13.1)
[2018-06-02 08:06] LABS: PARTIAL THROMBOPLASTIN TIME 24.2 Seconds (25.6-37.1)
[2018-06-02] MEDS ORDERED: Enoxaparin 40 mg Syringe SC SCH ×2 (09:00)
--- NOTE | 2018-06-02 15:34 | CP.PCM.DIS ---
Provider - Provider Date of Admission: 05/30/18 15:55 Attending physician: Gladis Glez MD Time Spent in preparation of Discharge (in minutes): 35 Diagnosis - Discharge Diagnosis (1) Acute chest pain Status: Resolved Priority: Low (2) Hyperkalemia Status: Resolved Priority: Low (3) Pulmonary embolism Status: Ruled-out Hospital Course - Lab Results Lab Results: Micro Results 06/01/18 14:47 Urine Urine Culture - Final No Growth (<1,000 CFU/ML) 05/31/18 20:18 Blood-Venous Blood Culture - Preliminary NO GROWTH AFTER 24 HOURS 05/31/18 20:08 Blood-Venous Blood Culture - Preliminary NO GROWTH AFTER 24 HOURS Most Recent Lab Values WBC 9.2 K/uL (4.8-10.8) 06/02/18 07:15 RBC 3.88 Mil/uL (3.80-5.20) 06/02/18 07:15 Hgb 8.4 g/dL (12.0-16.0) L 06/02/18 07:15 Hct 26.6 % (34.0-47.0) L 06/02/18 07:15 MCV 68.8 fl (81.0-99.0) L 06/02/18 07:15 MCH 21.7 pg (27.0-31.0) L 06/02/18 07:15 MCHC 31.5 g/dL (33.0-37.0) L 06/02/18 07:15 RDW 20.2 % (11.5-14.5) H 06/02/18 07:15 Plt Count 795 K/uL (130-400) H 06/02/18 07:15 MPV 8.0 fl (7.2-11.7) 06/02/18 07:15 Neut % (Auto) 43.3 % (50.0-75.0) L 06/02/18 07:15 Lymph % (Auto) 44.7 % (20.0-40.0) H 06/02/18 07:15 Loving % (Auto) 10.7 % (0.0-10.0) H 06/02/18 07:15 Eos % (Auto) 0.9 % (0.0-4.0) 06/02/18 07:15 Baso % (Auto) 0.4 % (0.0-2.0) 06/02/18 07:15 Neut # (Auto) 4.0 K/uL (1.8-7.0) 06/02/18 07:15 Lymph # (Auto) 4.1 K/uL (1.0-4.3) 06/02/18 07:15 Loving # (Auto) 1.0 K/uL (0.0-0.8) H 06/02/18 07:15 Eos # (Auto) 0.1 K/uL (0.0-0.7) 06/02/18 07:15 Baso # (Auto) 0.0 K/uL (0.0-0.2) 06/02/18 07:15 PT 11.5 Seconds (9.8-13.1) 06/02/18 07:15 INR 1.0 06/02/18 07:15 APTT 24.2 Seconds (25.6-37.1) L 06/02/18 07:15 D-Dimer, Quantitative < 200 ng/mlDDU (0-230) 05/30/18 13:41 pO2 174 mm/Hg (30-55) H 05/30/18 14:15 VBG pH 7.48 (7.32-7.43) H 05/30/18 14:15 VBG pCO2 32 mmHg (40-60) L 05/30/18 14:15 VBG HCO3 25.7 mmol/L 05/30/18 14:15 VBG Total CO2 24.8 mmol/L (22-28) 05/30/18 14:15 VBG O2 Sat (Calc) 100.2 % (40-65) H 05/30/18 14:15 VBG Base Excess 0.9 mmol/L (0.0-2.0) 05/30/18 14:15 VBG Potassium 4.6 mmol/L (3.6-5.2) 05/30/18 14:15 Sodium 138.0 mmol/L (132-148) 05/30/18 14:15 Chloride 104.0 mmol/L (98-107) 05/30/18 14:15 Glucose 130 mg/dL (65-105) H 05/30/18 14:15 Lactate 2.9 mmol/L (0.7-2.1) H 05/30/18 14:15 FiO2 21.0 % 05/30/18 14:15 Sodium 138 mmol/l (132-148) 05/31/18 12:45 Potassium 4.0 MMOL/L (3.6-5.0) 05/31/18 12:45 Chloride 101 mmol/L (98-107) 05/31/18 12:45 Carbon Dioxide 28 mmol/L (22-30) 05/31/18 12:45 Anion Gap 13 (10-20) 05/31/18 12:45 BUN 8 mg/dl (7-17) 05/31/18 12:45 Creatinine 0.3 mg/dl (0.7-1.2) L 05/31/18 12:45 Est GFR ( Amer) > 60 05/31/18 12:45 Est GFR (Non-Af Amer) > 60 05/31/18 12:45 Random Glucose 187 mg/dL (65-105) H 05/31/18 12:45 Hemoglobin A1c 6.1 % (4.2-6.5) 05/31/18 12:45 Calcium 8.7 mg/dL (8.4-10.2) 05/31/18 12:45 Iron < 10 ug/dL (37-170) L 06/01/18 06:19 TIBC 456 ug/dL (250-450) H 06/01/18 06:19 % Saturation 2.2 % (20-55) L 06/01/18 06:19 Ferritin 10.8 ng/Ml (6.24-137.0) 06/01/18 06:19 Total Bilirubin 0.3 mg/dl (0.2-1.3) 05/31/18 12:45 AST 31 U/L (14-36) 05/31/18 12:45 ALT 35 U/L (9-52) 05/31/18 12:45 Alkaline Phosphatase 65 U/L (38-126) 05/31/18 12:45 Lactate Dehydrogenase 404 U/L (313-618) 05/31/18 05:25 Troponin I < 0.0120 ng/mL (0.00-0.120) 05/31/18 20:08 NT-Pro-B Natriuret Pep 19.3 pg/ml (0-450) 05/30/18 13:41 Total Protein 5.9 G/DL (6.3-8.2) L 05/31/18 12:45 Albumin 3.4 g/dL (3.5-5.0) L D 05/31/18 12:45 Globulin 2.6 gm/dL (2.2-3.9) 05/31/18 12:45 Albumin/Globulin Ratio 1.3 (1.0-2.1) 05/31/18 12:45 TSH 3rd Generation 0.28 mIU/ML (0.46-4.68) L 06/02/18 07:15 Venous Blood Potassium 4.6 mmol/L (3.6-5.2) 05/30/18 14:15 Urine Opiates Screen Positive (NEGATIVE) H 06/01/18 14:47 Urine Methadone Screen Negative (NEGATIVE) 06/01/18 14:47 Ur Barbiturates Screen Negative (NEGATIVE) 06/01/18 14:47 Ur Phencyclidine Scrn Negative (NEGATIVE) 06/01/18 14:47 Ur Amphetamines Screen Negative (NEGATIVE) 06/01/18 14:47 U Benzodiazepines Scrn Negative (NEGATIVE) 06/01/18 14:47 U Oth Cocaine Metabols Negative (NEGATIVE) 06/01/18 14:47 U Cannabinoids Screen Negative (NEGATIVE) 06/01/18 14:47 Blood Type B POSITIVE 06/01/18 11:20 Antibody Screen Negative 06/01/18 11:20 Crossmatch See Detail 06/01/18 11:20 BBK History Checked Patient has bt 06/01/18 11:20 - Hospital Course Hospital Course: 47 y/o obese female w/ pmhx of multiple pulmonary embolism and asthma who was admitted w/ c/o sudden chest pain, SOB, nausea, vomiting X3, and bloody cough. She was also found to have hyperkalemia, which resolved with 1 dose of Kayexalate 30gm PO. She was started on Lovenox 130mg SC Q12 (hx of 11 PEs). Patient reported allergy to Iodine, she was given Solu Medrol 65 mg IV 13-7-[address] and Benadryl 50 mg IV [address] to r/o PE. EKG showed sinus tachycardia; CXR no acute active disease. Pro-BNP 19.3, troponin <0.0120. d-dimer <200. For pain mgmt, given morphine in ED, which was titrated down on the floor. Chest CT did not show evidence of pulmonary embolus .Patient was also noted to have elevated platelet count. Patient was given 5mg of coumadin PO and was stable for discharge w/ prescription for Lovenox 40mg SC QD x4 days and hydroxyurea 500mg PO QD. She was instructed to follow up w/ PMD at [facility] Patient started on: -Lovenox 40 mg SC QD -Hydroxyurea 500mg QD #20, check platelet count in 2 weeks. d/c when <=500. -follow blood cultures - Date & Time of H&P Date of H&P: 05/30/18 Time of H&P: 16:54 Discharge Exam - Eye Exam Eye Exam: Normal appearance - ENT Exam ENT Exam: Mucous Membranes Moist - Neck Exam Additional comments: Left IJ catheter removed. Site cleaned, covered, and dry. - Respiratory Exam Respiratory Exam: Clear to PA & Lateral, NORMAL BREATHING PATTERN - Cardiovascular Exam Cardiovascular Exam: REGULAR RHYTHM, +S1, +S2 - GI/Abdominal Exam GI & Abdominal Exam: Normal Bowel Sounds, Soft. absent: Tenderness - Extremities Exam Extremities exam: normal inspection - Back Exam Back exam: absent: CVA tenderness (L), CVA tenderness (R) - Neurological Exam Neurological exam: Alert, Oriented x3 - Psychiatric Exam Psychiatric exam: Normal Affect - Skin Skin Exam: Dry, Normal Color, Warm Discharge Plan - Discharge Medications Prescriptions: Enoxaparin [Lovenox] 40 mg SC DAILY #4 syr Hydroxyurea [Hydrea] 500 mg PO DAILY #20 cap - Follow Up Plan Condition: FAIR Disposition: HOME/ ROUTINE Patient education suggested?: Yes Instructions: Pulmonary Embolism (Blood Clot in the Lungs) (DC), Chest Pain (DC ) Additional Instructions: follow up with pmd in [facility]. Referrals: Carlos Ellis MD [Staff Provider] - Gladis Glez MD [Provisional Staff] -
[2018-06-02 15:57] VITALS: BP 129/84; PULSE 113; RESP 20; TEMP 97.7; O2SAT 98
--- NOTE | 2018-06-02 16:05 | CP.PCM.PCO ---
Assessment/Plan - Assessment/Plan Assessment: 47 y/o female w/ left triple lumen internal jugular catheter. Patient identification confirmed by Agustina Hughes, PGY III and Stephanie Santacruz, PGY I. Patient was informed of procedure of left IJ catheter removal, and agreed to proceed. Patient was placed in supine position. Dressing were removed. Anchoring sutures removed. Catheter was withdrawn without difficulty, tip visualized, intact. Central line measuring 16 cm. Occlusive dressing applied w/ pressure for 5 minutes. Blood loss zero mLs. Site was dressed. Catheter was properly disposed of. Patient was instructed to remain in supine position for at least 30 minutes and apply pressure. Patient tolerated procedure well.
== END 2018-06-02 17:10 | disposition home or self-care (01) | DRG 143 ==
LOC: H.ER 12:36 → H.ERHOLD 15:55 → H.TEL 22:28
PROVIDERS: ADMIT Family Medicine; ATTEND Family Medicine
PROC: 05HN33Z Insertion of Infusion Device into Left Internal Jugular Vein, Percutaneous Approach (ICD-10-PCS; principal; 2018-05-30)
PROC: B544ZZA Ultrasonography of Left Jugular Veins, Guidance (ICD-10-PCS; 2018-05-30)
DX: R07.89 Other chest pain (principal); E87.5 Hyperkalemia; E66.9 Obesity, unspecified; Z68.42 Body mass index [BMI] 45.0-49.9, adult; D50.9 Iron deficiency anemia, unspecified; D72.828 Other elevated white blood cell count; R00.0 Tachycardia, unspecified; I10 Essential (primary) hypertension; J45.909 Unspecified asthma, uncomplicated; Z76.5 Malingerer [conscious simulation]; Z86.711 Personal history of pulmonary embolism; Z87.442 Personal history of urinary calculi; Z88.6 Allergy status to analgesic agent; Z91.041 Radiographic dye allergy status; Z90.81 Acquired absence of spleen

== ENCOUNTER 2018-10-03 11:06 | Inpatient (IN) | payer OTHER ==
[2018-10-03 11:06] VITALS: BMI 47.4
[2018-10-03] MEDS ORDERED: Sodium Chloride 0.9% 500 ML IV STA (11:34)
--- NOTE | 2018-10-03 11:49 | ED PDOC ---
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 Patient states she was sitting down when she suddenly felt sharp, nonradiating, constant chest pain. She was seen at [facility] recently for similar complaints and had a V/Q scan at that time showed mild to moderate mismatch in the left lower lobe suspicious for P.E. Denies fever, chills, headaches, abdominal pain, back pain, urinary complaints, numbness, tingling, swelling, trauma, cough, dyspnea, recent travel, recent sickness and recent lifestyle change. She admits to being compliant with lovenox. Came to the ER on 06/30 after her [facility] visit and VQ showed lower probability of PE 06/21/18. Dc home accordingly. Each visit pt. refusing CTA till she gets solumedrol for 24hrs. Is a very difficult stick and need central access each time. Past Medical History Reviewed: Nursing Documentation, Vital Signs Vital Signs: Last Vital Signs Temp 99.3 F 10/03/18 11:16 Pulse 107 H 10/03/18 11:16 Resp 18 10/03/18 11:16 BP 124/82 10/03/18 11:16 Pulse Ox 97 10/03/18 11:16 - Medical History PMH: Asthma, Gall Bladder Disease, Kidney Stones, Pulmonary Embolism (x11), Chronic Kidney Disease Denies: Alzheimer's Disease, Anemia, Anxiety, Arthritis, Atrial Fibrillation, Bipolar Disorder, Bronchitis, CAD, Cardia Arrhythmia, CHF, COPD, Crohn's Disease, Dementia, Depression, Diverticulitis, Emphysema, Fibromyalgia, Fractures, Gastritis, Gastrointestinal Ulcer, HIV, HTN, Hypercholesterolemia, Hyperthyroidism, Hypothyroidism, Migraine, Mitral Valve Prolapse, Multiple Sclerosis, Osteoporosis, Pancreatitis, Paranoia, Parkinson's Disease, Peripheral Edema, Pneumonia, Post Traumatic Stress Disorder, Rheumatoid Arthritis, Schizophrenia, Seizures, Sickle Cell Disease, Sexually Transmitted Disease, Sleep Apnea, TIA - Surgical History Surgical History: Appendectomy, Cholecystectomy Denies: CABG, Carotid Endarterectomy, Coronary Stent, Pacemaker, Tonsillectomy - Family History Family History: States: Hypertension - Social History Alcohol: None Drugs: Denies - Immunization History Hx Tetanus Toxoid Vaccination: Yes Hx Influenza Vaccination: No Hx Pneumococcal Vaccination: Yes - Home Medications Home Medications: Ambulatory Orders Medication Instructions Recorded Enoxaparin [Lovenox] 120 mg SC BID 07/04/18 - Allergies Allergies/Adverse Reactions: Allergies Allergy/AdvReac Type Severity Reaction Status Date / Time iodixanol Allergy Severe SHORTNESS Verified 10/03/18 13:49 OF BREATH acetaminophen [From Percocet] Allergy RASH Verified 10/03/18 13:49 ibuprofen [From Motrin] Allergy SHORTNESS Verified 10/03/18 13:49 OF BREATH Iodine and Iodide Containing Allergy SHORTNESS Verified 10/03/18 13:49 Produc OF BREATH ketorolac Allergy ITCHING Verified 10/03/18 13:49 NSAIDS (Non-Steroidal Allergy ITCHING Verified 10/03/18 13:49 Anti-Inflamma ondansetron Allergy ITCHING Verified 10/03/18 13:49 oxycodone [From Percocet] Allergy RASH Verified 10/03/18 13:49 Review of Systems ROS Statement: Except As Marked, All Systems Reviewed And Found Negative Cardiovascular: Positive for: Chest Pain Physical Exam - Reviewed Nursing Documentation Reviewed: Yes Vital Signs Reviewed: Yes - Physical Exam Appears: Positive for: Non-toxic, No Acute Distress Head Exam: Positive for: ATRAUMATIC, NORMAL INSPECTION, NORMOCEPHALIC Skin: Positive for: Normal Color, Warm, DRY Eye Exam: Positive for: EOMI, Normal appearance, PERRL ENT: Positive for: Normal ENT Inspection Neck: Positive for: Normal, Painless ROM Cardiovascular/Chest: Positive for: Regular Rate, Rhythm, Chest Non Tender. Negative for: Edema Respiratory: Positive for: CNT, Normal Breath Sounds Gastrointestinal/Abdominal: Positive for: Normal Exam, Soft. Negative for: Tenderness Back: Positive for: Normal Inspection. Negative for: L CVA Tenderness, R CVA Tenderness Extremity: Positive for: Normal ROM. Negative for: Tenderness, Pedal Edema Neurologic/Psych: Positive for: Alert, Oriented. Negative for: Motor/Sensory Deficits, Aphasia, Facial Droop - Laboratory Results Result Diagrams: 10/03/18 13:00 10/03/18 13:00 Interpretation Of Abn Labs: 23.7 wbc - ECG ECG: Positive for: Interpreted By Me, Viewed By Me ECG Rhythm: Positive for: Sinus Tachycardia (mild) O2 Sat by Pulse Oximetry: 97 Pulse Ox Interpretation: Normal - Radiology X-Ray: Read By Radiologist X-Ray Interpretation: No Acute Disease - Other Rad vq X-Ray: Read By Radiologist X-Ray Interpretation: low probability for pe - Progress ED Course And Treament: 1155: Stable. Demanding narcotics. Made aware of narcotics policy in the ER. Pt. is a very difficult stick. Will get picc line. Last visit here showed low probability of pe. Pt. refusing nitro for chest pain as she is allergic to it. Pt. story is contradictory as she states she does not go to [facility], but when told her records say she does go there to get her coumadin she states she goes sometimes and that she goes to [facility] for it as well. 1733: Spoke with Dr. Pa. Will admit for obs chest pain. Wbc elevated but no source of infection. Will continue hydration. Pain controlled. No asa at this time as pt. on lovenox. Disposition - Clinical Impression Clinical Impression: Acute chest pain - Patient ED Disposition Is Patient to be Admitted: Yes Counseled Patient/Family Regarding: Studies Performed, Diagnosis - Disposition Disposition Time: 16:00 Condition: FAIR - Pt Status Changed To: Hospital Disposition Of: Observation - POA Present On Arrival: None
[2018-10-03] MEDS ORDERED: Lidocaine 1% Inj (20ml) ONE (12:05)
--- NOTE | 2018-10-03 12:18 | PCM.SURG1 ---
Surgeon's Initial Post Op Note - Surgeon's Notes Surgeon: Chet Grijalva MD Transporter Driver: NONE Type of Anesthesia: Local Pre-Operative Diagnosis: Poor IV access Operative Findings: US showed a patent right brachial vein Post-Operative Diagnosis: Poor IV access Operation Performed: Single lumen picc placement, 39 cm. Specimen/Specimens Removed: NONE Estimated Blood Loss: EBL {In ML}: 2 Blood Products Given: N/A Drains Used: No Drains Post-Op Condition: Fair Date of Surgery/Procedure: 10/03/18 Time of Surgery/Procedure: 12:15
--- NOTE | 2018-10-03 13:16 | RAD ---
HISTORY: dyspnea COMPARISON: Chest x-ray performed 06/01/18 TECHNIQUE: Chest, one view. FINDINGS: Right-sided PICC extends expected location of the SVC. Examination limited by habitus. LUNGS: No focal consolidation. Please note that chest x-ray has limited sensitivity for the detection of pulmonary masses. PLEURA: No significant pleural effusion identified. No definite pneumothorax . CARDIOVASCULAR: Heart size appears top normal. Tortuous aorta. No significant atherosclerotic calcification present. OSSEOUS STRUCTURES: No acute osseous abnormality identified. VISUALIZED UPPER ABDOMEN: Unremarkable. OTHER FINDINGS: None. IMPRESSION: Right-sided PICC extends to the expected location of the SVC.
[2018-10-03 13:18] LABS: BASO # 0.2 K/uL (0.0-0.2); BASO % 0.6 % (0.0-2.0); EOS # 0.2 K/uL (0.0-0.7); EOS % 0.9 % (0.0-4.0); HEMOGLOBIN 13.3 g/dL (12.0-16.0); LYMPH % 12.5 % (20.0-40.0); MEAN CELL VOLUME 78.2 fl (81.0-99.0); MEAN CORPUSCULAR HEMOGLOBIN 24.9 pg (27.0-31.0); MEAN CORPUSCULAR HGB CONC 31.8 g/dL (33.0-37.0); MEAN PLATELET VOLUME 8.9 fl (7.2-11.7); MONO # 2.3 K/uL (0.0-0.8); MONO % 9.6 % (0.0-10.0); NEUT # 18.1 K/uL (1.8-7.0); NEUT % 76.4 % (50.0-75.0); NRBC % 0.1 % (0.0-0.0); RBC 5.33 Mil/uL (3.80-5.20); RED CELL DISTRIBUTION WIDTH 20.1 % (11.5-14.5); WHITE BLOOD COUNT 23.7 K/uL (4.8-10.8)
[2018-10-03 13:35] LABS: ALB/GLOB RATIO 1.3 (1.0-2.1); ALBUMIN 3.6 g/dL (3.5-5.0); ALT/SGPT 42 U/L (9-52); AST/SGOT 17 U/L (14-36); BLOOD UREA NITROGEN 18 mg/dl (7-17); CALCIUM 8.9 mg/dL (8.4-10.2); GFR NON-AFRICAN AMERICAN > 60
[2018-10-03] MEDS ORDERED: Lidocaine 5% Patch TD STA (13:36)
[2018-10-03] MEDS ORDERED: Lidocaine 5% Patch TD ONE (13:45)
[2018-10-03 13:46] LABS: B-TYPE NATRIURETIC PEPTIDE 34.8 pg/ml (0-450)
--- NOTE | 2018-10-03 15:48 | NM ---
Date of service: 10/03/2018 COMPARISON: Single-view chest October 03, 2018 TECHNIQUE: 53.4 mCi technetium 99-m DTPA aerosol. Retention of radionuclide in the tracheobronchial tree and ingestion of radionuclide in the stomach, incidental findings mCI technetium 99-m MAA administered intravenously. FINDINGS: VENTILATION COMPONENT: Normal. PERFUSION COMPONENT: Heterogeneous distribution of radionuclide. No geographic, segmental, lobar abnormalities apparent on the present examination. IMPRESSION: Low probability ventilation perfusion scan for pulmonary embolism.
[2018-10-03] MEDS ORDERED: Sodium Chloride 0.9% 1,000 ML IV STA (17:31)
[2018-10-03 17:57] LABS: HEMOGLOBIN 12.5 g/dL (12.0-16.0); MEAN CELL VOLUME 78.5 fl (81.0-99.0); MEAN CORPUSCULAR HGB CONC 31.8 g/dL (33.0-37.0); RBC 4.98 Mil/uL (3.80-5.20); RED CELL DISTRIBUTION WIDTH 19.3 % (11.5-14.5); WHITE BLOOD COUNT 22.7 K/uL (4.8-10.8)
[2018-10-03 18:08] LABS: INR 1.1; PROTHROMBIN TIME 12.8 Seconds (9.8-13.1)
[2018-10-03 18:16] LABS: PARTIAL THROMBOPLASTIN TIME 17.9 Seconds (25.6-37.1)
--- NOTE | 2018-10-03 19:00 | CP.PCM.HP ---
<Sultan Len - Last Filed: 10/03/18 19:49> History of Present Illness - History of Present Illness History of Present Illness: CC: Chest pain HPI: 48 year old female with PMHx of asthma and history of 12 previous pulmonary embolisms on lovenox 130mg BID presents to [facility] ED with complaints of sudden onset of midsternal chest pain, sharp, non-radiating, 9/10, worse with deep breathing while she was [place] down on the train this morning. Patient reports generalized weakness and had 3 episodes of vomiting this morning as well. Denies dyspnea, cough, headache, dizziness, blurry vision or focal weakness. She denies fever, chills, abdominal pain, back pain, urinary complaints, numbness, t ingling, swelling, trauma, recent travel, or recent sickness. Patient reports last PE was in 06/2018 at [facility] and has been taking Lovenox 130 mg bid regularly. In the ED, EKG showed sinus tachycardia at [address] changes. Troponin is <0.0120. PICC line was placed due to difficulty getting peripheral IV access. V/Q scan showed low probability ventilation perfusion scan for pulmonary embolism. Patient will be admitted to observation to r/o ACS. ROS: All 12 systems reviewed and negative except as mentioned in HPI PMHx: Pulmonary embolisms x11, asthma, kidney stones Surgical Hx: Appendectomy, cholecystectomy, splenectomy, bilateral tubal ligation Family hx: Father w/ hx of DM and HTN at age 45 from [place]. Mother w/ HTN, afib, seizure disorder Social hx: Lives alone. 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 Denies cigarette, etoh, recreational drug use. She is not currently sexually active. 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 Patient takes tylenol with no issues Medication: Lovenox 130 mg BID PMD: [facility], [place] in [place] (Last visit 2 months ago). 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 Next of Kin: Radha Avina, sister, Code Status: full code Present on Admission - Present on Admission Any Indicators Present on Admission: Yes History of DVT/PE: Yes Review of Systems - Review of Systems All systems: reviewed and no additional remarkable complaints except (as mentioned in HPI) Past Patient History - Infectious Disease Hx of Infectious Diseases: None - Tetanus Immunizations Tetanus Immunization: Up to Date - Past Medical History & Family History Past Medical History?: Yes - Past Social History Alcohol: None Drugs: Denies - CARDIAC Hx Atrial Fibrillation: No Hx Cardia Arrhythmia: No Hx Congestive Heart Failure: No Hx Hypercholesterolemia: No Hx Hypertension: No Hx Mitral Valve Prolapse: No Hx Pacemaker: No Hx Peripheral Edema: No - PULMONARY Hx Asthma: Yes Hx Bronchitis: No Hx Chronic Obstructive Pulmonary Disease (COPD): No Hx Emphysema: No Hx Pneumonia: No Hx Pulmonary Embolism: Yes (x11) Hx Sleep Apnea: No - NEUROLOGICAL Hx Alzheimer's Disease: No Hx Dementia: No Hx Migraine: No Hx Multiple Sclerosis: No Hx Parkinson's Disease: No Hx Seizures: No Hx Transient Ischemic Attacks (TIA): No - HEENT Hx HEENT Problems: No - RENAL Hx Chronic Kidney Disease: Yes Hx Kidney Stones: Yes - ENDOCRINE/METABOLIC Hx Hyperthyroidism: No Hx Hypothyroidism: No - HEMATOLOGICAL/ONCOLOGICAL Hx Anemia: No Hx Human Immunodeficiency Virus (HIV): No Hx Sickle Cell Disease: No - INTEGUMENTARY Hx Dermatological Problems: No - MUSCULOSKELETAL/RHEUMATOLOGICAL Hx Arthritis: No Hx Fractures: No Hx Osteoporosis: No Hx Rheumatoid Arthritis: No - GASTROINTESTINAL Hx Crohn's Disease: No Hx Diverticulitis: No Hx Gall Bladder Disease: Yes Hx Gastritis: No Hx Pancreatitis: No - GENITOURINARY/GYNECOLOGICAL Hx Sexually Transmitted Disorders: No - PSYCHIATRIC Hx Anxiety: No Hx Bipolar Disorder: No Hx Depression: No Hx Paranoia: No Hx Post Traumatic Stress Disorder: No Hx Schizophrenia: No - SURGICAL HISTORY Hx Appendectomy: Yes Hx Carotid Endarterectomy: No Hx Cholecystectomy: Yes Hx Coronary Artery Bypass Graft: No Hx Coronary Stent: No Hx Tonsillectomy: No - ANESTHESIA Hx Anesthesia: Yes Hx Anesthesia Reactions: No Hx Malignant Hyperthermia: No Meds Allergies/Adverse Reactions: Allergies Allergy/AdvReac Type Severity Reaction Status Date / Time iodixanol Allergy Severe SHORTNESS Verified 10/03/18 13:49 OF BREATH acetaminophen [From Percocet] Allergy RASH Verified 10/03/18 13:49 ibuprofen [From Motrin] Allergy SHORTNESS Verified 10/03/18 13:49 OF BREATH Iodine and Iodide Containing Allergy SHORTNESS Verified 10/03/18 13:49 Produc OF BREATH ketorolac Allergy ITCHING Verified 10/03/18 13:49 NSAIDS (Non-Steroidal Allergy ITCHING Verified 10/03/18 13:49 Anti-Inflamma ondansetron Allergy ITCHING Verified 10/03/18 13:49 oxycodone [From Percocet] Allergy RASH Verified 10/03/18 13:49 Physical Exam - Constitutional Appears: Non-toxic, No Acute Distress, Other (Morbidly obese) - Head Exam Head Exam: ATRAUMATIC, NORMOCEPHALIC - Eye Exam Eye Exam: EOMI, Normal appearance, PERRL - ENT Exam ENT Exam: Mucous Membranes Moist, Normal Oropharynx - Neck Exam Neck exam: Positive for: Normal Inspection. Negative for: Meningismus - Respiratory Exam Respiratory Exam: Clear to Auscultation Bilateral, NORMAL BREATHING PATTERN. absent: Accessory Muscle Use, Rhonchi, Wheezes, Respiratory Distress - Cardiovascular Exam Cardiovascular Exam: Tachycardia, +S1, +S2 - GI/Abdominal Exam GI & Abdominal Exam: Normal Bowel Sounds, Soft. absent: Tenderness Additional comments: obese - Extremities Exam Extremities exam: Positive for: normal inspection, pedal pulses present. Negative for: calf tenderness, pedal edema - Back Exam Back exam: absent: CVA tenderness (L), CVA tenderness (R) - Neurological Exam Neurological exam: Alert, CN II-XII Intact, Oriented x3 - Psychiatric Exam Psychiatric exam: Normal Affect, Normal Mood - Skin Skin Exam: Normal Color, Warm Results - Vital Signs Recent Vital Signs: Last Vital Signs Temp 99.4 F 10/03/18 17:20 Pulse 119 H 10/03/18 17:20 Resp 20 10/03/18 17:20 BP 104/65 10/03/18 17:20 Pulse Ox 97 10/03/18 17:37 - Labs Result Diagrams: 10/03/18 17:51 10/03/18 13:00 Labs: Laboratory Results - last 24 hr 10/03/18 10/03/18 10/03/18 13:00 13:00 13:00 WBC 23.7 H D RBC 5.33 H Hgb 13.3 D Hct 41.6 MCV 78.2 L D MCH 24.9 L MCHC 31.8 L RDW 20.1 H Plt Count 356 D MPV 8.9 Neut % (Auto) 76.4 H Lymph % (Auto) 12.5 L Rains % (Auto) 9.6 Eos % (Auto) 0.9 Baso % (Auto) 0.6 Neut # (Auto) 18.1 H Lymph # (Auto) 3.0 Rains # (Auto) 2.3 H Eos # (Auto) 0.2 Baso # (Auto) 0.2 PT Cancelled INR Cancelled APTT Cancelled Sodium 137 Potassium 4.2 Chloride 103 Carbon Dioxide 29 Anion Gap 9 L BUN 18 H Creatinine 0.5 L Est GFR ( Amer) > 60 Est GFR (Non-Af Amer) > 60 Random Glucose 175 H Calcium 8.9 Total Bilirubin 1.6 H AST 17 ALT 42 Alkaline Phosphatase 62 Troponin I < 0.0120 NT-Pro-B Natriuret Pep 34.8 Total Protein 6.3 Albumin 3.6 Globulin 2.7 Albumin/Globulin Ratio 1.3 Alcohol, Quantitative < 10 10/03/18 10/03/18 17:51 17:51 WBC 22.7 H RBC 4.98 Hgb 12.5 Hct 39.1 MCV 78.5 L MCH 25.0 L MCHC 31.8 L RDW 19.3 H Plt Count 325 MPV Neut % (Auto) Lymph % (Auto) Rains % (Auto) Eos % (Auto) Baso % (Auto) Neut # (Auto) Lymph # (Auto) Rains # (Auto) Eos # (Auto) Baso # (Auto) PT 12.8 INR 1.1 APTT 17.9 L Sodium Potassium Chloride Carbon Dioxide Anion Gap BUN Creatinine Est GFR ( Amer) Est GFR (Non-Af Amer) Random Glucose Calcium Total Bilirubin AST ALT Alkaline Phosphatase Troponin I NT-Pro-B Natriuret Pep Total Protein Albumin Globulin Albumin/Globulin Ratio Alcohol, Quantitative Assessment & Plan - Assessment and Plan (Free Text) Assessment: 48 year old female with PMHx of asthma and history of 12 previous pulmonary embolisms on lovenox 130mg BID presents to [facility] ED with complaints of suddent onset of midsternal chest pain, sharp, non-radiating, 9/10, worse with deep breathing while she was sitting down on the train this morning. Patient reports generalized weakness and had 3 episodes of vomiting this morning as well .In the ED, EKG showed sinus tachycardia at [address] changes. Troponin is <0.0120. PICC line was placed due to difficulty getting peripheral IV access. V/Q scan showed low probability ventilation perfusion scan for pulmonary embolism. Patient will be admitted to observation to r/o ACS. Plan Chest pain r/o ACS -Admit to Telemetry -Troponin x 1 neg -EKG: sinus tachycardia at [address] changes -V/Q scan today: V/Q scan showed low probability ventilation perfusion scan for pulmonary embolism -troponin x2 trending Hx Multiple Pulmonary Embolism -Afebrile with stable vitals except for tachycardia in 100s -V/Q scan: low probability ventilation perfusion scan for pulmonary embolism -Patient states she has been compliant with lovenox for the last 1.5 years -Continue lovenox 130mg BID -Monitor symptoms Leukocytosis -WBC 23.7 with left shift -Afebrile with stable vitals except for tachycardia in 100s -Denies any URI or complaints -? viral infection: vomiting resolved -Patient reports last solumedrol was in 06/2018 -f/u AM labs, procalcitonin, UA Asthma, well controlled -per patient, symptoms are controlled -duonebs as needed DVT prophylaxis -Takes Lovenox 130 mg sc BID for PE GI prophylaxis -Pantoprazole 40 mg po daily Code Status -Full code Plan d/w with Dr. Thierno Harrington, [id number] <Ercia Pa - Last Filed: 10/04/18 16:24> Results - Vital Signs Recent Vital Signs: Last Vital Signs Temp 99.8 F H 10/04/18 15:50 Pulse 110 H 10/04/18 15:50 Resp 20 10/04/18 15:50 BP 102/71 10/04/18 15:50 Pulse Ox 95 10/04/18 15:50 - Labs Result Diagrams: 10/04/18 04:03 10/04/18 04:03 Labs: Laboratory Results - last 24 hr 10/03/18 10/03/18 10/03/18 17:51 17:51 18:55 WBC 22.7 H RBC 4.98 Hgb 12.5 Hct 39.1 MCV 78.5 L MCH 25.0 L MCHC 31.8 L RDW 19.3 H Plt Count 325 PT 12.8 INR 1.1 APTT 17.9 L Sodium Potassium Chloride Carbon Dioxide Anion Gap BUN Creatinine Est GFR ( Amer) Est GFR (Non-Af Amer) Random Glucose Lactic Acid 0.9 Calcium Troponin I Triglycerides Cholesterol LDL Cholesterol Direct HDL Cholesterol Procalcitonin Urine Color Urine Clarity Urine pH Ur Specific [place] Urine Protein Urine Glucose (UA) Urine Ketones Urine Blood Urine Nitrate Urine Bilirubin Urine Urobilinogen Ur Leukocyte Esterase Urine RBC (Auto) Urine Microscopic WBC Ur Squamous Epith Cells Urine Opiates Screen Urine Methadone Screen Ur Barbiturates Screen Ur Phencyclidine Scrn Ur Amphetamines Screen U Benzodiazepines Scrn U Oth Cocaine Metabols U Cannabinoids Screen 10/03/18 10/03/18 10/04/18 19:06 21:26 01:05 WBC RBC Hgb Hct MCV MCH MCHC RDW Plt Count PT INR APTT Sodium Potassium Chloride Carbon Dioxide Anion Gap BUN Creatinine Est GFR ( Amer) Est GFR (Non-Af Amer) Random Glucose Lactic Acid Calcium Troponin I < 0.0120 Triglycerides Cholesterol LDL Cholesterol Direct HDL Cholesterol Procalcitonin 0.14 L Urine Color Urine Clarity Urine pH Ur Specific [place] Urine Protein Urine Glucose (UA) Urine Ketones Urine Blood Urine Nitrate Urine Bilirubin Urine Urobilinogen Ur Leukocyte Esterase Urine RBC (Auto) Urine Microscopic WBC Ur Squamous Epith Cells Urine Opiates Screen Positive H Urine Methadone Screen Negative Ur Barbiturates Screen Negative Ur Phencyclidine Scrn Negative Ur Amphetamines Screen Negative U Benzodiazepines Scrn Negative U Oth Cocaine Metabols Negative U Cannabinoids Screen Negative 10/04/18 10/04/18 10/04/18 01:05 04:03 04:03 WBC 19.5 H RBC 4.65 Hgb 11.7 L Hct 37.6 MCV 80.8 L D MCH 25.2 L MCHC 31.2 L RDW 19.5 H Plt Count 286 PT INR APTT Sodium 134 Potassium 3.8 Chloride 103 Carbon Dioxide 28 Anion Gap 7 L BUN 12 Creatinine 0.5 L Est GFR ( Amer) > 60 Est GFR (Non-Af Amer) > 60 Random Glucose 132 H Lactic Acid Calcium 8.1 L Troponin I Triglycerides Cholesterol LDL Cholesterol Direct HDL Cholesterol Procalcitonin Urine Color Rissa Urine Clarity Turbid Urine pH 6.0 Ur Specific [place] 1.021 Urine Protein 30 Urine Glucose (UA) Neg Urine Ketones Negative Urine Blood Moderate Urine Nitrate Negative Urine Bilirubin Negative Urine Urobilinogen 4.0 H Ur Leukocyte Esterase Large Urine RBC (Auto) 46 H Urine Microscopic WBC 172 H Ur Squamous Epith Cells 42 H Urine Opiates Screen Urine Methadone Screen Ur Barbiturates Screen Ur Phencyclidine Scrn Ur Amphetamines Screen U Benzodiazepines Scrn U Oth Cocaine Metabols U Cannabinoids Screen 10/04/18 04:03 WBC RBC Hgb Hct MCV MCH MCHC RDW Plt Count PT INR APTT Sodium Potassium Chloride Carbon Dioxide Anion Gap BUN Creatinine Est GFR ( Amer) Est GFR (Non-Af Amer) Random Glucose Lactic Acid Calcium Troponin I < 0.0120 Triglycerides 128 Cholesterol 145 LDL Cholesterol Direct 82 HDL Cholesterol 48 Procalcitonin Urine Color Urine Clarity Urine pH Ur Specific [place] Urine Protein Urine Glucose (UA) Urine Ketones Urine Blood Urine Nitrate Urine Bilirubin Urine Urobilinogen Ur Leukocyte Esterase Urine RBC (Auto) Urine Microscopic WBC Ur Squamous Epith Cells Urine Opiates Screen Urine Methadone Screen Ur Barbiturates Screen Ur Phencyclidine Scrn Ur Amphetamines Screen U Benzodiazepines Scrn U Oth Cocaine Metabols U Cannabinoids Screen Attending/Attestation - Attestation I have personally seen and examined this patient.: Yes I have fully participated in the care of the patient.: Yes I have reviewed all pertinent clinical information: Yes
[2018-10-03] MEDS: Enoxaparin 150 mg Syringe SC SCH ×2 (21:16→21:17)
[2018-10-04 01:33] LABS: SQUAMOUS EPITHIAL 42 /hpf (0-5); URINE BILIRUBIN NEGATIVE (NEGATIVE); URINE BLOOD MODERATE (NEGATIVE); URINE CLARITY TURBID (Clear); URINE COLOR AMBER (YELLOW); URINE GLUCOSE (UA) NEG (NEGATIVE); URINE LEUKOCYTE ESTERASE LARGE Leu/uL (Negative); URINE PROTEIN 30 mg/dL (NEGATIVE)
[2018-10-04 01:51] LABS: BARBITURATES, UR NEGATIVE (NEGATIVE); BENZODIAZEPINES, UR NEGATIVE (NEGATIVE); OPIATES, UR POSITIVE (NEGATIVE); PHENCYCLIDINE, UR NEGATIVE (NEGATIVE)
[2018-10-04 04:09] LABS: HEMOGLOBIN 11.7 g/dL (12.0-16.0); MEAN CELL VOLUME 80.8 fl (81.0-99.0); MEAN CORPUSCULAR HEMOGLOBIN 25.2 pg (27.0-31.0); MEAN CORPUSCULAR HGB CONC 31.2 g/dL (33.0-37.0); RBC 4.65 Mil/uL (3.80-5.20); RED CELL DISTRIBUTION WIDTH 19.5 % (11.5-14.5); WHITE BLOOD COUNT 19.5 K/uL (4.8-10.8)
[2018-10-04 04:15] LABS: HDL CHOLESTEROL 48 MG/DL (30-70)
[2018-10-04 04:16] LABS: BLOOD UREA NITROGEN 12 mg/dl (7-17); CALCIUM 8.1 mg/dL (8.4-10.2); GFR NON-AFRICAN AMERICAN > 60
[2018-10-04 04:26] LABS: LDL CHOLESTEROL 82 mg/dL (0-129)
[2018-10-04] MEDS ORDERED: Morphine 4 MG/ML VIAL ONE (07:47)
[2018-10-04] MEDS ORDERED: Pantoprazole 40 mg EC Tab PO ONE ×2 (09:01→19:47)
[2018-10-04] MEDS: Enoxaparin 150 mg Syringe SC SCH ×2 (09:10→20:49)
[2018-10-04] MEDS: Pantoprazole 40 mg EC Tab PO SCH (09:10)
[2018-10-04] MEDS ORDERED: Sodium Chloride 0.9% 500 ML IV ONE (10:05)
[2018-10-04] MEDS: cefTRIAXone 2 GM in Sodium Chloride 0.9% 100 ML IVPB SCH (12:45)
--- NOTE | 2018-10-04 13:24 | CP.PCM.PN ---
Subjective - Date & Time of Evaluation Date of Evaluation: 10/04/18 Time of Evaluation: 10:30 - Subjective Subjective: No fever leukocytosis trending down UA sowed UTI no CP no SOB no abd pain Objective - Vital Signs/Intake and Output Vital Signs (last 24 hours): Temp Pulse Resp BP Pulse Ox 99.2 F 106 H 17 112/78 96 10/04/18 12:29 10/04/18 12:29 10/04/18 12:29 10/04/18 12:29 10/04/18 12:29 - Medications Medications: Current Medications Acetaminophen (Tylenol 325mg Tab) 650 mg PO Q4 PRN PRN Reason: Pain, Mild (1-3) Aspirin (Ecotrin) 81 mg PO DAILY [facility] Last Admin: 10/04/18 09:11 Dose: 81 mg Atorvastatin Calcium (Lipitor) 40 mg PO DAILY [facility] Last Admin: 10/04/18 09:11 Dose: 40 mg Enoxaparin Sodium (Lovenox) 130 mg SC Q12 [facility]; Protocol Last Admin: 10/04/18 09:10 Dose: 130 mg Ceftriaxone Sodium 2 gm/ (Sodium Chloride) 100 mls @ 100 mls/hr IVPB DAILY [facility]; Protocol Last Admin: 10/04/18 12:45 Dose: 100 mls/hr Morphine Sulfate (Morphine) 4 mg IVP Q4 PRN PRN Reason: Pain, severe (8-10) Last Admin: 10/04/18 07:48 Dose: 4 mg Morphine Sulfate (Morphine) 2 mg IVP Q4 PRN PRN Reason: Pain, moderate (4-7) Last Admin: 10/04/18 12:46 Dose: 2 mg Pantoprazole Sodium (Protonix Ec Tab) 40 mg PO ONCE ONE Stop: 10/04/18 19:48 Pantoprazole Sodium (Protonix Ec Tab) 40 mg PO DAILY [facility] Last Admin: 10/04/18 09:10 Dose: 40 mg - Labs Labs: 10/04/18 04:03 10/04/18 04:03 PT 12.8 Seconds (9.8-13.1) 10/03/18 17:51 INR 1.1 10/03/18 17:51 APTT 17.9 Seconds (25.6-37.1) L 10/03/18 17:51 - Constitutional Appears: Non-toxic, No Acute Distress - Head Exam Head Exam: NORMAL INSPECTION, NORMOCEPHALIC - Eye Exam Eye Exam: EOMI, Normal appearance Pupil Exam: NORMAL ACCOMODATION - ENT Exam ENT Exam: Mucous Membranes Moist, Normal External Ear Exam - Neck Exam Neck Exam: Full ROM. absent: Meningismus - Respiratory Exam Respiratory Exam: NORMAL BREATHING PATTERN. absent: Respiratory Distress - Cardiovascular Exam Cardiovascular Exam: REGULAR RHYTHM, +S1, +S2 - GI/Abdominal Exam GI & Abdominal Exam: Soft, Normal Bowel Sounds. absent: Tenderness - Extremities Exam Extremities Exam: Full ROM, Normal Capillary Refill. absent: Calf Tenderness, Pedal Edema - Back Exam Back Exam: Full ROM. absent: CVA tenderness (L), CVA tenderness (R) - Neurological Exam Neurological Exam: Alert, Awake, CN II-XII Intact, Oriented x3 Neuro motor strength exam: Left Upper Extremity: 5, Right Upper Extremity: 5, Left Lower Extremity: 5, Right Lower Extremity: 5 - Psychiatric Exam Psychiatric exam: Normal Affect, Normal Mood - Skin Skin Exam: Normal Color, Warm Assessment and Plan - Assessment and Plan (Free Text) Assessment: 48 year old female with PMHx of asthma and history of 12 previous pulmonary embolisms on lovenox 130mg BID presents to [facility] ED with complaints of suddent onset of midsternal chest pain, sharp, non-radiating, 9/10, worse with deep breathing while she was [place] down on the train this [place]. Patient reports generalized weakness and had 3 episodes of vomiting . .In the ED, EKG showed sinus tachycardia at [address] changes. Troponin is <0.0120. PICC line was placed due to difficulty getting peripheral IV access. V/Q scan showed low probability ventilation perfusion scan for pulmonary embolism. Chest pain likely sec to Musculoskeletal Pain, ACS ruled out - no abn rhythm on Tele -Troponin x 3 neg -EKG: sinus tachycardia at [address] changes -V/Q scan : V/Q scan showed low probability ventilation perfusion scan for pulmonary embolism -cont ASA Hx Multiple Pulmonary Embolism -Afebrile with stable vitals except for tachycardia in 100s -V/Q scan: low probability ventilation perfusion scan for pulmonary embolism -Patient states she has been compliant with lovenox for the last 1.5 years -Continue lovenox 130mg BID -Monitor symptoms Leukocytosis prob due to UTI -WBC 23.7 with left shift on admission -Afebrile with stable vitals except for tachycardia in 100s -Denies any URI or complaints -Patient reports last solumedrol was in 06/2018 - Procalcitonin normal - will start IV ceftriaxone for UTI - Urine c/s Asthma, well controlled -per patient, symptoms are controlled -duonebs as needed Morbid Obesity BMI 49 DVT prophylaxis -Takes Lovenox 130 mg sc BID for PE GI prophylaxis -Pantoprazole 40 mg po daily Code Status -Full code
--- NOTE | 2018-10-04 15:08 | CARD ---
APPROVED REPORT Date of service: 10/03/2018 EKG Measurement Heart [id number] <Conclusion> Sinus tachycardia Left ventricular hypertrophy with repolarization abnormality Abnormal ECG
[2018-10-05] MEDS ORDERED: DiphenhydrAMINE 50 mg/ml Inj IVP PRN (01:43)
--- NOTE | 2018-10-05 02:00 | CP.PCM.PN ---
<Dang Abdi - Last Filed: 10/05/18 01:48> Subjective - Date & Time of Evaluation Date of Evaluation: 10/05/18 Time of Evaluation: 01:00 - Subjective Subjective: Called by RN due to pt having fever - 101.1. Pt complaining of chills. Repeat temp 100.8. Denies shortness of breath, abdominal pain, chest pain, dysuria. Came to see pt at bedside; pt states she is very allergic to motrin, and is also allergic to tylenol (throat itches). Pt states that when she is home and has a fever, she goes to [facility] and gets IV benadryl before getting tylenol, and then she does not have itchy throat She appears to be resting in bed in no acute distress, but with covers fully pulled up to her neck. Assessment: 48 yo F with hx multiple PE, with V/Q scan with low probability for PE; found to have leukocytosis on admission and UA suggestive of UTI, now with fever and chills. Plan: Benadryl IV and tylenol PO Blood cultures x2 Discussed w/ Dr. Resendiz Objective - Vital Signs/Intake and Output Vital Signs (last 24 hours): Temp Pulse Resp BP Pulse Ox 101.1 F H 113 H 18 100/68 96 10/05/18 00:59 10/05/18 00:59 10/05/18 00:59 10/05/18 00:59 10/05/18 00:59 - Medications Medications: Current Medications Acetaminophen (Tylenol 325mg Tab) 650 mg PO Q4 PRN PRN Reason: Pain, Mild (1-3) Acetaminophen (Tylenol 325mg Tab) 650 mg PO Q6 PRN PRN Reason: Fever >100.4 F Aspirin (Ecotrin) 81 mg PO DAILY [facility] Last Admin: 10/04/18 09:11 Dose: 81 mg Atorvastatin Calcium (Lipitor) 40 mg PO DAILY [facility] Last Admin: 10/04/18 09:11 Dose: 40 mg Diphenhydramine HCl (Benadryl) 50 mg IVP Q6 PRN PRN Reason: Allergy symptoms Enoxaparin Sodium (Lovenox) 130 mg SC Q12 [facility]; Protocol Last Admin: 10/04/18 20:49 Dose: 130 mg Ceftriaxone Sodium 2 gm/ (Sodium Chloride) 100 mls @ 100 mls/hr IVPB DAILY [facility]; Protocol Last Admin: 10/04/18 12:45 Dose: 100 mls/hr Morphine Sulfate (Morphine) 4 mg IVP Q4 PRN PRN Reason: Pain, severe (8-10) Last Admin: 10/04/18 07:48 Dose: 4 mg Morphine Sulfate (Morphine) 2 mg IVP Q4 PRN PRN Reason: Pain, moderate (4-7) Last Admin: 10/05/18 00:35 Dose: 2 mg Pantoprazole Sodium (Protonix Ec Tab) 40 mg PO DAILY [facility] Last Admin: 10/04/18 09:10 Dose: 40 mg - Labs Labs: 10/04/18 04:03 10/04/18 04:03 PT 12.8 Seconds (9.8-13.1) 10/03/18 17:51 INR 1.1 10/03/18 17:51 APTT 17.9 Seconds (25.6-37.1) L 10/03/18 17:51 <Sridevi Resendiz - Last Filed: 10/07/18 20:16> Objective - Vital Signs/Intake and Output Vital Signs (last 24 hours): Temp Pulse Resp BP Pulse Ox 99.7 F H 107 H 16 101/64 97 10/07/18 20:06 10/07/18 20:06 10/07/18 20:06 10/07/18 20:06 10/07/18 20:06 - Medications Medications: Current Medications Aspirin (Ecotrin) 81 mg PO Q6 PRN PRN Reason: Fever >100.4 F Aspirin (Aspirin Chewable) 81 mg PO Q6 PRN PRN Reason: Pain, Mild (1-3) Atorvastatin Calcium (Lipitor) 40 mg PO DAILY [facility] Last Admin: 10/07/18 08:22 Dose: 40 mg Enoxaparin Sodium (Lovenox) 130 mg SC Q12 [facility]; Protocol Last Admin: 10/07/18 08:33 Dose: 130 mg Vancomycin HCl 1.25 gm/ Sodium (Chloride) 250 mls @ 125 mls/hr IVPB Q12@0200,1400 [facility]; Protocol Last Admin: 10/07/18 14:53 Dose: 125 mls/hr Pantoprazole Sodium (Protonix Ec Tab) 40 mg PO DAILY [facility] Last Admin: 10/07/18 08:22 Dose: 40 mg Saccharomyces Boulardii (Florastor) 250 mg PO BID [facility] Last Admin: 10/07/18 16:38 Dose: 250 mg - Labs Labs: 10/07/18 04:25 10/07/18 09:18 PT 12.8 Seconds (9.8-13.1) 10/03/18 17:51 INR 1.1 10/03/18 17:51 APTT 17.9 Seconds (25.6-37.1) L 10/03/18 17:51 Attending/Attestation - Attestation I have personally seen and examined this patient.: Yes I have fully participated in the care of the patient.: Yes I have reviewed all pertinent clinical information, including history, physical exam and plan: Yes Notes (Text): 10/07/18 20:16 agree with findings and plan as above.
[2018-10-05 06:59] LABS: BASO # 0.1 K/uL (0.0-0.2); BASO % 0.6 % (0.0-2.0); EOS # 0.4 K/uL (0.0-0.7); EOS % 2.4 % (0.0-4.0); HEMOGLOBIN 11.3 g/dL (12.0-16.0); LYMPH # 3.5 K/uL (1.0-4.3); LYMPH % 23.3 % (20.0-40.0); MEAN CELL VOLUME 81.1 fl (81.0-99.0); MEAN CORPUSCULAR HEMOGLOBIN 25.1 pg (27.0-31.0); MEAN CORPUSCULAR HGB CONC 30.9 g/dL (33.0-37.0); MEAN PLATELET VOLUME 8.9 fl (7.2-11.7); MONO # 1.9 K/uL (0.0-0.8); MONO % 12.3 % (0.0-10.0); NEUT # 9.3 K/uL (1.8-7.0); NEUT % 61.4 % (50.0-75.0); NRBC % 0.1 % (0.0-0.0); RBC 4.49 Mil/uL (3.80-5.20); RED CELL DISTRIBUTION WIDTH 18.7 % (11.5-14.5); WHITE BLOOD COUNT 15.1 K/uL (4.8-10.8)
[2018-10-05] MEDS: cefTRIAXone 2 GM in Sodium Chloride 0.9% 100 ML IVPB SCH (09:05)
[2018-10-05] MEDS: Enoxaparin 150 mg Syringe SC SCH ×2 (09:05→21:03)
[2018-10-05] MEDS: Pantoprazole 40 mg EC Tab PO SCH (09:06)
--- NOTE | 2018-10-05 10:04 | CP.PCM.PN ---
<Newton Raymond - Last Filed: 10/05/18 11:13> Subjective - Date & Time of Evaluation Date of Evaluation: 10/05/18 Time of Evaluation: 08:40 - Subjective Subjective: Patient seen and evaluated at bedside in AM. Patient spiked fever of 101.1 at 1:00 am which improved with tylenol and benadryl. Patient is afebrile since then. Reports mild chest pain unchanged from admission. Denies any SOB, headache, abdominal pain or dysuria. Tolerates diet well PO. Objective - Vital Signs/Intake and Output Vital Signs (last 24 hours): Temp Pulse Resp BP Pulse Ox 97.6 F 86 20 104/63 95 10/05/18 09:03 10/05/18 09:03 10/05/18 09:03 10/05/18 09:03 10/05/18 09:03 - Medications Medications: Current Medications Aspirin (Ecotrin) 81 mg PO DAILY [facility] Last Admin: 10/05/18 09:06 Dose: 81 mg Aspirin (Aspirin) 650 mg PO Q6 PRN PRN Reason: Pain, moderate (4-7) Atorvastatin Calcium (Lipitor) 40 mg PO DAILY [facility] Last Admin: 10/05/18 09:06 Dose: 40 mg Enoxaparin Sodium (Lovenox) 130 mg SC Q12 [facility]; Protocol Last Admin: 10/05/18 09:05 Dose: 130 mg Ceftriaxone Sodium 2 gm/ (Sodium Chloride) 100 mls @ 100 mls/hr IVPB DAILY [facility]; Protocol Last Admin: 10/05/18 09:05 Dose: 100 mls/hr Pantoprazole Sodium (Protonix Ec Tab) 40 mg PO DAILY [facility] Last Admin: 10/05/18 09:06 Dose: 40 mg - Labs Labs: 10/05/18 06:00 10/04/18 04:03 PT 12.8 Seconds (9.8-13.1) 10/03/18 17:51 INR 1.1 10/03/18 17:51 APTT 17.9 Seconds (25.6-37.1) L 10/03/18 17:51 - Constitutional Appears: Well, No Acute Distress - Head Exam Head Exam: ATRAUMATIC, NORMOCEPHALIC - Eye Exam Eye Exam: EOMI, Normal appearance - ENT Exam ENT Exam: Mucous Membranes Moist - Respiratory Exam Respiratory Exam: Clear to Ausculation Bilateral. absent: Accessory Muscle Use, Decreased Breath Sounds, Rales, Rhonchi, Wheezes, Respiratory Distress - Cardiovascular Exam Cardiovascular Exam: REGULAR RHYTHM, +S1, +S2. absent: Tachycardia, Murmur - GI/Abdominal Exam GI & Abdominal Exam: Soft, Normal Bowel Sounds. absent: Distended, Tenderness - Extremities Exam Extremities Exam: absent: Pedal Edema, Tenderness - Neurological Exam Neurological Exam: Alert, Awake, Oriented x3 - Psychiatric Exam Psychiatric exam: Normal Affect, Normal Mood - Skin Skin Exam: Dry, Intact, Normal Color Assessment and Plan - Assessment and Plan (Free Text) Assessment: 48 year old female with PMHx of asthma and history of 12 previous pulmonary embolisms on lovenox 130mg BID presents to [facility] ED with complaints of sudden onset of midsternal chest pain. Troponins x 3 neg(<0.0120), V/Q scan showed low probability for PE. PICC line was placed due to difficulty getting peripheral IV access. UA, fever, and leukocytosis consistent with UTI. Plan: UTI -WBC improving, 15.1> 23.7 with left shift on admission -Fever of 101.1 at 1 am, resolved with Tylenol and benadryl -Afebrile, VSS at 9:00am -Denies any URI or complaints -Procalcitonin normal -Continue IV ceftriaxone for UTI -F/U Urine c/s Leukocytosis -Improving, 15.1> 19.5> 22.7> 23.7 on admission -Patient reports last solumedrol use in 06/2018 -Monitor CBC Chest pain likely sec to Musculoskeletal Pain, ACS ruled out -No abn rhythm on Tele, Troponin x 3 neg -EKG: sinus tachycardia at [address] changes -V/Q scan : V/Q scan showed low probability ventilation perfusion scan for pulm onary embolism -D/C tylenol(itchy throat)and morphine. -Patient reports nausea and vomiting with tramadol -Cont ASA 81 mg daily -ASA 81 mg PRN for fever and pain. Hx Multiple Pulmonary Embolism -V/Q scan: low probability ventilation perfusion scan for pulmonary embolism -Patient states she has been compliant with lovenox for the last 1.5 years -Continue lovenox 130mg BID -Monitor symptoms Asthma, well controlled -per patient, symptoms are controlled -duonebs as needed Morbid Obesity BMI 49 DVT prophylaxis -Continue Lovenox 130 mg sc BID for PE GI prophylaxis -Pantoprazole 40 mg po daily Code Status -Full code <Erica Pa - Last Filed: 10/05/18 15:55> Objective - Vital Signs/Intake and Output Vital Signs (last 24 hours): Temp Pulse Resp BP Pulse Ox 98.2 F 107 H 18 112/80 94 L 10/05/18 12:57 10/05/18 12:57 10/05/18 12:57 10/05/18 12:57 10/05/18 12:57 - Medications Medications: Current Medications Aspirin (Ecotrin) 81 mg PO Q6 PRN PRN Reason: Fever >100.4 F Aspirin (Aspirin Chewable) 81 mg PO Q6 PRN PRN Reason: Pain, Mild (1-3) Atorvastatin Calcium (Lipitor) 40 mg PO DAILY [facility] Last Admin: 10/05/18 09:06 Dose: 40 mg Enoxaparin Sodium (Lovenox) 130 mg SC Q12 [facility]; Protocol Last Admin: 10/05/18 09:05 Dose: 130 mg Ceftriaxone Sodium 2 gm/ (Sodium Chloride) 100 mls @ 100 mls/hr IVPB DAILY [facility]; Protocol Last Admin: 10/05/18 09:05 Dose: 100 mls/hr Pantoprazole Sodium (Protonix Ec Tab) 40 mg PO DAILY [facility] Last Admin: 10/05/18 09:06 Dose: 40 mg Saccharomyces Boulardii (Florastor) 250 mg PO BID [facility] - Labs Labs: 10/05/18 06:00 10/04/18 04:03 PT 12.8 Seconds (9.8-13.1) 10/03/18 17:51 INR 1.1 10/03/18 17:51 APTT 17.9 Seconds (25.6-37.1) L 10/03/18 17:51 Attending/Attestation - Attestation I have personally seen and examined this patient.: Yes I have fully participated in the care of the patient.: Yes I have reviewed all pertinent clinical information, including history, physical exam and plan: Yes Notes (Text): Chest Pain likely Musculoskeletal ACS ruled out UTI Pt was febrile last night, will cont IV Ceftriaxone, await Urine and blood c/s, Leukocytosis trending down - if pt continues to be afebrile and blood c/s neg , will d/c home on PO Abx
[2018-10-05] MEDS: Saccharomyces Boulardi 250 mg Cap PO SCH (18:02)
[2018-10-06 05:50] LABS: BASO # 0.1 K/uL (0.0-0.2); EOS # 0.3 K/uL (0.0-0.7); EOS % 2.5 % (0.0-4.0); HEMOGLOBIN 12.2 g/dL (12.0-16.0); LYMPH # 2.2 K/uL (1.0-4.3); LYMPH % 16.1 % (20.0-40.0); MEAN CELL VOLUME 78.7 fl (81.0-99.0); MEAN CORPUSCULAR HEMOGLOBIN 24.8 pg (27.0-31.0); MEAN CORPUSCULAR HGB CONC 31.6 g/dL (33.0-37.0); MEAN PLATELET VOLUME 8.8 fl (7.2-11.7); MONO # 1.7 K/uL (0.0-0.8); MONO % 12.3 % (0.0-10.0); NEUT # 9.4 K/uL (1.8-7.0); NEUT % 68.1 % (50.0-75.0); NRBC % 0.1 % (0.0-0.0); RBC 4.92 Mil/uL (3.80-5.20); RED CELL DISTRIBUTION WIDTH 18.6 % (11.5-14.5); WHITE BLOOD COUNT 13.8 K/uL (4.8-10.8)
[2018-10-06] MEDS: Saccharomyces Boulardi 250 mg Cap PO SCH ×2 (10:00→16:27)
[2018-10-06] MEDS: Pantoprazole 40 mg EC Tab PO SCH (10:01)
[2018-10-06] MEDS: cefTRIAXone 2 GM in Sodium Chloride 0.9% 100 ML IVPB SCH (10:01)
--- NOTE | 2018-10-06 10:13 | CP.PCM.PN ---
Subjective - Date & Time of Evaluation Date of Evaluation: 10/06/18 Time of Evaluation: 10:10 - Subjective Subjective: Patient seen and evaluated at bedside in AM. Denies acute overnight events. Patient is afebrile since . Reports mild chest pain unchanged from admission. Admits to weakness, loss of appetite and chills. Afebrile. Denies any SOB, headache, abdominal pain or dysuria. Objective - Vital Signs/Intake and Output Vital Signs (last 24 hours): Temp Pulse Resp BP Pulse Ox 97.5 F L 65 20 124/82 99 10/06/18 08:12 10/06/18 08:12 10/06/18 08:12 10/06/18 08:12 10/06/18 08:12 - Medications Medications: Current Medications Aspirin (Ecotrin) 81 mg PO Q6 PRN PRN Reason: Fever >100.4 F Aspirin (Aspirin Chewable) 81 mg PO Q6 PRN PRN Reason: Pain, Mild (1-3) Atorvastatin Calcium (Lipitor) 40 mg PO DAILY [facility] Last Admin: 10/06/18 10:00 Dose: 40 mg Enoxaparin Sodium (Lovenox) 130 mg SC Q12 [facility]; Protocol Last Admin: 10/05/18 21:03 Dose: 130 mg Ceftriaxone Sodium 2 gm/ (Sodium Chloride) 100 mls @ 100 mls/hr IVPB DAILY [facility]; Protocol Last Admin: 10/06/18 10:01 Dose: 100 mls/hr Pantoprazole Sodium (Protonix Ec Tab) 40 mg PO DAILY [facility] Last Admin: 10/06/18 10:01 Dose: 40 mg Saccharomyces Boulardii (Florastor) 250 mg PO BID [facility] Last Admin: 10/06/18 10:00 Dose: 250 mg - Labs Labs: 10/06/18 04:30 10/04/18 04:03 PT 12.8 Seconds (9.8-13.1) 10/03/18 17:51 INR 1.1 10/03/18 17:51 APTT 17.9 Seconds (25.6-37.1) L 10/03/18 17:51 - Constitutional Appears: Well, Non-toxic - Head Exam Head Exam: ATRAUMATIC, NORMOCEPHALIC - Eye Exam Eye Exam: EOMI, Normal appearance - ENT Exam ENT Exam: Mucous Membranes Moist - Respiratory Exam Respiratory Exam: Clear to Ausculation Bilateral. absent: Accessory Muscle Use, Decreased Breath Sounds, Rales, Wheezes - Cardiovascular Exam Cardiovascular Exam: REGULAR RHYTHM, +S1, +S2. absent: Tachycardia - GI/Abdominal Exam GI & Abdominal Exam: Normal Bowel Sounds. absent: Distended - Extremities Exam Extremities Exam: absent: Pedal Edema, Tenderness - Neurological Exam Neurological Exam: Alert, Awake, Oriented x3 - Psychiatric Exam Psychiatric exam: Normal Affect Assessment and Plan - Assessment and Plan (Free Text) Assessment: 48 year old female with PMHx of asthma and history of 12 previous pulmonary embolisms on lovenox 130mg BID presents to [facility] ED with complaints of sudden onset of midsternal chest pain. Troponins x 3 neg(<0.0120), V/Q scan showed low probability for PE. PICC line was placed due to difficulty getting peripheral IV access. UA, fever, and leukocytosis consistent with UTI. Plan: UTI -WBC improving, 15.1> 23.7 with left shift on admission -Afebrile for 24 hours -Denies any URI or complaints -Procalcitonin normal -Stopped IV ceftriaxone for UTI; started vancomycin 1 gm IV Q12 -Urine c/s: enterococcus faecalis - Blood cultures: gram positive cocci preliminary - ID consult ordered; recommendations appreciated. Leukocytosis -Improving, 13.8>15.1> 19.5> 22.7> 23.7 on admission -Patient reports last solumedrol use in 06/2018 -Monitor CBC Chest pain likely sec to Musculoskeletal Pain, ACS ruled out -No abn rhythm on Tele, Troponin x 3 neg -EKG: sinus tachycardia at [address] changes -V/Q scan : V/Q scan showed low probability ventilation perfusion scan for pulmonary embolism -D/C tylenol(itchy throat)and morphine. -Patient reports nausea and vomiting with tramadol -Cont ASA 81 mg daily -ASA 81 mg PRN for fever and pain. Hx Multiple Pulmonary Embolism -V/Q scan: low probability ventilation perfusion scan for pulmonary embolism -Patient states she has been compliant with lovenox for the last 1.5 years -Continue lovenox 130mg BID -Monitor symptoms Asthma, well controlled -per patient, symptoms are controlled -duonebs as needed Morbid Obesity BMI 49 DVT prophylaxis -Continue Lovenox 130 mg sc BID for PE GI prophylaxis -Pantoprazole 40 mg po daily Code Status -Full code
[2018-10-06] MEDS: Enoxaparin 150 mg Syringe SC SCH ×2 (10:25→20:15)
--- NOTE | 2018-10-06 12:09 | VASCULAR ---
PROCEDURE: Date of procedure: 10/03/2018 Procedure: 1. Placement of a right arm PICC with ultrasound and fluoroscopic guidance, CPT 27588 2. PICC tip confirmation with spot radiograph and is in the superior vena cava Medications: 1 percent lidocaine Total Fluoro time: 1.6 Seconds Radiation: 0.3 MGy EBL: 2 cc HISTORY: Infection requiring long-term IV antibiotics TECHNIQUE: Following informed consent and procedure time-out, the patient was placed supine on the interventional table and the right arm prepped and draped in the usual sterile fashion. Ultrasound showed a patent and compressible right basilic vein. After the skin was anesthetized with lidocaine, the basilic vein was accessed with micro micropuncture technique using ultrasound guidance. A guidewire was then advanced under fluoroscopic guidance into the superior vena cava. An image documenting ultrasound guidance for vascular access was permanently saved. The length of the single-lumen 4 Urdu PICC was trimmed to 39 centimeters and advanced through a peel-away sheath. The PICC was position with tip of PICC confirm a spot radiograph the superior vena cava. The PICC was secured to the patient's skin. The PICC was flushed. A biopatch and sterile dressing was applied. IMPRESSION: Placement of a single-lumen 4 Urdu PICC trimmed to 39 centimeters via right basilic vein. The tip of the PICC is confirmed with spot radiograph and is in the superior vena cava.
--- NOTE | 2018-10-06 14:39 | CARD ---
APPROVED REPORT Date of service: 10/06/2018 EXAM: Two-dimensional and M-mode echocardiogram with Doppler and color Doppler. Other Information Quality : AverageRhythm : Tachycardia Technically limited study due to body habitus. INDICATION Infection:Subacute bacterial endocarditis Aortic Valve AoV Peak Bmsyizys978.9cm/sAoV VTI18.9cmAO Peak GR.5mmHg LVOT Peak Ewttudoh39.2cm/sLVOT VTI11.36cmAO Mean GR.3mmHg Mitral Valve MV E Wnpdysjj69.7cm/sMV DECEL [id number] A Xuqqnzmm43.5cm/s MV NTK37rzY/A ratio0.8MVA (PHT)5.09cm2 TDI Lateral E' Peak V10.84cm/sMedial E' Peak V5.38cm/sE/Lateral E'6.3 E/Medial E'12.8 LEFT VENTRICLE The left ventricle is normal size. There is normal left ventricular wall thickness. The left ventricular systolic function is normal. The estimated ejection fraction is 55-60% No regional wall motion abnormalities noted.. Transmitral Doppler flow pattern is Grade I-abnormal relaxation pattern. No left ventricle thrombus noted on this study. There is no ventricular septal defect visualized. There is no left ventricular aneurysm. There is no mass noted in the left ventricle. RIGHT VENTRICLE The right ventricle is normal size. There is normal right ventricular wall thickness. The right ventricular systolic function is normal. ATRIA The left atrium size is normal. The right atrium size is normal. The interatrial septum is intact with no evidence for an atrial septal defect. AORTIC VALVE The aortic valve is normal in structure. No aortic regurgitation is present. There is no aortic valvular stenosis. MITRAL VALVE The mitral valve is normal in structure. There is no evidence of mitral valve prolapse. There is no mitral valve stenosis. There is no mitral valve regurgitation noted. TRICUSPID VALVE The tricuspid valve is normal in structure. There is mild tricuspid valve regurgitation noted. There is no tricuspid valve prolapse or vegetation. There is no tricuspid valve stenosis. PULMONIC VALVE The pulmonary valve is normal in structure. There is no pulmonic valvular regurgitation. There is no pulmonic valvular stenosis. GREAT VESSELS The aortic root is normal in size. The ascending aorta is normal in size. The pulmonary artery is normal. The IVC is normal in size and collapses >50% with inspiration. PERICARDIAL EFFUSION There is no pericardial effusion. There is no pleural effusion. <Conclusion> The estimated ejection fraction is 55-60% Transmitral Doppler flow pattern is Grade I-abnormal relaxation pattern. The left atrium size is normal. There is mild tricuspid valve regurgitation noted. No evidence of vegetations on this technically difficult study. Correlate clinically.
--- NOTE | 2018-10-06 16:16 | CP.PCM.CON ---
History of Present Illness - History of Present Illness History of Present Illness: Infectious Disease Consultation Note- asked to see this patient at the request of Hospitalist for bacteremia. HPI- Patient is a 48 year old female with PMH of asthma, multiple Pulmonary embolisms in the past , morbid obesity who was admitted few days ago with c/o weakness, chills and SOB and chest pain. She was ruled out for PE by VQ scan and cardiac enzymes have been negative on admission. She is found to have E.fecalis in urine cx and prelim GPC in blood cx x 2. Pt. explains on admission she also had nausea and vomiting but that has resolved. She denies any dysurea but states she did have urinary frequency for few days pr ior to admission and urgency. She states she does have h/o kidney infections in the past. She states she lives alone and denies any sick contacts and denies any recent travel. Pt. has a right arm picc line which was placed on admission apparently secondary to poor venous access. She denies any cough or sob at this time, denies any further chest pain, denies any nausea or vomiting or diarrhea but states her appetite is less. denies any dysurea, c/o minimal pain in right side of her abdomen but very mild and not associated with eating. PMHx: Pulmonary embolisms x11, asthma, kidney stones Surgical Hx: Appendectomy, cholecystectomy, splenectomy, bilateral tubal ligation Family hx: Father w/ hx of DM and HTN at age 45 from [place]. Mother w/ HTN, afib, seizure disorder Social hx: Lives alone. 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 Denies cigarette, etoh, recreational drug use. She is not currently sexually active. 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 Patient takes tylenol with no issues Medication: Lovenox 130 mg BID Review of Systems - Review of Systems Review of Systems: ROS- as stated in HPI. Past Patient History - Infectious Disease Hx of Infectious Diseases: None - Tetanus Immunizations Tetanus Immunization: Up to Date - Past Medical History & Family History Past Medical History?: Yes - Past Social History Smoking Status: Never Smoked Drugs: Denies Home Situation {Lives}: Alone - CARDIAC Hx Atrial Fibrillation: No Hx Cardia Arrhythmia: No Hx Congestive Heart Failure: No Hx Hypercholesterolemia: No Hx Hypertension: No Hx Mitral Valve Prolapse: No Hx Pacemaker: No Hx Peripheral Edema: No - PULMONARY Hx Asthma: Yes Hx Bronchitis: No Hx Chronic Obstructive Pulmonary Disease (COPD): No Hx Emphysema: No Hx Pneumonia: No Hx Pulmonary Embolism: Yes (x11) Hx Sleep Apnea: No - NEUROLOGICAL Hx Alzheimer's Disease: No Hx Dementia: No Hx Migraine: No Hx Multiple Sclerosis: No Hx Parkinson's Disease: No Hx Seizures: No Hx Transient Ischemic Attacks (TIA): No - HEENT Hx HEENT Problems: No - RENAL Hx Chronic Kidney Disease: Yes - ENDOCRINE/METABOLIC Hx Endocrine Disorders: No Hx Hyperthyroidism: No Hx Hypothyroidism: No - HEMATOLOGICAL/ONCOLOGICAL Hx Blood Disorders: No - INTEGUMENTARY Hx Dermatological Problems: No - MUSCULOSKELETAL/RHEUMATOLOGICAL Hx Arthritis: No Hx Falls: No Hx Fractures: No Hx Osteoporosis: No Hx Rheumatoid Arthritis: No - GASTROINTESTINAL Hx Crohn's Disease: No Hx Diverticulitis: No Hx Gall Bladder Disease: Yes Hx Gastritis: No Hx Pancreatitis: No - GENITOURINARY/GYNECOLOGICAL Hx Sexually Transmitted Disorders: No - PSYCHIATRIC Hx Anxiety: No Hx Bipolar Disorder: No Hx Depression: No Hx Paranoia: No Hx Post Traumatic Stress Disorder: No Hx Schizophrenia: No Hx Substance Use: No - SURGICAL HISTORY Hx Appendectomy: Yes Hx Carotid Endarterectomy: No Hx Cholecystectomy: Yes Hx Coronary Artery Bypass Graft: No Hx Coronary Stent: No Hx Tonsillectomy: No - ANESTHESIA Hx Anesthesia: Yes Hx Anesthesia Reactions: No Hx Malignant Hyperthermia: No Meds Allergies/Adverse Reactions: Allergies Allergy/AdvReac Type Severity Reaction Status Date / Time iodixanol Allergy Severe SHORTNESS Verified 10/03/18 13:49 OF BREATH acetaminophen [From Percocet] Allergy RASH Verified 10/03/18 13:49 ibuprofen [From Motrin] Allergy SHORTNESS Verified 10/03/18 13:49 OF BREATH Iodine and Iodide Containing Allergy SHORTNESS Verified 10/03/18 13:49 Produc OF BREATH ketorolac Allergy ITCHING Verified 10/03/18 13:49 NSAIDS (Non-Steroidal Allergy ITCHING Verified 10/03/18 13:49 Anti-Inflamma ondansetron Allergy ITCHING Verified 10/03/18 13:49 oxycodone [From Percocet] Allergy RASH Verified 10/03/18 13:49 - Medications Medications: Current Medications Aspirin (Ecotrin) 81 mg PO Q6 PRN PRN Reason: Fever >100.4 F Aspirin (Aspirin Chewable) 81 mg PO Q6 PRN PRN Reason: Pain, Mild (1-3) Atorvastatin Calcium (Lipitor) 40 mg PO DAILY [facility] Last Admin: 10/06/18 10:00 Dose: 40 mg Enoxaparin Sodium (Lovenox) 130 mg SC Q12 [facility]; Protocol Last Admin: 10/06/18 10:25 Dose: 130 mg Vancomycin HCl 1 gm/ Sodium (Chloride) 250 mls @ 166.667 mls/hr IVPB Q12 [facility]; Protocol Pantoprazole Sodium (Protonix Ec Tab) 40 mg PO DAILY [facility] Last Admin: 10/06/18 10:01 Dose: 40 mg Saccharomyces Boulardii (Florastor) 250 mg PO BID [facility] Last Admin: 10/06/18 10:00 Dose: 250 mg Physical Exam - Constitutional Appears: No Acute Distress - Head Exam Head Exam: ATRAUMATIC - Eye Exam Eye Exam: EOMI, PERRL - ENT Exam ENT Exam: Normal Oropharynx - Neck Exam Neck exam: Positive for: Full Rom - Respiratory Exam Respiratory Exam: Clear to Auscultation Bilateral Additional comments: no wheezing - Cardiovascular Exam Cardiovascular Exam: +S1, +S2 Additional comments: slightly tachycardic no murmurs - GI/Abdominal Exam GI & Abdominal Exam: Normal Bowel Sounds, Soft Additional comments: NT, ND No guarding, no rebound - Extremities Exam Extremities exam: Positive for: normal inspection - Neurological Exam Neurological exam: Alert, Oriented x3 - Additional Findings Additional findings: right arm picc line- no erythema, no swelling, no pain Results - Vital Signs Recent Vital Signs: Last Vital Signs Temp 99.2 F 10/06/18 15:50 Pulse 112 H 10/06/18 15:50 Resp 20 10/06/18 15:50 BP 92/63 L 10/06/18 15:50 Pulse Ox 95 10/06/18 15:50 - Labs Result Diagrams: 10/07/18 04:25 10/07/18 09:18 Labs: Laboratory Results - last 24 hr 10/06/18 04:30 WBC 13.8 H RBC 4.92 Hgb 12.2 Hct 38.7 MCV 78.7 L D MCH 24.8 L MCHC 31.6 L RDW 18.6 H Plt Count 293 MPV 8.8 Neut % (Auto) 68.1 Lymph % (Auto) 16.1 L Converse % (Auto) 12.3 H Eos % (Auto) 2.5 Baso % (Auto) 1.0 Neut # (Auto) 9.4 H Lymph # (Auto) 2.2 Converse # (Auto) 1.7 H Eos # (Auto) 0.3 Baso # (Auto) 0.1 Microbiology 10/05/18 09:08 Blood-Thru Central Line S.aureus & Coag-Neg Staph PNA FISH - Final 10/05/18 09:08 Blood-Thru Central Line Blood Culture - Preliminary Gram Positive Cocci 10/05/18 09:08 Blood-Thru Central Line Gram Stain - Final 10/05/18 08:20 Blood-Venous S.aureus & Coag-Neg Staph PNA FISH - Final 10/05/18 08:20 Blood-Venous Blood Culture - Preliminary Gram Positive Cocci 10/05/18 08:20 Blood-Venous Gram Stain - Final 10/04/18 06:05 Urine,Clean Catch Urine Culture - Final Enterococcus Faecalis Assessment & Plan (1) Asthma Status: Acute (2) Acute urinary tract infection Status: Acute (3) Bacteremia Status: Acute - Assessment and Plan (Free Text) Assessment: A/p- 48 year old female with pmh of asthma, PE , obesity admitted with sob , chills and weakness found to have E.fecalis UTI and prelim blood cx - GPC. low grade fever overnight leukocytosis trending down. urine cx- e.feclais Blood cx - GPC x 2 prelim from picc line source of bactermia most likely . TTE- no vegetations as per report. Harsha continue with IV vancomycin to treat both the e.feclais UTI and the GPC bacteremia. keep vanco trough between 15-20. await ID adn sensitivity iof the GPC in blood cx. check 2 blood cx from peripheral. picc line may need to be removed if repeat blood cx are positive. all labs and imaging reviewed. all above d/w patient and her questions were answered and she verbalizes full understanding of all above and agrees with above plan of care. Thank you for allowing me to take part in the care of this patient.
[2018-10-06] MEDS ORDERED: DiphenhydrAMINE 50 mg/ml Inj IVP ONE (20:24)
[2018-10-07 05:58] LABS: BASO # 0.1 K/uL (0.0-0.2); BASO % 0.4 % (0.0-2.0); EOS # 0.3 K/uL (0.0-0.7); EOS % 2.6 % (0.0-4.0); HEMOGLOBIN 12.3 g/dL (12.0-16.0); LYMPH # 2.4 K/uL (1.0-4.3); LYMPH % 17.4 % (20.0-40.0); MEAN CELL VOLUME 81.6 fl (81.0-99.0); MEAN CORPUSCULAR HEMOGLOBIN 25.5 pg (27.0-31.0); MEAN CORPUSCULAR HGB CONC 31.2 g/dL (33.0-37.0); MEAN PLATELET VOLUME 8.8 fl (7.2-11.7); MONO # 1.8 K/uL (0.0-0.8); MONO % 13.5 % (0.0-10.0); NEUT % 66.1 % (50.0-75.0); NRBC % 0.3 % (0.0-0.0); RBC 4.84 Mil/uL (3.80-5.20); WHITE BLOOD COUNT 13.6 K/uL (4.8-10.8)
[2018-10-07] MEDS: Saccharomyces Boulardi 250 mg Cap PO SCH ×2 (08:21→16:38)
[2018-10-07] MEDS: Pantoprazole 40 mg EC Tab PO SCH (08:22)
[2018-10-07] MEDS: Enoxaparin 150 mg Syringe SC SCH ×2 (08:33→21:51)
[2018-10-07 10:39] LABS: BLOOD UREA NITROGEN 6 mg/dl (7-17); CALCIUM 8.7 mg/dL (8.4-10.2); GFR NON-AFRICAN AMERICAN > 60
--- NOTE | 2018-10-07 10:53 | CP.PCM.PN ---
<DeepakRaisa - Last Filed: 10/07/18 11:16> Subjective - Date & Time of Evaluation Date of Evaluation: 10/07/18 Time of Evaluation: 10:51 - Subjective Subjective: Patient seen and evaluated at bedside in AM. Denies acute overnight events. Patient is afebrile since . States chest pain is better now. Patient now complains of LLQ abdominal pain Admits to weakness, loss of appetite and chills. Febrile overnight 100.8. Denies any SOB, headache, abdominal pain or dysuria. Objective - Vital Signs/Intake and Output Vital Signs (last 24 hours): Temp Pulse Resp BP Pulse Ox 99.7 F H 105 H 18 117/80 95 10/07/18 07:51 10/07/18 07:51 10/07/18 07:51 10/07/18 07:51 10/07/18 07:51 - Medications Medications: Current Medications Aspirin (Ecotrin) 81 mg PO Q6 PRN PRN Reason: Fever >100.4 F Aspirin (Aspirin Chewable) 81 mg PO Q6 PRN PRN Reason: Pain, Mild (1-3) Atorvastatin Calcium (Lipitor) 40 mg PO DAILY [facility] Last Admin: 10/07/18 08:22 Dose: 40 mg Enoxaparin Sodium (Lovenox) 130 mg SC Q12 [facility]; Protocol Last Admin: 10/07/18 08:33 Dose: 130 mg Vancomycin HCl 1 gm/ Sodium (Chloride) 250 mls @ 166.667 mls/hr IVPB Q12@0200,1400 [facility]; Protocol Last Admin: 10/07/18 01:00 Dose: 166.667 mls/hr Pantoprazole Sodium (Protonix Ec Tab) 40 mg PO DAILY [facility] Last Admin: 10/07/18 08:22 Dose: 40 mg Saccharomyces Boulardii (Florastor) 250 mg PO BID [facility] Last Admin: 10/07/18 08:21 Dose: 250 mg - Labs Labs: 10/07/18 04:25 10/07/18 09:18 PT 12.8 Seconds (9.8-13.1) 10/03/18 17:51 INR 1.1 10/03/18 17:51 APTT 17.9 Seconds (25.6-37.1) L 10/03/18 17:51 - Constitutional Appears: Well, Non-toxic, No Acute Distress - Head Exam Head Exam: ATRAUMATIC, NORMOCEPHALIC - Eye Exam Eye Exam: EOMI, Normal appearance Pupil Exam: NORMAL ACCOMODATION - ENT Exam ENT Exam: Mucous Membranes Moist - Respiratory Exam Respiratory Exam: Clear to Ausculation Bilateral, NORMAL BREATHING PATTERN - Cardiovascular Exam Cardiovascular Exam: REGULAR RHYTHM, +S1, +S2. absent: Tachycardia - GI/Abdominal Exam GI & Abdominal Exam: Normal Bowel Sounds. absent: Tenderness - Extremities Exam Extremities Exam: absent: Tenderness - Back Exam Back Exam: NORMAL INSPECTION - Neurological Exam Neurological Exam: Alert, Awake, Oriented x3 Assessment and Plan - Assessment and Plan (Free Text) Assessment: 48 year old female with PMHx of asthma and history of 12 previous pulmonary embolisms on lovenox 130mg BID presents to [facility] ED with complaints of sudden onset of midsternal chest pain. Troponins x 3 neg(<0.0120), V/Q scan showed low probability for PE. PICC line was placed due to difficulty getting peripheral IV access. UA, fever, and leukocytosis consistent with UTI. Plan: UTI -WBC improving, 15.1> 23.7 with left shift on admission -Afebrile for 24 hours -Denies any URI or complaints -Procalcitonin normal -Lactic acid normal 1.8 -Echo showed no vegetations -Stopped IV ceftriaxone for UTI; started vancomycin 1 gm IV Q12 -Urine c/s: enterococcus faecalis - Blood cultures: gram positive cocci preliminary - ID consult ordered; recommendations appreciated. - f/u new blood cultures from Picc line Leukocytosis -Improving, 13.8>15.1> 19.5> 22.7> 23.7 on admission -Patient reports last solumedrol use in 06/2018 -Monitor CBC Chest pain likely sec to Musculoskeletal Pain, ACS ruled out -No abn rhythm on Tele, Troponin x 3 neg -EKG: sinus tachycardia at [address] changes -V/Q scan : V/Q scan showed low probability ventilation perfusion scan for pulmonary embolism -D/C tylenol(itchy throat)and morphine. -Patient reports nausea and vomiting with tramadol -Cont ASA 81 mg daily -ASA 81 mg PRN for fever and pain. Hx Multiple Pulmonary Embolism -V/Q scan: low probability ventilation perfusion scan for pulmonary embolism -Patient states she has been compliant with lovenox for the last 1.5 years -Continue lovenox 130mg BID -Monitor symptoms Asthma, well controlled -per patient, symptoms are controlled -duonebs as needed Morbid Obesity BMI 49 DVT prophylaxis -Continue Lovenox 130 mg sc BID for PE GI prophylaxis -Pantoprazole 40 mg po daily Code Status -Full code <Erica Pa - Last Filed: 10/07/18 16:44> Objective - Vital Signs/Intake and Output Vital Signs (last 24 hours): Temp Pulse Resp BP Pulse Ox 98.7 F 106 H 16 106/75 97 10/07/18 16:03 10/07/18 16:03 10/07/18 16:03 10/07/18 16:03 10/07/18 16:03 - Medications Medications: Current Medications Aspirin (Ecotrin) 81 mg PO Q6 PRN PRN Reason: Fever >100.4 F Aspirin (Aspirin Chewable) 81 mg PO Q6 PRN PRN Reason: Pain, Mild (1-3) Atorvastatin Calcium (Lipitor) 40 mg PO DAILY [facility] Last Admin: 10/07/18 08:22 Dose: 40 mg Enoxaparin Sodium (Lovenox) 130 mg SC Q12 [facility]; Protocol Last Admin: 10/07/18 08:33 Dose: 130 mg Vancomycin HCl 1.25 gm/ Sodium (Chloride) 250 mls @ 125 mls/hr IVPB Q12@0200,1400 [facility]; Protocol Last Admin: 10/07/18 14:53 Dose: 125 mls/hr Pantoprazole Sodium (Protonix Ec Tab) 40 mg PO DAILY [facility] Last Admin: 10/07/18 08:22 Dose: 40 mg Saccharomyces Boulardii (Florastor) 250 mg PO BID [facility] Last Admin: 10/07/18 16:38 Dose: 250 mg - Labs Labs: 10/07/18 04:25 10/07/18 09:18 PT 12.8 Seconds (9.8-13.1) 10/03/18 17:51 INR 1.1 10/03/18 17:51 APTT 17.9 Seconds (25.6-37.1) L 10/03/18 17:51 Attending/Attestation - Attestation I have personally seen and examined this patient.: Yes I have fully participated in the care of the patient.: Yes I have reviewed all pertinent clinical information, including history, physical exam and plan: Yes Notes (Text): Sepsis sec to UTI ( Enterococcus ) with Bacteremia ( POA) - increase IV vanco to 1.250g q 12 - rpt Blood c/s - No vegetation on ECHO
[2018-10-08] MEDS ORDERED: guaiFENesin-DM 600-30 mg ER Tab PO ONE (04:28)
[2018-10-08] MEDS: Pantoprazole 40 mg EC Tab PO SCH (10:07)
[2018-10-08] MEDS: Saccharomyces Boulardi 250 mg Cap PO SCH ×2 (10:07→17:40)
[2018-10-08] MEDS: Enoxaparin 150 mg Syringe SC SCH ×2 (10:08→20:59)
--- NOTE | 2018-10-08 10:52 | CP.PCM.PN ---
<DeepakRaisa - Last Filed: 10/08/18 14:31> Subjective - Date & Time of Evaluation Date of Evaluation: 10/08/18 Time of Evaluation: 10:51 - Subjective Subjective: Patient seen and evaluated at bedside in AM. Denies acute overnight events. Patient is afebrile. States chest pain is better now. Patient now complains of LLQ abdominal pain. Admits to weakness, loss of appetite and chills. Denies any SOB, headache, abdominal pain or dysuria. Objective - Vital Signs/Intake and Output Vital Signs (last 24 hours): Temp Pulse Resp BP Pulse Ox 98.2 F 93 H 20 95/68 L 96 10/08/18 08:17 10/08/18 08:17 10/08/18 08:17 10/08/18 08:17 10/08/18 08:17 - Medications Medications: Current Medications Aspirin (Ecotrin) 81 mg PO Q6 PRN PRN Reason: Fever >100.4 F Aspirin (Aspirin Chewable) 81 mg PO Q6 PRN PRN Reason: Pain, Mild (1-3) Atorvastatin Calcium (Lipitor) 40 mg PO DAILY [facility] Last Admin: 10/08/18 10:07 Dose: 40 mg Benzonatate (Tessalon Perles) 100 mg PO Q8 PRN PRN Reason: Cough Enoxaparin Sodium (Lovenox) 130 mg SC Q12 [facility]; Protocol Last Admin: 10/08/18 10:08 Dose: 130 mg Vancomycin HCl 1.25 gm/ Sodium (Chloride) 250 mls @ 125 mls/hr IVPB Q12@0200,1400 [facility]; Protocol Last Admin: 10/08/18 01:35 Dose: 125 mls/hr Pantoprazole Sodium (Protonix Ec Tab) 40 mg PO DAILY [facility] Last Admin: 10/08/18 10:07 Dose: 40 mg Saccharomyces Boulardii (Florastor) 250 mg PO BID [facility] Last Admin: 10/08/18 10:07 Dose: 250 mg - Labs Labs: 10/07/18 04:25 10/07/18 09:18 PT 12.8 Seconds (9.8-13.1) 10/03/18 17:51 INR 1.1 10/03/18 17:51 APTT 17.9 Seconds (25.6-37.1) L 10/03/18 17:51 - Constitutional Appears: Well, Non-toxic, No Acute Distress - Head Exam Head Exam: ATRAUMATIC, NORMOCEPHALIC - Eye Exam Eye Exam: EOMI, Normal appearance, PERRL Pupil Exam: NORMAL ACCOMODATION - ENT Exam ENT Exam: Mucous Membranes Moist - Respiratory Exam Respiratory Exam: Clear to Ausculation Bilateral, NORMAL BREATHING PATTERN - Cardiovascular Exam Cardiovascular Exam: REGULAR RHYTHM, +S1, +S2 - GI/Abdominal Exam GI & Abdominal Exam: Normal Bowel Sounds - Neurological Exam Neurological Exam: Alert, Awake - Psychiatric Exam Psychiatric exam: Normal Affect Assessment and Plan - Assessment and Plan (Free Text) Assessment: 48 year old female with PMHx of asthma and history of 12 previous pulmonary embolisms on lovenox 130mg BID presents to [facility] ED with complaints of sudden onset of midsternal chest pain. Troponins x 3 neg(<0.0120), V/Q scan showed low probability for PE. PICC line was placed due to difficulty getting peripheral IV access. UA, fever, and leukocytosis consistent with UTI. Plan: UTI -WBC improving, 15.1> 23.7 with left shift on admission -Afebrile for 24 hours -Denies any URI or complaints -Procalcitonin normal -Lactic acid normal 1.8 -Echo showed no vegetations -Stopped IV ceftriaxone for UTI; started vancomycin 1.25 gm IV Q12 -Urine c/s: enterococcus faecalis - Blood cultures: staph aureus - ID consult ordered; recommendations appreciated. - f/u new blood cultures from Picc line ; no growth after 24 hours Leukocytosis -Improving, 13.8>15.1> 19.5> 22.7> 23.7 on admission -Patient reports last solumedrol use in 06/2018 -Monitor CBC Chest pain likely sec to Musculoskeletal Pain, ACS ruled out -No abn rhythm on Tele, Troponin x 3 neg -EKG: sinus tachycardia at [address] changes -V/Q scan : V/Q scan showed low probability ventilation perfusion scan for pulmonary embolism -D/C tylenol(itchy throat)and morphine. -Patient reports nausea and vomiting with tramadol -Cont ASA 81 mg daily -ASA 81 mg PRN for fever and pain. Hx Multiple Pulmonary Embolism -V/Q scan: low probability ventilation perfusion scan for pulmonary embolism -Patient states she has been compliant with lovenox for the last 1.5 years -Continue lovenox 130mg BID -Monitor symptoms Asthma, well controlled -per patient, symptoms are controlled -duonebs as needed Morbid Obesity BMI 49 DVT prophylaxis -Continue Lovenox 130 mg sc BID for PE GI prophylaxis -Pantoprazole 40 mg po daily Code Status -Full code <Erica Pa - Last Filed: 10/08/18 15:36> Objective - Vital Signs/Intake and Output Vital Signs (last 24 hours): Temp Pulse Resp BP Pulse Ox 98 F 90 20 106/74 96 10/08/18 12:26 10/08/18 12:26 10/08/18 12:26 10/08/18 12:26 10/08/18 12:26 - Medications Medications: Current Medications Aspirin (Ecotrin) 81 mg PO Q6 PRN PRN Reason: Fever >100.4 F Aspirin (Aspirin Chewable) 81 mg PO Q6 PRN PRN Reason: Pain, Mild (1-3) Atorvastatin Calcium (Lipitor) 40 mg PO DAILY [facility] Last Admin: 10/08/18 10:07 Dose: 40 mg Benzonatate (Tessalon Perles) 100 mg PO Q8 PRN PRN Reason: Cough Enoxaparin Sodium (Lovenox) 130 mg SC Q12 [facility]; Protocol Last Admin: 10/08/18 10:08 Dose: 130 mg Vancomycin HCl 1.25 gm/ Sodium (Chloride) 250 mls @ 125 mls/hr IVPB Q12@0200,1400 [facility]; Protocol Last Admin: 10/08/18 14:59 Dose: 125 mls/hr Pantoprazole Sodium (Protonix Ec Tab) 40 mg PO DAILY [facility] Last Admin: 10/08/18 10:07 Dose: 40 mg Saccharomyces Boulardii (Florastor) 250 mg PO BID [facility] Last Admin: 10/08/18 10:07 Dose: 250 mg - Labs Labs: 10/08/18 11:02 10/07/18 09:18 PT 12.8 Seconds (9.8-13.1) 10/03/18 17:51 INR 1.1 10/03/18 17:51 APTT 17.9 Seconds (25.6-37.1) L 10/03/18 17:51 Attending/Attestation - Attestation I have personally seen and examined this patient.: Yes I have fully participated in the care of the patient.: Yes I have reviewed all pertinent clinical information, including history, physical exam and plan: Yes Notes (Text): Sepsis sec to UTI ( Enterococcus ) and MSSA Bacteremia ( POA) - cont IV vanco to 1.250g q 12 - rpt Blood c/s negative so far - Dr Aguilar rec rpt Blood c/s via PICC line - No vegetation on ECHO
[2018-10-08 11:12] LABS: BASO # 0.1 K/uL (0.0-0.2); BASO % 0.6 % (0.0-2.0); EOS # 0.5 K/uL (0.0-0.7); EOS % 4.6 % (0.0-4.0); LYMPH # 2.4 K/uL (1.0-4.3); LYMPH % 24.6 % (20.0-40.0); MEAN CELL VOLUME 81.4 fl (81.0-99.0); MEAN CORPUSCULAR HEMOGLOBIN 25.7 pg (27.0-31.0); MEAN CORPUSCULAR HGB CONC 31.5 g/dL (33.0-37.0); MEAN PLATELET VOLUME 9.1 fl (7.2-11.7); MONO # 1.5 K/uL (0.0-0.8); MONO % 15.1 % (0.0-10.0); NEUT # 5.5 K/uL (1.8-7.0); NEUT % 55.1 % (50.0-75.0); NRBC % 0.4 % (0.0-0.0); RBC 4.65 Mil/uL (3.80-5.20); RED CELL DISTRIBUTION WIDTH 19.2 % (11.5-14.5)
--- NOTE | 2018-10-08 11:38 | CP.PCM.PN ---
Subjective - Date & Time of Evaluation Date of Evaluation: 10/08/18 Time of Evaluation: 11:38 - Subjective Subjective: ID note- Pt. seen and examined today. Pt. denies any fever or chills. no new events overnight. Objective - Vital Signs/Intake and Output Vital Signs (last 24 hours): Temp Pulse Resp BP Pulse Ox 98.2 F 98 H 20 95/68 L 96 10/08/18 09:00 10/08/18 09:00 10/08/18 09:00 10/08/18 09:00 10/08/18 09:00 - Medications Medications: Current Medications Aspirin (Ecotrin) 81 mg PO Q6 PRN PRN Reason: Fever >100.4 F Aspirin (Aspirin Chewable) 81 mg PO Q6 PRN PRN Reason: Pain, Mild (1-3) Atorvastatin Calcium (Lipitor) 40 mg PO DAILY [facility] Last Admin: 10/08/18 10:07 Dose: 40 mg Benzonatate (Tessalon Perles) 100 mg PO Q8 PRN PRN Reason: Cough Enoxaparin Sodium (Lovenox) 130 mg SC Q12 [facility]; Protocol Last Admin: 10/08/18 10:08 Dose: 130 mg Vancomycin HCl 1.25 gm/ Sodium (Chloride) 250 mls @ 125 mls/hr IVPB Q12@0200,1400 [facility]; Protocol Last Admin: 10/08/18 01:35 Dose: 125 mls/hr Pantoprazole Sodium (Protonix Ec Tab) 40 mg PO DAILY [facility] Last Admin: 10/08/18 10:07 Dose: 40 mg Saccharomyces Boulardii (Florastor) 250 mg PO BID [facility] Last Admin: 10/08/18 10:07 Dose: 250 mg - Labs Labs: - Additional Findings Additional findings: - Constitutional Appears: No Acute Distress - Head Exam Head Exam: ATRAUMATIC - Eye Exam Eye Exam: EOMI, PERRL - ENT Exam ENT Exam: Normal Oropharynx - Neck Exam Neck exam: Positive for: Full Rom - Respiratory Exam Respiratory Exam: Clear to Auscultation Bilateral Additional comments: no wheezing - Cardiovascular Exam Cardiovascular Exam: +S1, +S2 Additional comments: slightly tachycardic no murmurs - GI/Abdominal Exam GI & Abdominal Exam: Normal Bowel Sounds, Soft Additional comments: NT, ND No guarding, no rebound - Extremities Exam Extremities exam: Positive for: normal inspection - Neurological Exam Neurological exam: Alert, Oriented x3 - Additional Findings Additional findings: right arm picc line- no erythema, no swelling, no pain Laboratory Results - last 72 hr 10/06/18 10/06/18 10/07/18 04:30 17:02 04:25 WBC 13.8 H 13.6 H RBC 4.92 4.84 Hgb 12.2 12.3 Hct 38.7 39.5 MCV 78.7 L D 81.6 D MCH 24.8 L 25.5 L MCHC 31.6 L 31.2 L RDW 18.6 H 19.0 H Plt Count 293 313 MPV 8.8 8.8 Neut % (Auto) 68.1 66.1 Lymph % (Auto) 16.1 L 17.4 L [place] % (Auto) 12.3 H 13.5 H Eos % (Auto) 2.5 2.6 Baso % (Auto) 1.0 0.4 Neut # (Auto) 9.4 H 9.0 H Lymph # (Auto) 2.2 2.4 [place] # (Auto) 1.7 H 1.8 H Eos # (Auto) 0.3 0.3 Baso # (Auto) 0.1 0.1 Sodium Potassium Chloride Carbon Dioxide Anion Gap BUN Creatinine Est GFR ( Amer) Est GFR (Non-Af Amer) Random Glucose Lactic Acid 1.8 Calcium Vancomycin Trough 10/07/18 10/08/18 10/08/18 09:18 01:00 11:02 WBC 10.0 RBC 4.65 Hgb 12.0 Hct 37.9 MCV 81.4 MCH 25.7 L MCHC 31.5 L RDW 19.2 H Plt Count 256 MPV 9.1 Neut % (Auto) 55.1 Lymph % (Auto) 24.6 Simpson % (Auto) 15.1 H Eos % (Auto) 4.6 H Baso % (Auto) 0.6 Neut # (Auto) 5.5 Lymph # (Auto) 2.4 Simpson # (Auto) 1.5 H Eos # (Auto) 0.5 Baso # (Auto) 0.1 Sodium 136 Potassium 4.6 Chloride 105 Carbon Dioxide 26 Anion Gap 10 BUN 6 L Creatinine 0.5 L Est GFR ( Amer) > 60 Est GFR (Non-Af Amer) > 60 Random Glucose 134 H Lactic Acid Calcium 8.7 Vancomycin Trough < 5.0 L Microbiology 10/05/18 09:08 Blood-Thru Central Line S.aureus & Coag-Neg Staph PNA FISH - Final 10/05/18 09:08 Blood-Thru Central Line Blood Culture - Final Staphylococcus Aureus 10/05/18 09:08 Blood-Thru Central Line Gram Stain - Final 10/05/18 08:20 Blood-Venous S.aureus & Coag-Neg Staph PNA FISH - Final 10/05/18 08:20 Blood-Venous Blood Culture - Final Staphylococcus Aureus 10/05/18 08:20 Blood-Venous Gram Stain - Final 10/06/18 17:12 Blood-Venous Blood Culture - Preliminary NO GROWTH AFTER 24 HOURS 10/06/18 17:02 Blood-Venous Blood Culture - Preliminary NO GROWTH AFTER 24 HOURS 10/04/18 06:05 Urine,Clean Catch Urine Culture - Final Enterococcus Faecalis Assessment and Plan (1) Asthma Status: Acute (2) Acute urinary tract infection Status: Acute (3) Bacteremia Status: Acute - Assessment and Plan (Free Text) Assessment: A/p- 48 year old female with pmh of asthma, PE , obesity admitted with sob , chills and weakness found to have E.fecalis UTI and prelim blood cx - GPC. afebrile leukocytosis has resolved. urine cx- e.feclais Blood cx - MSSA x 2 TTE- no vegetations as per report. repeat blood cx both peripheral -negative x 2 so far Plan- advise to check one blood cx stat from picc line. continue with IV vancomycin to treat both the e.feclais UTI and the MSSA bacteremia. keep vanco trough between 15-20. patient will need total of 2 weeks of IV abx for MSSA bacteremia. if the repeat blood cx from picc is negative then pt. can keep the current picc line ( since it was placed on admission and is new) and complete her 2 weeks of Iv abx via the picc. All above d/w at length.
--- NOTE | 2018-10-08 12:21 | CP.PCM.DIS ---
Provider - Provider Date of Admission: 10/05/18 15:53 Attending physician: Erica Pa MD Consults: 10/06/18 11:18 Infectious Disease Consult Routine Comment: Consulting Provider: Cindy Aguilar Consulting Physician: Cindy Aguilar Reason for Consult: UTI, BACTEREMIC Time Spent in preparation of Discharge (in minutes): 30 Diagnosis - Discharge Diagnosis (1) Acute urinary tract infection Status: Acute Hospital Course - Lab Results Lab Results: Micro Results 10/05/18 09:08 Blood-Thru Central Line S.aureus & Coag-Neg Staph PNA FISH - Final 10/05/18 09:08 Blood-Thru Central Line Blood Culture - Final Staphylococcus Aureus 10/05/18 09:08 Blood-Thru Central Line Gram Stain - Final 10/05/18 08:20 Blood-Venous S.aureus & Coag-Neg Staph PNA FISH - Final 10/05/18 08:20 Blood-Venous Blood Culture - Final Staphylococcus Aureus 10/05/18 08:20 Blood-Venous Gram Stain - Final 10/06/18 17:12 Blood-Venous Blood Culture - Preliminary NO GROWTH AFTER 24 HOURS 10/06/18 17:02 Blood-Venous Blood Culture - Preliminary NO GROWTH AFTER 24 HOURS 10/04/18 06:05 Urine,Clean Catch Urine Culture - Final Enterococcus Faecalis Most Recent Lab Values WBC 10.0 K/uL (4.8-10.8) 10/08/18 11:02 RBC 4.65 Mil/uL (3.80-5.20) 10/08/18 11:02 Hgb 12.0 g/dL (12.0-16.0) 10/08/18 11:02 Hct 37.9 % (34.0-47.0) 10/08/18 11:02 MCV 81.4 fl (81.0-99.0) 10/08/18 11:02 MCH 25.7 pg (27.0-31.0) L 10/08/18 11:02 MCHC 31.5 g/dL (33.0-37.0) L 10/08/18 11:02 RDW 19.2 % (11.5-14.5) H 10/08/18 11:02 Plt Count 256 K/uL (130-400) 10/08/18 11:02 MPV 9.1 fl (7.2-11.7) 10/08/18 11:02 Neut % (Auto) 55.1 % (50.0-75.0) 10/08/18 11:02 Lymph % (Auto) 24.6 % (20.0-40.0) 10/08/18 11:02 [place] % (Auto) 15.1 % (0.0-10.0) H 10/08/18 11:02 Eos % (Auto) 4.6 % (0.0-4.0) H 10/08/18 11:02 Baso % (Auto) 0.6 % (0.0-2.0) 10/08/18 11:02 Neut # (Auto) 5.5 K/uL (1.8-7.0) 10/08/18 11:02 Lymph # (Auto) 2.4 K/uL (1.0-4.3) 10/08/18 11:02 [place] # (Auto) 1.5 K/uL (0.0-0.8) H 10/08/18 11:02 Eos # (Auto) 0.5 K/uL (0.0-0.7) 10/08/18 11:02 Baso # (Auto) 0.1 K/uL (0.0-0.2) 10/08/18 11:02 PT 12.8 Seconds (9.8-13.1) 10/03/18 17:51 INR 1.1 10/03/18 17:51 APTT 17.9 Seconds (25.6-37.1) L 10/03/18 17:51 Sodium 136 mmol/l (132-148) 10/07/18 09:18 Potassium 4.6 MMOL/L (3.6-5.0) 10/07/18 09:18 Chloride 105 mmol/L (98-107) 10/07/18 09:18 Carbon Dioxide 26 mmol/L (22-30) 10/07/18 09:18 Anion Gap 10 (10-20) 10/07/18 09:18 BUN 6 mg/dl (7-17) L 10/07/18 09:18 Creatinine 0.5 mg/dl (0.7-1.2) L 10/07/18 09:18 Est GFR ( Amer) > 60 10/07/18 09:18 Est GFR (Non-Af Amer) > 60 10/07/18 09:18 Random Glucose 134 mg/dL (65-105) H 10/07/18 09:18 Lactic Acid 1.8 MMOL/L (0.7-2.1) 10/06/18 17:02 Calcium 8.7 mg/dL (8.4-10.2) 10/07/18 09:18 Total Bilirubin 1.6 mg/dl (0.2-1.3) H 10/03/18 13:00 AST 17 U/L (14-36) 10/03/18 13:00 ALT 42 U/L (9-52) 10/03/18 13:00 Alkaline Phosphatase 62 U/L (38-126) 10/03/18 13:00 Troponin I < 0.0120 ng/mL (0.00-0.120) 10/04/18 04:03 NT-Pro-B Natriuret Pep 34.8 pg/ml (0-450) 10/03/18 13:00 Total Protein 6.3 G/DL (6.3-8.2) 10/03/18 13:00 Albumin 3.6 g/dL (3.5-5.0) 10/03/18 13:00 Globulin 2.7 gm/dL (2.2-3.9) 10/03/18 13:00 Albumin/Globulin Ratio 1.3 (1.0-2.1) 10/03/18 13:00 Triglycerides 128 mg/DL (0-149) 10/04/18 04:03 Cholesterol 145 mg/dL (0-199) 10/04/18 04:03 LDL Cholesterol Direct 82 mg/dL (0-129) 10/04/18 04:03 HDL Cholesterol 48 MG/DL (30-70) 10/04/18 04:03 Procalcitonin 0.14 NG/ML (0.19-0.49) L 10/03/18 19:06 Urine Color Rissa (YELLOW) 10/04/18 01:05 Urine Clarity Turbid (Clear) 10/04/18 01:05 Urine pH 6.0 (5.0-8.0) 10/04/18 01:05 Ur Specific [place] 1.021 (1.003-1.030) 10/04/18 01:05 Urine Protein 30 mg/dL (NEGATIVE) 10/04/18 01:05 Urine Glucose (UA) Neg mg/dL (NEGATIVE) 10/04/18 01:05 Urine Ketones Negative mg/dL (NEGATIVE) 10/04/18 01:05 Urine Blood Moderate (NEGATIVE) 10/04/18 01:05 Urine Nitrate Negative (NEGATIVE) 10/04/18 01:05 Urine Bilirubin Negative (NEGATIVE) 10/04/18 01:05 Urine Urobilinogen 4.0 mg/dL (0.2-1.0) H 10/04/18 01:05 Ur Leukocyte Esterase Large [place]/uL (Negative) 10/04/18 01:05 Urine RBC (Auto) 46 /hpf (0-3) H 10/04/18 01:05 Urine Microscopic WBC 172 /hpf (0-5) H 10/04/18 01:05 Ur Squamous Epith Cells 42 /hpf (0-5) H 10/04/18 01:05 Vancomycin Trough < 5.0 ug/mL (5.0-10.0) L 10/08/18 01:00 Urine Opiates Screen Positive (NEGATIVE) H 10/04/18 01:05 Urine Methadone Screen Negative (NEGATIVE) 10/04/18 01:05 Ur Barbiturates Screen Negative (NEGATIVE) 10/04/18 01:05 Ur Phencyclidine Scrn Negative (NEGATIVE) 10/04/18 01:05 Ur Amphetamines Screen Negative (NEGATIVE) 10/04/18 01:05 U Benzodiazepines Scrn Negative (NEGATIVE) 10/04/18 01:05 U Oth Cocaine Metabols Negative (NEGATIVE) 10/04/18 01:05 U Cannabinoids Screen Negative (NEGATIVE) 10/04/18 01:05 Alcohol, Quantitative < 10 mg/dl (0-10) 10/03/18 13:00 - Hospital Course Hospital Course: 48 year old female with PMHx of asthma and 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 Troponins x 3 neg(<0.0120), V/Q scan showed low probability for PE. PICC line was placed due to difficulty getting peripheral IV access. UA, fever, and leukocytosis consistent with UTI. Patients urine culture showed e. faecalis and blood cultures showed staph aureus. Patient was given vancomycin while in the hospital. Patient will be switched to ertapenem 1 gm qd x 11 days while at home. - Date & Time of H&P Date of H&P: 10/08/18 Time of H&P: 12:22 Discharge Exam - Head Exam Head Exam: ATRAUMATIC, NORMOCEPHALIC - Eye Exam Eye Exam: EOMI, Normal appearance, PERRL Pupil Exam: NORMAL ACCOMODATION - ENT Exam ENT Exam: Mucous Membranes Moist - Respiratory Exam Respiratory Exam: NORMAL BREATHING PATTERN - Cardiovascular Exam Cardiovascular Exam: REGULAR RHYTHM, +S1, +S2 - GI/Abdominal Exam GI & Abdominal Exam: Normal Bowel Sounds - Neurological Exam Neurological exam: Alert Discharge Plan - Follow Up Plan Condition: GOOD Disposition: HOME/ ROUTINE Instructions: Urinary Tract Infection, Adult (DC), Chest Pain (DC), Acute Abdominal Pain (DC), Acute Abdominal Pain (GEN), Anemia (DC), Anemia (GEN) Referrals: [facility] [place] [Outside]
[2018-10-08] MEDS ORDERED: guaiFENesin-DM 600-30 mg ER Tab PO SCH (19:30)
[2018-10-08] MEDS ORDERED: DiphenhydrAMINE 50 mg/ml Inj IVP ONE (23:15)
[2018-10-08] MEDS: guaiFENesin DM 200 mg-20 mg/10 ml UD PO PRN (23:42)
[2018-10-09] MEDS: guaiFENesin DM 200 mg-20 mg/10 ml UD PO PRN (05:06)
[2018-10-09 06:47] LABS: BASO # 0.1 K/uL (0.0-0.2); BASO % 1.3 % (0.0-2.0); EOS # 0.6 K/uL (0.0-0.7); EOS % 5.4 % (0.0-4.0); HEMOGLOBIN 11.5 g/dL (12.0-16.0); LYMPH # 2.5 K/uL (1.0-4.3); LYMPH % 23.3 % (20.0-40.0); MEAN CELL VOLUME 79.3 fl (81.0-99.0); MEAN CORPUSCULAR HEMOGLOBIN 25.5 pg (27.0-31.0); MEAN CORPUSCULAR HGB CONC 32.2 g/dL (33.0-37.0); MEAN PLATELET VOLUME 8.9 fl (7.2-11.7); MONO # 1.4 K/uL (0.0-0.8); MONO % 12.8 % (0.0-10.0); NEUT # 6.1 K/uL (1.8-7.0); NEUT % 57.2 % (50.0-75.0); NRBC % 0.3 % (0.0-0.0); RBC 4.52 Mil/uL (3.80-5.20); RED CELL DISTRIBUTION WIDTH 19.2 % (11.5-14.5); WHITE BLOOD COUNT 10.7 K/uL (4.8-10.8)
[2018-10-09] MEDS ORDERED: guaiFENesin 100 mg/5 ml Syrup UD PO PRN (06:59)
[2018-10-09 07:08] LABS: BLOOD UREA NITROGEN 6 mg/dl (7-17); CALCIUM 8.6 mg/dL (8.4-10.2); GFR NON-AFRICAN AMERICAN > 60
[2018-10-09] MEDS: Pantoprazole 40 mg EC Tab PO SCH (08:41)
[2018-10-09] MEDS: Saccharomyces Boulardi 250 mg Cap PO SCH (08:42)
[2018-10-09] MEDS: Enoxaparin 150 mg Syringe SC SCH (08:46)
[2018-10-09] MEDS ORDERED: Promethazine DM 6.25 mg-15 mg/5 ml Syrup PO PRN (10:39)
--- NOTE | 2018-10-09 14:13 | CP.PCM.DIS ---
<Newton Raymond - Last Filed: 10/09/18 14:26> Provider - Provider Date of Admission: 10/05/18 15:53 Attending physician: Erica Pa MD Consults: 10/06/18 11:18 Infectious Disease Consult Routine Comment: Consulting Provider: Cindy Aguilar Consulting Physician: Cindy Aguilar Reason for Consult: UTI, BACTEREMIC Time Spent in preparation of Discharge (in minutes): 35 Hospital Course - Lab Results Lab Results: Micro Results 10/06/18 17:12 Blood-Venous Blood Culture - Preliminary NO GROWTH AFTER 48 HOURS 10/06/18 17:02 Blood-Venous Blood Culture - Preliminary NO GROWTH AFTER 48 HOURS 10/05/18 09:08 Blood-Thru Central Line S.aureus & Coag-Neg Staph PNA FISH - Final 10/05/18 09:08 Blood-Thru Central Line Blood Culture - Final Staphylococcus Aureus 10/05/18 09:08 Blood-Thru Central Line Gram Stain - Final 10/05/18 08:20 Blood-Venous S.aureus & Coag-Neg Staph PNA FISH - Final 10/05/18 08:20 Blood-Venous Blood Culture - Final Staphylococcus Aureus 10/05/18 08:20 Blood-Venous Gram Stain - Final 10/04/18 06:05 Urine,Clean Catch Urine Culture - Final Enterococcus Faecalis Most Recent Lab Values WBC 10.7 K/uL (4.8-10.8) 10/09/18 06:35 RBC 4.52 Mil/uL (3.80-5.20) 10/09/18 06:35 Hgb 11.5 g/dL (12.0-16.0) L 10/09/18 06:35 Hct 35.8 % (34.0-47.0) 10/09/18 06:35 MCV 79.3 fl (81.0-99.0) L D 10/09/18 06:35 MCH 25.5 pg (27.0-31.0) L 10/09/18 06:35 MCHC 32.2 g/dL (33.0-37.0) L 10/09/18 06:35 RDW 19.2 % (11.5-14.5) H 10/09/18 06:35 Plt Count 247 K/uL (130-400) 10/09/18 06:35 MPV 8.9 fl (7.2-11.7) 10/09/18 06:35 Neut % (Auto) 57.2 % (50.0-75.0) 10/09/18 06:35 Lymph % (Auto) 23.3 % (20.0-40.0) 10/09/18 06:35 [place] % (Auto) 12.8 % (0.0-10.0) H 10/09/18 06:35 Eos % (Auto) 5.4 % (0.0-4.0) H 10/09/18 06:35 Baso % (Auto) 1.3 % (0.0-2.0) 10/09/18 06:35 Neut # (Auto) 6.1 K/uL (1.8-7.0) 10/09/18 06:35 Lymph # (Auto) 2.5 K/uL (1.0-4.3) 10/09/18 06:35 [place] # (Auto) 1.4 K/uL (0.0-0.8) H 10/09/18 06:35 Eos # (Auto) 0.6 K/uL (0.0-0.7) 10/09/18 06:35 Baso # (Auto) 0.1 K/uL (0.0-0.2) 10/09/18 06:35 PT 12.8 Seconds (9.8-13.1) 10/03/18 17:51 INR 1.1 10/03/18 17:51 APTT 17.9 Seconds (25.6-37.1) L 10/03/18 17:51 Sodium 137 mmol/l (132-148) 10/09/18 06:35 Potassium 4.4 MMOL/L (3.6-5.0) 10/09/18 06:35 Chloride 107 mmol/L (98-107) 10/09/18 06:35 Carbon Dioxide 23 mmol/L (22-30) 10/09/18 06:35 Anion Gap 11 (10-20) 10/09/18 06:35 BUN 6 mg/dl (7-17) L 10/09/18 06:35 Creatinine 0.4 mg/dl (0.7-1.2) L 10/09/18 06:35 Est GFR ( Amer) > 60 10/09/18 06:35 Est GFR (Non-Af Amer) > 60 10/09/18 06:35 Random Glucose 148 mg/dL (65-105) H 10/09/18 06:35 Lactic Acid 1.8 MMOL/L (0.7-2.1) 10/06/18 17:02 Calcium 8.6 mg/dL (8.4-10.2) 10/09/18 06:35 Total Bilirubin 1.6 mg/dl (0.2-1.3) H 10/03/18 13:00 AST 17 U/L (14-36) 10/03/18 13:00 ALT 42 U/L (9-52) 10/03/18 13:00 Alkaline Phosphatase 62 U/L (38-126) 10/03/18 13:00 Troponin I < 0.0120 ng/mL (0.00-0.120) 10/04/18 04:03 NT-Pro-B Natriuret Pep 34.8 pg/ml (0-450) 10/03/18 13:00 Total Protein 6.3 G/DL (6.3-8.2) 10/03/18 13:00 Albumin 3.6 g/dL (3.5-5.0) 10/03/18 13:00 Globulin 2.7 gm/dL (2.2-3.9) 10/03/18 13:00 Albumin/Globulin Ratio 1.3 (1.0-2.1) 10/03/18 13:00 Triglycerides 128 mg/DL (0-149) 10/04/18 04:03 Cholesterol 145 mg/dL (0-199) 10/04/18 04:03 LDL Cholesterol Direct 82 mg/dL (0-129) 10/04/18 04:03 HDL Cholesterol 48 MG/DL (30-70) 10/04/18 04:03 Procalcitonin 0.14 NG/ML (0.19-0.49) L 10/03/18 19:06 Urine Color Rissa (YELLOW) 10/04/18 01:05 Urine Clarity Turbid (Clear) 10/04/18 01:05 Urine pH 6.0 (5.0-8.0) 10/04/18 01:05 Ur Specific [place] 1.021 (1.003-1.030) 10/04/18 01:05 Urine Protein 30 mg/dL (NEGATIVE) 10/04/18 01:05 Urine Glucose (UA) Neg mg/dL (NEGATIVE) 10/04/18 01:05 Urine Ketones Negative mg/dL (NEGATIVE) 10/04/18 01:05 Urine Blood Moderate (NEGATIVE) 10/04/18 01:05 Urine Nitrate Negative (NEGATIVE) 10/04/18 01:05 Urine Bilirubin Negative (NEGATIVE) 10/04/18 01:05 Urine Urobilinogen 4.0 mg/dL (0.2-1.0) H 10/04/18 01:05 Ur Leukocyte Esterase Large [place]/uL (Negative) 10/04/18 01:05 Urine RBC (Auto) 46 /hpf (0-3) H 10/04/18 01:05 Urine Microscopic WBC 172 /hpf (0-5) H 10/04/18 01:05 Ur Squamous Epith Cells 42 /hpf (0-5) H 10/04/18 01:05 Vancomycin Trough < 5.0 ug/mL (5.0-10.0) L 10/08/18 01:00 Urine Opiates Screen Positive (NEGATIVE) H 10/04/18 01:05 Urine Methadone Screen Negative (NEGATIVE) 10/04/18 01:05 Ur Barbiturates Screen Negative (NEGATIVE) 10/04/18 01:05 Ur Phencyclidine Scrn Negative (NEGATIVE) 10/04/18 01:05 Ur Amphetamines Screen Negative (NEGATIVE) 10/04/18 01:05 U Benzodiazepines Scrn Negative (NEGATIVE) 10/04/18 01:05 U Oth Cocaine Metabols Negative (NEGATIVE) 10/04/18 01:05 U Cannabinoids Screen Negative (NEGATIVE) 10/04/18 01:05 Alcohol, Quantitative < 10 mg/dl (0-10) 10/03/18 13:00 - Hospital Course Hospital Course: 48 y/o F with PMHx of asthma and history of 12 previous pulmonary embolisms currently on lovenox 130mg BID presents to [facility] with complaints of sudden onset of midsternal chest pain. Troponins x 3 neg(<0.0120), V/Q scan showed low probability for PE. PICC line was placed due to difficulty getting peripheral IV access. Patient started getting fever, so UA was done which is consistent with U TI. Patients urine culture showed e. faecalis and blood cultures showed staph aureus. Patient received ceftriaxone for 3 days which was switched to Vancomycin. ID consulted. Blood Cx drawn through PICC line negative after 24 hrs(Dr. Pa spoke to lab at [facility]). Patient to be discharged home with PICC line and advised to return tomorrow to Same day surgery unit to receive IV antibiotics and to complete 14 days course of ABx. Patient will receive Vancomycin 1.5gm IVP Daily for next 10 days. F/U BMP and Vancomycin trough level on 10.15.18. Continue home medications and F/U with FP within 1 week. Discharge Medications - Vancomycin 1.5 gm IV daily x 10 days - OTC Robitussin/Mucinex for cough - Continue Lovenox 130 mg BID SC Discharge Exam - Head Exam Head Exam: ATRAUMATIC, NORMOCEPHALIC - Eye Exam Eye Exam: EOMI, Normal appearance - ENT Exam ENT Exam: Mucous Membranes Moist - Respiratory Exam Respiratory Exam: Clear to PA & Lateral. absent: Rales, Rhonchi, Wheezes, Resp iratory Distress - Cardiovascular Exam Cardiovascular Exam: REGULAR RHYTHM, +S1, +S2. absent: Systolic Murmur - GI/Abdominal Exam GI & Abdominal Exam: Normal Bowel Sounds. absent: Distended, Tenderness - Neurological Exam Neurological exam: Alert, Oriented x3 - Psychiatric Exam Psychiatric exam: Normal Affect, Normal Mood - Skin Skin Exam: Dry, Intact, Normal Color Discharge Plan - Discharge Medications Prescriptions: Vancomycin/0.9 % Sod Chloride [Vanco 1.5 gm/150 ml-0.9% NaCl] 1.5 gm IV DAILY 10 Days #10 plast..bag - Follow Up Plan Condition: GOOD Disposition: HOME/ ROUTINE Instructions: Urinary Tract Infection, Adult (DC), Chest Pain (DC), Acute Abdominal Pain (DC), Acute Abdominal Pain (GEN), Anemia (DC), Anemia (GEN) Additional Instructions: ff up FP clinic in 1 wk Pt to go to Same Day Surgery Unit daily for IV vanco infusion - Vancomycin 1.5 gram daily x 10 days Vanco trough and BMP once a week every Saturday Referrals: at [facility] [Outside] <Erica Pa - Last Filed: 10/09/18 16:42> Provider - Provider Date of Admission: 10/05/18 15:53 Attending physician: Erica Pa MD Consults: 10/06/18 11:18 Infectious Disease Consult Routine Comment: Consulting Provider: Cindy Aguilar Consulting Physician: Cindy Aguilar Reason for Consult: UTI, BACTEREMIC Hospital Course - Lab Results Lab Results: Micro Results 10/08/18 14:55 Blood-Thru Central Line Blood Culture - Preliminary Gram Pos Cocci In Clusters 10/08/18 14:55 Blood-Thru Central Line Gram Stain - Final 10/06/18 17:12 Blood-Venous Blood Culture - Preliminary NO GROWTH AFTER 48 HOURS 10/06/18 17:02 Blood-Venous Blood Culture - Preliminary NO GROWTH AFTER 48 HOURS 10/05/18 09:08 Blood-Thru Central Line S.aureus & Coag-Neg Staph PNA FISH - Final 10/05/18 09:08 Blood-Thru Central Line Blood Culture - Final Staphylococcus Aureus 10/05/18 09:08 Blood-Thru Central Line Gram Stain - Final 10/05/18 08:20 Blood-Venous S.aureus & Coag-Neg Staph PNA FISH - Final 10/05/18 08:20 Blood-Venous Blood Culture - Final Staphylococcus Aureus 10/05/18 08:20 Blood-Venous Gram Stain - Final 10/04/18 06:05 Urine,Clean Catch Urine Culture - Final Enterococcus Faecalis Most Recent Lab Values WBC 10.7 K/uL (4.8-10.8) 10/09/18 06:35 RBC 4.52 Mil/uL (3.80-5.20) 10/09/18 06:35 Hgb 11.5 g/dL (12.0-16.0) L 10/09/18 06:35 Hct 35.8 % (34.0-47.0) 10/09/18 06:35 MCV 79.3 fl (81.0-99.0) L D 10/09/18 06:35 MCH 25.5 pg (27.0-31.0) L 10/09/18 06:35 MCHC 32.2 g/dL (33.0-37.0) L 10/09/18 06:35 RDW 19.2 % (11.5-14.5) H 10/09/18 06:35 Plt Count 247 K/uL (130-400) 10/09/18 06:35 MPV 8.9 fl (7.2-11.7) 10/09/18 06:35 Neut % (Auto) 57.2 % (50.0-75.0) 10/09/18 06:35 Lymph % (Auto) 23.3 % (20.0-40.0) 10/09/18 06:35 [place] % (Auto) 12.8 % (0.0-10.0) H 10/09/18 06:35 Eos % (Auto) 5.4 % (0.0-4.0) H 10/09/18 06:35 Baso % (Auto) 1.3 % (0.0-2.0) 10/09/18 06:35 Neut # (Auto) 6.1 K/uL (1.8-7.0) 10/09/18 06:35 Lymph # (Auto) 2.5 K/uL (1.0-4.3) 10/09/18 06:35 [place] # (Auto) 1.4 K/uL (0.0-0.8) H 10/09/18 06:35 Eos # (Auto) 0.6 K/uL (0.0-0.7) 10/09/18 06:35 Baso # (Auto) 0.1 K/uL (0.0-0.2) 10/09/18 06:35 PT 12.8 Seconds (9.8-13.1) 10/03/18 17:51 INR 1.1 10/03/18 17:51 APTT 17.9 Seconds (25.6-37.1) L 10/03/18 17:51 Sodium 137 mmol/l (132-148) 10/09/18 06:35 Potassium 4.4 MMOL/L (3.6-5.0) 10/09/18 06:35 Chloride 107 mmol/L (98-107) 10/09/18 06:35 Carbon Dioxide 23 mmol/L (22-30) 10/09/18 06:35 Anion Gap 11 (10-20) 10/09/18 06:35 BUN 6 mg/dl (7-17) L 10/09/18 06:35 Creatinine 0.4 mg/dl (0.7-1.2) L 10/09/18 06:35 Est GFR ( Amer) > 60 10/09/18 06:35 Est GFR (Non-Af Amer) > 60 10/09/18 06:35 Random Glucose 148 mg/dL (65-105) H 10/09/18 06:35 Lactic Acid 1.8 MMOL/L (0.7-2.1) 10/06/18 17:02 Calcium 8.6 mg/dL (8.4-10.2) 10/09/18 06:35 Total Bilirubin 1.6 mg/dl (0.2-1.3) H 10/03/18 13:00 AST 17 U/L (14-36) 10/03/18 13:00 ALT 42 U/L (9-52) 10/03/18 13:00 Alkaline Phosphatase 62 U/L (38-126) 10/03/18 13:00 Troponin I < 0.0120 ng/mL (0.00-0.120) 10/04/18 04:03 NT-Pro-B Natriuret Pep 34.8 pg/ml (0-450) 10/03/18 13:00 Total Protein 6.3 G/DL (6.3-8.2) 10/03/18 13:00 Albumin 3.6 g/dL (3.5-5.0) 10/03/18 13:00 Globulin 2.7 gm/dL (2.2-3.9) 10/03/18 13:00 Albumin/Globulin Ratio 1.3 (1.0-2.1) 10/03/18 13:00 Triglycerides 128 mg/DL (0-149) 10/04/18 04:03 Cholesterol 145 mg/dL (0-199) 10/04/18 04:03 LDL Cholesterol Direct 82 mg/dL (0-129) 10/04/18 04:03 HDL Cholesterol 48 MG/DL (30-70) 10/04/18 04:03 Procalcitonin 0.14 NG/ML (0.19-0.49) L 10/03/18 19:06 Urine Color Rissa (YELLOW) 10/04/18 01:05 Urine Clarity Turbid (Clear) 10/04/18 01:05 Urine pH 6.0 (5.0-8.0) 10/04/18 01:05 Ur Specific [place] 1.021 (1.003-1.030) 10/04/18 01:05 Urine Protein 30 mg/dL (NEGATIVE) 10/04/18 01:05 Urine Glucose (UA) Neg mg/dL (NEGATIVE) 10/04/18 01:05 Urine Ketones Negative mg/dL (NEGATIVE) 10/04/18 01:05 Urine Blood Moderate (NEGATIVE) 10/04/18 01:05 Urine Nitrate Negative (NEGATIVE) 10/04/18 01:05 Urine Bilirubin Negative (NEGATIVE) 10/04/18 01:05 Urine Urobilinogen 4.0 mg/dL (0.2-1.0) H 10/04/18 01:05 Ur Leukocyte Esterase Large [place]/uL (Negative) 10/04/18 01:05 Urine RBC (Auto) 46 /hpf (0-3) H 10/04/18 01:05 Urine Microscopic WBC 172 /hpf (0-5) H 10/04/18 01:05 Ur Squamous Epith Cells 42 /hpf (0-5) H 10/04/18 01:05 Vancomycin Trough < 5.0 ug/mL (5.0-10.0) L 10/08/18 01:00 Urine Opiates Screen Positive (NEGATIVE) H 10/04/18 01:05 Urine Methadone Screen Negative (NEGATIVE) 10/04/18 01:05 Ur Barbiturates Screen Negative (NEGATIVE) 10/04/18 01:05 Ur Phencyclidine Scrn Negative (NEGATIVE) 10/04/18 01:05 Ur Amphetamines Screen Negative (NEGATIVE) 10/04/18 01:05 U Benzodiazepines Scrn Negative (NEGATIVE) 10/04/18 01:05 U Oth Cocaine Metabols Negative (NEGATIVE) 10/04/18 01:05 U Cannabinoids Screen Negative (NEGATIVE) 10/04/18 01:05 Alcohol, Quantitative < 10 mg/dl (0-10) 10/03/18 13:00 Attending/Attestation - Attestation I have personally seen and examined this patient.: Yes I have fully participated in the care of the patient.: Yes I have reviewed all pertinent clinical information, including history, physical exam and plan: Yes Notes (Text): Sepsis sec to UTI ( Enterococcus ) and MSSA Bacteremia ( POA) - received IV vanco to 1.250g q 12 - rpt Blood c/s negative so far - Dr Aguilar rec rpt Blood c/s via PICC line w/c also came back negative - spoke with Micro at [facility] ( Cheryl) - No vegetation on ECHO - discussed with Dr Aguilar - rec Vanco 1.5 gram IV daily x 10 more days to complete 14 days of IV abx - we will d/c pt home with PICC line and pt will ff up at the [facility] Unit for daily IV abx infusion, PICC line to be d/c after the IV abx is completed - will monitor BMP and Vanco trough weekly
[2018-10-09 15:49] VITALS: BP 124/83; PULSE 114; RESP 16; TEMP 98.3; O2SAT 99
== END 2018-10-09 18:55 | disposition home or self-care (01) | DRG 720 ==
LOC: H.ER 11:06 → H.ERHOLD 17:37 → H.TEL 10-04 09:33 → OBSVTOIN 10-05 15:53 → H.TEL 10-07 17:37
PROVIDERS: ADMIT Internal Medicine; ATTEND Internal Medicine
PROC: 02HV33Z Insertion of Infusion Device into Superior Vena Cava, Percutaneous Approach (ICD-10-PCS; principal; 2018-10-03)
PROC: B518ZZA Fluoroscopy of Superior Vena Cava, Guidance (ICD-10-PCS; 2018-10-03)
PROC: B548ZZA Ultrasonography of Superior Vena Cava, Guidance (ICD-10-PCS; 2018-10-03)
PROC: 3E04329 Introduction of Other Anti-infective into Central Vein, Percutaneous Approach (ICD-10-PCS; 2018-10-03)
DX: A41.01 Sepsis due to Methicillin susceptible Staphylococcus aureus (principal); Z68.42 Body mass index [BMI] 45.0-49.9, adult; I12.9 Hypertensive chronic kidney disease with stage 1 through stage 4 chronic kidney disease, or unspecified chronic kidney disease; E66.01 Morbid (severe) obesity due to excess calories; N39.0 Urinary tract infection, site not specified; B96.20 Unspecified Escherichia coli [E. coli] as the cause of diseases classified elsewhere; B95.2 Enterococcus as the cause of diseases classified elsewhere; N18.9 Chronic kidney disease, unspecified; R07.89 Other chest pain; J45.909 Unspecified asthma, uncomplicated; Z86.711 Personal history of pulmonary embolism; Z87.442 Personal history of urinary calculi; Z88.6 Allergy status to analgesic agent; Z90.81 Acquired absence of spleen; Z90.49 Acquired absence of other specified parts of digestive tract; Z91.041 Radiographic dye allergy status